=== PATIENT | female | born 1980 ===

== ENCOUNTER 2020-05-20 13:00 | Outpatient (REF) | payer MEDICAID, SELFPAY ==
[2020-05-21 04:32] LABS: CT PCR NOT DETECTED (Not Detect.); NG PCR NOT DETECTED (Not Detect.)
[2020-05-21 09:30] LABS: BV Int Neg Control Negative (Negative); BV Int Pos Control Positive (Positive)
== END 2020-05-20 13:01 | disposition home or self-care (01) ==
LOC: HO.LAB 13:00
PROVIDERS: Visit Provider Advanced Practice Midwife
DX: N92.4 Excessive bleeding in the premenopausal period (principal)
CPT/HCPCS: 87480; 87491; 87510; 87591; 87660; 99212

== ENCOUNTER 2020-06-06 14:22 | Outpatient (REF) | payer MEDICAID, SELFPAY ==
--- NOTE | 2020-06-06 14:29 | MM_ITS ---
EXAMINATION: MM DIAGNOSTIC DIGITAL BREAST TOMOSYNTHESIS, LEFT CLINICAL INFORMATION: Six-month follow-up left breast density The lifetime risk of breast cancer based on the Tyrer-Cuzick Model is 7.6%. COMPARISON: Mammography: November 07, 2019 and studies dating back to March 23, 2018 TECHNIQUE: Digital breast tomosynthesis is performed in both the craniocaudal and mediolateral oblique views along with computer-aided detection (CAD). Synthesized 2D images are generated from the tomosynthesis. FINDINGS: There are scattered areas of fibroglandular density (ACR BI-RADS breast composition Category b). There are no significant masses, abnormal calcifications, or other abnormalities. Results are provided to the patient at time of visit by the technologist. MM/MM tomosynthesis diagnostic LT IMPRESSION: No significant change from prior study. No suspicious mass identified. ASSESSMENT: BI-RADS 1: Negative RECOMMENDATION: Routine annual mammography screening, due in 6 months. This patient's information was entered into a reminder system with a target due date for their next mammogram.
== END 2020-06-06 14:23 | disposition home or self-care (01) ==
LOC: HO.MAMMO 14:22
PROVIDERS: PCP Internal Medicine; Visit Provider Internal Medicine
DX: R92.2 Inconclusive mammogram (principal)
CPT/HCPCS: 77061; 77065

== ENCOUNTER → 2020-07-05 09:00 | Outpatient (BNV) | payer MEDICAID, SELFPAY | PROVIDERS: Visit Provider Internal Medicine | DX: D50.9 Iron deficiency anemia, unspecified (principal) | CPT/HCPCS: 99212; 99213; 99214 ==

== ENCOUNTER → 2020-07-16 14:32 | Outpatient (BNVA) | payer MEDICAID, SELFPAY | PROVIDERS: Visit Provider Dietitian, Registered ==

== ENCOUNTER 2020-07-19 | Outpatient (REF) | payer MEDICAID, SELFPAY | END 2020-07-19 00:01 | disposition home or self-care (01) | LOC: HO.LAB | PROVIDERS: Visit Provider Physician Assistant | DX: M47.816 Spondylosis without myelopathy or radiculopathy, lumbar region (principal); Z79.899 Other long term (current) drug therapy | CPT/HCPCS: 99212 ==

== ENCOUNTER → 2020-08-20 07:58 | Outpatient (BNVA) | payer MEDICAID, SELFPAY | PROVIDERS: Visit Provider Dietitian, Registered ==

== ENCOUNTER → 2020-10-10 09:07 | Outpatient (BNVA) | payer MEDICAID, SELFPAY | PROVIDERS: PCP Internal Medicine; Visit Provider Student in an Organized Health Care Education/Training Program | DX: M54.2 Cervicalgia (principal) | CPT/HCPCS: 99212 ==

== ENCOUNTER → 2020-11-05 08:06 | Outpatient (BNVA) | payer MEDICAID, SELFPAY | PROVIDERS: PCP Internal Medicine; Visit Provider Physician Assistant | DX: M79.18 Myalgia, other site (principal); M54.2 Cervicalgia | CPT/HCPCS: 20552; 20553; 99202 ==

== ENCOUNTER 2020-11-14 16:07 | Emergency (ER) | payer MEDICAID, SELFPAY ==
[2020-11-14 16:40] VITALS: BP 116/76; PULSE 78; RESP 17; TEMP 37.3; O2SAT 99
--- NOTE | 2020-11-14 16:50 | ED_ITS ---
HPI - General Adult General Chief complaint: Headache Stated complaint: Headache Time Seen by Provider: 11/14/20 16:24 Source: patient Mode of arrival: ambulatory Limitations: no limitations History of Present Illness HPI narrative: Patient comes emergency room complaining of headache, bilateral neck pain on both sides of the neck radiating towards the scapulas bilaterally. Patient states she has been having this chronic neck pain for 4 months. However, over the last 4 days the pain intensified. Patient denies any history of trauma. Patient states she has been seen by her primary care physician multiple times for this issue, 3 days ago she received injections in her back for pain control. Patient states that she has noticed over the last week that she has a tingling sensation radiating, radiating towards both hands. At this time, patient does not feel paresthesia in her upper extremities. Patient denies fever or chills. Patient states she was seen by her primary care physician this morning, patient was sent to the emergency room for further evaluation. For the headache, patient has been taking ibuprofen. It was noted the patient is on a bariatric patient. Patient states that she does not have Tylenol home, therefore she has been taking ibuprofen although she has been asked by her bariatric surgeon not to do so. Related Data Home Medications Medication Instructions Recorded Confirmed ascorbic acid (vitamin C) [Vitamin 25 mg PO DAILY 04/30/20 11/05/20 C] multivitamin 1 tab PO DAILY 04/30/20 11/05/20 vitamin B81-wdybo acid 1 tab PO DAILY 04/30/20 11/05/20 ferrous sulfate 325 mg (65 mg 325 mg PO BID 07/19/20 11/05/20 iron) tablet Previous Rx's Medication Instructions Recorded calcium citrate 250 mg 2 tab PO BID #120 tab 07/16/20 calcium-vitamin D3 5 mcg (200 unit) tablet tramadol 50 mg tablet 50 mg PO TID PRN 30 Days #90 tab 08/07/20 cyanocobalamin (vitamin B-12) 100 mcg IM QMONTH #3 ea 11/01/20 baclofen 10 mg PO TID PRN #10 tab 11/14/20 sumatriptan succinate 50 mg PO Q2-4H PRN #7 tab 11/14/20 Allergies Allergy/AdvReac Type Severity Reaction Status Date / Time adhesive tape [ADHESIVE TAPE] Allergy Intermediate BURN/BLISTE Verified 11/05/20 11:28 R Review of Systems Review of Systems: Constitutional : No Weight loss, No Fever, No Chills, No Night Sweats, No Fatigue, No Malaise ENT/Mouth : No Hearing loss, No Ear Pain, No Nasal Congestion, No Sinus Pain, No Hoarseness, No sore throat, No Rhinorrhea, No Swallowing Difficulty Eyes: No Eye Pain, No Swelling, No Redness, No Foreign Body, No Discharge, No Vision Changes Cardiovascular : No Chest Pain, No SOB, No Dyspnea on Exertion, No Orthopnea, No Edema, No Palpitations Respiratory : No Cough, No Sputum, No Wheezing, No Smoke Exposure, No Dyspnea Gastrointestinal : No Nausea, No Vomiting, No Diarrhea, No Constipation, No abdominal Pain, No Hematochezia, No Melena Genitourinary : no irregular bleeding, No Dysuria, No Urinary Frequency, No Hematuria, No Urinary Incontinence, No Urgency, No Flank Pain, No Urinary Flow Changes, No Hesitancy Musculoskeletal : Acute on chronic pain bilateral sides of the neck radiating towards the scapulas Skin : No Skin Lesions, No rash Neuro : No Weakness, No Numbness, complaining of mild paresthesias in both hands , No Loss of Consciousness, No Dizziness, No Headache Psych : No Anxiety/Panic, No Depression, No SI/HI/AH/VH, No Social Issues, Heme/Lymph: No Bruising, No Bleeding,No Lymphadenopathy Endocrine : No Polyuria, No Polydipsia, No Temperature Intolerance [facility] Past Medical History Medical History (Updated 11/14/20 @ 21:07 by Esperanza Amado MD) Anemia Arthritis Fatigue Fibromyalgia GERD (gastroesophageal reflux disease) Intestinal malabsorption following gastrectomy Lumbar spondylosis Obesity (BMI 30-39.9) Sleep apnea Surgical History S/P laparoscopic sleeve gastrectomy Family History Family History Father Respiratory arrest Sister Anemia Social History Social History Alcohol intake: never Smoking Status: Never smoker Advance Directives: No Advance Directives Information Provided: Yes Patient : No Gender identity: female Physical Exam Vital Signs: Vital Signs: Last Vital Signs Temp 99.1 F 11/14/20 16:40 Pulse 78 11/14/20 16:40 Resp 17 11/14/20 16:40 BP 116/76 11/14/20 16:40 Pulse Ox 99 11/14/20 16:40 Body Mass Index 35.4 Appearance: Alert. Oriented X3. No acute distress. Well-appearing, no fever Eyes: Pupils equal, round and reactive to light. ENT: Pharynx normal. Neck: Normal inspection. Pain to palpation over the trapezius muscles bilaterally, no C-spine tenderness. Patient is able to flex and extend her neck, is able to touch her chin, no neck rigidity noted CVS: Normal heart rate and rhythm. Pulses normal. Normal S1 and S2 Respiratory: No respiratory distress. Breath sounds normal. No Wheezing. No rales Abdomen: Soft and nontender. No rigidity. No distention. good BS x4 Skin: Skin warm and dry. Normal skin color. Normal skin turgor. Extremities: No lower extremity edema. No lower extremity edema. No Lacerations. No Rash Neuro: Oriented X 3. No motor deficit. No sensory deficit. Moving all ext ermities. No slurred speech. Course Course Course Narrative: Patient's history and physical exam is consistent with cervical radiculopathy. Patient likely has either an entrapped nerve versus bulging discs. Patient states that her primary care physician already spoke to her about getting an MRI. At this time, meningitis is not suspected Patient's back pain improved with the an oral dose of Valium. After a dose of sumatriptan, patient states that her headache improved quite a bit. Patient r equesting that prescription to be sent to her pharmacy. Patient is now able to flex and extend her neck completely with minimal discomfort. Patient states she does not have any neck pain, states she feels a slight pull between her shoulder blades rather than her neck. Meningitis is not suspected I discussed with the patient that she is anemic, states that she is currently taking iron p.o. and is scheduled to get iron infusions. Patient states that she has very heavy menstrual periods, I discussed with her to talk with her primary care physician/OBGYN about possibly getting an IUD to help with menorrhagia Medical Decision Making Lab Data Result diagrams: 11/14/20 17:20 11/14/20 17:20 Labs: Lab Results 11/14/20 11/14/20 Range/Units 17:20 17:20 WBC 7.0 (4.8-10.8) X10*3/uL RBC 3.27 L (4.20-5.50) X10*6/uL Hgb 9.8 L (12.0-16.0) g/dl Hct 29.5 L (37-47) % MCV 90.2 (80-98) fL MCH 30.0 (27.0-33.0) pg MCHC 33.2 (31.0-35.0) g/dl RDW 12.0 (11.0-16.0) % Plt Count 251 (160-400) X10*3/uL MPV 8.5 L (9.4-12.3) fL Immature Gran % (Auto) 0.1 (0.0-0.4) % Neut % (Auto) 63.0 (45-73) % Lymph % (Auto) 29.1 (20-40) % [place] % (Auto) 6.9 (2-11) % Eos % (Auto) 0.6 (0-4) % Baso % (Auto) 0.3 (0-2) % Lymph # (Auto) 2.0 (1.2-4.9) X10*3/uL [place] # (Auto) 0.5 (0.1-1.2) X10*3/uL Eos # (Auto) 0.0 (0.0-0.4) X10*3/uL Baso # (Auto) 0.0 (0.0-0.2) X10*3/uL Abs Immat Gran (auto) 0.01 (0.00-0.03) X10*3/uL Absolute Neuts (auto) 4.4 (2.0-8.3) X10*3/uL Absolute Nucleated RBC 0.000 (0.0-0.012) X10*3/uL Nucleated RBC % (auto) 0.0 (0.0-0.2) /100WBC Sodium 139 (135-145) mmol/L Potassium 3.6 (3.3-5.1) mmol/L Chloride 105 (96-108) mmol/L Carbon Dioxide 27 (22-29) mmol/L Anion Gap 11 L (12-20) BUN 13 (9-16) mg/dL Creatinine 0.71 (0.5-1.4) mg/dL Estim Creat Clear Calc 112.5 Estimated GFR > 60 Random Glucose 107 (60-115) mg/dL Calcium 9.0 (8.4-10.2) mg/dL Discharge Plan Discharge Clinical Impression: Myofascial pain syndrome, cervical Headache Qualifiers: Headache type: unspecified Headache chronicity pattern: unspecified pattern Intractability: not intractable Qualified Code(s): R51.9 - Headache, unspecified Patient Disposition: Home, Self-Care Instructions: Acute Headache (ED) Additional Instructions: Please follow-up with your primary care physician tomorrow. If you have any worsening or new symptoms, please return to the emergency room or call 911 Prescriptions: New sumatriptan succinate 50 mg tablet 50 mg PO Q2-4H PRN (Reason: migraine headache) Qty: 7 RF: 0 baclofen 10 mg tablet 10 mg PO TID PRN (Reason: muscle pain) Qty: 10 RF: 0 No Action tramadol 50 mg tablet 50 mg PO TID PRN (Reason: pain) 30 Days Qty: 90 RF: 5 multivitamin Tablet 1 tab PO DAILY RF: 0 Vitamin C 25 mg Tablet 25 mg PO DAILY RF: 0 vitamin Q73-erfbb acid 500-400 mcg Tablet 1 tab PO DAILY RF: 0 cyanocobalamin (vitamin B-12) 1,000 mcg/mL Kit 100 mcg IM QMONTH Qty: 3 RF: 3 calcium citrate-vitamin D3 250 mg-5 mcg (200 unit) tablet 2 tab PO BID Qty: 120 RF: 11 ferrous sulfate 325 mg (65 mg iron) tablet 325 mg PO BID RF: 0
[2020-11-14 17:14] VITALS: BMI 35.4
[2020-11-14 17:25] LABS: MANUAL DIFF FLAG NO
[2020-11-14 17:27] LABS: Basophils Percent Auto 0.3 % (0-2); Eosinophils Percent Auto 0.6 % (0-4); Hematocrit 29.5 % (37-47); Hemoglobin 9.8 g/dl (12.0-16.0); Imm Gran Abs Auto 0.01 X10*3/uL (0.00-0.03); Imm Gran Pct Auto 0.1 % (0.0-0.4); Lymphocytes Percent Auto 29.1 % (20-40); Mean Corpuscular HGB Conc 33.2 g/dl (31.0-35.0); Mean Corpuscular Volume 90.2 fL (80-98); Mean Platelet Volume 8.5 fL (9.4-12.3); Monocytes Absolute Auto 0.5 X10*3/uL (0.1-1.2); Monocytes Percent Auto 6.9 % (2-11); Neutrophils Absolute Auto 4.4 X10*3/uL (2.0-8.3); Platelet Count 251 X10*3/uL (160-400); Red Blood Count 3.27 X10*6/uL (4.20-5.50)
[2020-11-14] MEDS: diazePAM 5 MG TABLET PO (17:32)
[2020-11-14] MEDS: Morphine Sulfate 4 MG/ML CARTRIDGE IVPUSH (17:33)
[2020-11-14] MEDS: Metoclopramide HCl 10 MG/2 ML VIAL IVPUSH (17:33)
[2020-11-14] MEDS: 0.9 % Sodium Chloride 1,000 ML 999 ML IVCONT (17:33)
[2020-11-14 17:57] LABS: Anion Gap 11 (12-20); Blood Urea Nitrogen 13 mg/dL (9-16); Carbon Dioxide 27 mmol/L (22-29); Chloride 105 mmol/L (96-108); Creatinine Clr Calc Pharmacy 112.5; Estimated Glomerular Filt Rate > 60; Glucose Random 107 mg/dL (60-115); Potassium 3.6 mmol/L (3.3-5.1); Sodium 139 mmol/L (135-145)
[2020-11-14] MEDS: SUMAtriptan succinate 100 MG TABLET PO (20:09)
== END 2020-11-14 21:44 | disposition home or self-care (01) ==
PROVIDERS: Emergency Provider Emergency Medicine
DX: R51.9 Headache, unspecified (principal); M79.18 Myalgia, other site; M54.2 Cervicalgia; Z98.84 Bariatric surgery status
CPT/HCPCS: 36415; 80048; 85025; 96361; 96374; 96375; 99283; 99284; J2270; J2765

== ENCOUNTER 2020-12-12 14:56 | Outpatient (REF) | payer MEDICAID, SELFPAY ==
--- NOTE | ~2020-12-12 | MM_ITS ---
EXAMINATION: MM SCREENING DIGITAL BREAST TOMOSYNTHESIS, BILATERAL CLINICAL INFORMATION: Screening. Asymptomatic. The lifetime risk of breast cancer based on the Tyrer-Cuzick Model is 8%. COMPARISON: Mammography: 06/06/2020, 11/07/2019, 09/22/2018, 03/23/2018 TECHNIQUE: Digital breast tomosynthesis is performed in both the craniocaudal and mediolateral oblique views along with computer-aided detection (CAD). Synthesized 2D images are generated from the tomosynthesis. FINDINGS: There are scattered areas of fibroglandular density (ACR BI-RADS breast composition Category b). There are no significant masses, abnormal calcifications, or other abnormalities. No developing density. The skin contours are smooth. No significant changes. MM/MM tomosynthesis screening BI IMPRESSION: No mammographic evidence of malignancy. ASSESSMENT: BI-RADS 1: Negative RECOMMENDATION: Routine annual mammography screening. This patient's information was entered into a reminder system with a target due date for their next mammogram.
== END 2020-12-12 14:57 | disposition home or self-care (01) ==
LOC: HO.MAMMO 14:56
PROVIDERS: Visit Provider Internal Medicine
DX: Z12.31 Encounter for screening mammogram for malignant neoplasm of breast (principal)
CPT/HCPCS: 77063; 77067

== ENCOUNTER → 2021-02-03 11:26 | Outpatient (BNVA) | payer MEDICAID, SELFPAY | PROVIDERS: Referring Provider Internal Medicine; Visit Provider Physician Assistant | DX: E66.9 Obesity, unspecified (principal); Z98.84 Bariatric surgery status; Z68.32 Body mass index [BMI] 32.0-32.9, adult | CPT/HCPCS: 99212 ==

== ENCOUNTER → 2021-05-26 15:05 | Outpatient (BNVA) | payer MEDICAID, SELFPAY | PROVIDERS: PCP Internal Medicine ==

== ENCOUNTER → 2021-07-22 13:00 | Outpatient (BNVA) | payer MEDICAID, SELFPAY | PROVIDERS: PCP Internal Medicine; Visit Provider Nurse Practitioner Family | DX: M54.2 Cervicalgia (principal) | CPT/HCPCS: 99212 ==

== ENCOUNTER 2021-10-10 10:08 | Emergency (ER) | payer MEDICAID, SELFPAY ==
--- NOTE | ~2021-10-10 | XR_ITS ---
EXAMINATION: XR SHOULDER, RIGHT CLINICAL INFORMATION: Right shoulder pain, pulling injury COMPARISON: None TECHNIQUE: AP external rotation, Grashey, scapular Y, and axillary views of the right shoulder. FINDINGS: There is mild acromioclavicular osteoarthritis. Glenohumeral joint is well preserved. No fracture. Alignment is anatomic. Mild calcific tendinopathy of the rotator cuff. XR/XR shoulder RT min 2V IMPRESSION: Acromioclavicular joint arthritis and mild rotator cuff tendinopathy.
[2021-10-10 10:18] VITALS: BP 125/54; PULSE 68; RESP 16; TEMP 36.3; O2SAT 100; BMI 32.6
--- NOTE | 2021-10-10 11:19 | ED.EXTPRO ---
HPI - Extremity Problem General Chief complaint: Extremity Problem Stated complaint: r shoulder pain Time Seen by Provider: 10/10/21 10:47 Source: patient Mode of arrival: ambulatory History of Present Illness HPI Narrative: 41-year-old female with a past medical history of anemia, arthritis, fibromyalgia, GERD, lumbar spondylosis, sleep apnea, presenting to the ED complaining of right shoulder pain times 2 days s/p using arm to lift herself up. Reports pain with arm ROM. Denies direct trauma/injury or fall. Denies numbness, tingling, weakness. Has been taking tramadol and Tylenol at home without relief Complaint: extremity pain Onset (ago): day(s) Pain Consistency: constant Related Data Home Medications Medication Instructions Recorded Confirmed ascorbic acid (vitamin C) 25 mg 25 mg PO DAILY 04/30/20 07/22/21 tablet multivitamin 1 tab PO DAILY 04/30/20 07/22/21 vitamin B12 500 mcg-folic acid 400 1 tab PO DAILY 04/30/20 07/22/21 mcg tablet ferrous sulfate 325 mg (65 mg 325 mg PO BID 07/19/20 07/22/21 iron) tablet calcium citrate 250 mg 2 tab PO BID tab 07/22/21 07/22/21 calcium-vitamin D3 5 mcg (200 unit) tablet Previous Rx's Medication Instructions Recorded cyanocobalamin (vitamin B-12) 100 mcg (0.1 mL) IM QMONTH #3 ea 11/01/20 1,000 mcg/mL injection kit baclofen 10 mg tablet 10 mg PO TID PRN #10 tab 11/14/20 sumatriptan succinate 50 mg tablet 50 mg PO Q2-4H PRN #7 tab 11/14/20 tramadol 50 mg tablet 50 mg PO TID #90 tab 07/03/21 acetaminophen 500 mg tablet 500 mg PO Q6H PRN #20 tab 10/10/21 (Tylenol Extra Strength) cyclobenzaprine 5 mg tablet 5 mg PO Q8H PRN 5 Days #10 tab 10/10/21 naproxen 500 mg tablet 500 mg PO BID PRN 10 Days #20 tab 10/10/21 Allergies Allergy/AdvReac Type Severity Reaction Status Date / Time adhesive tape [ADHESIVE TAPE] Allergy Intermediate BURN/BLISTE Verified 07/22/21 13:20 R Review of Systems Review of Systems: Constitutional: No Fever, No Chills ENT/Mouth: No Ear Pain, No Nasal Congestion, No Sinus Pain, No Hoarseness, No sore throat, No Rhinorrhea, No Swallowing Difficulty Cardiovascular: No Chest Pain, No SOB Respiratory: No Cough, No Sputum Gastrointestinal: No Nausea, No Vomiting, No Diarrhea, No Constipation, No Abdominal pain Genitourinary: No Dysuria, No Urinary Frequency, No Hematuria, No Flank Pain Musculoskeletal:+ joint pain, No Myalgias, No Joint Swelling Skin: No Skin Lesions, No rash Neuro: No Weakness, No Numbness, No Paresthesias Yes all other systems are reviewed and are negative ON LICENSE OF [facility] Past Medical History Attestation statement: The following information was validated with the patient. Medical History Anemia Arthritis Fatigue Fibromyalgia GERD (gastroesophageal reflux disease) Intestinal malabsorption following gastrectomy Lumbar spondylosis Obesity (BMI 30-39.9) Sleep apnea Surgical History S/P laparoscopic sleeve gastrectomy Family History Family History Father Respiratory arrest Sister Anemia Social History Social History Alcohol intake: never Patient Tobacco Use Status: Never used Tobacco Advance Directives: No Gender identity: Female Physical Exam Vital Signs: Vital Signs: Last Vital Signs Temp 97.3 F 10/10/21 10:18 Pulse 68 10/10/21 10:18 Resp 16 10/10/21 10:18 BP 125/54 L 10/10/21 10:18 Pulse Ox 100 10/10/21 10:18 BMI result Body Mass Index 32.6 Const: General: cooperative, healthy appearing and no acute distress Orientation/consciousness: patient oriented x3 Limitations: no limitations HEENT: Head: Yes normal to inspection Ears: hearing grossly normal bilaterally General nose exam: Normal external nose present Face and sinus: Yes normal facial exam Eyes: General: appearance normal, both eyes and all related structures EOM: EOMs intact bilaterally Neck: Other: No midline cervical spinous tenderness/step-off or deformity. Mild right-sided paraspinal/trapezius muscle tenderness Neck: Yes normal visual inspection and Yes full ROM Chest: Chest palpation & inspection: normal inspection of the chest Resp: Effort & Inspection: normal respiratory effort and no respiratory distress Cardio: Rate: regular rate Heart sounds: S1 normal heart sound present and S2 normal heart sound present Peripheral pulses: radial pulses present : General: Yes no CVA tenderness Back/Spine/Pelvis: Other: No midline thoracic/lumbar spinous tenderness Back: no CVA tenderness Skin: Rashes: no rashes Wounds: no wounds Neuro: General: patient oriented x3 Gait exam (Neuro): Normal gait present Extrem: Other: Right shoulder with diffuse tenderness greater to AC joint and deltoid. No appreciable deformity/erythema or crepitus. Decreased ROM secondary to pain. Neurovascularly intact distally. General: Yes normal to inspection Course Course Course Narrative: XR shoulder RT min 2V IMPRESSION: Acromioclavicular joint arthritis and mild rotator cuff tendinopathy > results discussed with patient including needed follow-up with PCP/orthopedics as needed MDM - Extremity (Nontraumatic) MDM Narrative Medical decision making narrative: 41-year-old female with a past medical history of anemia, arthritis, fibromyalgia, GERD, lumbar spondylosis, sleep apnea, presenting to the ED complaining of right shoulder pain times 2 days s/p using arm to lift herself up. On exam vital signs stable, NAD, physical exam as above. Concern for tendinitis or ligamental injury vs MSK pain/strain. Unlikely fracture/dislocation or cord compression Pain: X-rays, pain control Medical Records Attestation: I reviewed the patient's medical records. Lab Data Attestation: I reviewed the patient's lab results. Discharge Plan Discharge Clinical Impression: Acromioclavicular joint arthritis, Tendinopathy of right rotator cuff Patient Disposition: Home, Self-Care Instructions: Rotator Cuff Tendinitis (ED), Arthritis (ED) Additional Instructions: Your x-ray shows acromioclavicular joint arthritis and mild rotator cuff tendinitis. You need to take anti-inflammatory pain medication, continue other home prescribed pain medication. In addition Flexeril as a muscle relaxer, take as needed, take at night, do not drive, drink alcohol, or operate machinery while taking muscle relaxers. Please follow-up with her primary care doctor Rain radiograf?a muestra artritis de la articulaci?n acromioclavicular y tendinitis leve del manguito rotador. Debe rufina analg?sicos antiinflamatorios, continuar con otros analg?sicos recetados en el hogar. Adem?s, Flexeril tessy relajante muscular, t?rubi seg?n sea necesario, t?rubi por la noche, no conduzca, brea alcohol ni opere maquinaria mientras gogo relajantes musculares. Por favor, sumaya un seguimiento con rain m?dico de atenci?n primaria. Prescriptions: New acetaminophen [Tylenol Extra Strength] 500 mg tablet 500 mg PO Q6H PRN (Reason: pain or fever) Qty: 20 0RF naproxen 500 mg tablet 500 mg PO BID PRN (Reason: pain) 10 Days Qty: 20 0RF cyclobenzaprine 5 mg tablet 5 mg PO Q8H PRN (Reason: pain (scale score 7-10)) 5 Days Qty: 10 0RF No Action tramadol 50 mg tablet 50 mg PO TID Qty: 90 3RF multivitamin Tablet 1 tab PO DAILY 0RF Vitamin C 25 mg Tablet 25 mg PO DAILY 0RF vitamin X32-amefr acid 500-400 mcg Tablet 1 tab PO DAILY 0RF cyanocobalamin (vitamin B-12) 1,000 mcg/mL Kit 100 mcg IM QMONTH Qty: 3 3RF sumatriptan succinate 50 mg tablet 50 mg PO Q2-4H PRN (Reason: migraine headache) Qty: 7 0RF Rx Instructions: do not exceed 4 doses per 24 hrs baclofen 10 mg tablet 10 mg PO TID PRN (Reason: muscle pain) Qty: 10 0RF ferrous sulfate 325 mg (65 mg iron) tablet 325 mg PO BID 0RF calcium citrate-vitamin D3 250 mg-5 mcg (200 unit) tablet 2 tab PO BID 0RF Referrals: Mara Sun PA-C [Physician Passenger Representative] - (as needed) Bre Peacock MD [Primary Care Provider] - 1 week Print Language: Swedish
[2021-10-10] MEDS: Ketorolac Tromethamine 30 MG/ML VIAL IM (11:36)
== END 2021-10-10 12:00 | disposition home or self-care (01) ==
PROVIDERS: Emergency Provider Emergency Medicine; PCP Internal Medicine
DX: M19.011 Primary osteoarthritis, right shoulder (principal); M25.511 Pain in right shoulder; Z79.899 Other long term (current) drug therapy
CPT/HCPCS: 73030; 96372; 99284; J1885

== ENCOUNTER 2021-12-01 08:11 | Outpatient (REF) | payer MEDICAID, SELFPAY | END 2021-12-01 08:12 | disposition home or self-care (01) | LOC: HO.MDS 08:11 | PROVIDERS: PCP Internal Medicine; Visit Provider Internal Medicine | DX: D50.9 Iron deficiency anemia, unspecified (principal) | CPT/HCPCS: 96365; 96366; J1200; J1750; Q0163 ==

== ENCOUNTER 2021-12-12 12:31 | Outpatient (REF) | payer MEDICAID, SELFPAY ==
--- NOTE | ~2021-12-12 | MM_ITS ---
EXAMINATION: MM SCREENING DIGITAL BREAST TOMOSYNTHESIS, BILATERAL CLINICAL INFORMATION: Screening. Asymptomatic. The lifetime risk of breast cancer based on the Tyrer-Cuzick Model is 7%. COMPARISON: Mammography: 12/12/2020, 06/06/2020, 11/07/2019, 09/22/2018 TECHNIQUE: Digital breast tomosynthesis is performed in both the craniocaudal and mediolateral oblique views along with computer-aided detection (CAD). Synthesized 2D images are generated from the tomosynthesis. Additional exaggerated left CC view is provided. FINDINGS: There are scattered areas of fibroglandular density (ACR BI-RADS breast composition Category b). There are no significant masses, abnormal calcifications, or other abnormalities. There is no developing density or architectural abnormality. The axilla and skin contours are unremarkable. MM/MM tomosynthesis screening BI IMPRESSION: No mammographic evidence of malignancy. ASSESSMENT: BI-RADS 1: Negative RECOMMENDATION: Routine annual mammography screening. This patient's information was entered into a reminder system with a target due date for their next mammogram.
== END 2021-12-12 12:32 | disposition home or self-care (01) ==
LOC: HO.MAMMO 12:31
PROVIDERS: Visit Provider Internal Medicine
DX: Z12.31 Encounter for screening mammogram for malignant neoplasm of breast (principal)
CPT/HCPCS: 77063; 77067

== ENCOUNTER 2022-02-19 14:28 | Outpatient (REF) | payer MEDICAID, SELFPAY ==
[2022-02-20 02:35] LABS: CT PCR NOT DETECTED (Not Detect.); NG PCR NOT DETECTED (Not Detect.)
[2022-02-20 13:08] LABS: BV Int Neg Control Negative (Negative); BV Int Pos Control Positive (Positive)
== END 2022-02-19 14:29 | disposition home or self-care (01) ==
LOC: HO.LAB 14:28
PROVIDERS: Visit Provider Advanced Practice Midwife
DX: Z11.3 Encounter for screening for infections with a predominantly sexual mode of transmission (principal); N92.4 Excessive bleeding in the premenopausal period
CPT/HCPCS: 87480; 87491; 87510; 87591; 87660; 99212

== ENCOUNTER 2022-04-09 15:03 | Outpatient (REF) | payer MEDICAID, SELFPAY ==
--- NOTE | ~2022-04-09 | US_ITS ---
EXAMINATION: US PELVIS CLINICAL INFORMATION: Excessive bleeding in the premenopausal. COMPARISON: None TECHNIQUE: Ultrasound of the pelvis is performed using both transabdominal and transvaginal transducers along with Doppler. Transvaginal imaging is performed due to inadequate visualization transabdominally. FINDINGS: Uterus: The uterus is anteverted, anteflexed and measures 7.8 cm in length, 4.1 cm in AP, and 5.8 cm in transverse dimension. The double wall endometrial thickness is 0.4 cm. The uterus is smooth in contour and has normal myometrial echogenicity. No visible fibroid. There is a small hypoechoic lesion in the lower uterine segment/cervical canal likely polyp, measuring 1.3 x 0.6 x 0.7 cm. There are small anechoic nabothian cysts seen as well. Adnexa: Both ovaries are visualized. There is normal color flow to the adnexa. There is no ovarian torsion. There is no pelvic ascites or fluid collection. Right ovary measures 3.4 x 2.0 x 1.9 and volume 6.8 mL. The ovary appears unremarkable. Previously, right ovary measured 3.8 x 2.6 x 2.6 cm. Left ovary measures 3.5 x 1.8 x 1.5 cm and volume 5.0 mL. There is a paraovarian cyst 2.5 x 1.1 x 1.4 cm. Previously, left ovary measured 3.5 x 2.6 x 2.1 cm. There is no free fluid in the cul-de-sac. US/US pelvic and transvaginal IMPRESSION: Unremarkable uterus. Likely small cervical polyp. Nabothian cysts in cervix noted. There is left paraovarian cyst measuring 2.5 x 1.1 x 1.4 cm.
== END 2022-04-09 15:04 | disposition home or self-care (01) ==
LOC: HO.US 15:03
PROVIDERS: Visit Provider Advanced Practice Midwife
DX: N92.4 Excessive bleeding in the premenopausal period (principal)
CPT/HCPCS: 76830; 76856

== ENCOUNTER 2022-05-20 09:38 | Outpatient (REF) | payer MEDICAID, SELFPAY ==
[2022-05-20 10:36] LABS: MANUAL DIFF FLAG NO
[2022-05-20 11:05] LABS: Basophils Percent Auto 0.3 % (0-2); Eosinophils Absolute Auto 0.1 X10*3/uL (0.0-0.4); Eosinophils Percent Auto 1.5 % (0-4); Hematocrit 34.4 % (37.0-47.0); Hemoglobin 11.2 g/dl (12.0-16.0); Imm Gran Abs Auto 0.01 X10*3/uL (0.00-0.03); Imm Gran Pct Auto 0.3 % (0.0-0.4); Lymphocytes Absolute Auto 1.6 X10*3/uL (1.2-4.9); Lymphocytes Percent Auto 39.3 % (20-40); Mean Corpuscular HGB Conc 32.6 g/dl (31.0-35.0); Mean Corpuscular Volume 89.1 fL (80.0-98.0); Mean Platelet Volume 8.9 fL (9.4-12.3); Monocytes Absolute Auto 0.4 X10*3/uL (0.1-1.2); Monocytes Percent Auto 9.1 % (2-11); Neutrophils Percent Auto 49.5 % (45-73); Platelet Count 233 X10*3/uL (160-400); Red Blood Count 3.86 X10*6/uL (4.20-5.50); Red Cell Distribution Width 11.9 % (11.0-16.0)
[2022-05-20 11:56] LABS: Alanine Aminotransferase 13 U/L (0-31); Albumin Level 4.4 g/dL (3.5-5.0); Alkaline Phosphatase 54 U/L (39-117); Anion Gap 11 (12-20); Aspartate Amino Transferase 18 U/L (5-31); Bilirubin Total 0.5 mg/dL (0.0-1.0); Blood Urea Nitrogen 14 mg/dL (9-16); Calcium 9.3 mg/dL (8.4-10.2); Carbon Dioxide 28 mmol/L (22-29); Chloride 104 mmol/L (96-108); Estimated Glomerular Filt Rate > 60; Glucose Random 94 mg/dL (60-115); Potassium 4.2 mmol/L (3.3-5.1); Sodium 139 mmol/L (135-145); Total Protein 7.5 g/dL (6.5-8.0)
[2022-05-20 12:36] LABS: HCG Quantitative < 2 mIU/mL; TSH reflex Free T4 0.86 uIU/mL (0.32-4.0)
== END 2022-05-20 09:39 | disposition home or self-care (01) ==
LOC: HO.LAB 09:38
PROVIDERS: Internal Medicine; PCP Internal Medicine; Visit Provider Obstetrics & Gynecology
DX: N93.9 Abnormal uterine and vaginal bleeding, unspecified (principal); D64.9 Anemia, unspecified
CPT/HCPCS: 36415; 80053; 84443; 84702; 85025; 85027; 87491; 87591; 99212

== ENCOUNTER 2022-05-20 11:15 | Outpatient (REF) | payer MEDICAID, SELFPAY ==
[2022-05-20 14:17] LABS: CT PCR NOT DETECTED (Not Detect.); NG PCR NOT DETECTED (Not Detect.)
== END 2022-05-20 11:16 | disposition home or self-care (01) ==
LOC: HO.LNP 11:15
PROVIDERS: Visit Provider Obstetrics & Gynecology
DX: Z11.3 Encounter for screening for infections with a predominantly sexual mode of transmission (principal); N93.9 Abnormal uterine and vaginal bleeding, unspecified
CPT/HCPCS: 87491; 87591

== ENCOUNTER 2022-05-29 11:25 | Day surgery (SDC) | payer MEDICAID, SELFPAY ==
--- NOTE | 2022-05-28 09:40 | P.CONAN_ITS ---
Documented by User: Mona Carter NP 05/28/22 09:51 HPI - Anesthesia Eval Consult details Narrative: 42yo F for D&C Hysteroscopy possible polypectomy possible myomectomy PMFSH Active Problems Active Problems: All Active Problems (Updated 05/20/22 @ 09:53 by Farrukh Mckee MD) Abnormal uterine bleeding (Acute) Abnormal uterine bleeding due to endocervical polyp (Acute) Premenopause menorrhagia (Acute) Anemia (Chronic) Neck pain (Acute) Myofascial pain syndrome, cervical (Acute) Lumbar spondylosis (Acute) Obesity (BMI 30-39.9) (Acute) S/P laparoscopic sleeve gastrectomy (Acute) Intestinal malabsorption following gastrectomy (Acute) Past Medical History Medical History Anemia Arthritis Fatigue Fibromyalgia GERD (gastroesophageal reflux disease) Intestinal malabsorption following gastrectomy Lumbar spondylosis Obesity (BMI 30-39.9) SARS-CoV-2 positive Sleep apnea Family History Family History Father Respiratory arrest Sister Anemia Ovarian cancer Surgical History Surgical History H/O tubal ligation Hx of section S/P laparoscopic sleeve gastrectomy Social History Social History Alcohol intake: never Patient Tobacco Use Status: Never used Tobacco Use of substances other than those prescribed or required for medical reasons: No Are you DNR?: No Advance Directives: No Advance Directives Information Provided: Yes Gender identity: Female Meds Allergies Allergy/AdvReac Type Severity Reaction Status Date / Time adhesive tape [ADHESIVE TAPE] Allergy Intermediate BURN/BLISTE Verified 05/20/22 09:49 R Home Medications Medication Instructions Recorded Confirmed Last Taken Type ascorbic acid (vitamin C) 25 mg 25 mg PO DAILY 04/30/20 05/26/22 Unknown History tablet multivitamin 1 tab PO DAILY 04/30/20 05/26/22 Unknown History ferrous sulfate 325 mg (65 mg 325 mg PO BID 07/19/20 05/26/22 Unknown History iron) tablet Exam Exam Date and Time: May 28, 2022 0940 Pertinent Lab Results Pertinent Lab Results: Laboratory Tests 05/20/22 05/20/22 10:35 10:35 WBC 4.0 L Hgb 11.2 L Hct 34.4 L Plt Count 233 Sodium 139 Potassium 4.2 Chloride 104 Carbon Dioxide 28 BUN 14 Creatinine 0.75 Assessment and Plan Assessment Anesthesia Assessment: Chart Reviewed Documented by User: Sue Whelan MD 05/29/22 12:33 [facility]LY [facility] Past Medical History Medical History Anemia Arthritis Fatigue Fibromyalgia GERD (gastroesophageal reflux disease) Intestinal malabsorption following gastrectomy Lumbar spondylosis Obesity (BMI 30-39.9) SARS-CoV-2 positive Sleep apnea Family History Family History Father Respiratory arrest Sister Anemia Ovarian cancer Family history of problems with anesthesia: No Surgical History Surgical History H/O tubal ligation Hx of section S/P laparoscopic sleeve gastrectomy History of Problems with Anesthesia: No Social History Social History Alcohol intake: never Patient Tobacco Use Status: Never used Tobacco Use of substances other than those prescribed or required for medical reasons: No Are you DNR?: No Advance Directives: No Advance Directives Information Provided: Yes Gender identity: Female Meds Allergies Allergy/AdvReac Type Severity Reaction Status Date / Time adhesive tape [ADHESIVE TAPE] Allergy Intermediate BURN/BLISTE Verified 05/20/22 09:49 R Home Medications Medication Instructions Recorded Confirmed Last Taken Type ascorbic acid (vitamin C) 25 mg 25 mg PO DAILY 04/30/20 05/26/22 Unknown History tablet multivitamin 1 tab PO DAILY 04/30/20 05/26/22 Unknown History ferrous sulfate 325 mg (65 mg 325 mg PO BID 07/19/20 05/26/22 Unknown History iron) tablet Exam Airway Mallampati Class: II (2 caps on the bottom) TM Dist: >3cm Neck ROM: Full Heart: rrr Lungs: cta Assessment and Plan Assessment Anesthesia Assessment: Anesthesia Plan Discussed and Chart Reviewed Final Anesthetic Review Family History of Problems with Anesthesia: No History of Problems with Anesthesia: No NPO: Yes ASA Class: II Final Preanesthetic Review: No Changes in Pt Med Stat, Meds/Allgs Chart Reviewed and Consent Obtained/Reviewed Patient Risk: Intermediate Procedure Risk: Intermediate Anesthetic Plan Anesthetic Plan: GA Disposition: Standard PACU
[2022-05-29] VITALS (7 sets, daily range): BP systolic 111–131; BP diastolic 55–79; PULSE 60–82; RESP 16–18; TEMP 36.6–36.9; O2SAT 98–100; BMI 32.6
[2022-05-29 11:34] LABS: UPreg QC Valid YES; Urine Pregnancy NEGATIVE (NEGATIVE)
--- NOTE | 2022-05-29 12:31 | MHC.SHP ---
Pre-Procedural Eval Section A Date of Service: 05/29/22 The patient is an INPATIENT: No Changes since office visit: No Cold of Flu in the past 2 weeks, No New Medical Problems, No Changes in Medication and No Patient answered all questions The History & Physical has been completed within 30 days and I have reviewed it.: Yes Section B Chief Complaint: Abnormal uterine and vaginal bleeding, unspecified Allergies: Allergies Allergy/AdvReac Type Severity Reaction Status Date / Time adhesive tape [ADHESIVE TAPE] Allergy Intermediate BURN/BLISTE Verified 05/20/22 09:49 R Plan Diagnosis/Plan: Unchanged I have reviewed the history and physical and performed a pertinent physical examination on my patient. No changes have occurred unless specified.
--- NOTE | 2022-05-29 13:26 | P.BOP_ITS ---
Brief Operative Note Date of Service: 05/29/22 Pre-op diagnosis: Abnormal uterine bleeding, endocervical polyp Post-op diagnosis: same Procedure: Hysteroscopy D&C, endocervical Polypectomy Surgeon: Farrukh Mckee MD Anesthesia: GLMA Was an Clinical Professor used for this Procedure?: No Estimated blood loss (mL): 0 Pathology: other (Endometrial Scrapping. Endocervical Polyp) Condition: stable Disposition: PACU
--- NOTE | 2022-05-29 13:27 | W.PM.OPN ---
Operative Note Operative Note Date of Service: 05/29/22 Narrative: Preop Diagnosis: Abnormal uterine bleeding, endocervical Endometrial polyp by US Operation: Diagnostic Hysteroscopy, Dilataion & Curettage and endocervical polypectomy Post Op Diagnosis: Endometrial Polyp QBL: Minimal Anesthesia: GLMA Surgeon: Farrukh Mckee MD Kiln Burner: None Complication: None Pathology: Endometrial Scrapings, Endometrial polyp Procedure: The patient was put in the dorsal lithotomy position, scrubbed, and draped in the usual manner. A sterile speculum was inserted in the patient's vagina. The anterior lip of the cervix was grasped with a single tooth tenaculum. The cervix was dilated up to 5 mm, then the scope was inserted in the patient's uterus. Inspection revealed endocervical endometrial polyp. The Myosure Reach device was used; it was introduced through the operative channel and polypectomy done with no complications. The scope was then taken out from the uterine cavity, sharp curettings was carried on with minimal to moderate amount of tissues retrieved. At the end of the procedure, all instruments were taken out of the patient uterine and vaginal cavity. The single tooth tenaculum was removed and homeostasis was assured using pressure,. The patient tolerated the procedure well and was transferred to the PACU in a stable condition.
[2022-05-29] MEDS: oxyCODONE HCl Immed Release 5 MG TABLET PO (13:42)
== END 2022-05-29 14:29 | disposition home or self-care (01) ==
PROVIDERS: PCP Internal Medicine; Visit Provider Obstetrics & Gynecology
PROC: 0UDB8ZZ Extraction of Endometrium, Via Natural or Artificial Opening Endoscopic (ICD-10-PCS; CPT 58558; principal; 2022-05-29 12:30)
DX: N93.9 Abnormal uterine and vaginal bleeding, unspecified (principal); N84.1 Polyp of cervix uteri; Q50.5 Embryonic cyst of broad ligament; Z98.51 Tubal ligation status; D64.9 Anemia, unspecified; M79.7 Fibromyalgia; Z86.010 Personal history of colon polyps; R53.83 Other fatigue; G47.30 Sleep apnea, unspecified; E66.9 Obesity, unspecified; Z68.33 Body mass index [BMI] 33.0-33.9, adult; Z98.84 Bariatric surgery status; Z20.822 Contact with and (suspected) exposure to COVID-19
CPT/HCPCS: 58558; 81025; 88305; J1100; J2405; J3010

== ENCOUNTER → 2022-06-15 11:04 | Outpatient (BNVA) | payer MEDICAID, SELFPAY | PROVIDERS: PCP Internal Medicine; Visit Provider Obstetrics & Gynecology | DX: N93.9 Abnormal uterine and vaginal bleeding, unspecified (principal) | CPT/HCPCS: 99212 ==

== ENCOUNTER → 2022-08-27 15:18 | Outpatient (BNVA) | payer MEDICAID, SELFPAY | PROVIDERS: PCP Internal Medicine; Visit Provider Nurse Practitioner Family | DX: M47.816 Spondylosis without myelopathy or radiculopathy, lumbar region (principal); M79.18 Myalgia, other site; M77.11 Lateral epicondylitis, right elbow | CPT/HCPCS: 99212 ==

== ENCOUNTER → 2022-10-15 09:30 | Outpatient (BNVA) | payer MEDICAID, SELFPAY | PROVIDERS: PCP Internal Medicine; Visit Provider Physician Assistant Surgical | DX: E66.9 Obesity, unspecified (principal); L98.7 Excessive and redundant skin and subcutaneous tissue; Z98.84 Bariatric surgery status; Z68.32 Body mass index [BMI] 32.0-32.9, adult | CPT/HCPCS: 99212 ==

== ENCOUNTER 2023-02-11 11:10 | Outpatient (AMB) | payer MEDICAID, SELFPAY ==
--- NOTE | 2023-02-11 11:20 | MHC.OFFVIS ---
Intake Vital Signs 02/11/23 11:21 Height 5 ft 1.5 in Weight 183 lb 10.321 oz BMI 34.1 BP 116/64 Blood Pressure Location Lt brachial Position Sitting Pulse 64 Pulse Source Pulse Oximeter Temp 96.6 F L Temp Source Skin Pulse Oximetry (%) 98 Oxygen Delivery Method Room Air Intake Visit Reasons: Osteoarthritis Intake Note: Here for OA follow up. c/o right knee pain, left flank pain Register In Chancery Required: Yes Register In Chancery Language: Auditor Appraiser Name: Significant other Information Interpreted: clinical only Accompanied by: Significant Other Allergies adhesive tape [ADHESIVE TAPE] Allergy (Intermediate, Verified 02/11/23 11:26) BURN/BLISTER Medication List - Last Reconciled 02/11/23 by Quinten Zambrano MD ascorbic acid (vitamin C) 25 mg PO DAILY baclofen 10 mg PO TID cetirizine 10 mg PO QAM clotrimazole 1% 1 appl topical BID [cock up splint Wear on both wrists at night ] cyanocobalamin (vitamin B-12) 100 mcg (0.1 mL) IM docusate sodium 100 mg PO Q12H ferrous sulfate 325 mg PO BID hydrocortisone 2.5% appl topical BID hydroxyzine pamoate 25 mg PO Q8H PRN multivitamin 1 tab PO DAILY sumatriptan succinate 50 mg PO Q2-4H PRN topiramate 25 mg PO QAM tramadol 50 mg PO TID HPI HPI Comments History of Present Illness Details The patient returns today for evaluation of her multiple areas of pain. She says she has been told she has fibromyalgia and arthritis. She is on a controlled substance contract to take tramadol 50 mg 3 times a day. That does not seem to sedate her. 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 There is more frequent upper back discomfort after those activities. She also has pain in the lower back, lateral hips, knees, ankles and feet. She feels tired after work. She some days feels too much pain that she does not want to do any kind of walking. She remains on iron tablets although she has not had as hemoglobin checked since last fall. She takes Topamax for headaches at night. She does have baclofen available that she takes once in a while 10 mg up to t.i.d. She is having more elbow pain bilaterally. This looks like it some overuse tendinitis at the elbow. Naproxen did not really help her so she stopped it. Ibuprofen in the past bothered her stomach she seemed to taking acetaminophen would also cause GI problems. [facility] Medical History (Updated 02/11/23 @ 13:50 by Quinten Zambrano MD) Anemia Arthritis Fatigue Fibromyalgia GERD (gastroesophageal reflux disease) Intestinal malabsorption following gastrectomy Lateral epicondylitis, right elbow Lumbar spondylosis Obesity (BMI 30-39.9) SARS-CoV-2 positive Sleep apnea Surgical History (Updated 10/15/22 @ 09:37 by Janina Ferraro Ofelia) H/O tubal ligation History of surgery of uterus Hx of section S/P laparoscopic sleeve gastrectomy Family History Father Respiratory arrest Sister Anemia Ovarian cancer Social History (Updated 02/11/23 @ 11:26 by TRICIA Young) Alcohol intake: current Alcohol intake frequency: holidays/special occasions only Alcohol type: wine Patient Tobacco Use Status: Never used Tobacco Gender identity: Female Female Reproductive History Menstrual Age of Menarche: 13 Review of Systems Const Details: Fatigue at times. Negative for appetite change, weight change, fever, chills, malaise Eyes Details: Occasional headache. Negative for vision change, dry eyes, and dizziness Card Details: Negative chest pain, edema and syncope Resp Details: Negative for SOB, cough and wheezing GI Details: Negative indigestion/heartburn, nausea, abdominal pain, bowel changes, diarrhea, constipation and bloody stool. Neuro Details: Negative for epilepsy, palsy, stroke, changes in speech, tingling and weakness Kaleb/Lymph Details: Negative for excessive bruising or bleeding. Physical Exam Vital Signs: Last Vital Signs Temp 96.6 F L 02/11/23 11:21 Pulse 64 02/11/23 11:21 BP 116/64 02/11/23 11:21 Pulse Ox 98 02/11/23 11:21 Oxygen Delivery Method Room Air 02/11/23 11:21 BMI result Body Mass Index 34.1 APPEARANCE: Patient in no acute distress EXTREMITIES: No edema, no calf tenderness, normal peripheral pulses. NEURO: Oriented and alert x3. No focal weakness. Reflexes symmetric. Gait normal. SKIN: No inflammatory or neoplastic lesions. Normal color and turgor JOINT EXAM:?? Cervical Spine:? Full range of motion with mild discomfort at the extremes. There is some mild posterior cervical muscle tenderness. Thoracic Spine:.? No scoliosis.? Some paraspinal muscle tenderness. Lumbar Spine:? Alignment normal.? Mild pain with flexion at 45 degrees. Slight paraspinal muscle tenderness. Chest Wall:.? No tenderness, swelling, increased warmth or erythema. Hands:.? Normal pain-free range of motion with slight tenderness in the 1st and 2nd MCPs in both hands. However no areas of swelling, increased warmth or erythema. Able to make a full fist and has a good heater furnace strength. Wrists:.? Normal pain-free range of motion with slight dorsal tenderness but no swelling, increased warmth or erythema. Elbows: Right: Slight pain at full extension. Most of this is over the lateral epicondyle where she has some [id number] tenderness. No swelling or tenderness over the joint space. Left: There is mild lateral epicondylar tenderness. Otherwise there is normal pain-free range of motion without tenderness, swelling, increased warmth or erythema over the joint space. Shoulders:.?? Mild posterior trapezial pain with extremes of normal range of motion. There is mild anterior and posterior tenderness without adenopathy, swelling, or weakness. Hips:.? Full range of motion with some lumbar pain at the extremes of normal internal or external rotation. No groin pain with motion. Hip bursa:.? Mild trochanteric tenderness. Knees:.?? Normal pain-free range of motion without crepitus. There is some mild medial compartment tenderness without effusion, soft tissue swelling, increased warmth or erythema.? Ankles:.? Normal pain-free range of motion without tenderness, swelling, increased warmth or erythema. Feet:.? Normal pain-free range of motion with mild tenderness across the instep and MTPs but no swelling, increased warmth or erythema. Tender points:? Mild tenderness to digital palpation at the occiput, trapezius, second rib, lateral epicondyle, knees, greater trochanter and gluteal area bilaterally. ? Assessment & Plan Assessment & Plan (1) Lumbar spondylosis: Code(s): M47.816 - Spondylosis without myelopathy or radiculopathy, lumbar region (2) Fibromyalgia: Code(s): M79.7 - Fibromyalgia Plan The patient has longstanding back pain. It appears in recent years she has been having more widespread pains all over. There are no signs of an active inflammatory process. There are many tender points. I think she has some element of fibromyalgia. We did discuss that diagnosis. Treatment options with antidepressants and membrane stabilizers were discussed but she does not feel like she wants to risk the side effect profile they might offer. She does have the baclofen available and that is an appropriate drug for fibromyalgia. I believe the tramadol is being appropriately used for her lumbar osteoarthritis. The back pain began at a relatively young age so I think we should check LS spine films to see if is any evidence of a spondyloarthritis. She will continue on the tramadol and baclofen. A follow-up in 6 months would be reasonable. Orders: Orders XR lumbar spine 2-3V Today M47.816 - Spondylosis without myelopathy or radiculopathy, lumbar region Coding Level of Care Code Est Pt Level 3 (43165) Diagnoses Lumbar spondylosis M47.816 Fibromyalgia M79.7
[2023-02-11 11:21] VITALS: BP 116/64; PULSE 64; TEMP 35.9; O2SAT 98; BMI 34.1
== END 2023-02-11 11:54 | disposition home or self-care (01) ==
LOC: HO.RHE 11:10
PROVIDERS: PCP Nurse Practitioner Family; Visit Provider Internal Medicine Rheumatology
DX: M47.816 Spondylosis without myelopathy or radiculopathy, lumbar region (principal); M79.7 Fibromyalgia
CPT/HCPCS: 99213

== ENCOUNTER → 2023-02-11 11:10 | Outpatient (BNVA) | payer MEDICAID, SELFPAY | PROVIDERS: PCP Nurse Practitioner Family; Visit Provider Internal Medicine Rheumatology | DX: M47.816 Spondylosis without myelopathy or radiculopathy, lumbar region (principal); M79.7 Fibromyalgia | CPT/HCPCS: 99212 ==

== ENCOUNTER 2023-03-02 09:04 | Outpatient (REF) | payer MEDICAID, SELFPAY ==
--- NOTE | ~2023-03-02 | MM_ITS ---
EXAMINATION: MM SCREENING DIGITAL BREAST TOMOSYNTHESIS, BILATERAL CLINICAL INFORMATION: Screening. Asymptomatic. COMPARISON: Mammography: 12/12/2021, 12/12/2020, 06/06/2020, 11/07/2019, 09/22/2018 TECHNIQUE: Digital breast tomosynthesis is performed in both the craniocaudal and mediolateral oblique views along with computer-aided detection (CAD). Synthesized 2D images are generated from the tomosynthesis. FINDINGS: There are scattered areas of fibroglandular density (ACR BI-RADS breast composition Category b). There are no suspicious masses, suspicious grouped calcifications, or areas of architectural distortion. The parenchymal pattern is stable from prior exams. There are no skin changes. MM/MM tomosynthesis screening BI IMPRESSION: No mammographic evidence of malignancy. ASSESSMENT: BI-RADS BI-RADS 1 - Negative RECOMMENDATION: Routine annual mammography screening. 1 year F/U This examination should not preclude the clinical evaluation of a suspicious palpable abnormality. This patient's information was entered into a reminder system with a target due date for their next mammogram.
== END 2023-03-02 09:05 | disposition home or self-care (01) ==
LOC: HO.MAMMO 09:04
PROVIDERS: PCP Nurse Practitioner Family; Visit Provider Nurse Practitioner Family
DX: Z12.31 Encounter for screening mammogram for malignant neoplasm of breast (principal)
CPT/HCPCS: 77063; 77067

== ENCOUNTER → 2023-03-02 09:15 | Outpatient (BNV) | payer MEDICAID, SELFPAY | PROVIDERS: PCP Nurse Practitioner Family; Visit Provider Radiology Diagnostic Radiology | DX: Z12.31 Encounter for screening mammogram for malignant neoplasm of breast (principal) | CPT/HCPCS: 77063; 77067 ==

== ENCOUNTER 2023-03-09 07:45 | Outpatient (AMB) | payer MEDICAID, SELFPAY ==
[2023-03-09 07:46] VITALS: BMI 34.0
--- NOTE | 2023-03-09 07:46 | MHC.OFFVIS ---
Intake Vital Signs 03/09/23 07:46 Height 5 ft 1.5 in Weight 182 lb 15.739 oz BMI 34.0 Intake Visit Reasons: vaginal bleeding Contract Officer Required: Yes Contract Officer Language: Distilling Department Supervisor Name: Ladan CLARKE Information Interpreted: non-clinical & clinical Paperhanger And Painter: Paperhanger And Painter Present (Ladan CLARKE) Accompanied by: Self / Same As Patient Allergies adhesive tape [ADHESIVE TAPE] Allergy (Intermediate, Verified 03/09/23 07:47) BURN/BLISTER Is last menstrual period known: Yes Last menstrual period: 03/02/23 HPI HPI Comments History of Present Illness Details The patient is presenting c/o irregular bleeding associated with passage of small blood clots and abdominal /pelvic cramping. Last co testing was in 05/16 was negative. Last mammogram was done few days ago the results still pending. [facility] Medical History Lateral epicondylitis, right elbow SARS-CoV-2 positive Fibromyalgia Lumbar spondylosis Obesity (BMI 30-39.9) Intestinal malabsorption following gastrectomy Fatigue Sleep apnea GERD (gastroesophageal reflux disease) Arthritis Anemia Surgical History History of surgery of uterus H/O tubal ligation Hx of section S/P laparoscopic sleeve gastrectomy Family History Father Respiratory arrest Sister Anemia Ovarian cancer Social History Alcohol intake: current Alcohol intake frequency: holidays/special occasions only Alcohol type: wine Patient Tobacco Use Status: Never used Tobacco Gender identity: Female Female Reproductive History Menstrual Age of Menarche: 13 Date of last menstrual period: 03/02/23 Review of Systems Const All systems reviewed & are unremarkable except as noted in HPI and below Card Reports as per HPI Resp Reports as per HPI GI Reports as per HPI and Reports no additional complaints Reports as per HPI Physical Exam Vital Signs: BMI result Body Mass Index 34.0 Const General: cooperative, healthy appearing and comfortable Chest Chest palpation & inspection: normal inspection of the chest and normal palpation of entire chest wall Breast/axilla inspection: normal inspection of the breasts and normal inspection of the axillae Breast/axilla palpation: normal palpation of the breasts, normal palpation of the axillae and no axillary lymphadenopathy Resp Effort & Inspection: normal respiratory effort Auscultation: clear to auscultation bilaterally Percussion: percussion normal Cardio Palpation: normal PMI Rate: regular rate Rhythm: regular rhythm Heart sounds: no murmurs and no rubs Peripheral pulses: Peripheral pulses 2+ throughout GI Inspection: Yes normal to inspection Palpation (GI): Soft to palpation, nontender, no guarding, not rigid and No hepatosplenomegaly present Percussion: Yes normal to percussion Auscultation: normal bowel sounds Rectal Exam - Female: deferred General: Yes bladder normal to palpation External Female Exam: No lesion Speculum Exam - Vagina: normal appearance of the vagina, normal palpation, normal vaginal discharge and not erythematous Speculum Exam - Cervix: normal appearance of the cervix and normal palpation Bimanual exam- vagina & uterus: normal bimanual exam, normal palpation, uterine size normal, bladder normal to palpation, consistency normal and normal palpation Bimanual Exam- Adnexa, other: normal adnexae, no masses and no tenderness Results AMB Test Urine AMB Test Urine Negative Last Edit by Ladan Pedersen CMA on 03/09/23 07:51 Assessment & Plan Assessment & Plan (1) Abnormal uterine bleeding: Code(s): N93.9 - Abnormal uterine and vaginal bleeding, unspecified Plan: Co testing not indicated this year, GC and chlamydia taken CBC, TSH, HCG, and pelvic ultrasound ordered. Discussed with the patient the different causes of abnormal bleeding including thyroid disorders, uterine and ovarian pathology, endometrial hyperplasia, carcinoma and other potential causes. Discussed with the patient the work up including CBC (to r/o anemia), TSH, pelvic Ultrasound, endometrial biopsy to r/o endometrial pathology. All questions answered and the patient verbalized understanding. Instructed the patient to schedule an appointment for an endometrial biopsy in 2 weeks. Orders: Orders AMB HCG Urine Test Today Z32.02 - Encounter for test, result negative TSH reflex Free T4 Today N93.9 - Abnormal uterine and vaginal bleeding, unspecified Complete Blood Count no Diff Today N93.9 - Abnormal uterine and vaginal bleeding, unspecified Prolactin Today N93.9 - Abnormal uterine and vaginal bleeding, unspecified HCG Quantitative Today N93.9 - Abnormal uterine and vaginal bleeding, unspecified US pelvic and transvaginal Today N93.9 - Abnormal uterine and vaginal bleeding, unspecified Coding Level of Care Code Est Pt Level 3 (65702) Diagnoses Abnormal uterine bleeding N93.9
== END 2023-03-09 08:13 | disposition home or self-care (01) ==
PROVIDERS: PCP Nurse Practitioner Family; Visit Provider Obstetrics & Gynecology
DX: N93.9 Abnormal uterine and vaginal bleeding, unspecified (principal); Z32.02 Encounter for pregnancy test, result negative
CPT/HCPCS: 99213

== ENCOUNTER 2023-03-09 07:45 | Outpatient (REF) | payer MEDICAID, SELFPAY ==
[2023-03-09 09:00] LABS: Hematocrit 32.1 % (37.0-47.0); Hemoglobin 10.5 g/dl (12.0-16.0); Mean Corpuscular HGB Conc 32.7 g/dl (31.0-35.0); Mean Corpuscular Hemoglobin 28.1 pg (27.0-33.0); Mean Corpuscular Volume 85.8 fL (80.0-98.0); Mean Platelet Volume 9.1 fL (9.4-12.3); Platelet Count 292 X10*3/uL (160-400); Red Blood Count 3.74 X10*6/uL (4.20-5.50); Red Cell Distribution Width 13.2 % (11.0-16.0)
[2023-03-09 09:48] LABS: HCG Quantitative < 2 mIU/mL; TSH reflex Free T4 1.05 uIU/mL (0.32-4.0)
[2023-03-10 05:54] LABS: CT PCR NOT DETECTED (Not Detect.); NG PCR NOT DETECTED (Not Detect.)
[2023-03-11 02:22] LABS: Prolactin 7.1 ng/mL
== END 2023-03-09 07:46 | disposition home or self-care (01) ==
LOC: HO.LAB 07:45
PROVIDERS: PCP Nurse Practitioner Family; Visit Provider Obstetrics & Gynecology
DX: N93.9 Abnormal uterine and vaginal bleeding, unspecified (principal); R10.2 Pelvic and perineal pain
CPT/HCPCS: 0353U; 81025; 84146; 84443; 84702; 85027; 99212

== ENCOUNTER 2023-03-09 08:12 | Outpatient (REF) | payer MEDICAID, SELFPAY | END 2023-03-09 08:13 | disposition home or self-care (01) | LOC: HO.LNP 08:12 | PROVIDERS: Visit Provider Obstetrics & Gynecology | DX: Z13.89 Encounter for screening for other disorder (principal) ==

== ENCOUNTER 2023-03-31 11:31 | Outpatient (REF) | payer MEDICAID, SELFPAY | END 2023-03-31 11:32 | disposition home or self-care (01) | LOC: HO.US 11:31 | PROVIDERS: PCP Nurse Practitioner Family; Visit Provider Obstetrics & Gynecology | DX: N93.9 Abnormal uterine and vaginal bleeding, unspecified (principal) | CPT/HCPCS: 76830; 76856 ==

== ENCOUNTER 2023-05-11 15:50 | Outpatient (REF) | payer MEDICAID, SELFPAY | END 2023-05-11 15:51 | disposition home or self-care (01) | LOC: HO.LNP 15:50 | PROVIDERS: PCP Nurse Practitioner Family; Visit Provider Obstetrics & Gynecology | DX: N93.9 Abnormal uterine and vaginal bleeding, unspecified (principal); N84.1 Polyp of cervix uteri | CPT/HCPCS: 58100; 81025; 88305 ==

== ENCOUNTER 2023-05-11 15:50 | Outpatient (AMB) | payer MEDICAID, SELFPAY ==
--- NOTE | 2023-05-11 16:08 | A.OFFVIS_ITS ---
Intake Vital Signs 05/11/23 16:09 Height 5 ft 1.5 in Weight 182 lb 15.739 oz BMI 34.0 BP 120/76 Intake Visit Reasons: US Follow up/EMB Acquisition Cost Estimator Required: Yes Acquisition Cost Estimator Language: Stockfeed Miller Name: Ladan CLARKE Information Interpreted: non-clinical & clinical Director Inpatient Headache Program: Director Inpatient Headache Program Present (Ladan CLARKE) Accompanied by: Spouse Allergies adhesive tape [ADHESIVE TAPE] Allergy (Intermediate, Verified 05/11/23 16:10) BURN/BLISTER PFSH Medical History Lateral epicondylitis, right elbow SARS-CoV-2 positive Fibromyalgia Lumbar spondylosis Obesity (BMI 30-39.9) Intestinal malabsorption following gastrectomy Fatigue Sleep apnea GERD (gastroesophageal reflux disease) Arthritis Anemia Surgical History History of surgery of uterus H/O tubal ligation Hx of section S/P laparoscopic sleeve gastrectomy Family History Father Respiratory arrest Sister Anemia Ovarian cancer Social History Alcohol intake: current Alcohol intake frequency: holidays/special occasions only Alcohol type: wine Patient Tobacco Use Status: Never used Tobacco Gender identity: Female Female Reproductive History Menstrual Age of Menarche: 13 Physical Exam Vital Signs: Last Vital Signs BP 120/76 05/11/23 16:09 BMI result Body Mass Index 34.0 Office Procedures Endometrial Biopsy Details: The patient was counseled regarding the indication and benefits of endometrial sampling to rule out endometrial pathology including not limited to endometrial hyperplasia or endometrial cancer and others; The alternatives (Either do nothing vs. hysteroscopy D&C) & the risks were discussed with the patient including but not limited: pain, uterine perforation, bleeding, infection, possible injury to bladder, bowel, ureter, possible need for blood transfusion with all its possible risks. The patient verbalized understanding all questions answered and signed consent. Urine test done in the office was negative The patient was placed into the dorsal lithotomy position; a speculum was inserted in the vagina. Using aseptic technique for the procedure, the cervix was cleansed with Betadine. The anterior lip of the cervix was grasped with a single tooth tenaculum. The uterus was sounded to 7 cm with a 4 mm Pipelle was used. Tissues samples were obtained and placed in formalin, in a patient labeled container and sent to the pathology department. At the end of the procedure, there was minimal bleeding noted The patient tolerated the procedure well and was discharged in good condition with the following instructions: Nothing in the vagina until the bleeding stops. No sex until the bleeding stops, to call if any of the following occurs: fever (>100.4), flu-like symptoms, abdominal pain, heavy bleeding, four smelling vaginal discharge. The patient was instructed to schedule a Follow up appointment in 2 weeks to discuss pathology results of the biopsy and treatment options. This note was generated with a voice recognition program. Some errors may have been overlooked during the review of this note. Sometimes these errors may affect the content or meaning of a given sentence. [id number] Biopsy Assessment & Plan Assessment & Plan Orders: Orders AMB Endometrial Biopsy Today N93.9 - Abnormal uterine and vaginal bleeding, u nspecified Coding Level of Care Code Procedure Only CPT Codes Endometrial Biopsy - CPT: 94231-[id number] Biopsy ([id number])
[2023-05-11 16:09] VITALS: BP 120/76; BMI 34.0
== END 2023-05-11 16:25 | disposition home or self-care (01) ==
LOC: HO.HWS 15:50
PROVIDERS: PCP Nurse Practitioner Family; Visit Provider Obstetrics & Gynecology
DX: N93.9 Abnormal uterine and vaginal bleeding, unspecified (principal); Z32.02 Encounter for pregnancy test, result negative
CPT/HCPCS: 58100

== ENCOUNTER 2023-07-03 05:55 | Emergency (ER) | payer MEDICAID, SELFPAY ==
[2023-07-03 06:03] VITALS: BP 121/50; PULSE 67; RESP 20; TEMP 36.4; O2SAT 100; BMI 34.0
--- NOTE | 2023-07-03 07:38 | ED.GENADULT ---
HPI - General Adult General Chief complaint: General Medical Stated complaint: ?UTI Time Seen by Provider: 07/03/23 07:14 Source: patient Mode of arrival: ambulatory History of Present Illness HPI narrative: 43-year-old female with 2 days of pain and burning on urination but denies any fever, chills, back pain. Related Data Home Medications Medication Instructions Recorded Confirmed ascorbic acid (vitamin C) 25 mg 25 mg PO DAILY 04/30/20 02/11/23 tablet multivitamin 1 tab PO DAILY 04/30/20 02/11/23 ferrous sulfate 325 mg (65 mg 325 mg PO BID 07/19/20 02/11/23 iron) tablet hydrocortisone 2.5 % topical cream appl topical BID 08/27/22 02/11/23 hydroxyzine pamoate 25 mg capsule 25 mg PO Q8H PRN 08/27/22 02/11/23 topiramate 25 mg tablet 25 mg PO QAM 10/15/22 02/11/23 baclofen 10 mg tablet 10 mg PO TID 02/11/23 02/11/23 cetirizine 10 mg tablet 10 mg PO QAM 02/11/23 02/11/23 docusate sodium 100 mg capsule 100 mg PO Q12H 02/11/23 02/11/23 Previous Rx's Medication Instructions Recorded sumatriptan succinate 50 mg tablet 50 mg PO Q2-4H PRN migraine 11/14/20 headache #7 tabs cock up splint #2 ea 08/27/22 clotrimazole 1 % topical cream 1 appl topical BID #45 grams 10/15/22 cyanocobalamin (vitamin B-12) 1,000 mcg IM QMONTH #10 mL 03/19/23 1,000 mcg/mL injection solution tramadol 50 mg tablet 50 mg PO TID PRN pain #90 tabs 03/19/23 nitrofurantoin 100 mg PO Q12H 7 days #14 caps 07/03/23 monohydrate/macrocrystals 100 mg capsule (Macrobid) phenazopyridine 200 mg tablet 200 mg PO TID PRN pain 6 doses #6 07/03/23 (Pyridium) tabs Allergies Allergy/AdvReac Type Severity Reaction Status Date / Time adhesive tape [ADHESIVE TAPE] Allergy Intermediate BURN/BLISTE Verified 05/11/23 16:10 R Review of Systems Review of Systems: Pertinent positives and negatives as stated in HPI [facility] Past Medical History Source: nursing notes reviewed Onset Date is defined in the Problem List Problems that require an onset date and time if occurred within 24 hrs of arrival to the ED Aortic Dissection and Rupture; Neurologic impairment; Cardiopulmonary Arrest; Endotracheal Intubation; Insertion or Replacement of Mechanical Circulatory Assist Device Medical History Lateral epicondylitis, right elbow SARS-CoV-2 positive Fibromyalgia Lumbar spondylosis Obesity (BMI 30-39.9) Intestinal malabsorption following gastrectomy Fatigue Sleep apnea GERD (gastroesophageal reflux disease) Arthritis Anemia Surgical History History of surgery of uterus H/O tubal ligation Hx of section S/P laparoscopic sleeve gastrectomy Family History Family History Father Respiratory arrest Sister Anemia Ovarian cancer Social History Social History Alcohol intake: current Alcohol intake frequency: holidays/special occasions only Alcohol type: wine Patient Tobacco Use Status: Never used Tobacco Advance Directives: No Advance Directives Information Provided: Yes Gender identity: Female Physical Exam ED Vital Signs: Vital Signs - 24 hr 07/03/23 06:03 Temperature 97.5 F Pulse Rate 67 Respiratory Rate 20 Blood Pressure 121/50 L Pulse Oximetry 100 Oxygen Delivery Method Room Air BMI result Body Mass Index 34.0 VITAL SIGNS: Reviewed. GENERAL: Well developed, well nourished, in no acute distress. HEAD: Normocephalic/atraumatic EYES: PERRLA, EOMI LUNGS: Normal breath sounds. No adventitious sounds or accessory muscle use. SpO2<100> CARDIOVASCULAR: Regular rate and rhythm without noted murmurs ABDOMEN: Soft, non-tender, non-distended with bowel sounds. MUSCULOSKELETAL: No tenderness, deformities, or effusions noted on gross inspection. EXTREMITIES: No cyanosis, clubbing or edema. SKIN: Inspection of the skin reveals no rashes NEUROLOGIC: Alert and oriented x 4. Strength and sensation to light touch were grossly intact x 4. Medical Decision Making Medical Decision Making MDM Narrative: 43-year-old female with history and clinical presentation for possible urinary tract infection, bacterial vaginosis. Reviewed all investigations in UTI is positive for urinary tract infection. Patient received initial antibiotics and Pyridium. Differential Diagnosis Differential Diagnoses: The differential diagnosis associated with the presentation includes Please see the discussion above Admission/Observation Consideration of admission/observation: Escalation of care including admission/observation considered Please see the discussion above Lab Data Labs: Lab Results 07/03/23 Range/Units 06:16 Urine Color Yellow Urine Appearance Clear Urine pH 6.5 (5.0-9.0) Ur Specific [place] 1.025 (1.005-1.025) Urine Protein Negative (Neg-Trace) mg/dL Urine Glucose (UA) Negative (Negative) mg/dL Urine Ketones Negative (Negative) mg/dL Urine Blood Negative (Negative) Urine Nitrite Positive H (Negative) Ur Leukocyte Esterase Small (1+) H (Negative) Urine RBC 3-5 H (0-2) /HPF Urine WBC >50 H (0-5) /HPF Ur Squamous Epith Cells 3-5 (0-2) /HPF Urine Bacteria 4+ (None Seen) Hyaline Casts 0-2 (0-2) /LPF Discharge Plan Discharge Clinical Impression: UTI (urinary tract infection) Patient Disposition: Home, Self-Care Instructions: Urinary Tract Infection in Women (ED) Additional Instructions: 1. Complete todo el ciclo de antibi?ticos seg?n lo prescrito. 2. Seguimiento con m?dico de atenci?n primaria. 1. Complete the entire course of antibiotics as prescribed. 2. Follow-up with primary care doctor. Prescriptions: New nitrofurantoin monohyd/m-cryst [Macrobid] 100 mg capsule 100 mg PO Q12H 7 Days Qty: 14 0RF Rx Instructions: must administer with a meal/food phenazopyridine [Pyridium] 200 mg tablet 200 mg PO TID PRN (Reason: pain) Qty: 6 0RF No Action tramadol 50 mg tablet 50 mg PO TID PRN (Reason: pain) Qty: 90 2RF multivitamin Tablet 1 tab PO DAILY Vitamin C 25 mg Tablet 25 mg PO DAILY cyanocobalamin (vitamin B-12) 1,000 mcg/mL solution 1,000 mcg IM QMONTH Qty: 10 3RF sumatriptan succinate 50 mg tablet 50 mg PO Q2-4H PRN (Reason: migraine headache) Qty: 7 0RF Rx Instructions: do not exceed 4 doses per 24 hrs ferrous sulfate 325 mg (65 mg iron) tablet 325 mg PO BID docusate sodium 100 mg capsule 100 mg PO Q12H baclofen 10 mg tablet 10 mg PO TID cetirizine 10 mg tablet 10 mg PO QAM hydrocortisone 2.5 % cream topical BID hydroxyzine pamoate 25 mg capsule 25 mg PO Q8H PRN (DME) cock up splint See Rx Instructions .Route .MEDSUPPLY Qty: 2 0RF Rx Instructions: Wear on both wrists at night topiramate 25 mg tablet 25 mg PO QAM clotrimazole 1 % cream 1 appl topical BID Qty: 45 3RF Print Language: Danish
== END 2023-07-03 08:13 | disposition home or self-care (01) ==
PROVIDERS: Emergency Provider Student in an Organized Health Care Education/Training Program
DX: N39.0 Urinary tract infection, site not specified (principal); B96.20 Unspecified Escherichia coli [E. coli] as the cause of diseases classified elsewhere
CPT/HCPCS: 81001; 81025; 87086; 87088; 87186; 99283

== ENCOUNTER 2023-07-12 10:20 | Outpatient (AMB) | payer MEDICAID, SELFPAY ==
[2023-07-12 10:26] VITALS: BP 118/54; BMI 34.0
--- NOTE | 2023-07-12 10:26 | MHC.OFFVIS ---
Intake Vital Signs 07/12/23 10:26 Height 5 ft 1 in Weight 180 lb BMI 34.0 BP 118/54 L Intake Visit Reasons: EMB Results School Administrator Required: Yes School Administrator Name: Luis Miguel [id number] Allergies adhesive tape [ADHESIVE TAPE] Allergy (Intermediate, Verified 07/12/23 10:27) BURN/BLISTER Is last menstrual period known: Yes Last menstrual period: 06/04/23 Post menopausal: No HPI HPI Comments History of Present Illness Details The patient is presenting for follow-up to discuss the results of her abnormal uterine bleeding workup and options of treatment. The following workup was done.: H&H= in 0.5/32.1 TSH, prolactin, hCG, GC and chlamydia were negative. Endometrial biopsy pathology showed proliferative endometrium with no evidence of hyperplasia and/or malignancy. Co testing was done in 05/16 was negative. Mammogram was BI-RADS 1. Pelvic ultrasound showed the following: Uterus: The uterus is anteverted and anteflexed. The uterus measures 10.1 x 5.8 x 4.9 cm. Nabothian cysts are seen within the cervix. The double wall endometrial thickness is 1.0 mm. The uterus is smooth in contour and has normal myometrial echogenicity. No visible fibroid. Adnexa: Both ovaries are visualized. There is normal color flow to the adnexa. There is no ovarian torsion. There is no pelvic ascites or fluid collection. Right ovary measures 3.0 x 1.8 x 2.6 cm (volume 7.4 mL). A 1.0 cm dominant physiologic cyst is noted. No imaging follow-up is recommended. Left ovary measures 5.3 x 3.5 x 2.9 cm (volume 28.2 mL). A 4.6 x 3.1 x 3.7 cm dominant, physiologic cyst is noted. No imaging follow-up is recommended. [facility] Medical History Lateral epicondylitis, right elbow SARS-CoV-2 positive Fibromyalgia Lumbar spondylosis Obesity (BMI 30-39.9) Intestinal malabsorption following gastrectomy Fatigue Sleep apnea GERD (gastroesophageal reflux disease) Arthritis Anemia Surgical History History of surgery of uterus H/O tubal ligation Hx of section S/P laparoscopic sleeve gastrectomy Family History Father Respiratory arrest Sister Anemia Ovarian cancer Social History Alcohol intake: current Alcohol intake frequency: holidays/special occasions only Alcohol type: wine Patient Tobacco Use Status: Never used Tobacco Gender identity: Female Female Reproductive History Menstrual Age of Menarche: 13 Date of last menstrual period: 06/04/23 control method: permanent sterilization Review of Systems Const All systems reviewed & are unremarkable except as noted in HPI and below Reports as per HPI and Reports no additional complaints GI Reports no additional complaints Reports no additional complaints Physical Exam Vital Signs: Last Vital Signs BP 118/54 L 07/12/23 10:26 BMI result Body Mass Index 34.0 Assessment & Plan Assessment & Plan (1) Abnormal uterine bleeding: Code(s): N93.9 - Abnormal uterine and vaginal bleeding, unspecified Plan: Discussed with the patient the results of the work up done and options of treatment including Lysteda, control pills, Mirena IUD, endometrial ablation and hysterectomy. All pros, cons, risks and benefits if each option was discussed with the patient and the patient decided to go ahead with Mirena IUD so a more detailed discussion about it was conducted including mechanism of action, risks (uterine perforation, infection, injury to bladder, bowel, displacement, and others) benefits (hypo menorrhea, amenorrhea, ...). GC/CT were taken and the patient was instructed to schedule Mirena IUD insertion on day 1-5 of next cycle . All questions answered, the patient verbalized understanding Coding Level of Care Code Est Pt Level 3 (49828) Diagnoses Abnormal uterine bleeding N93.9
== END 2023-07-12 10:42 | disposition home or self-care (01) ==
LOC: HO.HWS 10:20
PROVIDERS: Visit Provider Obstetrics & Gynecology
DX: N93.9 Abnormal uterine and vaginal bleeding, unspecified (principal)
CPT/HCPCS: 99213

== ENCOUNTER → 2023-07-12 10:20 | Outpatient (BNVA) | payer MEDICAID, SELFPAY | PROVIDERS: Visit Provider Obstetrics & Gynecology | DX: N93.9 Abnormal uterine and vaginal bleeding, unspecified (principal) | CPT/HCPCS: 99212 ==

== ENCOUNTER 2023-10-22 09:34 | Outpatient (REF) | payer MEDICAID, SELFPAY ==
--- NOTE | ~2023-10-22 | XR_ITS ---
EXAMINATION: XR BILATERAL SHOULDERS CLINICAL INFORMATION: Pain in the right shoulder. COMPARISON: X-rays of the right shoulder September 2021. TECHNIQUE: 4 views of each shoulder. FINDINGS: Right shoulder: There is a small 3 mm focal area of calcific density adjacent to the greater tuberosity on the internal rotation view, unchanged compared to prior. The previously noted amorphous larger calcification just cephalad to the greater tuberosity on the external rotation view is no longer identified. Glenohumeral joint normal. Acromioclavicular joint normal. Left shoulder: The acromioclavicular joint and glenohumeral joint are normal. Incidental note made of spondylosis of the partially visualized dorsal spine. No soft tissue calcification. XR/XR shoulder RT min 2V IMPRESSION: RIGHT SHOULDER: Small calcific density adjacent to the greater tuberosity, unchanged compared to prior. This could reflect calcific tendinitis. The previously noted amorphous calcification just cephalad to the greater tuberosity is no longer identified. LEFT SHOULDER: Normal.
--- NOTE | ~2023-10-22 | XR_ITS ---
EXAMINATION: XR CERVICAL SPINE CLINICAL INFORMATION: Cervicalgia COMPARISON: X-rays of the cervical spine November 2019 TECHNIQUE: 4 views of cervical spine including swimmer's lateral view FINDINGS: Exam is slightly limited as the cervicothoracic junction is obscured by overlying bone and soft tissues despite having a swimmer's lateral view to the series. Otherwise there are no prevertebral soft tissue or bony abnormalities demonstrated. No compression fractures or subluxations are identified. Alignment is maintained at the atlanto-axial articulation. The disc spaces are preserved. No endplate changes are seen. The prevertebral soft tissues are normal. XR/XR cervical spine 2V IMPRESSION: 1. Slightly limited examination as the cervicothoracic junction is obscured by overlying bone and soft tissues. 2. Otherwise unremarkable examination.
--- NOTE | ~2023-10-22 | XR_ITS ---
EXAMINATION: XR BILATERAL SHOULDERS CLINICAL INFORMATION: Pain in the right shoulder. COMPARISON: X-rays of the right shoulder September 2021. TECHNIQUE: 4 views of each shoulder. FINDINGS: Right shoulder: There is a small 3 mm focal area of calcific density adjacent to the greater tuberosity on the internal rotation view, unchanged compared to prior. The previously noted amorphous larger calcification just cephalad to the greater tuberosity on the external rotation view is no longer identified. Glenohumeral joint normal. Acromioclavicular joint normal. Left shoulder: The acromioclavicular joint and glenohumeral joint are normal. Incidental note made of spondylosis of the partially visualized dorsal spine. No soft tissue calcification. XR/XR shoulder LT min 2V IMPRESSION: RIGHT SHOULDER: Small calcific density adjacent to the greater tuberosity, unchanged compared to prior. This could reflect calcific tendinitis. The previously noted amorphous calcification just cephalad to the greater tuberosity is no longer identified. LEFT SHOULDER: Normal.
[2023-10-22 10:01] LABS: MANUAL DIFF FLAG NO
[2023-10-22 10:38] LABS: Basophils Percent Auto 0.4 % (0-2); Eosinophils Absolute Auto 0.1 X10*3/uL (0.0-0.4); Eosinophils Percent Auto 1.4 % (0-4); Hematocrit 31.7 % (37.0-47.0); Hemoglobin 10.3 g/dl (12.0-16.0); Imm Gran Abs Auto 0.01 X10*3/uL (0.00-0.03); Imm Gran Pct Auto 0.2 % (0.0-0.4); Lymphocytes Absolute Auto 1.5 X10*3/uL (1.2-4.9); Lymphocytes Percent Auto 30.9 % (20-40); Mean Corpuscular HGB Conc 32.5 g/dl (31.0-35.0); Mean Corpuscular Hemoglobin 28.9 pg (27.0-33.0); Mean Corpuscular Volume 88.8 fL (80.0-98.0); Mean Platelet Volume 9.2 fL (9.4-12.3); Monocytes Absolute Auto 0.4 X10*3/uL (0.1-1.2); Monocytes Percent Auto 8.7 % (2-11); Neutrophils Absolute Auto 2.9 x10*3/uL (2.0-8.3); Neutrophils Percent Auto 58.4 % (45-73); Platelet Count 236 X10*3/uL (160-400); Red Blood Count 3.57 X10*6/uL (4.20-5.50); Red Cell Distribution Width 13.3 % (11.0-16.0)
[2023-10-22 11:30] LABS: Alanine Aminotransferase 14 U/L (0-31); Albumin Level 4.1 g/dL (3.5-5.0); Alkaline Phosphatase 56 U/L (39-117); Anion Gap 8 (12-20); Aspartate Amino Transferase 20 U/L (5-31); Bilirubin Total 0.4 mg/dL (0.0-1.0); Blood Urea Nitrogen 13 mg/dL (9-16); C Reactive Protein < 0.10 mg/dL (< or = 0.50); Calcium 9.1 mg/dL (8.4-10.2); Carbon Dioxide 30 mmol/L (22-29); Chloride 104 mmol/L (96-108); Estimated Glomerular Filt Rate > 60; Glucose Random 86 mg/dL (60-115); Potassium 3.7 mmol/L (3.3-5.1); Sodium 138 mmol/L (135-145); Total Protein 7.5 g/dL (6.5-8.0)
[2023-10-22 11:34] LABS: Erythrocyte Sedimentation Rate 16 MM/HR (0-20)
[2023-10-25 13:04] LABS: Prot Elec - Alpha1 0.3 g/dL (0.2-0.3); Prot Elec - Alpha2 0.6 g/dL (0.5-0.9); Prot Elec - Beta 1 0.5 g/dL (0.4-0.6); Prot Elec - Beta 2 0.4 g/dL (0.2-0.5); Prot Elec - Gamma 1.3 g/dL (0.8-1.7); Prot Elec - Total Protein 7.1 g/dL (6.1-8.1)
[2023-10-28 16:28] LABS: IgA 297 mg/dL (47-310); IgG 1388 mg/dL (600-1640); IgM 59 mg/dL (50-300)
== END 2023-10-22 09:35 | disposition home or self-care (01) ==
LOC: HO.XRAY 09:34
PROVIDERS: Visit Provider Nurse Practitioner Family
DX: M54.2 Cervicalgia (principal); M25.511 Pain in right shoulder; M25.512 Pain in left shoulder; M77.11 Lateral epicondylitis, right elbow; M47.816 Spondylosis without myelopathy or radiculopathy, lumbar region
CPT/HCPCS: 36415; 72040; 73030; 80053; 82550; 82784; 84165; 85025; 85652; 86140; 86334

== ENCOUNTER 2023-11-23 14:58 | Outpatient (AMB) | payer MEDICAID, SELFPAY ==
--- NOTE | 2023-11-23 15:02 | MHC.OFFVIS ---
Vital Signs 11/23/23 15:07 Height 5 ft 3 in Weight 177 lb 0.499 oz BMI 31.4 BP 118/68 Blood Pressure Location Rt brachial Position Sitting Pulse 76 Pulse Oximetry (%) 99 Intake Visit Reasons: OA Intake Note: Patient last seen 02/11/[address] Zambrano, presents today for follow up and test results. c/o right sided neck pain that radiates to the shoulder and makes it difficult to move Occupational Analyst Required: No Allergies adhesive tape [ADHESIVE TAPE] Allergy (Intermediate, Verified 11/23/23 15:07) BURN/BLISTER HPI Comments Details: Ms. Ramirez 43 yoF returns today for follow-up of her multiple areas of pain. She is here with her Adalberto who helps to translate. She says she has been told she has fibromyalgia and arthritis. She is on a controlled substance contract to take tramadol 50 mg 3 times a day. 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 She did not know the purpose of the Baclofen. --patient gets transfusion for anemia. She had as ruptured ovarian cyst some years ago and has been anemic with heavy periods 02/11/2023 Dr. Zambrano: The patient returns today for evaluation of her multiple areas of pain. She says she has been told she has fibromyalgia and arthritis. She is on a controlled substance contract to take tramadol 50 mg 3 times a day. That does not seem to sedate her. 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 There is more frequent upper back discomfort after those activities. She also has pain in the lower back, lateral hips, knees, ankles and feet. She feels tired after work. She some days feels too much pain that she does not want to do any kind of walking. She remains on iron tablets although she has not had as hemoglobin checked since last fall. She takes Topamax for headaches at night. She does have baclofen available that she takes once in a while 10 mg up to t.i.d. She is having more elbow pain bilaterally. This looks like it some overuse tendinitis at the elbow. Naproxen did not really help her so she stopped it. Ibuprofen in the past bothered her stomach she seemed to taking acetaminophen would also cause GI problems. [facility] Medical History (Updated 11/23/23 @ 15:19 by [facility] Neck muscle spasm Bilateral shoulder pain Neck pain Lateral epicondylitis, right elbow SARS-CoV-2 positive Fibromyalgia Lumbar spondylosis Obesity (BMI 30-39.9) Intestinal malabsorption following gastrectomy Fatigue Sleep apnea GERD (gastroesophageal reflux disease) Arthritis Anemia Surgical History History of surgery of uterus H/O tubal ligation Hx of section S/P laparoscopic sleeve gastrectomy Family History Father Respiratory arrest Sister Anemia Ovarian cancer Social History Alcohol intake: current Alcohol intake frequency: holidays/special occasions only Alcohol type: wine Patient Tobacco Use Status: Never used Tobacco Gender identity: Female Female Reproductive History Menstrual Age of Menarche: 13 Review of Systems Const All systems reviewed & are unremarkable except as noted in HPI and below Physical Exam Vital Signs: Last Vital Signs Pulse 76 11/23/23 15:07 BP 118/68 11/23/23 15:07 Pulse Ox 99 11/23/23 15:07 BMI result Body Mass Index 31.4 APPEARANCE: Patient in no acute distress EXTREMITIES: No edema, no calf tenderness, normal peripheral pulses. NEURO: Oriented and alert x3. No focal weakness. Reflexes symmetric. Gait normal. SKIN: No inflammatory or neoplastic lesions. Normal color and turgor JOINT EXAM:?? Cervical Spine:? Full range of motion with mild discomfort at the extremes. There is some mild posterior cervical muscle tenderness. Thoracic Spine:.? No scoliosis.? Some paraspinal muscle tenderness. Lumbar Spine:? Alignment normal.? Mild pain with flexion at 45 degrees. Slight paraspinal muscle tenderness. Chest Wall:.? No tenderness, swelling, increased warmth or erythema. Hands:.? Normal pain-free range of motion with slight tenderness in the 1st and 2nd MCPs in both hands. However no areas of swelling, increased warmth or erythema. Able to make a full fist and has a good optical glass sawyer strength. Wrists:.? Normal pain-free range of motion with slight dorsal tenderness but no swelling, increased warmth or erythema. Elbows: Right: No more slight pain at full extension over the lateral epicondyle, no more [id number] tenderness. No swelling or tenderness over the joint space. Left: There is no more lateral epicondylar tenderness. Otherwise there is normal pain-free range of motion without tenderness, swelling, increased warmth or erythema over the joint space. Shoulders:.?? Mild posterior trapezial pain with extremes of normal range of motion. There is mild anterior and posterior tenderness without adenopathy, swelling, or weakness. Hips:.? Full range of motion with some lumbar pain at the extremes of normal internal or external rotation. No groin pain with motion. Hip bursa:.? Mild trochanteric tenderness. Knees:.?? Normal pain-free range of motion without crepitus. There is some mild medial compartment tenderness without effusion, soft tissue swelling, increased warmth or erythema.? Ankles:.? Normal pain-free range of motion without tenderness, swelling, increased warmth or erythema. Feet:.? Normal pain-free range of motion with mild tenderness across the instep and MTPs but no swelling, increased warmth or erythema. Tender points:? Mild tenderness to digital palpation at the occiput, trapezius, second rib, lateral epicondyle, knees, greater trochanter and gluteal area bilaterally. ? Results Reviewed Results Reviewed: EXAMINATION: XR BILATERAL SHOULDERS CLINICAL INFORMATION: Pain in the right shoulder. COMPARISON: X-rays of the right shoulder September 2021. TECHNIQUE: 4 views of each shoulder. FINDINGS: Right shoulder: There is a small 3 mm focal area of calcific density adjacent to the greater tuberosity on the internal rotation view, unchanged compared to prior. The previously noted amorphous larger calcification just cephalad to the greater tuberosity on the external rotation view is no longer identified. Glenohumeral joint normal. Acromioclavicular joint normal. Left shoulder: The acromioclavicular joint and glenohumeral joint are normal. Incidental note made of spondylosis of the partially visualized dorsal spine. No soft tissue calcification. XR/XR shoulder RT min 2V IMPRESSION: RIGHT SHOULDER: Small calcific density adjacent to the greater tuberosity, unchanged compared to prior. This could reflect calcific tendinitis. The previously noted amorphous calcification just cephalad to the greater tuberosity is no longer identified. LEFT SHOULDER: Normal. EXAMINATION: XR CERVICAL SPINE CLINICAL INFORMATION: Cervicalgia COMPARISON: X-rays of the cervical spine November 2019 TECHNIQUE: 4 views of cervical spine including swimmer's lateral view FINDINGS: Exam is slightly limited as the cervicothoracic junction is obscured by overlying bone and soft tissues despite having a swimmer's lateral view to the series. Otherwise there are no prevertebral soft tissue or bony abnormalities demonstrated. No compression fractures or subluxations are identified. Alignment is maintained at the atlanto-axial articulation. The disc spaces are preserved. No endplate changes are seen. The prevertebral soft tissues are normal. XR/XR cervical spine 2V IMPRESSION: 1. Slightly limited examination as the cervicothoracic junction is obscured by overlying bone and soft tissues. 2. Otherwise unremarkable examination. Assessment & Plan Assessment & Plan (1) Lumbar spondylosis: Code(s): M47.816 - Spondylosis without myelopathy or radiculopathy, lumbar region Category: Medical (2) Fibromyalgia: Code(s): M79.7 - Fibromyalgia Category: Medical (3) Neck pain: Code(s): M54.2 - Cervicalgia Category: Medical (4) Neck muscle spasm: Code(s): M62.838 - Other muscle spasm Category: Medical Plan #Neck Muscles/Neck Pain: The patient has longstanding back pain. There are no signs of an active inflammatory process. It appears in recent years she has been having more widespread pains all over. Take Baclofen #FM: There are many tender points. She has some element of fibromyalgia. She does have the baclofen available and that is an appropriate drug for fibromyalgia but she was not taking as she was not sure what it was for. I will renew the RX. I explained to patient that the medication helps with muscle spasms. We discussed massages, healthcare corporate account director, heat, neck exercises, posture mechanics all can help with neck and muscle spasms. #Lumbar Pain: She finds relief with tramadol is being appropriately used for her lumbar osteoarthritis. The back pain began at a relatively young age but films show no evidence of a spondyloarthritis. She will continue on the tramadol and baclofen. A follow-up in 6 months would be reasonable. Spent 30 minutes reviewing history, evaluating patient and documenting Medications: New baclofen 10 mg PO TID PRN 90 tabs 1RF Muscle Spasm M54.2 - Cervicalgia, M62.838 - Other muscle spasm Coding Level of Care Code Est Pt Level 3 (81321) Diagnoses Lumbar spondylosis M47.816 Fibromyalgia M79.7 Neck pain M54.2 Neck muscle spasm M62.838
[2023-11-23 15:07] VITALS: BP 118/68; PULSE 76; O2SAT 99; BMI 31.4
== END 2023-11-23 15:33 | disposition home or self-care (01) ==
PROVIDERS: Visit Provider Nurse Practitioner Family
DX: M47.816 Spondylosis without myelopathy or radiculopathy, lumbar region (principal); M79.7 Fibromyalgia; M54.2 Cervicalgia; M62.838 Other muscle spasm
CPT/HCPCS: 99213

== ENCOUNTER → 2023-11-23 14:58 | Outpatient (BNVA) | payer MEDICAID, SELFPAY | PROVIDERS: Visit Provider Nurse Practitioner Family | DX: M47.816 Spondylosis without myelopathy or radiculopathy, lumbar region (principal); M79.7 Fibromyalgia; M54.2 Cervicalgia; M62.838 Other muscle spasm | CPT/HCPCS: 99212 ==

== ENCOUNTER → 2024-01-25 15:36 | Outpatient (BNVA) | payer MEDICAID, SELFPAY | PROVIDERS: Visit Provider Physician Assistant Surgical ==

== ENCOUNTER 2024-03-07 09:35 | Outpatient (REF) | payer SELFPAY ==
--- NOTE | ~2024-03-07 | MM_ITS ---
EXAMINATION: MM SCREENING DIGITAL BREAST TOMOSYNTHESIS, BILATERAL CLINICAL INFORMATION: Screening. Asymptomatic. COMPARISON: Mammography: Comparison is made with available priors TECHNIQUE: Digital breast mammography with tomosynthesis is performed in both the craniocaudal and mediolateral oblique views along with computer-aided detection (CAD). FINDINGS: There are scattered areas of fibroglandular density (ACR BI-RADS breast composition Category b). There are no significant masses, abnormal calcifications, or other abnormalities. MM/MM tomosynthesis screening BI IMPRESSION: No mammographic evidence of malignancy. ASSESSMENT: BI-RADS BI-RADS 1 - Negative RECOMMENDATION: Routine annual mammography screening. 1 year F/U This examination should not preclude the clinical evaluation of a suspicious palpable abnormality. This patient's information was entered into a reminder system with a target due date for their next mammogram. Electronically signed by: Winnie Alexander DO 03/21/2024 09:21 AM EDT
== END 2024-03-07 09:36 | disposition home or self-care (01) ==
LOC: HO.MAMMO 09:35
PROVIDERS: Visit Provider Nurse Practitioner Family
DX: Z12.31 Encounter for screening mammogram for malignant neoplasm of breast (principal)
CPT/HCPCS: 77063; 77067

== ENCOUNTER → 2024-03-07 09:45 | Outpatient (BNV) | payer MEDICAID, SELFPAY | PROVIDERS: Visit Provider Internal Medicine | DX: Z12.31 Encounter for screening mammogram for malignant neoplasm of breast (principal) | CPT/HCPCS: 77063; 77067 ==

== ENCOUNTER 2024-04-11 11:18 | Outpatient (AMB) | payer MEDICAID, SELFPAY ==
--- NOTE | 2024-04-11 11:22 | MHC.OFFVISWM ---
VS Expanded 04/11/24 11:31 BP 132/63 Blood Pressure Location Rt brachial Blood Pressure Position Sitting Pulse 65 Pulse Source Pulse Oximeter Temp 97.7 F Temperature Source Temporal Artery Scan Pulse Oximetry 99 Oxygen Delivery Method Room Air Height 5 ft 1 in Weight 176 lb 6.4 oz BMI 33.3 Body Fat % 35.8 Body Fat Mass 63.0 Fat Free Mass 113.4 Visceral Fat Rating 8.0 Body Water % 45.9 Body Water Mass 81.0 Muscle Mass/Score 107.6 Basal Metabolic Rate/Score 1,549 Intake Visit Reasons: (OV) PO LSG 11/21/2016 Allergies adhesive tape [ADHESIVE TAPE] Allergy (Intermediate, Verified 04/11/24 11:27) BURN/BLISTER Medication List - Last Reconciled 04/11/24 by YURI Garrido ascorbic acid (vitamin C) 25 mg PO DAILY baclofen 10 mg PO TID PRN cetirizine 10 mg PO QAM clotrimazole 1% 1 appl topical BID PRN [cock up splint Wear on both wrists at night ] cyanocobalamin (vitamin B-12) 1,000 mcg IM QMONTH docusate sodium 100 mg PO Q12H ferrous sulfate 325 mg PO BID hydroxyzine pamoate 25 mg PO Q8H PRN multivitamin 1 tab PO DAILY sumatriptan succinate 50 mg PO Q2-4H PRN tramadol 50 mg PO TID PRN HPI Comments Details: This?is a?43?yo female who is s/p LSG 11/21/2016. Weight loss of 0.6lbs since last OV in 09/2022. No complaints of nausea, emesis, abdominal pain or reflux, or constipation. Pt reports anxiety, results in snacking. Goes long periods without eating, works for [employer] and often eats whatever is convenient. Present meal plan includes: not following a plan Exercise routine includes: at last visit had to start working out at home- walker, bands, weights, elliptical- planned to do an hour Pt reports problems of excess skin of abdomen, resulting in itchy rashes in skin fold. She reports unpleasant odor if moisture collects in the skin fold. Gives her difficulty with exercise as movement is uncomfortable and heavy. Difficulty with bending over due to excess skin getting in the way. [facility] Medical History (Updated 11/23/23 @ 15:19 by [facility] Neck muscle spasm Bilateral shoulder pain Neck pain Lateral epicondylitis, right elbow SARS-CoV-2 positive Fibromyalgia Lumbar spondylosis Obesity (BMI 30-39.9) Intestinal malabsorption following gastrectomy Fatigue Sleep apnea GERD (gastroesophageal reflux disease) Arthritis Anemia Surgical History History of surgery of uterus H/O tubal ligation Hx of section S/P laparoscopic sleeve gastrectomy Family History Father Respiratory arrest Sister Anemia Ovarian cancer Social History Alcohol intake: current Alcohol intake frequency: holidays/special occasions only Alcohol type: wine Patient Tobacco Use Status: Never used Tobacco Gender identity: Female Female Reproductive History Menstrual Age of Menarche: 13 Physical Exam Vital Signs: Last Vital Signs Temp 97.7 F 04/11/24 11:31 Pulse 65 04/11/24 11:31 BP 132/63 04/11/24 11:31 Pulse Ox 99 04/11/24 11:31 Oxygen Delivery Method Room Air 04/11/24 11:31 BMI result Body Mass Index 33.3 Assessment & Plan Assessment & Plan (1) Obesity (BMI 30-39.9): Code(s): E66.9 - Obesity, unspecified Category: Medical (2) S/P laparoscopic sleeve gastrectomy: Code(s): Z98.84 - Bariatric surgery status Category: Surgical (3) Excess skin: Code(s): L98.7 - Excessive and redundant skin and subcutaneous tissue Category: Medical Plan New meal plan: 8-10am Celebrate Rebuild 2 scoops in 8oz UAM 12-2pm same shake 5pm dinner- 4-6 forks protein, 4-6 forks veg 7-9pm Celebrate bar If hungry can have snack of 5-10g protein- half bar, 1 egg, 1oz yogurt or CC Encouraged pt to increase exercise with whatever form of activity she enjoys most. RTC 8 weeks, texted pt and encouraged her to reach out with any questions. I spent a total of 30 minutes reviewing/updating records, examining the patient and counseling the patient on weight management as detailed above.
[2024-04-11 11:31] VITALS: BP 132/63; PULSE 65; TEMP 36.5; O2SAT 99; BMI 33.3
== END 2024-04-11 12:07 | disposition home or self-care (01) ==
PROVIDERS: Visit Provider Physician Assistant Surgical
DX: E66.9 Obesity, unspecified (principal); Z98.84 Bariatric surgery status; L98.7 Excessive and redundant skin and subcutaneous tissue
CPT/HCPCS: 99214

== ENCOUNTER → 2024-04-11 11:18 | Outpatient (BNVA) | payer MEDICAID, SELFPAY | PROVIDERS: Visit Provider Physician Assistant Surgical | DX: E66.9 Obesity, unspecified (principal); L98.7 Excessive and redundant skin and subcutaneous tissue; Z98.84 Bariatric surgery status; Z68.33 Body mass index [BMI] 33.0-33.9, adult | CPT/HCPCS: 99212 ==

== ENCOUNTER 2024-05-03 08:34 | Outpatient (REF) | payer MEDICAID, SELFPAY ==
[2024-05-03 11:25] LABS: MANUAL DIFF FLAG NO
== END 2024-05-03 08:35 | disposition home or self-care (01) ==
LOC: HO.HHCL 08:34
PROVIDERS: Visit Provider Nurse Practitioner Family
DX: D50.8 Other iron deficiency anemias (principal); R30.0 Dysuria
CPT/HCPCS: 36415; 85025; 87086

== ENCOUNTER 2024-05-04 13:33 | Outpatient (AMB) | payer MEDICAID, SELFPAY ==
[2024-05-04 13:41] VITALS: BP 120/70; PULSE 81; O2SAT 98; BMI 67.9
--- NOTE | 2024-05-04 13:41 | A.OFFVIS_ITS ---
Vital Signs 05/04/24 13:41 Height 5 ft 3 in Weight 383 lb 9.669 oz BMI 67.9 BP 120/70 Blood Pressure Location Lt brachial Position Sitting Pulse 81 Pulse Source Pulse Oximeter Pulse Oximetry (%) 98 Oxygen Delivery Method Room Air Intake Visit Reasons: OA Intake Note: Patient presents as a follow up patient for fibromyalgia and osteoarthritis. She was last seen by Paula on 11/23/23. Patient would like Tramadol refill today. Accompanied by: Allergies adhesive tape [ADHESIVE TAPE] Allergy (Intermediate, Verified 05/04/24 13:46) BURN/BLISTER Medication List - Last Reconciled 05/04/24 by Rosemary Tipton MD ascorbic acid (vitamin C) 25 mg PO DAILY baclofen 10 mg PO TID PRN cetirizine 10 mg PO QAM clotrimazole 1% 1 appl topical BID PRN [cock up splint Wear on both wrists at night ] cyanocobalamin (vitamin B-12) 1,000 mcg IM QMONTH docusate sodium 100 mg PO Q12H ferrous sulfate 325 mg PO BID hydroxyzine pamoate 25 mg PO Q8H PRN multivitamin 1 tab PO DAILY sumatriptan succinate 50 mg PO Q2-4H PRN tramadol 50 mg PO TID PRN HPI Comments Details: Patient is a 44-year-old female with polyarticular osteoarthritis especially involving her back and fibromyalgia who presents for follow-up Interval History: Last seen 11/23/2023 with Paula Roger. At that time patient continued to complain of widespread joint pain. Was counseled on the use of baclofen for muscle spasms. Today she reports the same. Rheumatologic History: Fibromyalgia Osteoarthritis Current Rheumatology Medication(s): Tramadol 50 mg t.i.d. p.r.n. Baclofen 10 mg t.i.d. p.r.n. [facility] Medical History (Updated 04/14/24 @ 10:26 by Love Woo MD) Neck muscle spasm Bilateral shoulder pain Neck pain Lateral epicondylitis, right elbow SARS-CoV-2 positive Fibromyalgia Lumbar spondylosis Obesity (BMI 30-39.9) Intestinal malabsorption following gastrectomy Fatigue Sleep apnea GERD (gastroesophageal reflux disease) Arthritis Anemia Surgical History History of surgery of uterus H/O tubal ligation Hx of section S/P laparoscopic sleeve gastrectomy Family History Father Respiratory arrest Sister Anemia Ovarian cancer Social History Alcohol intake: current Alcohol intake frequency: holidays/special occasions only Alcohol type: wine Patient Tobacco Use Status: Never used Tobacco Gender identity: Female Female Reproductive History Menstrual Age of Menarche: 13 Review of Systems Const Details: Review of Systems Constitutional: Denies fever, chills, weight loss ENT: Denies vision changes, eye pain or eye redness, dental caries, dry mouth GI: Denies nausea, vomiting, diarrhea, abdominal pain, change in BM Pulm: Denies SOB, [place], hemoptysis, wheezing Cards: Denies chest pain, palpitations Skin: Denies Raynaud's, rash, nail changes, photosensitivity, [employer] TE[employer] LEADER: Denies headaches, weakness, paresthesias, recurrent falls MSK: as per HPI All other systems reviewed and are unremarkable except noted above Physical Exam Vital Signs: BMI result Body Mass Index 67.9 Physical Examination CONSTITUITIONAL Patient alert and cooperative. Well appearing and in no apparent painful distress HEENT Conjunctiva and sclera clear. ?Pupils equal round and reactive to light. ?No lymphadenopathy. ?Normal dentition. No oral or nasal ulcers noted. No evidence of discoid rash to the kendra of ears CHEST/RESPIRATORY SYSTEM Normal respiratory effort and able to speak in complete sentences. ?Clear to auscultation bilaterally. ?No crackles, rales, rhonchi, wheezes heard. CARDIAC SYSTEM Regular rate and rhythm. ?S1 and S2 heard no murmurs. 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 ?No deformities noted. ?No synovit is noted to the MCPs, PIPs or DIPs. ?No tenderness to palpation of these joints. Wrists: ?Full range of motion at the wrists without pain. ?No tenderness to palpation or synovitis noted to the wrists. Elbows: Full range of motion without pain. No tenderness, weakness, swelling, increased warmth or erythema. Shoulders: Full range of motion without pain. No tenderness, weakness, swelling, increased warmth or erythema. Hips: Full range of motion without pain. Hip bursa: No tenderness to palpation Knees: ?Full range of motion. ?No tenderness, swelling, increased warmth or erythema.?No effusion or crepitations Ankles: Full range of motion. ?No tenderness, swelling, increased warmth or erythema.? Feet: ?Negative squeeze test. ?No tenderness to palpation or swelling of the MTPs. Tender points:??Tenderness to palpation of the neck, shoulders, chest, elbows, hips, buttocks or knees. SKIN Skin intact without rashes. Results Reviewed Results Reviewed: Laboratory Tests 04/14/24 10:15 Sodium 141 Potassium 4.3 Chloride 103 Carbon Dioxide 28 BUN 14 Creatinine 0.78 Assessment & Plan Assessment & Plan (1) Fibromyalgia: Code(s): M79.7 - Fibromyalgia Category: Medical Plan: #Fibromyalgia Patient with fibromyalgia. Had a long discussion about lifestyle modifications including sleep, exercise, lowering stress. Added gabapentin. Patient will take 1 tablet every night with a goal of 4 tablets per night as tolerated. Refilled baclofen and tramadol Plan I spent 35 minutes reviewing the record and labs, seeing the patient, discussing the treatment plan and documenting in the medical record ? Medications: New gabapentin 400 mg (4 x 100 mg) PO BEDTIME 90 days 360 caps 2RF M79.7 - Fibromyalgia Refilled baclofen 10 mg PO TID PRN 90 tabs 1RF Muscle Spasm M54.2 - Cervicalgia, M62.838 - Other muscle spasm tramadol 50 mg PO TID PRN 90 tabs 3RF pain M47.816 - Spondylosis without myelopathy or radiculopathy, lumbar region Coding Level of Care Code Est Pt Level 4 (20068) Diagnoses Fibromyalgia M79.7
== END 2024-05-04 14:22 | disposition home or self-care (01) ==
LOC: HO.RHE 13:33
PROVIDERS: PCP Nurse Practitioner Family; Visit Provider Student in an Organized Health Care Education/Training Program
DX: M79.7 Fibromyalgia (principal)
CPT/HCPCS: 99214

== ENCOUNTER → 2024-05-04 13:33 | Outpatient (BNVA) | payer MEDICAID, SELFPAY | PROVIDERS: PCP Nurse Practitioner Family; Visit Provider Student in an Organized Health Care Education/Training Program | DX: M79.7 Fibromyalgia (principal); M62.838 Other muscle spasm; M54.2 Cervicalgia; M47.816 Spondylosis without myelopathy or radiculopathy, lumbar region | CPT/HCPCS: 99212 ==

== ENCOUNTER 2024-05-05 09:26 | Outpatient (REF) | payer MEDICAID, SELFPAY ==
[2024-05-05 11:48] LABS: Alanine Aminotransferase 12 U/L (0-31); Alkaline Phosphatase 57 U/L (39-117); Anion Gap 10 (12-20); Aspartate Amino Transferase 16 U/L (5-31); Bilirubin Total 0.6 mg/dL (0.0-1.0); Blood Urea Nitrogen 13 mg/dL (9-16); Calcium 9.3 mg/dL (8.4-10.2); Carbon Dioxide 30 mmol/L (22-29); Chloride 105 mmol/L (96-108); Cholesterol 173 mg/dL (<200); Estimated Glomerular Filt Rate > 60; Glucose Random 88 mg/dL (60-115); HDL Cholesterol 67 mg/dL (>40); LDL Cholesterol Calculated 83 mg/dL (<100); Potassium 4.4 mmol/L (3.3-5.1); Sodium 141 mmol/L (135-145); Total Protein 7.4 g/dL (6.5-8.0); Triglycerides 115 mg/dL (<150)
== END 2024-05-05 09:27 | disposition home or self-care (01) ==
LOC: HO.LAB 09:26
PROVIDERS: PCP Nurse Practitioner Family; Visit Provider Nurse Practitioner Family
DX: E66.09 Other obesity due to excess calories (principal)
CPT/HCPCS: 36415; 80053; 80061

== ENCOUNTER 2024-09-21 11:50 | Outpatient (REF) | payer MEDICAID, SELFPAY ==
[2024-09-21 12:20] LABS: MANUAL DIFF FLAG NO
[2024-09-21 12:36] LABS: Basophils Percent Auto 0.6 % (0-2); Eosinophils Absolute Auto 0.1 X10*3/uL (0.0-0.4); Eosinophils Percent Auto 0.9 % (0-4); Hematocrit 34.8 % (37.0-47.0); Imm Gran Abs Auto 0.01 X10*3/uL (0.00-0.03); Imm Gran Pct Auto 0.2 % (0.0-0.4); Lymphocytes Absolute Auto 1.9 X10*3/uL (1.2-4.9); Lymphocytes Percent Auto 36.8 % (20-40); Mean Corpuscular HGB Conc 34.5 g/dl (31.0-35.0); Mean Corpuscular Hemoglobin 29.9 pg (27.0-33.0); Mean Corpuscular Volume 86.6 fL (80.0-98.0); Mean Platelet Volume 9.1 fL (9.4-12.3); Monocytes Absolute Auto 0.5 X10*3/uL (0.1-1.2); Monocytes Percent Auto 8.7 % (2-11); Neutrophils Absolute Auto 2.8 x10*3/uL (2.0-8.3); Neutrophils Percent Auto 52.8 % (45-73); Platelet Count 239 X10*3/uL (160-400); Red Blood Count 4.02 X10*6/uL (4.20-5.50); Red Cell Distribution Width 12.9 % (11.0-16.0); White Blood Count 5.3 X10*3/uL (4.8-10.8)
[2024-09-21 12:42] LABS: Estimated Average Glucose 103 mg/dL; Hemoglobin A1c % 5.2 % (<6.0)
[2024-09-21 13:04] LABS: Alanine Aminotransferase 12 U/L (0-31); Albumin Level 4.2 g/dL (3.5-5.0); Anion Gap 11 (12-20); Aspartate Amino Transferase 23 U/L (5-31); Bilirubin Total 0.7 mg/dL (0.0-1.0); Blood Urea Nitrogen 16 mg/dL (9-16); Calcium 9.5 mg/dL (8.4-10.2); Carbon Dioxide 30 mmol/L (22-29); Chloride 103 mmol/L (96-108); Estimated Glomerular Filt Rate > 60; Glucose Random 83 mg/dL (60-115); Sodium 140 mmol/L (135-145); Total Protein 7.6 g/dL (6.5-8.0)
[2024-09-21 13:13] LABS: Alkaline Phosphatase 47 U/L (39-117)
[2024-09-21 13:21] LABS: HIV AB/AG Nonreactive (Nonreactive); HIV Num 1 0.07 S/CO (0.00-0.99); ~HepC Num1 0.33 S/CO (0.00-0.79); ~Hepatitis C Antibody Nonreactive (Nonreactive)
[2024-09-21 13:30] LABS: Vitamin D 25-OH Total 27.2 ng/mL (>30)
== END 2024-09-21 11:51 | disposition home or self-care (01) ==
LOC: HO.LAB 11:50
PROVIDERS: PCP Nurse Practitioner; Visit Provider Nurse Practitioner
DX: L98.7 Excessive and redundant skin and subcutaneous tissue (principal); Z98.84 Bariatric surgery status; E66.811 Obesity, class 1; Z86.39 Personal history of other endocrine, nutritional and metabolic disease
CPT/HCPCS: 36415; 80053; 82306; 83036; 85025; 86803; 87389; 99212

== ENCOUNTER 2024-09-21 12:23 | Outpatient (AMB) | payer MEDICAID, SELFPAY ==
--- NOTE | 2024-09-21 12:33 | MHC.OFFVISWM ---
VS Expanded 09/21/24 12:40 BP 131/67 Blood Pressure Location Lt brachial Blood Pressure Position Sitting Pulse 59 Pulse Oximetry 100 Height 5 ft 1 in Weight 161 lb BMI 30.4 Body Fat % 37.5 Body Fat Mass 0.4 Fat Free Mass 100.6 Visceral Fat Rating 8.0 Body Water % 0.5 Body Water Mass 71.6 Muscle Mass/Score 95.4 Basal Metabolic Rate/Score 1,389 Intake Visit Reasons: (OV) PO LSG 11/21/2016 Allergies adhesive tape [ADHESIVE TAPE] Allergy (Intermediate, Verified 09/21/24 12:39) BURN/BLISTER Medication List - Last Reconciled 09/21/24 by YURI Garrido ascorbic acid (vitamin C) 25 mg PO DAILY baclofen 10 mg PO TID PRN cetirizine 10 mg PO QAM clotrimazole 1% 1 appl topical BID PRN [cock up splint Wear on both wrists at night ] cyanocobalamin (vitamin B-12) 1,000 mcg IM QMONTH diclofenac sodium 1% grams topical docusate sodium 100 mg PO Q12H duloxetine 30 mg PO DAILY ferrous sulfate 325 mg PO BID gabapentin 400 mg (4 x 100 mg) PO BEDTIME 90 days hydroxyzine pamoate 25 mg PO Q8H PRN multivitamin 1 tab PO DAILY sumatriptan succinate 50 mg PO Q2-4H PRN tirzepatide (weight loss) (Zepbound) 7.5 mg subcut QWEEK tramadol 50 mg PO TID PRN HPI Comments Details: This?is a?44?yo female who is s/p LSG 11/21/2016. Weight loss of 13.4lbs since last OV in Mar 2024.? No complaints of nausea, emesis, abdominal pain or reflux, or constipation. Taking Zepbound, prescribed by PCP. Tolerating well. Present meal plan includes: 8-10am Celebrate Rebuild 2 scoops in 8oz UAM 12-2pm same shake 5pm dinner- 4-6 forks protein, 4-6 forks veg 7-9pm Celebrate bar If hungry can have snack of 5-10g protein- half bar, 1 egg, 1oz yogurt or CC Exercise routine includes: going to the gym- treadmill hill walking/running 30 min Pt reports problems of excess skin of abdomen, resulting in itchy/burning rashes in skin fold. These areas burn when she is taking a shower. She reports unpleasant odor if moisture collects in the skin fold. At the corners, she has experienced some open/raw areas. She has tried clotrimazole ointment to help this but not completely effective. Gives her difficulty with exercise as movement is uncomfortable and heavy. Difficulty with bending over due to excess skin getting in the way. All of these problems have worsened as she continues to lose weight. [facility] Medical History Neck muscle spasm Bilateral shoulder pain Neck pain Lateral epicondylitis, right elbow SARS-CoV-2 positive Fibromyalgia Lumbar spondylosis Obesity (BMI 30-39.9) Intestinal malabsorption following gastrectomy Fatigue Sleep apnea GERD (gastroesophageal reflux disease) Arthritis Anemia Surgical History History of surgery of uterus H/O tubal ligation Hx of section S/P laparoscopic sleeve gastrectomy Family History Father Respiratory arrest Sister Anemia Ovarian cancer Social History Alcohol intake: current Alcohol intake frequency: holidays/special occasions only Alcohol type: wine Patient Tobacco Use Status: Never used Tobacco Gender identity: Female Female Reproductive History Menstrual Age of Menarche: 13 Physical Exam Vital Signs: Last Vital Signs Pulse 59 09/21/24 12:40 BP 131/67 09/21/24 12:40 Pulse Ox 100 09/21/24 12:40 BMI result Body Mass Index 30.4 Assessment & Plan Assessment & Plan (1) Excess skin: Code(s): L98.7 - Excessive and redundant skin and subcutaneous tissue Category: Medical (2) Obesity (BMI 30-39.9): Code(s): E66.9 - Obesity, unspecified Category: Medical (3) S/P laparoscopic sleeve gastrectomy: Code(s): Z98.84 - Bariatric surgery status Category: Medical Plan Pt doing well on zepbound. Discussed with pt and goal of 60g protein per day. Target weight for panniculectomy 143lbs. Discussed expectations of panniculectomy surgery, expected postop course and restrictions. RTC 2-3 months.
[2024-09-21 12:40] VITALS: BP 131/67; PULSE 59; O2SAT 100; BMI 30.4
--- OUTSIDE RECORDS SUMMARY | 2024-09-21 15:36 | XMS_ITS | Encounter Summary ---
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 Name Role Phone Sasha Bello NP Primary Care Provider [phone] Reason for Visit * Reason Comments Follow-up Encounter Details Date Type Department Care Team ([facility] Contact Info) Description 09/11/2024 1:30 PM EDT Office Visit [facility] [address] [place], [place] [phone] Sasha Bello NP [address] [place] [address] Encounter for health-related screening (Primary Dx); History of vitamin D deficiency; Obesity (BMI 30.0-34.9); Cervical pain (neck); Status post bariatric surgery; Other iron deficiency anemia Social History Tobacco Use Types Packs/Day Years Used Date Smoking Tobacco: Never Passive Smoke Exposure: Never Smokeless Tobacco: Never Alcohol Use Standard Drinks/Week Comments Not Currently 0 (1 standard drink = 0.6 oz pur e alcohol) Depression Answer Date Recorded Patient Health Questionnaire-9 Score 8 07/12/2024 Patient Health Questionnaire-9 Score 8 07/12/2024 Last PHQ-9: Questionnaire Data Not on file 0 07/12/2024 Housing Stability Answer Date Recorded What is your housing situation today? I have joanna bailey 01/19/[address] you li ve. Do you have problems with any of the following? None of the above 01/19/2024 Food Insecurity Answer Date Recorded Within the past 12 months, y ou worried that your food would run out before you got money to buy more: Never True 01/19/2024 Within the past 12 months,th e food you bought just didn't last and you didn't have enough money to get more: Never True Transportation Answer Date Recorded In the past 12 months, has l ack of transportation kept you from medical appts, meetings, work or from getting things needed for daily living? No 01/19/2024 Utilities Answer Date Recorded In the past 12 months, has t he electric, gas, oil or water company threatened to shut off services in your home? No 01/19/2024 Depression Answer Date Recorded Patient Health Questionnaire-2 Score 0 07/12/2024 Internet Access Answer Date Recorded Internet Access Q1 Yes 02/28/2024 Internet Access Q2 Not on file 02/28/2024 Comments Unknown Sex and Gender Information Value Date Recorded Sex Assigned at Female 04/27/2022 10:21 AM EDT Legal Sex Female 10:21 AM EDT Gender Identity Female 04/27/2022 10:21 AM EDT Sexual Orientation Straight 04/27/2022 10 :21 AM EDT documented as of this encounter Last Filed Vital Signs Vital Sign Reading Time Taken Comments Blood Pressure 130/76 09/11/2024 1:14 PM EDT Pulse 63 09/11/2024 1:14 PM EDT Temperature 37.1 ??C (98.7 ??F) 09/11/2024 1:14 PM ED T Respiratory Rate 16 09/11/2024 1:14 PM EDT Oxygen Saturation 95% 09/11/2024 1:14 PM EDT Inhaled Oxygen Concentration - - Weight 75.5 kg (166 lb 6.4 oz) 09/11/2024 1:14 P M EDT Height 154.9 cm (5' 1 ) 09/11/2024 1:14 PM EDT Body Mass Index 31.44 09/11/2024 1:14 PM EDT documented in this encounter Progress Notes * Sasha Bello NP - 09/11/2024 1:30 PM EDT Subjective: Oc Ramirez 44 y.o. female presents for follow-up. Denies recent illness, injury, or hospitalization. HPI Oc is accompanied by her Adalberto who is serving as interpretor today with patient's request. Patient states she is doing well overall. During our last encounter, her dose of trizepitide was increased to 5 mg. States she has been tolerating the medication and continues to feel it is effective for her. States she has been consuming high protein diet and goes to the gym 3-4 times per week doing cardio and strength training. On the days she is not able to got to the gym, she walks on treadmill at home Current Concerns: Pain at the back of her neck that has been present for a while. States there is a lump in the area,which she showed her Lump Maker and was told its a normal finding. Notes some improvement with consistent use of gabapentin and muscle relaxer. Interim updates: Cervical cancer screening: states pap completed 1 year ago at [facility]; chart review reveals last testing 03/04/2021 ASCUS Mammogram: BI-RADS 1-Negative 02/2024 Colorectal cancer screening: not due for routine screening Rosemary Tipton-Rheumatology provider who prescribes tramadol, gabapentin Review of Systems Constitutional: Negative. Negative for chills and fever. Respiratory: Negative for chest tightness and shortness of breath. Cardiovascular: Negative for chest pain. Gastrointestinal: Negative for abdominal pain, constipation, diarrhea and nausea. Genitourinary: Negative for dysuria. Musculoskeletal: Positive for neck pain. Negative for arthralgias, back pain and myalgias. Skin: Negative. Negative for rash and wound. Neurological: Negative for weakness, light-headedness and headaches. Psychiatric/Behavioral: Negative for behavioral problems, confusion, decreased concentration and suicidal ideas. Objective: Visit Vitals BP 130/76 (BP Location: Left arm, Patient Position: Sitting, BP Cuff Size: Adult) Pulse 63 Temp 98.7 ??F (37.1 ??C) (Oral) Resp 16 Patient Active Problem List Diagnosis Gastritis Iron deficiency anemia Lumbar disc herniation with radiculopathy Obesity (BMI 30.0-34.9) Pain in the coccyx Papular eruption Seasonal allergic rhinitis Status post bariatric surgery Bilateral foot pain Mild major depression (CMS/HCC) Anxiety Exercise counseling Dietary counseling Encounter for immunization Current Outpatient Medications on File Prior to Visit Medication Sig Dispense Refill ascorbic acid (Vitamin C) 500 MG tablet Take by mouth. baclofen (Lioresal) 10 MG tablet Take 1 tablet (10 mg) by mouth 3 times daily. 90 tablet 2 cetirizine (ZyrTEC) 10 MG tablet Take 1 tablet (10 mg) by mouth in the morning. 90 tablet 2 cyanocobalamin (Vitamin B-12) 1000 MCG/ML injection INJECT 0.1ML (100 MCG) INTRAMUSCULARLY ONCE MONTHLY Docusate Sodium (DSS) 100 MG capsule Take 1 capsule (100 mg) by mouth every 12 (twelve) hours. 180 capsule 2 DULoxetine (Cymbalta) [address] capsule Take 1 capsule (30 mg) by mouth Once per day. Do not crush or chew. 30 capsule 1 ferrous sulfate 325 (65 Fe) MG tablet TAKE 1 TABLET BY MOUTH EVERY DAY WITH BREAKFAST 90 tablet 2 gabapentin (Neurontin) 100 MG capsule Take 400 mg by mouth at bedtime. Multiple Vitamin (multivitamin) tablet Take 1 tablet by mouth Once per day. OTC traMADol (Ultram) 50 MG tablet MARINAE LILLIE AMEZUQITA [DISCONTINUED] lidocaine (Lidoderm) 5 % patch Place 1 patch on the skin at bed time. [DISCONTINUED] Tirzepatide-Weight Management (Zepbound) 5 MG/0.5ML solution auto-injector Inject 0.5 mL (5 mg) under the skin 1 (one) time per week. 2 mL 1 No current facility-administered medications on file prior to visit. Physical Exam Vitals reviewed. Constitutional: General: She is not in acute distress. Appearance: Normal appearance. She is obese. She is not ill-appearing. HENT: Head: Normocephalic and atraumatic. Right Ear: External ear normal. Left Ear: External ear normal. Nose: Nose normal. Eyes: General: No scleral icterus. Extraocular Movements: Extraocular movements intact. Cardiovascular: Rate and Rhythm: Normal rate and regular rhythm. Pulses: Normal pulses. Heart sounds: Normal heart sounds. Pulmonary: Effort: Pulmonary effort is normal. No respiratory distress. Breath sounds: Normal breath sounds. Musculoskeletal: General: Normal range of motion. Cervical back: Normal range of motion. No rigidity. Muscular tenderness present. No pain with movement. Normal range of motion. Skin: General: Skin is warm and dry. Neurological: General: No focal deficit present. Mental Status: She is alert and oriented to person, place, and time. Gait: Gait normal. Psychiatric: Mood and Affect: Mood normal. Behavior: Behavior normal. Problem List Items Addressed This Visit Iron deficiency anemia -not currently taking oral supplementation -encouraged iron rich foods (examples provided) -repeat CBC ordered Relevant Orders CBC auto differential Obesity (BMI 30.0-34.9) Patient currently on pharmacotherapy to assist with management of her weight. Patent has lost 17 pounds since medication initiated. Zepbound dose increased to 7.5 mg given tolerance. Starting weight: 183 lbs Current weight:166 lbs Review continue lifestyle modifications. Patient was titrated up to treatment dose. Discussed possible side effects with patient: nausea, vomiting, diarrhea & risk of pancreatitis. No contraindications identified: , hx of pancreatitis, hx of medullary thyroid cancer or MEN 2. Reviewed calorie deficit, recommended reduction of 20-30% of maintenance calories. Recommended to decrease soda and sugary beverage consumption. Recommended at least 20 g per meal of protein to assist with satiety. Recommended at least 150 min/week of moderate intensity exercise. Relevant Medications Tirzepatide-Weight Management 7.5 MG/0.5ML solution auto-injector Other Relevant Orders Hemoglobin A1c Comprehensive Metabolic Panel Status post bariatric surgery -receiving B12 injections with Dr. Blank Other Visit Diagnoses Encounter for health-related screening - Primary Relevant Orders Hepatitis C Antibody with Reflex to HCV, RNA, Quantitative, Real-Time PCR HIV-1/2 Antigen and Antibodies, Fourth Generation, with Reflexes History of vitamin D deficiency Relevant Orders Vitamin D, 25-Hydroxy, Total, Immunoassay Cervical pain (neck) -MSK pain -continue rx'ed analgesics; lidocain patches refilled -stretching exercises provided to be done BID Relevant Medications lidocaine (Lidoderm) 5 % patch Follow-up 4 months for routine care or sooner as needed [place]ral[employer]arian Translation: patient's Adalberto documented in this encounter Miscellaneous Notes * Assessment & Plan Note - Sasha Bello NP - 09/11/2024 6:09 PM EDTAssociated Problem(s): Iron deficiency anemia -not currently taking oral supplementation -encouraged iron rich foods (examples provided) -repeat CBC ordered * Assessment & Plan Note - Sasha Bello NP - 09/11/2024 6:06 PM EDTAssociated Problem(s): Status post bariatric surgery -receiving B12 injections with Dr. Blank * Assessment & Plan Note - Sasha Bello NP - 09/11/2024 6:05 PM EDTAssociated Problem(s): Obesity (BMI 30.0-34.9) Patient currently on pharmacotherapy to assist with management of her weight. Patent has lost 17 pounds since medication initiated. Zepbound dose increased to 7.5 mg given tolerance. Starting weight: 183 lbs Current weight:166 lbs Review continue lifestyle modifications. Patient was titrated up to treatment dose. Discussed possible side effects with patient: nausea, vomiting, diarrhea & risk of pancreatitis. No contraindications identified: , hx of pancreatitis, hx of medullary thyroid cancer or MEN 2. Reviewed calorie deficit, recommended reduction of 20-30% of maintenance calories. Recommended to decrease soda and sugary beverage consumption. Recommended at least 20 g per meal of protein to assist with satiety. Recommended at least 150 min/week of moderate intensity exercise. * Patient Education Note - Sasha Bello NP - 09/11/2024 5:53 PM EDT Images from the original note were not included. Patient Education Table of Contents Ejercicios para el patricia (Neck Exercises) To view videos and all your education online visit, [email or web address] or scan this QR code with your smartphone. Access to this content will in one year. Ejercicios para el patricia Neck Exercises Pregunte al m?dico qu?? ejercicios son seguros para usted. Sumaya los ejercicios exactamente tessy se lo haya indicado el m?dico y grad?elos tessy se lo hayan indicado. Es normal sentir un leve estiramiento, tironeo, opresi?n o malestar al hacer estos ejercicios. Det?ngase de inmediato si siente un dolor repentino o el dolor empeora. No comience a hacer estos ejercicios hasta que se lo indique el m?dico. Los ejercicios para el patricia pueden ser importantes por muchos motivos. Pueden mejorar la fuerza ymantener la flexibilidad del patricia, lo que ser?? ?til para la parte superior de la espalda y para prevenir el dolor de patricia. Ejercicios de estiramiento Estiramiento del patricia con rotaci?n 1. Si?ntese en lillie silla o p?rese. Apoye los pies en el piso, con lillie separaci?n del ancho de los hombros. Gire lentamente la shelly (r?radha) hacia la derecha hasta sentir un ligero estiramiento. G?rela completamente hacia la derecha de modo que pueda sahara por encima de metcalf hombro derecho. No incline ni ladee la shelly. Mantenga esta posici?n chano 10 a 30?segundos. Gire lentamente la shelly (r?radha) hacia la izquierda hasta sentir un ligero estiramiento. G?rela completamente hacia la izquierda de modo que pueda sahara por encima de metcalf hombro richard. No incline ni ladee la shelly. Mantenga esta posici?n chano 10 a 30?segundos. Repita veces. Realice shawna ejercicio veces al d?a. Retracci?n del patricia 1. Si?ntese en lillie silla resistente o p?rese. Rosemarie hacia adelante. No doble el patricia. Use los dedos para empujar la barbilla hacia atr?s (retracci?n). No doble el patricia al realizar shawna movimiento. Siga mirando hacia adelante. Si hace el ejercicio correctamente, tendr?? lillie leve sensaci?n en la garganta y sentir?? que la nuca se estira. Mantenga la elongaci?n chano 1?o 2?segundos. Repita veces. Realice shawna ejercicio veces al d?a. Ejercicios de fortalecimiento Presi?n con el patricia 1. Recu?stese sobre metcalf espalda en lillie cama firme o en el suelo, y coloque lillie almohada debajo de lacabeza. Use los m?sculos del patricia para presionar la shelly contra la almohada y enderezar la columna vertebral. Mantenga la posici?n lo mejor que pueda. Mantenga la shelly hacia arriba (en posici?n neutral) y elment?n hacia abajo. Cuente lentamente hasta 5?mientras mantiene esta posici?n. Repita veces. Realice shawna ejercicio veces al d?a. Isometr?a Estos son ejercicios en los que se fortalecen los m?sculos del patricia mientras se mantiene el patricia quieto (isometr?a). 1. Si?ntese en lillie silla con buen apoyo y coloque lillie mano sobre la frente. Mantenga la shelly y la kevin mirando hacia adelante. No flexione o extienda el patricia mientras haceejercicios balwinder?tricos. Empuje hacia adelante con la shelly y el patricia mientras que con la mano ejerce cierta presi?n hacia el lado contrario. Mantenga esta posici?n chano 10?segundos. Vuelva a realizar la secuencia, esta vez poniendo la mano contra la nuca. Use la shelly y el cuellopara empujar en la direcci?n contraria a la presi?n que ejerce con la mano. Para terminar, sumaya el mismo ejercicio en cada lado de la shelly, empujando hacia los lados en la direcci?n contraria a la presi?n de la mano. Repita veces. Realice shawna ejercicio veces al d?a. Levantamientos de la shelly desde la posici?n dec?bito prono 1. Acu?stese boca abajo (posici?n prona) y apoye los codos de modo que el pecho y la parte superiorde la espalda se eleven. Comience con la shelly mirando hacia abajo, cerca del pecho. Coloque el ment?n cerca del pecho o sobre shawna. Eleve lentamente la shelly. H?hadley hasta quedar mirando hacia adelante. Luego contin?e elevando y estirando la shelly hacia atr?s lo m?s que pueda con comodidad. Mantenga la shelly elevada chano 5?segundos. A continuaci?n, b?jela lentamente hasta la posici?n inicial. Repita veces. Realice shawna ejercicio veces al d?a. Levantamientos de la shelly desde la posici?n dec?bito supino 1. Acu?stese sobre la espalda (posici?n dec?bito supino), doble las rodillas apuntando hacia el techo y mantenga los pies apoyados en el piso. Levante lentamente la shelly del suelo, y eleve el ment?n hacia el pecho. Mantenga esta posici?n chano 5?segundos. Repita veces. Realice shawna ejercicio veces al d?a. Retracci?n escapular 1. P?rese con los brazos a los costados. Rosemarie hacia adelante. Lentamente, lleve los hombros (esc?pulas) hacia atr?s y hacia abajo (retracci?n) hasta sentir que la fred de los om?platos, en la parte aretha de la espalda, se estira. Mantenga esta posici?n chano 10 a 30?segundos. Rel?cristina y luego repita el ejercicio. Repita veces. Realice shawna ejercicio veces al d?a. Comun?quese con un m?dico si: El dolor o las molestias en el patricia empeoran cuando hace un ejercicio. El dolor o las molestias en el patricia no mejoran en el t?rmino de las 2?horas posteriores a hacer los ejercicios. Si tiene alguno de estos problemas, deje de hacer los ejercicios de inmediato. No vuelva a hacer los ejercicios a menos que el m?dico lo autorice. Solicite ayuda de inmediato si: Siente un dolor s?bito e intenso en el patricia. Si esto ocurre, deje de hacer los ejercicios de inmediato. No vuelva a hacer los ejercicios a menosque el m?dico lo autorice. Esta informaci?n no tiene tessy fin reemplazar el consejo del m?dico. Aseg?rese de hacerle al m?dicocualquier pregunta que tenga. Document Released: 2016-07-10 Document Updated: 2022-01-02 Document Reviewed: 2022-01-02 Elsevier Patient Education ? 2024 [employer]. documented in this encounter Plan of Treatment Not on file documented as of this encounter Procedures Procedure Name Priority Date/Time Associated Diagnosis Comments VITAMIN D,25-OH,TOTAL,IA Routine 09/21/2024 12:18 PM EDT History of vitamin D deficiency CBC WITH AUTO DIFFERENTIAL Routine 09/21/2024 12:18 PM EDT Encounter for health-related screening HEPATITIS C AB W/REFL TO HCV RNA, QN, PCR Routine 09/21/2024 12:18 PM EDT Encounter for health-related screening HIV 1/2 ANTIGEN/ANTIBODY, FOURTH GENERATION W/RFL Routine 09/21/2024 12:18 PM EDT Encounter for health-related screening HEMOGLOBIN A1C Routine 09/21/2024 12:18 PM EDT Obesity (BMI 30.0-34.9) COMPREHENSIVE METABOLIC PANEL Routine 09/21/2024 12:18 PM EDT Obesity (BMI 30.0-34.9) documented in this encounter Results * (ABNORMAL) Vitamin D, 25-Hydroxy, Total, Immunoassay (09/21/2024 12:18 PM EDT) Vitamin D 25-OH Total 27.2(L) >30 ng/mL [facility] Comment: Health Based Reference Values*< 20 ??ng/mL ??Ijmevctak65-31 ng/mL ??Insufficient> 30 ??ng/mL ??Sufficient*Elizabeth SCHNEIDER. N Engl J Med. 2007;357:266-280There is no well-established upper level of normal vitamin Dlevels. Some laboratories use 50 ng/mL as an upper limit ofnormal. However, toxicity is patient-dependent and may occurat any level. Careful correlation with the patient'spresentation is necessary and, if there is concern forvitamin D toxicity, treatment should be consideredirrespective of the serum level.Care must be taken in interpreting Vitamin D results fromdifferent laboratories and methodologies. ??Published datademonstrated that results from patients undergoinghemodialysis may show a negative bias when tested withvarious automated 25-OH vitamin D assays when compared toLC- MS/MS.When testing samples from patients whose predominant form ofVitamin D is Vitamin D2, such as patients receiving VitaminD2 supplementation, results that are subtherapeutic shouldbe confirmed with another method such as LC-MS/MS. Blood Venous blood specimen / Unknown 09/21/2024 12:18 PM EDT 09/21/2024 12:18 PM EDT Sasha Bello NP LAB BLOOD ORDERABLES Final Resu lt [facility] [address] [place] [phone] * HIV-1/2 Antigen and Antibodies, Fourth Generation, with Reflexes (09/21/2024 12:18 PM EDT) HIV AB/AG Nonreactive Nonreactive [facility] Comment:HIV-1 p24 Ag and/or HIV-1/HIV-2 Ab not detected.A test result that is nonreactive does not exclude thepossibility of exposure to or infection with HIV-1 and/orHIV-2. Nonreactive results in this assay for individualswith prior exposure to HIV-1 and/or HIV-2 may be due toantigen and antibody levels that are below the limit ofdetection of this assay.The [employer] HIV Ag/Ab Combo assay result andsupplemental assay results should be interpreted inconjunction with the patient's clinical presentation,history and other laboratory results. If the results areinconsistent with clinical evidence, additional testing issuggested to confirm the result. Blood Venous blood specimen / Unknown 09/21/2024 12:18 PM EDT 09/21/2024 12:18 PM EDT [facility] APARTMENT LEASING MANAGER LAB BLOOD ORDERABLES Final Resu lt Performing Organization Address [facility]/ZIP Co de Phone Number [facility] [address] [place] [address] [phone] * Hepatitis C Antibody with Reflex to HCV, RNA, Quantitative, Real-Time PCR (09/21/2024 12:18 PM EDT) Hepatitis C Antibody Nonreactive Nonreactive [facility] Comment:Antibodies to HCV no t detected; does not exclude early acuteHCV infection. Blood Venous blood specimen / Unknown 09/21/2024 12:18 PM EDT 09/21/2024 12:18 PM EDT [facility] LAB BLOOD ORDERABLES Final Resu lt Performing Organization Address City/[facility]/ZIP Co de Phone Number [facility] [address] [place] [address] [phone] * (ABNORMAL) Comprehensive Metabolic Panel (09/21/2024 12:18 PM EDT) Sodium 140 135 - 145 mmol/L [facility] Potassium 4.0 3.3 - 5.1 mmol/L [facility] Chloride 103 96 - 108 mmol/L [facility] Carbon Dioxide 30(H) 22 - 29 mmol/L [facility] Anion Gap 11(L) 12 - 20 [facility] Urea Nitrogen (BUN) 16 9 - 16 mg/dL [facility] Creatinine, Serum 0.86 0.5 - 1.4 mg/dL [facility] Estimated Glomerular Filt Rate >60 [facility] Comment:Chronic Kidney Disea se: Estimated GFR < 60 mL/min/[id number] Kidney Disease: Estimated GFR < 15 mL/min/1.73m2 Glucose 83 60 - 115 mg/dL [facility] Calcium 9.5 8.4 - 10.2 mg/dL [facility] Bilirubin, Total 0.7 0.0 - 1.0 mg/dL [facility] Aspartate Amino Transferase 23 5 - 31 U/L [facility] Alanine Aminotransferase 12 0 - 31 U/L [facility] Total Protein 7.6 6.5 - 8.0 g/dL [facility] Albumin Level 4.2 3.5 - 5.0 g/dL [facility] Alkaline Phosphatase 47 39 - 117 U/L [facility] Blood Venous blood specimen / Unknown 09/21/2024 12:18 PM EDT 09/21/2024 12:18 PM EDT Sasha Bello APARTMENT LEASING MANAGER LAB BLOOD ORDERABLES Final Resu lt [facility] [address] [place] [phone] * (ABNORMAL) CBC auto differential (09/21/2024 12:18 PM EDT) White Blood Count 5.3 4.8 - 10.8 X10*3/uL [facility] Red Blood Count 4.02(L) 4.20 - 5.50 X10*6/uL [facility] Hemoglobin 12.0 12.0 - 16.0 g/dl [facility] Hematocrit 34.8(L) 37.0 - 47.0 % [facility] Mean Corpuscular Volume 86.6 80.0 - 98.0 fL [facility] Mean Corpuscular Hemoglobin 29.9 27.0 - 33.0 pg [facility] Mean Corpuscular HGB Conc 34.5 31.0 - 35.0 g/dl [facility] Red Cell Distribution Width 12.9 11.0 - 16.0 % [facility] Platelet Count 239 160 - 400 X10*3/uL [facility] Mean Platelet Volume 9.1(L) 9.4 - 12.3 fL [facility] Neutrophils Percent Auto 52.8 45 - 73 % [facility] Imm Gran Pct Auto 0.2 0.0 - 0.4 % [facility] Lymphocytes Percent Auto 36.8 20 - 40 % [facility] Monocytes Percent Auto 8.7 2 - 11 % [facility] Eosinophils Percent Auto 0.9 0 - 4 % [facility] Basophils Percent Auto 0.6 0 - 2 % [facility] NRBC Pct Auto 0.0 0.0 - 0.2 /100WBC [facility] Neutrophils Absolute Auto 2.8 2.0 - 8.3 x10*3/uL [facility] Imm Gran Abs Auto 0.01 0.00 - 0.03 X10*3/uL [facility] Lymphocytes Absolute Auto 1.9 1.2 - 4.9 X10*3/uL [facility] Monocytes Absolute Auto 0.5 0.1 - 1.2 X10*3/uL [facility] Eosinophils Absolute Auto 0.1 0.0 - 0.4 X10*3/uL [facility] Basophils Absolute Auto 0.0 0.0 - 0.2 X10*3/uL [facility] NRBC Abs Auto 0.000 0.0 - 0.012 X10*3/uL [facility] Blood Venous blood specimen / Unknown 09/21/2024 12:18 PM EDT 09/21/2024 12:18 PM EDT us Sasha Bello APARTMENT LEASING MANAGER LAB BLOOD ORDERABLES Final Resu lt [facility] [address] [place] [address] [phone] * Hemoglobin A1c (09/21/2024 12:18 PM EDT) Hemoglobin A1c 5.2 <6.0 % [facility] Comment:Hemoglobin A1C Refer ence Range Adults: 4.8 - 6.0 % Non diabetic: < 6.0 % Goal: < 7.0 %Additional Action Suggested: > 8.0 %Note: Hemoglobin A1c results are invalid for patients with abnormal amounts of HbF. Blood transfusions may impact the HbA1c concentration in the patient sample. Estimated Average Glucose 103 mg/dL [facility] Comment:eAG = Estimated ave rage glucose which is %A1C expressed asaverage glucose, using the formula of the X2Z-SztnbcmFeoaxdi Glucose study (ADAG), Diabetes Care, Vol.31,#8,Jan. 2007 Blood Venous blood specimen / Unknown 09/21/2024 12:18 PM EDT 09/21/2024 12:18 PM EDT us Sasha Bello NP LAB BLOOD ORDERABLES Final Resu lt [facility] [address] [place] [address] [phone] documented in this encounter Visit Diagnoses Diagnosis Encounter for health-related screening- Primary History of vitamin D deficiency Obesity (BMI 30.0-34.9) Cervical pain (neck) Cervicalgia Status post bariatric surgery Bariatric surgery status Other iron deficiency anemia documented in this encounter Additional Health Concerns Assessment Noted Time PHQ-9 Depression Total Score: 8 07/12/19 25 11:42 AM EST documented as of this encounter Care Teams Icicle Machine Operator Relationship Specialty Start Date End Date Sasha Bello NP [address] [place] [address] PCP - General Family Medicine 03/01/24 documented as of this encounter
== END 2024-09-21 13:14 | disposition home or self-care (01) ==
LOC: HO.HBS 12:23
PROVIDERS: PCP Nurse Practitioner Family; Visit Provider Physician Assistant Surgical
DX: L98.7 Excessive and redundant skin and subcutaneous tissue (principal); E66.9 Obesity, unspecified; Z98.84 Bariatric surgery status
CPT/HCPCS: 99214

== ENCOUNTER 2024-11-08 12:30 | Outpatient (AMB) | payer MEDICAID, SELFPAY ==
--- NOTE | 2024-11-08 12:34 | A.OFFVIS_ITS ---
Vital Signs 11/08/24 12:37 Height 5 ft 1 in Weight 156 lb 11.979 oz BMI 29.6 BP 130/80 Blood Pressure Location Lt brachial Position Sitting Pulse 77 Pulse Source Pulse Oximeter Pulse Oximetry (%) 98 Oxygen Delivery Method Room Air Intake Visit Reasons: Follow up Intake Note: Patient presents for Fibromyalgia follow up. Director Of Design Required: Yes Director Of Design Language: Diesel Mechanic Farm Services: Director Of Design Present Director Of Design Name: Tabby [id number] Information Interpreted: non-clinical & clinical Allergies adhesive tape [ADHESIVE TAPE] Allergy (Intermediate, Verified 11/08/24 12:37) BURN/BLISTER Medication List - Last Reconciled 11/08/24 by Rosemary Tipton MD ascorbic acid (vitamin C) 25 mg PO DAILY cetirizine 10 mg PO QAM clotrimazole 1% 1 appl topical BID PRN [cock up splint Wear on both wrists at night ] cyanocobalamin (vitamin B-12) 1,000 mcg IM QMONTH diclofenac sodium 1% grams topical docusate sodium 100 mg PO Q12H duloxetine 30 mg PO DAILY ferrous sulfate 325 mg PO BID gabapentin 400 mg (4 x 100 mg) PO BEDTIME 90 days hydroxyzine pamoate 25 mg PO Q8H PRN multivitamin 1 tab PO DAILY sumatriptan succinate 50 mg PO Q2-4H PRN tirzepatide (weight loss) (Zepbound) 7.5 mg subcut QWEEK tramadol 50 mg PO TID PRN HPI Comments Details: Patient is a 44-year-old female with 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 At that time gabapentin was added to her regimen She increased the gabapentin up to 400mg at night with some improvement Does not feel that the baclofen is helping Tramadol helps Rheumatologic History: Fibromyalgia Osteoarthritis Current Rheumatology Medication(s): Tramadol 50 mg t.i.d. p.r.n. Baclofen 10 mg t.i.d. p.r.n. [facility] Medical History Neck muscle spasm Bilateral shoulder pain Neck pain Lateral epicondylitis, right elbow SARS-CoV-2 positive Fibromyalgia Lumbar spondylosis Obesity (BMI 30-39.9) Intestinal malabsorption following gastrectomy Fatigue Sleep apnea GERD (gastroesophageal reflux disease) Arthritis Anemia Surgical History History of surgery of uterus H/O tubal ligation Hx of section S/P laparoscopic sleeve gastrectomy Family History Father Respiratory arrest Sister Anemia Ovarian cancer Social History Alcohol intake: current Alcohol intake frequency: holidays/special occasions only Alcohol type: wine Patient Tobacco Use Status: Never used Tobacco Gender identity: Female Female Reproductive History Menstrual Age of Menarche: 13 Review of Systems Const Details: Review of Systems Constitutional: Denies fever, chills, weight loss ENT: Denies vision changes, eye pain or eye redness, dental caries, dry mouth GI: Denies nausea, vomiting, diarrhea, abdominal pain, change in BM Pulm: Denies SOB, WINSTON, hemoptysis, wheezing Cards: Denies chest pain, palpitations Skin: Denies Raynaud's, rash, nail changes, photosensitivity, INTENSIVE CARE MEDICINE SPECIALIST: Denies headaches, weakness, paresthesias, recurrent falls MSK: as per HPI All other systems reviewed and are unremarkable except noted above Physical Exam Vital Signs: Last Vital Signs Pulse 77 11/08/24 12:37 BP 130/80 11/08/24 12:37 Pulse Ox 98 11/08/24 12:37 Oxygen Delivery Method Room Air 11/08/24 12:37 BMI result Body Mass Index 29.6 Vital signs reviewed Physical Examination CONSTITUITIONAL Patient alert and cooperative. Well appearing and in no apparent painful distress HEENT Conjunctiva and sclera clear. ?Pupils equal round and reactive to light. ?No lymphadenopathy. ?Normal dentition. No oral or nasal ulcers noted. No evidence of discoid rash to the ekndra of ears CHEST/RESPIRATORY SYSTEM Normal respiratory effort and able to speak in complete sentences. ?Clear to auscultation bilaterally. ?No crackles, rales, rhonchi, wheezes heard. CARDIAC SYSTEM Regular rate and rhythm. ?S1 and S2 heard no murmurs. ?Radial pulses intact bilaterally MSK Hands: ?Good manager mall strength bilaterally - 5/5. ?No deformities noted. ?No synovitis noted to the MCPs, PIPs or DIPs. ?No tenderness to palpation of these joints. Wrists: ?Full range of motion at the wrists without pain. ?No tenderness to palpation or synovitis noted to the wrists. Elbows: Full range of motion without pain. No tenderness, weakness, swelling, increased warmth or erythema. Shoulders: Full range of motion without pain. No tenderness, weakness, swelling, increased warmth or erythema. Knees: ?Full range of motion. ?No tenderness, swelling, increased warmth or erythema.?No effusion or crepitations Ankles: Full range of motion. ?No tenderness, swelling, increased warmth or erythema.? Feet: ?Negative squeeze test. ?No tenderness to palpation or swelling of the MTPs. Tender points:??Tenderness to palpation of the neck, shoulders, chest, elbows, hips, buttocks or knees. SKIN Skin intact without rashes. Results Reviewed Results Reviewed: Laboratory Tests 09/21/24 12:18 WBC 5.3 RBC 4.02 L Hgb 12.0 Hct 34.8 L Plt Count 239 Sodium 140 Potassium 4.0 Chloride 103 Carbon Dioxide 30 H BUN 16 Creatinine 0.86 AST 23 ALT 12 Alkaline Phosphatase 47 Assessment & Plan Assessment & Plan (1) Fibromyalgia: Code(s): M79.7 - Fibromyalgia Category: Medical Plan: #Fibromyalgia Patient is a 44-year-old female with fibromyalgia. Has been doing well on the gabapentin that was added after the last visit. We will increase the gabapentin to 400 mg twice a day since patient does not have any sedentary effects from it. Patient requesting a different muscle relaxant because she does not feel baclofen is helpful. Unable to do cyclobenzaprine because it interacts with tramadol. We will do low-dose tizanidine Plan - Gabapentin 400mg bid - Tizanidine 2mg nightly - Tramadol 50mg tid prn - RTC 6 months Plan I spent 35 minutes reviewing the record and labs, seeing the patient, discussing the treatment plan and documenting in the medical record ? Medications: Changed From tramadol 50 mg PO TID PRN 90 tabs 3RF pain M47.816 - Spondylosis without myelopathy or radiculopathy, lumbar region To tramadol 50 mg PO TID 90 days 270 tabs 1RF pain M47.816 - Spondylosis without myelopathy or radiculopathy, lumbar region From gabapentin 400 mg (4 x 100 mg) PO BEDTIME 90 days 360 caps 2RF M79.7 - Fibromyalgia To gabapentin 400 mg PO BID 90 days 180 caps 1RF M79.7 - Fibromyalgia Discontinued baclofen Discontinued Reason: Doctor's Order 10 mg PO TID PRN 90 tabs 4RF for muscle spasm M54.2 - Cervicalgia, M62.838 - Other muscle spasm Coding Level of Care Code Est Pt Level 3 (42599) Diagnoses Fibromyalgia M79.7
[2024-11-08 12:37] VITALS: BP 130/80; PULSE 77; O2SAT 98; BMI 29.6
--- OUTSIDE RECORDS SUMMARY | 2024-11-08 12:56 | XMS_ITS | Encounter Summary ---
Author Organization [employer] Address [address] [facility] [address] [place] [address] Care Team Providers Care Cleaner Greaser Name Role Phone Amelie RamP Primary Care Provider [phone] Sasha Bello NP Primary Care Provider [phone] Encounter Details Date Type Department Care Team (Late st Contact Info) Description 12/23/2022 Orders Only [facility] [address], [place] [phone] Amelie Ram FNP [address] [place] [address] Encounter for annual routine gynecological examination (Primary Dx); Lumbar disc herniation with radiculopathy Social History Tobacco Use Types Packs/Day Years Used Date Smoking Tobacco: Never Passive Smoke Exposure: Never Smokeless Tobacco: Never Alcohol Use Standard Drinks/Week Comments Not Currently 0 (1 standard drink = 0.6 oz pur e alcohol) Depression Answer Date Recorded Patient Health Questionnaire-9 Score 0 11/25/2022 Depression Answer Date Recorded Patient Health Questionnaire-2 Score 0 11/25/2022 Comments Unknown Sex and Gender Information Value Date Recorded Sex Assigned at Female 04/27/2022 10:21 AM EDT Legal Sex Female 10:21 AM EDT Gender Identity Female 04/27/2022 10:21 AM EDT Sexual Orientation Straight 04/27/2022 10 :21 AM EDT COVID-19 Exposure Response Date Recorded In the last 10 days, have yo u been in contact with someone who was confirmed or suspected to have Coronavirus/COVID-19? No / Unsure 11/25/2022 9:59 AM EDT documented as of this encounter Plan of Treatment Upcoming Encounters Date Type Department Care Team (Late st Contact Info) Description 01/12/2025 10:00 AM EDT Office Visit [facility] [address] [place] [address] Sasha Bello NP [address] [place] [address] 02/14/2025 2:45 PM EDT Office Visit [facility] [address] [place] [address] Sasha Bello NP [address] [place] [address] documented as of this encounter Visit Diagnoses Diagnosis Encounter for annual routine gynecological examination- Primary Lumbar disc herniation with radiculopathy Displacement of lumbar intervertebral disc without myelopathy documented in this encounter Additional Health Concerns Assessment Noted Time PHQ-9 Depression Total Score: 0 11/26/19 23 10:22 AM EDT documented as of this encounter Care Teams Cleaner Greaser Relationship Specialty Start Date End Date [place] [address] PCP - General Family Medicine 05/25/22 02/29/24 Sasha Bello NP [address] [place] [address] PCP - General Family Medicine 03/01/24 documented as of this encounter
--- OUTSIDE RECORDS SUMMARY | 2024-11-08 12:56 | XMS_ITS | Encounter Summary ---
Author Organization [employer] Address [address] [facility] 7t [place] [address] Care Team Providers Care User Interface Artist Name Role Phone Sasha Bello NP Primary Care Provider [phone] Encounter Details Date Type Department Care Team ([facility] st Contact Info) Description 11/02/2024 Orders Only [facility] [address] [place], [place] [phone] Sasha Bello NP [address] [place], [place] [phone] Obesity (BMI 30.0-34.9) Social History Tobacco Use Types Packs/Day Years [...] Description 01/12/2025 10:00 AM EDT Office Visit [facility] [address] [place] [phone] Sasha Bello NP [address] [place] [address] 02/14/2025 2:45 PM EDT Office Visit [facility] [address] [place] [address] Sasha Bello NP [address] [place] [address] documented as of this encounter Visit Diagnoses Diagnosis Obesity (BMI 30.0-34.9) documented in this encounter Additional Health Concerns Assessment Noted Time PHQ-9 Depression Total Score: 8 07/12/19 25 11:42 AM EST documented as of this encounter Care Teams User Interface Artist Relationship Specialty Start Date End Date Sasha Bello NP [address] [place] [phone] PCP - General Family Medicine 03/01/24 documented as of this encounter
--- OUTSIDE RECORDS SUMMARY | 2024-11-08 12:56 | XMS_ITS | Encounter Summary ---
Author Organization [employer] Address [address] [facility] 7t [place] [address] Care Team Providers Care Superintendent Service Name Role Phone Sasha Bello NP Primary Care Provider [phone] Reason for Visit * Reason Comments Med Refill Encounter Details Date Type Department Care Team ([facility] st Contact Info) Description 11/03/2024 Refill [facility]INE [address] [place], [place] [phone] Amelie Ram FNP [address] [place] [address] Social History Tobacco Use Types Packs/Day Years [...] Description 01/12/2025 10:00 AM EDT Office Visit [facility] [address] [place] [address] Sasha Bello NP [address] [place] [address] 02/14/2025 2:45 PM EDT Office Visit [facility] [address] [place] [address] Sasha Bello NP [address] [place] [address] documented as of this encounter Visit Diagnoses Not on filedocumented in this encounter Additional Health Concerns Assessment Noted Time PHQ-9 Depression Total Score: 8 07/12/19 25 11:42 AM EST documented as of this encounter Care Teams Superintendent Service Relationship Specialty Start Date End Date Sasha Bello NP [address] [place] [address] PCP - General Family Medicine 03/01/24 documented as of this encounter
--- OUTSIDE RECORDS SUMMARY | 2024-11-08 12:56 | XMS_ITS | Encounter Summary ---
Author Organization [employer] Address [address] [facility] 7t [place] [address] Care Team Providers Care Receiving Coordinator Name Role Phone Sasha Bello NP Primary Care Provider [phone] Encounter Details Date Type Department Care Team ([facility] st Contact Info) Description 10/31/2024 Telephone [facility] [address] [place], [place] [phone] Sasha Bello NP [address] [place] [address] Social History Tobacco Use Types Packs/Day Years [...] Description 01/12/2025 10:00 AM EDT Office Visit [facility] [address] [place] [phone] Sasha Bello NP [address] [place] [address] 02/14/2025 2:45 PM EDT Office Visit [facility] [address] [place] [address] Sasha Bello NP [address] [place] [address] documented as of this encounter Visit Diagnoses Not on filedocumented in this encounter Additional Health Concerns Assessment Noted Time PHQ-9 Depression Total Score: 8 07/12/19 25 11:42 AM EST documented as of this encounter Care Teams Receiving Coordinator Relationship Specialty Start Date End Date Sasha Bello NP [address] [place] [address] PCP - General Family Medicine 03/01/24 documented as of this encounter
--- OUTSIDE RECORDS SUMMARY | 2024-11-08 12:56 | XMS_ITS | Encounter Summary ---
Author Organization [employer] Address [address] [place] [address] [address] [place] [address] Care Team Providers Care Bottomer Operator Name Role Phone Amelie RamP Primary Care Provider [phone] Sasha Bello NP Primary Care Provider [phone] Reason for Visit * Reason Onset Date Comments Referral 12/21/2022 Encounter Details Date Type Department Care Team (Late st Contact Info) Description 12/21/[address] [facility] [address] [place] [address] Amelie Ram FNP [address] [place] [address] Referral Social History Tobacco Use Types Packs/Day Years [...] AM EDT documented as of this encounter Miscellaneous Notes * Telephone Encounter - Alicia Rod - 12/21/2022 12:14 PM EDT TC from pt requesting a referral Specialty: Community Instrument Mechanics Supervisor Location: [address] [place] [address] Date&Time:N/A Application Consultant:N/a Specialty:[facility] [place] Location: [address] [place] [address] [place] [address] Date&Time: n/a Application Consultant: N/a documented in this encounter Plan of Treatment Upcoming Encounters Date Type Department Care Team (Late st Contact Info) Description 01/12/2025 10:00 AM EDT Office Visit [address] [address] Sasha Bello NP [address] [place] [address] 02/14/2025 2:45 PM EDT Office Visit [address] [address] Sasha Bello NP [address] [place] [address] documented as of this encounter Visit Diagnoses Not on filedocumented in this encounter Additional Health Concerns Assessment Noted Time PHQ-9 Depression Total Score: 0 11/26/19 23 10:22 AM EDT documented as of this encounter Care Teams Bottomer Operator Relationship Specialty Start Date End Date Amelie Ram FNP [address] [place] [address] PCP - General Family Medicine 05/25/22 02/29/24 Sasha Bello NP [address] [place] [address] PCP - General Family Medicine 03/01/24 documented as of this encounter
--- OUTSIDE RECORDS SUMMARY | 2024-11-08 12:56 | XMS_ITS | Clinical Summary ---
Author Organization [employer] Address [address] [facility] [address] [place] [address] Care Team Providers Care Lumber Racker Name Role Phone Sasha Bello NP Primary Care Provider [phone] Allergies No known active allergies Medications * This document contains information received from the source organization and may not represent a complete record from that organization. ascorbic acid (Vitamin C) 500 MG tablet Take by mouth. Activ e cyanocobalamin (Vitamin B-12) 1000 MCG/ML injection INJECT 0.1ML (100 MCG) INTRAMUSCULARLY ONCE MONTHLY 023 Active traMADol (Ultram) 50 MG tablet TOME [place] TABLETA JERRY VECES AL D A 023 Active baclofen (Lioresal) 10 MG tablet Take 1 tablet (10 mg) by mouth 3 times daily. 90 tablet 2 023 Active cetirizine (ZyrTEC) 10 MG tablet Take 1 tablet (10 mg) by mouth in the morning. 90 tablet 2 023 Active Docusate Sodium (DSS) 100 MG capsuleIndicati ons:Constipatio n, unspecified constipation type Take 1 capsule (100 mg) by mouth every 12 (twelve) hours. 180 capsule 2 024 Active gabapentin (Neurontin) 100 MG capsule Take 400 mg by mouth at bedtime. 025 Active Multiple Vitamin (multivitamin) tablet Take 1 tablet by mouth Once per day. OTC Active lidocaine (Lidoderm) 5 % patchIndication s:Cervical pain (neck) Apply 1 patch topically Once per day. 30 patch 1 025 Active DULoxetine (Cymbalta) [address] capsuleIndicati ons:Mild major depression (CMS/HCC),Anxie ty Take 1 capsule (30 mg) by mouth Once per day. Do not crush or chew. 30 capsule 1 025 2024 Active Tirzepatide-Robbie ght Management 10 MG/0.5ML solution auto-injectorIn dications:Obesi ty (BMI 30.0-34.9) Inject 0.5 mL (10 mg) under the skin 1 (one) time per week for 28 days. 2 mL 025 2024 Active Ferrous Sulfate (iron) 325 (65 Fe) MG tablet TAKE 1 TABLET BY MOUTH EVERY DAY WITH BREAKFAST 90 tablet 2 025 Active ferrous sulfate 325 (65 Fe) MG tablet TAKE 1 TABLET BY MOUTH EVERY DAY WITH BREAKFAST 90 tablet 2 024 2024 Discontinued Tirzepatide-Robbie ght Management 7.5 MG/0.5ML solution auto-injectorIn dications:Obesi ty (BMI 30.0-34.9) Inject 0.5 mL (7.5 mg) under the skin 1 (one) time per week. 2 mL 1 025 2024 Discontinued(D ose adjustment) Active Problems Problem Noted Date Diagnosed Date Exercise counseling 07/16/2024 Assessment & Plan (07/16/2024 5:38 PM EST): BMI 34.58 Sedentary lifestyle Exercise at least 30 minutes a day and increase as tolerated Dietary counseling 07/16/2024 Assessment & Plan (07/16/2024 5:39 PM EST): BMI 34.58 Eat 3 meals a day, especially breakfast Eat healthy and focus on healthyfood choices daily fruits, vegetables, grains, low fat milk, low carbohydrate and fat Maintain healthy weight as this will lower your risk for many health problems. Encounter for immunization 07/16/2024 Mild major depression 07/12/2024 Assessment & Plan (07/16/2024 5:36 PM EST): Positive PHQ9 Referral to therapist Start Cymbalta Anxiety 07/12/2024 Assessment & Plan (07/16/2024 5:36 PM EST): Positive GAD7 Cymbalta prescribed Take your medications as prescribed, do not stop or adjust doses without informing your PCP Referral to therapist Bilateral foot pain 04/20/2024 Status post bariatric surgery 02/24/2024 Overview (02/24/2024): 2016 Assessment & Plan (09/11/2024 6:06 PM EDT): -receiving B12 injections with Dr. Blank Papular eruption 04/11/2018 Pain in the coccyx 11/25/2017 Lumbar disc herniation with radiculopathy 2017 Seasonal allergic rhinitis 09/01/2016 Iron deficiency anemia 11/02/2012 Assessment & Plan (09/11/2024 6:09 PM EDT): -not currently taking oral supplementation -encouraged iron rich foods (examples provided) -repeat CBC ordered Gastritis 06/28/1959 Obesity (BMI 30.0-34.9) 06/28/1959 Assessment & Plan (09/11/2024 6:05 PM EDT): Patient currently on pharmacotherapy to assist with management of her weight. Pablo has lost 17 pounds since medication initiated. [...] least 150 min/week of moderate intensity exercise. Assessment & Plan (08/21/2024 11:46 AM EST): Patient currently on pharmacotherapy to assist with management of her weight. Pablo has lost 11 pounds since medication initiated. Begin increased dose of Zepbound and continue lifestyle modifications. Starting weight: 183 lbs Current weight:172 lbs Review continue lifestyle modifications. Patient was titrated up to treatment dose. Discussed possible side effects with patient: nausea, vomiting, diarrhea & risk of pancreatitis. No contraindications identified: , hx of pancreatitis, hx of medullary thyroid cancer or MEN 2. Discussed calorie deficit, recommended reduction of 20-30% of maintenance calories; forest technology professor referral offered. Recommended to decrease soda and sugary beverage consumption. Recommended at least 20 g per meal of protein to assist with satiety. Recommended at least 150 min/week of moderate intensity exercise. Assessment & Plan (07/16/2024 5:27 PM EST): Reviewed indications for pharmacotherapy with patient - treatment for patient w/ obesity or a patient with a BMI > 27 w/ CV risk factors who have failed lifestyle modifications alone. These are always prescribed in combination with ongoing lifestyle modification; and will be titrated up from the lowest dose. Patient not a candidate to start with phentermine/Topamax active anxiety diagnosis Will start patient on Zepbound, given know efficacy. No contraindications identified: , hx of pancreatitis, hx of medullary thyroid cancer or MEN 2. Reviewed mechanism of action with patient. Discussed side effects with patient: nausea, vomiting, diarrhea & risk of pancreatitis. No contraindications identified: , hx of pancreatitis, hx of medullary thyroid cancer or MEN 2. Recommended to decrease soda and sugary beverage consumption. Recommended at least 20 g per meal of protein to assist with satiety. Recommended at least 150 min/week of moderate intensity exercise. Resolved Problems Problem Noted Date Diagnosed Date Resolved Date Severe recurrent major depre ssion with psychotic features 09/15/2013 07/12/2024 Encounters * This document contains information received from the source organization and may not represent a complete record from that organization. Date Type Department Care Team Description 11/03/2024 Refill [facility] [address] [place] [address] Amelie Ram FNP 11/02/2024 Orders Only [facility] [address] [place] [address] Sasha Bello NP Obesity (BMI 30.0-34.9) 11/02/2024 Telephone [facility] [address] [place] [address] Briana Castro MA january2025 Telephone [facility] [address] [place] [address] Sasha Bello NP 10/31/2024 Refill [facility] [address] [place] [address] Sasha Bello NP Obesity (BMI 30.0-34.9) 09/26/[address] [address] Briana Castro [place] December recall 09/11/2024 1:30 PM EDT Office Visit [facility] [place] [address] Sasha Bello NP Encounter for health-related screening (Primary Dx); History of vitamin D deficiency; Obesity (BMI 30.0-34.9); Cervical pain (neck); Status post bariatric surgery; Other iron deficiency anemia 09/08/2024 Population Health Risk Score [facility] () Department [address] [place] [phone] Provider, Population Health Generic 09/06/[address] [address] Briana Castro MA chartprep 09/04/[address] [address] Briana Castro [place] appointment rescheduled 09/04/[address] [address] Sasha Bello NP Acute pain of right knee 08/28/2024 Patient Outreach [facility] [address] [place] [address] Sasha Bello NP Pre-visit Planning (SDOH negative, Tobacco screening negative . ) 08/21/2024 11:00 AM EST Office Visit [facility] [place] [place] [address] Sasha Bello NP Obesity (BMI 30.0-34.9) 08/21/2024 Travel from Last 3 Months Immunizations Immunization Administration Dates Next Due Hep B, adult 11/12/2010,05/13/2010,03/19/2010 Influenza injectable quadriv alent IIV4 with preservative 03/16/2018,07/27/2017,04/23/2015 Influenza injectable quadriv alent preservative free 04/25/2019 Influenza, IIV3, injectable 03/30/2011 Influenza, Split (incl. gaby fied surface antigen) 04/21/2013,04/04/2012 Influenza, seasonal, injecta ble, preservative free 07/12/2024 Tdap 09/30/2018,05/13/2010 Family History Relation Name Status Comments Father Mother Social History Tobacco Use Types Packs/Day Years Used Date Smoking Tobacco: Never Passive Smoke Exposure: Never Smokeless Tobacco: Never Tobacco Cessation:Counseling Given: Not Answered Alcohol Use Standard Drinks/Week Comments Not Currently [...] Orientation Straight 04/27/2022 10 :21 AM EDT Last Filed Vital Signs Vital Sign Reading [...] Mass Index 31.44 09/11/2024 1:14 PM EDT Plan of Treatment Upcoming Encounters Date Type Department Care Team (Late st Contact Info) Description 01/12/2025 10:00 AM EDT Office Visit [facility] [address] [place] [phone] Sasha Bello NP [address] [place] [address] 02/14/2025 2:45 PM EDT Office Visit [facility] [address] [place] [address] Sasha Bello NP [address] [place] [address] Health Maintenance Due Date Last Done Comments Family Planning (PISQ) 1995 Cervical Cancer Screening 03/04/2022 HPV/Cotest 03/04/2022 03/04/2021, 09/29/2017 Pap Smear 03/04/2022 03/04/2021 COVID-19 Vaccine ( season) 2024 10/23/2021, 09/02/2020, 08/12/2020 Depression Screening 07/12/2025 07/12/2024, 07/12/19 SDOH Screening 08/28/2025 08/28/2024 Alcohol/Substance Use Screening 09/11/2025 09/11/2024 Tobacco Screening 09/20/2025 09/20/2024 Mammogram 03/07/2026 03/07/2024, 09/0 10/2022, 12/12/2021, Additional history exists DTaP/Tdap/Td Vaccines (3 - Td or Tdap) 09/30/2028 09/30/2018, 05/13/2010 Lipid Panel 05/05/2029 05/05/2024, 10/06/2022 Zoster Vaccines (1 of 2) 2030 RSV Patients and Patients Aged 60 years or older (1 - 1-dose 75+ series) 2055 Hepatitis B Vaccines Completed 11/12/2010, 05/13/2010, 03/19/2010 Influenza Vaccine Completed 07/12/2024, , 03/16/2018, Additional history exists HIV Screening Completed 09/21/2024 Hepatitis C Screening Completed 09/21/2024 HIB Vaccines Aged Out No longer eligi ble based on patient's age to complete this topic HPV Vaccines Aged Out No longer eligi ble based on patient's age to complete this topic Hepatitis A Vaccines Aged Out No long er eligible based on patient's age to complete this topic IPV Vaccines Aged Out No longer eligi ble based on patient's age to complete this topic Meningococcal Vaccine Aged Out No gina jin eligible based on patient's age to complete this topic Pneumococcal Vaccine: Pediatrics (0 to 5 Years) and At-Risk Patients (6 to 49) Years) Aged Out No longer eligible based on patient's age to complete this topic RSV under 20 months Aged Out No longe r eligible based on patient's age to complete this topic Rotavirus Vaccines Aged Out No longer eligible based on patient's age to complete this topic Procedures Procedure Name Priority Date/Time Associated Diagnosis Comments VITAMIN D,25-OH,TOTAL,IA Routine 09/21/2024 12:18 PM EDT History of vitamin D deficiency HIV 1/2 ANTIGEN/ANTIBODY, FOURTH GENERATION W/RFL Routine 09/21/2024 12:18 PM EDT Encounter for health-related screening HEPATITIS C AB W/REFL TO HCV RNA, QN, PCR Routine 09/21/2024 12:18 PM EDT Encounter for health-related screening COMPREHENSIVE METABOLIC PANEL Routine 09/21/2024 12:18 PM EDT Obesity (BMI 30.0-34.9) CBC WITH AUTO DIFFERENTIAL Routine 09/21/2024 12:18 PM EDT Encounter for health-related screening HEMOGLOBIN A1C Routine 09/21/2024 12:18 PM EDT Obesity (BMI 30.0-34.9) LIPID PANEL, STANDARD Routine 05/05/2024 10:04 AM EST Obesity due to excess calories, unspecified classification, unspecified whether serious comorbidity present BI MAMMOGRAM SCREENING TOMOSYNTHESIS BILATERAL Routine 03/07/2024 9:45 AM EDT HPV MRNA E6/E7 Routine 03/04/2021 10:51 AM EDT THINPREP PAP Routine 03/04/2021 10:51 AM EDT from Last 3 Months or Most Recently Relevant to Health Maintenance Results * (ABNORMAL) Vitamin D, 25-Hydroxy, Total, Immunoassay (09/21/2024 12:18 PM EDT) Vitamin D 25-OH Total 27.2(L) >30 ng/mL [facility] Comment: Health Based Reference Values*< 20 ??ng/mL ??[id number] ng/mL ??Insufficient> 30 ??ng/mL ??Sufficient*Elizabeth SCHNEIDER. N [...] NP LAB BLOOD ORDERABLES Final Resu lt [facility] [address] [place], [place] [phone] * (ABNORMAL) CBC auto differential (09/21/2024 12:18 PM EDT) White Blood Count 5.3 4.8 - 10.8 X10*3/uL [facility] Red Blood Count 4.02(L) 4.20 - 5.50 X10*6/uL [facility] Hemoglobin 12.0 12.0 - 16.0 g/dl [facility] Hematocrit 34.8(L) 37.0 - 47.0 % [facility] Mean Corpuscular Volume 86.6 80.0 - 98.0 fL [facility] Mean Corpuscular Hemoglobin 29.9 27.0 - 33.0 pg [facility] Mean Corpuscular HGB Conc 34.5 31.0 - 35.0 g/dl [facility] Red Cell Distribution Width 12.9 11.0 - 16.0 % [facility] Platelet Count 239 160 - 400 X10*3/uL [facility] Mean Platelet Volume 9.1(L) 9.4 - 12.3 fL [facility] Neutrophils Percent Auto 52.8 45 - 73 % [facility] Imm Gran Pct Auto 0.2 0.0 - 0.4 % [facility] Lymphocytes Percent Auto 36.8 20 - 40 % [facility] Monocytes Percent Auto 8.7 2 - 11 % [facility] Eosinophils Percent Auto 0.9 0 - 4 % [facility] Basophils Percent Auto 0.6 0 - 2 % [facility] NRBC Pct Auto 0.0 0.0 - 0.2 /100WBC [facility] Neutrophils Absolute Auto 2.8 2.0 - 8.3 x10*3/uL [facility] Imm Gran Abs Auto 0.01 0.00 - 0.03 X10*3/uL [facility] Lymphocytes Absolute Auto 1.9 1.2 - 4.9 X10*3/uL [facility] Monocytes Absolute Auto 0.5 0.1 - 1.2 X10*3/uL [facility] Eosinophils Absolute Auto 0.1 0.0 - 0.4 X10*3/uL [facility] Basophils Absolute Auto 0.0 0.0 - 0.2 X10*3/uL [facility] NRBC Abs Auto 0.000 0.0 - 0.012 X10*3/uL [facility] Blood Venous blood specimen / Unknown 09/21/2024 12:18 PM EDT 09/21/2024 12:18 PM EDT Sasha Bello MOTOR VEHICLE EXAMINER LAB BLOOD ORDERABLES Final Resu lt [facility] [address] [place] [address] [phone] * Hepatitis C Antibody with Reflex to HCV, RNA, Quantitative, Real-Time PCR (09/21/2024 12:18 PM EDT) Hepatitis C Antibody Nonreactive Nonreactive [facility] Comment:Antibodies to HCV no t detected; does not exclude early acuteHCV infection. Blood Venous blood specimen / Unknown 09/21/2024 12:18 PM EDT 09/21/2024 12:18 PM EDT [facility] Final Resu lt Performing Organization Address City[facility] Co de Phone Number [facility] [address] [place] [address] [phone] * HIV-1/2 Antigen and Antibodies, Fourth Generation, with Reflexes (09/21/2024 12:18 PM EDT) HIV AB/AG Nonreactive Nonreactive [facility] Comment:HIV-1 p24 Ag and/or HIV-1/HIV-2 Ab not detected.A test result that is nonreactive does not exclude thepossibility of exposure to or infection with HIV-1 and/orHIV-2. Nonreactive results in this assay for individualswith prior exposure to HIV-1 and/or HIV-2 may be due toantigen and antibody levels that are below the limit ofdetection of this assay.The XcedexniBroadcastr HIV Ag/Ab Combo assay result andsupplemental assay results should be interpreted inconjunction with the patient's clinical presentation,history and other laboratory results. If the results areinconsistent with clinical evidence, additional testing issuggested to confirm the result. Blood Venous blood specimen / Unknown 09/21/2024 12:18 PM EDT 09/21/2024 12:18 PM EDT [facility] BLOOD ORDERABLES Final Resu lt Performing Organization Address City/[facility]/ZIP Co de Phone Number [facility] [address] [place] [address] [phone] * Hemoglobin A1c (09/21/2024 12:18 PM EDT) Hemoglobin A1c 5.2 <6.0 % [facility] Comment:Hemoglobin A1C Refer ence Range Adults: 4.8 - 6.0 % Non diabetic: < 6.0 % Goal: < 7.0 %Additional Action Suggested: > 8.0 %Note: Hemoglobin A1c results are invalid for patients with abnormal amounts of HbF. Blood transfusions may impact the HbA1c concentration in the patient sample. Estimated Average Glucose 103 mg/dL [facility] Comment:eAG = Estimated ave rage glucose which is %A1C expressed asaverage glucose, using the formula of the R0H-UizgjirKhpclpd Glucose study (ADAG), Diabetes Care, Vol.31,#8,Jan. 2007 Blood Venous blood specimen / Unknown 09/21/2024 12:18 PM EDT 09/21/2024 12:18 PM EDT Sasha Bello MOTOR VEHICLE EXAMINER LAB BLOOD ORDERABLES Final Resu lt [facility] [address] [place] [address] [phone] * (ABNORMAL) Comprehensive Metabolic Panel (09/21/2024 12:18 PM EDT) Sodium 140 135 - 145 mmol/L [facility] Potassium 4.0 3.3 - 5.1 mmol/L [facility] Chloride 103 96 - 108 mmol/L [facility] Carbon Dioxide 30(H) 22 - 29 mmol/L [facility] Anion Gap 11(L) 12 - 20 [facility] Urea Nitrogen (BUN) 16 9 - 16 mg/dL [facility] Creatinine, Serum 0.86 0.5 - 1.4 mg/dL [facility] Estimated Glomerular Filt Rate >60 [facility] Comment:Chronic Kidney Disea se: Estimated GFR < 60 mL/min/1.00n9Sgbkiv Kidney Disease: Estimated GFR < 15 mL/min/1.73m2 Glucose 83 60 - 115 mg/dL [facility] Calcium 9.5 8.4 - 10.2 mg/dL [facility] Bilirubin, Total 0.7 0.0 - 1.0 mg/dL [facility] Aspartate Amino Transferase 23 5 - 31 U/L [facility] Alanine Aminotransferase 12 0 - 31 U/L [facility] Total Protein 7.6 6.5 - 8.0 g/dL [facility] Albumin Level 4.2 3.5 - 5.0 g/dL [facility] Alkaline Phosphatase 47 39 - 117 U/L [facility] Blood Venous blood specimen / Unknown 09/21/2024 12:18 PM EDT 09/21/2024 12:18 PM EDT Sasha Ace MOTOR VEHICLE EXAMINER LAB BLOOD ORDERABLES Final Resu lt Performing Organization Address City/[facility]/ZIP Co de Phone Number [facility] [address] [place] [phone] * Lipid Panel, Standard (05/05/2024 10:04 AM EST) Triglycerides 115 <150 mg/dL [facility] Comment:Desirable Triglyceri de: less than 150 mg/dLBorderline High Triglyceride 150-199 mg/dLHigh Triglyceride: 200-499 mg/dLVery High Triglyceride: greater than or equal to 5OO mg/dL Cholesterol 173 <200 mg/dL [facility] Comment:Desirable Cholestero l: less than 200 mg/dLBorderline High Cholesterol: 200-239 mg/dLHigh Cholesterol: greater than 239 mg/dL LDL Cholesterol Calculated 83 <100 mg/dL [facility] Comment:Desirable LDL: less than 100 mg/dLNear Optimal/Above Optimal LDL: 110- 129 mg/dLBorderline High LDL: 130-159 mg/dLHigh LDL: 160-189 mg/dLVery High LDL: greater than or equal to 190 mg/dL HDL Cholesterol 67 >40 mg/dL [facility] Comment:Desirable HDL: great er than 40 mg/dL Note: This HDL assay may give artificially low results in patients with liver disease. Blood Venous blood specimen / Unknown 05/05/2024 10:04 AM EST 05/05/2024 10:04 AM EST us Amelie Ram INSTRUMENTAL MUSIC TEACHER LAB BLOOD ORDERABLES Final Resu lt Performing Organization Address City/[facility]/ZIP Co de Phone Number [facility] [address] [place] [address] [phone] * BI Mammogram Screening Tomosynthesis Bilateral (03/07/2024 9:45 AM EDT) Anatomical Region Laterality Modality Breast Bilateral Mammography 03/07/2024 9:45 AM EDT Narrative 03/21/2024 9:24 AM EDT ? [facility] ? [address] ?[place], [place] [address] ? Mammography Report ? Signed ? Patient: Ramirez,Normari ?MR#: [id number] ?? 80 ? : 1980 ?Acct:[id number] ? Age/Sex: 43 / F ?ADM Date: 03/07/24 ? Loc: HO.MAMMO ? Attending Dr: Amelie Ram MOTOR VEHICLE EXAMINER ? Ordering Physician: Amelie Ram MOTOR VEHICLE EXAMINER ?Results: 1Negativ ?? e ? Date of Service: 03/07/24 ?Follow Up: 1 Year From Orig ?? inal Mammogram ? Procedure(s): MM tomosynthesis screening BI ?? Accession Number(s): [id number] ? cc: Amelie Ram MOTOR VEHICLE EXAMINER ? EXAMINATION: ?? MM SCREENING DIGITAL BREAST TOMOSYNTHESIS, BILATERAL ? CLINICAL INFORMATION: ? Screening. Asymptomatic. ? COMPARISON: ?? Mammography: Comparison is made with available priors ? TECHNIQUE: ?? Digital breast mammography with tomosynthesis is performed in both the ?? craniocaudal and mediolateral oblique views along with computer-aided ?? detection (CAD). ? FINDINGS: ?? There are scattered areas of fibroglandular density (ACR BI-RADS breast ?? composition Category b). ? There are no significant masses, abnormal calcifications, or other ?? abnormalities. ? MM/MM tomosynthesis screening BI ?? IMPRESSION: ?? No mammographic evidence of malignancy. ? ASSESSMENT: ? BI-RADS BI-RADS 1 - Negative ? RECOMMENDATION: ?? Routine annual mammography screening. ? 1 year F/U ? This examination should not preclude the clinical evaluation of a ?? suspicious palpable abnormality. ? This patient's information was entered into a reminder system with a ?? target due date for their next mammogram. ? Electronically signed by: ??Winnie Alexander DO ??03/21/2024 09:21 AM EDT ? Dictated By: ?Winnie Alexander DO ? Signed By: ?<Electronically signed by Winnie Alexander, DO in OV> ? 03/21/24 0921 ? DD/ 0945 ? TD/TT: 03/07/24 1003 ? Hostel Manager: ? Procedure Note Maximus Huber - 03/21/2024 [facility] [address] [place] [address] Mammography Report Signed Patient: Eugenia Ramierz#: [id number] [birth year] : 1980Acct:[id number] Age/Sex: 43 / FADM Date: 03/07/24 Loc: HO.MAMMO Attending Dr: Amelie Ram MOTOR VEHICLE EXAMINER Ordering Physician: Amelie Ram NPResults: 1Negativ e Date of Service: 03/07/24Follow Up: 1 Year From Orig inal Mammogram Procedure(s): MM tomosynthesis screening BI Accession Number(s): [id number] cc: Amelie Ram MOTOR VEHICLE EXAMINER EXAMINATION: MM SCREENING DIGITAL BREAST TOMOSYNTHESIS, BILATERAL CLINICAL INFORMATION: Screening. Asymptomatic. COMPARISON: Mammography: Comparison is made with available priors TECHNIQUE: Digital breast mammography with tomosynthesis is performed in both the craniocaudal and mediolateral oblique views along with computer-aided detection (CAD). FINDINGS: There are scattered areas of fibroglandular density (ACR BI-RADS breast composition Category b). There are no significant masses, abnormal calcifications, or other abnormalities. MM/MM tomosynthesis screening BI IMPRESSION: No mammographic evidence of malignancy. ASSESSMENT: BI-RADS BI-RADS 1 - Negative RECOMMENDATION: Routine annual mammography screening. 1 year F/U This examination should not preclude the clinical evaluation of a suspicious palpable abnormality. This patient's information was entered into a reminder system with a target due date for their next mammogram. Electronically signed by: Winnie Alexander DO 03/21/2024 09:21 AM EDT RP Dictated By: Winnie Alexander DO Signed By: <Electronically signed by Winnie Alexander DO in OV> 03/21/24 0921 DD/ 0945 TD/TT: 03/07/24 1003 Hostel Manager: Amelie Ram [facility] IM BI PROCEDURES Edited Result - Final * (ABNORMAL) THINPREP PAP (03/04/2021 10:51 AM EDT) Clinical Information: None given [facility] COMMENT SEE COMMENT [facility] Comment: EXPLANATORY NOTE: ? The Pap is a screening test for cervical cancer. It is ?? not a diagnostic test and is subject to false negative ?? and false positive results. It is most reliable when a ?? satisfactory sample, regularly obtained, is submitted ?? with relevant clinical findings and history, and when ?? the Pap result is evaluated along with historic and ?? current clinical information. ?? [place] Administrator : SEE COMMENT [facility] Comment: KN, CT(ASCP) CT screening location: [address] ??[id number] General Categorization: EPITHELIAL CELL ABNORMALITY(A) [facility] Interpretation/R esult: Atypical Squamous Cells of Undetermined Significance (ASC-US)(A) [facility] LMP: 02/20/21 [facility] PATHOLOGIST: SEE COMMENT FOUND [facility] Comment: Thomas Atkinson M.D., Board Certified in Anatomic and Clinical Pathology (electronic signature) Consulting Pathologist [facility] Pathology [address] [place] [id number] Prev. BX: NONE GIVEN [facility] Prev. PAP: NONE GIVEN [facility] SOURCE: None given [facility] Statement Of Adequacy: [facility]MENT [facility] Comment: Satisfactory for evaluation. Endocervical/transformation zone component absent. 03/04/2021 10:5 1 AM EDT [facility] PATHOLOGY ORDERABLES Final Result Performing Organization Address [facility] Co de Phone Number [facility] [address] * HPV mRNA E6/E7 (03/04/2021 10:51 AM EDT) HPV nRNA E6/E7 Not Detected Not Detected [facility] Comment: Methodology: Manufacturing Planner-Mediated Amplification This assay detects E6/E7 viral messenger RNA (mRNA) from 14 high-risk HPV types (16,18,31,33,35,39,45,51,52,56,58,59,66,68). ? The analytical performance characteristics of this assay have been determined by [employer]. The modifications have not been cleared or approved by the FDA. This assay has been validated pursuant to the CLIA regulations and is used for clinical purposes. ?? For additional information, please refer to http://education.Hyphen 8.Link_A_ Media/faq/QIL465x0 (This link if provided for information/ educational purposes only.) 03/04/2021 10:5 1 AM EDT [facility] BLOOD ORDERABLES Milka l Result Performing Organization Address [facility] Co de Phone Number [facility] [address] from Last 3 Months or Most Recently Relevant to Health Maintenance Insurance [facility] C3 Care Teams Lumber Racker Relationship Specialty Start Date End Date Sasha Bello NP [address] [place] [address] PCP - General Family Medicine 03/01/24
--- OUTSIDE RECORDS SUMMARY | 2024-11-08 12:56 | XMS_ITS | Encounter Summary ---
Author Organization [employer] Address [address] [facility] 7t [place] [address] Care Team Providers Care Pharmacy Intake Coordinator Name Role Phone Amelie RamP Primary Care Provider [phone] Sasha Bello NP Primary Care Provider [phone] Reason for Visit * Reason Onset Date Comments 09/0909/10/2023 Encounter Details Date Type Department Care Team (Late st Contact Info) Description 09/10/2023 Telephone [facility] [address] [place] [address] Amelie Ram FNP [address] [place], [place] [phone] 09/09 Social History Tobacco Use Types Packs/Day Years Used Date Smoking Tobacco: Never Passive Smoke Exposure: Never Smokeless Tobacco: Never Alcohol Use Standard Drinks/Week Comments Not Currently 0 (1 standard drink = 0.6 oz pur e alcohol) Depression Answer Date Recorded Patient Health Questionnaire-9 Score 0 11/25/2022 Housing Stability Answer Date Recorded What is your housing situation today? I have joanna bailey 04/26/[address] you li ve. Do you have problems with any of the following? None of the above 04/26/2023 Food Insecurity Answer Date Recorded Within the past 12 months, y ou worried that your food would run out before you got money to buy more: Never True 04/26/2023 Within the past 12 months,th e food you bought just didn't last and you didn't have enough money to get more: Never True Transportation Answer Date Recorded In the past 12 months, has l ack of transportation kept you from medical appts, meetings, work or from getting things needed for daily living? No 04/26/2023 Utilities Answer Date Recorded In the past 12 months, has t he electric, gas, oil or water company threatened to shut off services in your home? No 04/26/2023 Depression Answer Date Recorded Patient Health Questionnaire-2 Score 0 11/25/2022 Comments Unknown Sex and Gender Information Value Date Recorded Sex Assigned at Female 04/27/2022 10:21 AM EDT Legal Sex Female 10:21 AM EDT Gender Identity Female 04/27/2022 10:21 AM EDT Sexual Orientation Straight 04/27/2022 10 :21 AM EDT documented as of this encounter Miscellaneous Notes * Telephone Encounter - Loi Rollins - 09/10/2023 9:35 AM EDT TC from pt to cancel todays visit. Called in within the one hour window prior to visit time. documented in this encounter Plan of Treatment Upcoming Encounters Date Type Department Care Team (Late st Contact Info) Description 01/12/2025 10:00 AM EDT Office Visit [facility] [address] [place] [address] Sasha Bello NP [address] [place] [address] 02/14/2025 2:45 PM EDT Office Visit [facility] [address] [place] [address] Sasha Bello NP [address] [place] [address] documented as of this encounter Visit Diagnoses Not on filedocumented in this encounter Additional Health Concerns Assessment Noted Time PHQ-9 Depression Total Score: 0 11/26/19 23 10:22 AM EDT documented as of this encounter Care Teams Pharmacy Intake Coordinator Relationship Specialty Start Date End Date Amelie Ram FNP [address] [place] [address] PCP - General Family Medicine 05/25/22 02/29/24 Sasha Bello NP [address] [place] [address] PCP - General Family Medicine 03/01/24 documented as of this encounter
--- OUTSIDE RECORDS SUMMARY | 2024-11-08 12:56 | XMS_ITS | Clinical Summary ---
Author Organization [address] [place] [address] Address [address] [place] [address] Phone Care Team Providers Care Lobby Attendant Name Role Phone ShafferAngelina NANCY Primary Care Provider [phone] Allergies No known active allergies Medications ascorbic acid (VITAMIN C) 500 mg CR tablet Take 1 Tablet by mouth daily. Active baclofen (LIORESAL) 10 mg tablet Take 1 Tablet by mouth 3 times daily. Active cetirizine (ZyrTEC) 10 mg capsule Take 10 mg by mouth daily. Active clotrimazole (LOTRIMIN) 1 % cream Apply topically 2 times daily. Active cyanocobalamin (VITAMIN B-12) 1,000 mcg/mL injection Inject 0.1 mL into the muscle every 30 days. Active diclofenac (VOLTAREN) 1 % topical gel Apply topically. Active docusate sodium (COLACE) 100 mg tablet Take 1 tablet (100 mg total) by mouth 2 (two) times a day. Active ferrous sulfate 325 mg (65 mg elemental iron) tablet Take 1 tablet (325 mg total) by mouth 1 (one) time each day. Active hydrOXYzine pamoate (VISTARIL) 25 mg capsule Take 1 Capsule by mouth 3 times daily as needed. Active lidocaine (LIDODERM) 5 % patch Place 1 Patch onto the skin every 24 hours. Apply for no more than 12 hours in any 24 hour period. Active SUMAtriptan (IMITREX) 50 mg tablet Take 1 Tablet by mouth daily as needed. May repeat dose once after 2 hours, if needed. Active topiramate (TOPAMAX) 25 mg tablet Take 1 tablet (25 mg total) by mouth 2 (two) times a day. Active traMADoL (ULTRAM) 50 mg tablet Take 1 tablet (50 mg total) by mouth every 6 (six) hours if needed. Max Daily Amount: 200 mg Active Active Problems Problem Noted Date Diagnosed Date Bilateral foot pain 04/20/2024 Gastritis 04/20/2024 Iron deficiency anemia 04/20/2024 Lumbar disc herniation with radiculopathy 2023 Morbid obesity ([facility] V24, [facility] V28) 2023 Pain in the coccyx 04/20/2024 Papular eruption 04/20/2024 Seasonal allergic rhinitis 04/20/2024 Severe recurrent major depre ssion with psychotic features ([facility] V24, [facility] V28) 04/20/2024 Encounters Date Type Department Care Team Description 10/04/2024 10:30 AM EDT Office Visit [facility] [address] [phone] Kev Aponte DPM Plantar fascial fibromatosis (Primary Dx); Equinus contracture of ankle 08/30/2024 10:15 AM EST Office Visit [facility] [address] [phone] Kev Aponte DPM Plantar fascial fibromatosis (Primary Dx); Follow-up exam; Equinus contracture of ankle from Last 3 Months Social History Tobacco Use Types Packs/Day Years Used Date Smoking Tobacco: Never Assessed Comments Unknown Sex and Gender Information Value Date Recorded Sex Assigned at Not on file Legal Sex Female 11:41 AM EDT Gender Identity Not on file Sexual Orientation Not on file Last Filed Vital Signs Vital Sign Reading Time Taken Comments Blood Pressure - - Pulse - - Temperature - - Respiratory Rate - - Oxygen Saturation - - Inhaled Oxygen Concentration - - Weight 79.4 kg (175 lb) 10/04/2024 10:31 AM EDT Height 154.9 cm (5' 0.98 ) 10/04/2024 10:31 AM E DT Body Mass Index 33.08 10/04/2024 10:31 AM EDT Plan of Treatment Upcoming Encounters Date Type Department Care Team (Late st Contact Info) Description 11/15/2024 10:15 AM EDT Office Visit [facility] [address] [phone] Kev Aponte DPM 175 [facility] [address] [place] [address] Health Maintenance Due Date Last Done Comments Breast Cancer Screening 1980 Cervical Cancer Screening: Pap Smear 2001 COVID-19 Vaccine ( season) 2024 10/23/2021, 09/02/2020, 08/12/2020 Social Influencers of Health Screening 04/09/2024 Depression Screening 07/12/2025 07/12/2024 DTaP,Tdap,and Td Vaccines (3 - Td or Tdap) 09/30/2028 09/30/2018, 05/13/2010 Cholesterol Screening (Lipid Panel) 05/05/2029 05/05/2024 Hepatitis B Vaccines Completed 11/12/2010, 05/13/2010, 03/19/2010 [...] on patient's age to complete this topic MMR Vaccines Aged Out No longer eligi ble based on patient's age to complete this topic Meningococcal ACWY Vaccine Aged Out N o longer eligible based on patient's age to complete this topic Meningococcal B Vaccine Aged Out No l onger eligible based on patient's age to complete this topic Pneumococcal Vaccine: Pediatrics (0 to 5 Years) and At-Risk Patients (6 to 64 Years) Aged Out No longer eligible based on patient's age to complete this topic RSV Immunization Patients Under 20 months Aged Out No longer eligible based on patient's age to complete this topic Varicella Vaccines Aged Out No longer eligible based on patient's age to complete this topic Procedures Procedure Name Priority Date/Time Associated Diagnosis Comments INJECTION TENDON OR LIGAMENT Routine 08/30/2024 10:15 AM EST Plantar fascial fibromatosis INJECTION TENDON OR LIGAMENT Routine 08/30/2024 10:15 AM EST Plantar fascial fibromatosis XR FOOT 3+ VIEWS BILAT Routine 08/30/2024 9:55 AM EST Follow-up exam from Last 3 Months Results * Injection tendon or ligament (08/30/2024 10:15 AM EST) Narrative Kev Aponte DPM - 08/30/2024 10:15 AM EST Kev Aponte DPM ? 08/30/2024 12:19 PM Injection tendon or ligament Indications: pain Details: 25 G needle Medications: 0.5 mL lidocaine (PF) 1 %; 20 mg triamcinolone acetonide 40 mg/mL Informed Consent: ??Site: ??Foot ligament tendon Kev Aponte DPM IN CLINIC/BEDSIDE ORDERAB LES Final Result * Injection tendon or ligament (08/30/2024 10:15 AM EST) Narrative Kev Aponte DPM - 08/30/2024 10:15 AM EST Kev Aponte DPM ? 08/30/2024 12:19 PM Injection tendon or ligament Indications: pain Details: 25 G needle Medications: 0.5 mL lidocaine (PF) 1 %; 20 mg triamcinolone acetonide 40 mg/mL Informed Consent: ??Site: ??Foot ligament tendon Kev Aponte DPM IN CLINIC/BEDSIDE ORDERAB LES Final Result * XR Foot 3+ Views bilat (08/30/2024 9:55 AM EST) Anatomical Region Laterality Modality Lower Extremities, Foot Bilateral Computed Radiography Narrative 08/30/2024 12:17 PM EST Right foot ??3 views No fracture. No radiopaque foreign joint spaces normal ?? Foot position rectus Normal talus navicular position normal calcaneal inclination normal symes line talus navicular joint to calcaneal cuboid joint Left foot 3 views No fracture. No radiopaque foreign joint spaces normal ?? Foot position rectus Normal talus navicular position normal calcaneal inclination normal symes line talus navicular joint to calcaneal cuboid joint us Kev Aponte DPM IMG XR PROCEDURES Final R esult from Last 3 Months Insurance MEDICAID - [place] Care Teams Lobby Attendant Relationship Specialty Start Date End Date Angelina Shaffer NP [address] [place] [phone] PCP - General 03/03/24
--- OUTSIDE RECORDS SUMMARY | 2024-11-08 12:56 | XMS_ITS | Encounter Summary ---
Author Organization [employer] Address [address] [facility] 7t [place] [address] Care Team Providers Care Geothermal Sheet Metal Worker Name Role Phone Sasha Bello NP Primary Care Provider [phone] Reason for Visit * Reason Comments Med Refill Encounter Details Date Type Department Care Team ([facility] st Contact Info) Description 09/04/2024 Refill [facility] [address] [place], [place] [phone] Sasha Bello NP [address] [place] [address] Acute pain of right knee Social History Tobacco Use Types Packs/Day Years [...] Description 01/12/2025 10:00 AM EDT Office Visit [facility] [address] [place] [address] Sasha Bello NP [address] [place] [address] 02/14/2025 2:45 PM EDT Office Visit [address] [address] Sasha Bello NP [address] [place] [address] documented as of this encounter Visit Diagnoses Diagnosis Acute pain of right knee documented in this encounter Additional Health Concerns Assessment Noted Time PHQ-9 Depression Total Score: 8 07/12/19 25 11:42 AM EST documented as of this encounter Care Teams Geothermal Sheet Metal Worker Relationship Specialty Start Date End Date Sasha Bello NP [address] [place] [address] PCP - General Family Medicine 03/01/24 documented as of this encounter
--- OUTSIDE RECORDS SUMMARY | 2024-11-08 12:56 | XMS_ITS | Encounter Summary ---
Author Organization [employer] Address [address] [facility] 7t [place] [address] Care Team Providers Care District Traffic Chief Name Role Phone Amelie Ram Primary Care Provider [phone] Sasha Bello NP Primary Care Provider [phone] Reason for Referral * Imaging (Routine) - Closed Specialty Diagnoses / Procedures Referred By Contac t Referred To Contact Radiology Diagnoses Breast cancer screening by mammogram Procedures BI Mammogram Screening Bilateral Amelie Ram FNP [address] [place] [address] Phone: tel: fax: [address] Phone: tel: fax: Referral ID Status Reason Start Date Expiration Date Visits Re quested Visits Authorized [id number] Closed 01/06/2023 01/06/2024 1 1 Encounter Details Date Type Department Care Team (Late st Contact Info) Description 01/06/2023 Orders Only [facility] [address] [place] [address] Amelie Ram FNP [address] [place] [address] Breast cancer screening by mammogram (Primary Dx) Social History Tobacco Use Types Packs/Day Years [...] Description 01/12/2025 10:00 AM EDT Office Visit [facility] [address] [place] [address] Sasha Bello NP [address] [place] [address] 02/14/2025 2:45 PM EDT Office Visit [address] [address] Sasha Bello NP [address] [place] [address] Scheduled Orders Name Type Priority Associated Diagnoses Orde r Schedule BI Mammogram Screening Bilateral Imaging Routine Breast cancer screening by mammogram Expected: 01/06/2023, Expires: 03/09/2024 documented as of this encounter Visit Diagnoses Diagnosis Breast cancer screening by mammogram- Primary documented in this encounter Additional Health Concerns Assessment Noted Time PHQ-9 Depression Total Score: 0 11/26/19 23 10:22 AM EDT documented as of this encounter Care Teams District Traffic Chief Relationship Specialty Start Date End Date Amelie Ram FNP [address] [place] [address] PCP - General Family Medicine 05/25/22 02/29/24 Sasha Bello NP [address] [place] [address] PCP - General Family Medicine 03/01/24 documented as of this encounter
--- OUTSIDE RECORDS SUMMARY | 2024-11-08 12:57 | XMS_ITS | Encounter Summary ---
Author Organization [employer] Address [address] [facility] [address] [place] [address] Care Team Providers Care Net Technical Architect Name Role Phone Sasha Bello NP Primary Care Provider [phone] Reason for Visit * Reason Onset Date Comments Nurse Triage 06/19/2024 Encounter Details Date Type Department Care Team ([facility] st Contact Info) Description 06/19/2024 Telephone [facility] [address] [place], [place] [phone] Sasha Bello NP [address] [place] [address] Nurse Triage Social History Tobacco Use Types Packs/Day Years Used Date Smoking Tobacco: Never Passive Smoke Exposure: Never Smokeless Tobacco: Never Alcohol Use Standard Drinks/Week Comments Not Currently 0 (1 standard drink = 0.6 oz pur e alcohol) Depression Answer Date Recorded Patient Health Questionnaire-9 Score 5 01/26/2024 Patient Health Questionnaire-9 Score 5 01/26/2024 Last PHQ-9: Questionnaire Data Not on file 0 01/26/2024 Housing Stability Answer Date Recorded What is [...] Date Recorded Patient Health Questionnaire-2 Score 0 01/26/2024 Internet Access Answer Date Recorded Internet Access [...] encounter Miscellaneous Notes * Telephone Encounter - Prema Maciel RN - 06/19/2024 1:12 PM EST Triage call with [facility] [place] [id number]. Pt reports anxiety has been increasing lately. Pt reports 25lb weight gain and a habit of biting fingernails has occurred. Pt reports difficulty with sleep and unable to focus most days. Pt is not suicidal and doesn't want to hurt anyone else. Pt is requesting to be seen by provider. Pt is offered to come to [facility] today or tomorrow morning. Open till 8pm today and opens 830am tomorrow morning. Pt is advised if arrives before 4pm today behavioral health is available as well. Pt will come to [facility] today. Pt agrees with disposition. Insurance is verified as active. Protocol Used: Anxiety and Panic Attack (Adult) Protocol-Based Disposition: See in Office or Video Visit within 3 Days Video visit not offered Positive Triage Questions: * Moderate anxiety (e.g., persistent or frequent anxiety symptoms; interferes with sleep, school, or work) * Requesting to talk to a counselor (e.g., mental health worker, psychiatrist) * Patient wants to be seen * All higher-acuity triage questions were negative Care Advice Discussed: * Reasons To Call Back - Anxiety or panic attacks continue - You feel like harming yourself - You become worse * Telephone Encounter - Osman Stanton - 06/19/2024 12:33 PM EST Symptom: Anxiety or Panic Attack Outcome: Schedule an urgent appointment (within 4 hours) or talk to a nurse or provider soon Reason: Anxiety keeps from normal daily activities (such as school or work) The caller accepted this outcome. Pt concerned because Anxiety causing her to eat her nails and weight gain documented in this encounter Plan of Treatment Upcoming Encounters Date Type Department Care Team (Late st Contact Info) Description 01/12/2025 10:00 AM EDT Office Visit [facility] [address] [place] [address] Sasha Bello NP [address] [place] [address] 02/14/2025 2:45 PM EDT Office Visit [facility] [address] [place] [address] Sasha Bello NP [address] [place] [address] documented as of this encounter Visit Diagnoses Not on filedocumented in this encounter Additional Health Concerns Assessment Noted Time PHQ-9 Depression Total Score: 5 01/26/20 3:44 PM EDT documented as of this encounter Care Teams Net Technical Architect Relationship Specialty Start Date End Date Sasha Bello NP [address] [place] [address] PCP - General Family Medicine 03/01/24 documented as of this encounter
--- OUTSIDE RECORDS SUMMARY | 2024-11-08 12:57 | XMS_ITS | Encounter Summary ---
Author Organization [employer] Address [address] [facility] [address] [place] [address] Care Team Providers Care Concrete Placement Equipment Operator Name Role Phone Amelie Ram TRANSPORT AIRCREWMAN Primary Care Provider [phone] Sasha Bello CORROSION TECHNICIAN Primary Care Provider [phone] Reason for Visit * Reason Onset Date Comments triage 08/18/2022 Encounter Details Date Type Department Care Team (Late st Contact Info) Description 08/18/2022 Telephone [facility] [address] [place] [address] Amelie Ram FNP [address] [place] [address] triage Social History Tobacco Use Types Packs/Day Years [...] suspected to have Coronavirus/COVID-19? No / Unsure 08/19/2022 9:50 AM EST documented as of this encounter Miscellaneous Notes * Telephone Encounter - Joanna Ayers - 08/18/2022 11:04 AM EST Symptoms: Rash or Redness - Widespread, Hives Outcome: Schedule an urgent appointment (within 1 hour) or talk to a nurse or provider soon Reason: Hives or rash all over the body The caller accepted this outcome Please contact pt at [phone] Hungarian Speaker documented in this encounter Plan of Treatment Upcoming Encounters Date Type Department Care Team (Late st Contact Info) Description 01/12/2025 10:00 AM EDT Office Visit [facility] [address] [place] [address] Sasha Bello NP [address] [place] [address] 02/14/2025 2:45 PM EDT Office Visit [address] [address] Sasha Bello NP [address] [place] [address] documented as of this encounter Visit Diagnoses Not on filedocumented in this encounter Care Teams Concrete Placement Equipment Operator Relationship Specialty Start Date End Date Amelie Ram FNP [address] [place] [address] PCP - General Family Medicine 05/25/22 02/29/24 Sasha Bello NP [address] [place] [address] PCP - General Family Medicine 03/01/24 documented as of this encounter
== END 2024-11-08 12:58 | disposition home or self-care (01) ==
LOC: HO.RHE 12:30
PROVIDERS: PCP Nurse Practitioner; Visit Provider Student in an Organized Health Care Education/Training Program
DX: M79.7 Fibromyalgia (principal)
CPT/HCPCS: 99213

== ENCOUNTER → 2024-11-08 12:30 | Outpatient (BNVA) | payer MEDICAID, SELFPAY | PROVIDERS: PCP Nurse Practitioner; Visit Provider Student in an Organized Health Care Education/Training Program | DX: M79.7 Fibromyalgia (principal); M15.9 Polyosteoarthritis, unspecified; M47.816 Spondylosis without myelopathy or radiculopathy, lumbar region; M62.838 Other muscle spasm; M54.2 Cervicalgia | CPT/HCPCS: 99212 ==

== ENCOUNTER 2024-11-28 11:18 | Outpatient (AMB) | payer MEDICAID, SELFPAY ==
--- NOTE | 2024-11-28 11:22 | MHC.OFFVISWM ---
VS Expanded 11/28/24 11:34 BP 126/63 Blood Pressure Location Rt brachial Blood Pressure Position Sitting Pulse 66 Pulse Source Pulse Oximeter Temp 96.7 F L Temperature Source Temporal Artery Scan Pulse Oximetry 98 Oxygen Delivery Method Room Air Height 5 ft 1 in Weight 148 lb 3.2 oz BMI 28.0 Body Fat % 32.1 Body Fat Mass 47.6 Fat Free Mass 100.6 Visceral Fat Rating 6.0 Body Water % 48.4 Body Water Mass 71.6 Muscle Mass/Score 31.4 Basal Metabolic Rate/Score 1,368 Intake Visit Reasons: (OV) PO LSG 11/21/2016 Allergies adhesive tape [ADHESIVE TAPE] Allergy (Intermediate, Verified 11/28/24 11:29) BURN/BLISTER Medication List - Last Reconciled 11/28/24 by YURI Garrido ascorbic acid (vitamin C) 25 mg PO DAILY cetirizine 10 mg PO QAM clotrimazole 1% 1 appl topical BID PRN [cock up splint Wear on both wrists at night ] cyanocobalamin (vitamin B-12) 1,000 mcg IM QMONTH docusate sodium 100 mg PO Q12H duloxetine 30 mg PO DAILY ferrous sulfate 325 mg PO BID gabapentin 400 mg PO BID 90 days hydroxyzine pamoate 25 mg PO Q8H PRN multivitamin 1 tab PO DAILY sumatriptan succinate 50 mg PO Q2-4H PRN tirzepatide (weight loss) (Zepbound) 10 mg subcut QWEEK tramadol 50 mg PO TID 90 days HPI Comments Details: This is a 44 yo female who is s/p LSG 11/21/2016. Weight loss of 12.8lbs since last OV in August 2024. No complaints of nausea, emesis, abdominal pain or reflux, or constipation. Taking Zepbound, prescribed by PCP. Tolerating well. Present meal plan includes: 8-10am Celebrate Rebuild 2 scoops in 8oz UAM 12-2pm same shake 5pm dinner- 4-6 forks protein, 4-6 forks veg 7-9pm Celebrate bar If hungry can have snack of 5-10g protein- half bar, 1 egg, 1oz yogurt or CC Exercise routine includes: going to the gym- treadmill hill walking/running 30 min Pt reports problems of excess skin of abdomen, resulting in itchy/burning rashes in skin fold. These areas burn when she is taking a shower. She reports unpleasant odor if moisture collects in the skin fold. At the corners, she has experienced some open/raw areas. She has tried clotrimazole ointment to help this but not completely effective. Has to wear a tight waistband on pants or body suit to help hold excess skin in place, however this can dig into her skin and results in pain/discomfort. Gives her difficulty with exercise as movement is uncomfortable and heavy. Difficulty with bending over due to excess skin getting in the way. All of these problems have worsened as she continues to lose weight. [facility] Medical History Neck muscle spasm Bilateral shoulder pain Neck pain Lateral epicondylitis, right elbow SARS-CoV-2 positive Fibromyalgia Lumbar spondylosis Obesity (BMI 30-39.9) Intestinal malabsorption following gastrectomy Fatigue Sleep apnea GERD (gastroesophageal reflux disease) Arthritis Anemia Surgical History History of surgery of uterus H/O tubal ligation Hx of section S/P laparoscopic sleeve gastrectomy Family History Father Respiratory arrest Sister Anemia Ovarian cancer Social History Alcohol intake: current Alcohol intake frequency: holidays/special occasions only Alcohol type: wine Patient Tobacco Use Status: Never used Tobacco Gender identity: Female Female Reproductive History Menstrual Age of Menarche: 13 Physical Exam Vital Signs: Last Vital Signs Temp 96.7 F L 11/28/24 11:34 Pulse 66 11/28/24 11:34 BP 126/63 11/28/24 11:34 Pulse Ox 98 11/28/24 11:34 Oxygen Delivery Method Room Air 11/28/24 11:34 BMI result Body Mass Index 28.0 Const General: cooperative, comfortable and no acute distress Orientation/consciousness: patient oriented x3 GI Other: soft, nontender, nondistended, incisions well healed, no hernia, no masses Grade II pannus Neuro General: patient oriented x3 Assessment & Plan Assessment & Plan (1) S/P laparoscopic sleeve gastrectomy: Code(s): Z98.84 - Bariatric surgery status Category: Medical (2) Excess skin: Code(s): L98.7 - Excessive and redundant skin and subcutaneous tissue Category: Medical (3) Overweight: Code(s): E66.3 - Overweight Category: Medical Plan Pt doing well on zepbound. Discussed with pt and again the importance of adequate protein intake. Target weight for panniculectomy 143lbs. Pt will text me once she reaches goal weight. Photos taken today. She is experiencing issues of excess skin of abdomen resulting in frequent painful rashes refractory to topical Rx treatment, negatively affecting activities of daily living, and requiring the use of special clothing. She would benefit from definitive treatment of panniculectomy. Labs ordered. Orders: Orders Insulin Today Z.84 - Bariatric surgery status Complete Blood Count Auto Diff Today Z.84 - Bariatric surgery status Lipid Panel Today Z.84 - Bariatric surgery status Vitamin B12 and Folate Today Z.84 - Bariatric surgery status Zinc Today Z.84 - Bariatric surgery status Vitamin B1 Today Z.84 - Bariatric surgery status Vitamin A Today Z98.84 - Bariatric surgery status TSH reflex Free T4 Today Z98.84 - Bariatric surgery status Ferritin Today Z98.84 - Bariatric surgery status Hemoglobin A1c Today Z98.84 - Bariatric surgery status IRON PROFILE Today Z.84 - Bariatric surgery status Comprehensive Met. Panel Today Z.84 - Bariatric surgery status C Reactive Protein Today Z98.84 - Bariatric surgery status Vitamin D 25-OH Total Today Z98.84 - Bariatric surgery status
[2024-11-28 11:34] VITALS: BP 126/63; PULSE 66; TEMP 35.9; O2SAT 98; BMI 28.0
--- OUTSIDE RECORDS SUMMARY | 2024-11-28 13:00 | XMS_ITS | Encounter Summary ---
Author Organization [employer] Address [address] [facility] [address] [place] [address] Care Team Providers Care Auto Parts Manager Name Role Phone Amelie RamP Primary Care Provider [phone] Sasha Bello NP Primary Care Provider [phone] Reason for Visit * Reason Onset Date Comments 09/0909/10/2023 Encounter Details Date Type Department Care Team ([facility] st Contact Info) Description 09/10/2023 Telephone [facility] [address] [place], [place] [phone] Amelie Ram FNP [address] [place], [place] [phone] 09/09 Social History Tobacco Use Types Packs/Day Years Used Date Smoking Tobacco: Never Passive Smoke Exposure: Never Smokeless Tobacco: Never Alcohol Use Standard Drinks/Week Comments Not Currently 0 (1 standard drink = 0.6 oz pur e alcohol) Depression Answer Date Recorded Patient Health Questionnaire-9 Score 0 11/25/2022 Housing Stability Answer Date Recorded What is your housing situation today? I have joannasixto bailey 04/26/[address] you [...] 10:00 AM EDT Office Visit [facility] [address] [place] [phone] Sasha Bello NP [address] [place] [address] 02/14/2025 2:45 PM EDT Office Visit [facility] [address] [place] [address] Sasha Bello NP [address] [place] [address] documented as of this encounter Visit Diagnoses Not on filedocumented in this encounter Additional Health Concerns Assessment Noted Time PHQ-9 Depression Total Score: 0 11/26/19 23 10:22 AM EDT documented as of this encounter Care Teams Auto Parts Manager Relationship Specialty Start Date End Date Amelie Ram FNP [address] [place] [address] PCP - General Family Medicine 05/25/22 02/29/24 Sasha Bello NP [address] [place] [id number] PCP - General Family Medicine 03/01/24 documented as of this encounter
== END 2024-11-28 12:01 | disposition home or self-care (01) ==
LOC: HO.HBS 11:18
PROVIDERS: PCP Nurse Practitioner; Visit Provider Physician Assistant Surgical
DX: L98.7 Excessive and redundant skin and subcutaneous tissue (principal); E66.3 Overweight; Z68.28 Body mass index [BMI] 28.0-28.9, adult; Z98.84 Bariatric surgery status
CPT/HCPCS: 99214

== ENCOUNTER → 2024-11-28 11:18 | Outpatient (BNVA) | payer MEDICAID, SELFPAY | PROVIDERS: PCP Nurse Practitioner; Visit Provider Physician Assistant Surgical | DX: L98.7 Excessive and redundant skin and subcutaneous tissue (principal); E66.3 Overweight; Z98.84 Bariatric surgery status; Z68.28 Body mass index [BMI] 28.0-28.9, adult | CPT/HCPCS: 99212 ==

== ENCOUNTER 2025-01-09 14:31 | Outpatient (AMB) | payer MEDICAID, SELFPAY ==
--- NOTE | 2025-01-09 14:26 | MHC.OFFVISWM ---
VS Expanded 01/09/25 14:31 Height 5 ft 1 in Weight 141 lb 4 oz BMI 26.7 Intake Visit Reasons: TV PO LSG 11/21/2016 *margaretay Per Norma* Supervisor Fusing Room Name: [id number]- Aleks Allergies adhesive tape (ADHESIVE TAPE) Allergy (Intermediate, Verified 11/28/24 11:29) BURN/BLISTER Medication List - Last Reconciled 01/09/25 by YURI Garrido ascorbic acid (vitamin C) 25 mg PO DAILY cetirizine 10 mg PO QAM clotrimazole 1% 1 appl topical BID PRN [cock up splint Wear on both wrists at night ] cyanocobalamin (vitamin B-12) 1,000 mcg IM QMONTH docusate sodium 100 mg PO Q12H duloxetine 30 mg PO DAILY ferrous sulfate 325 mg PO BID gabapentin 400 mg PO BID 90 days hydroxyzine pamoate 25 mg PO Q8H PRN multivitamin 1 tab PO DAILY sumatriptan succinate 50 mg PO Q2-4H PRN tirzepatide (weight loss) (Zepbound) 10 mg subcut QWEEK tramadol 50 mg PO TID 30 days HPI Comments Details: This is a 44 yo female who is s/p LSG 11/21/2016. Weight loss of 12.8lbs since last OV in August 2024. No complaints of nausea, emesis, abdominal pain or reflux, or constipation. Taking Zepbound, prescribed by PCP but pt requests that we take over prescribing. Present meal plan includes: 8-10am Celebrate Rebuild 2 scoops in 8oz UAM 12-2pm same shake 5pm dinner- 4-6 forks protein, 4-6 forks veg 7-9pm Celebrate bar If hungry can have snack of 5-10g protein- half bar, 1 egg, 1oz yogurt or CC Exercise routine includes: going to the gym- treadmill hill walking/running 30 min Pt reports problems of excess skin of abdomen, resulting in itchy/burning rashes in skin fold. These areas burn when she is taking a shower. She reports unpleasant odor if moisture collects in the skin fold. At the corners, she has experienced some open/raw areas. She has tried clotrimazole ointment to help this but not completely effective. Has to wear a tight waistband on pants or body suit to help hold excess skin in place, however this can dig into her skin and results in pain/discomfort. Gives her difficulty with exercise as movement is uncomfortable and heavy. Difficulty with bending over due to excess skin getting in the way. All of these problems have worsened as she continues to lose weight. [facility] Medical History Neck muscle spasm Bilateral shoulder pain Neck pain Lateral epicondylitis, right elbow SARS-CoV-2 positive Fibromyalgia Lumbar spondylosis Obesity (BMI 30-39.9) Intestinal malabsorption following gastrectomy Fatigue Sleep apnea GERD (gastroesophageal reflux disease) Arthritis Anemia Surgical History History of surgery of uterus H/O tubal ligation Hx of section S/P laparoscopic sleeve gastrectomy Family History Father Respiratory arrest Sister Anemia Ovarian cancer Social History Alcohol intake: current Alcohol intake frequency: holidays/special occasions only Alcohol type: wine Patient Tobacco Use Status: Never used Tobacco Gender identity: Female Female Reproductive History Menstrual Age of Menarche: 13 Telehealth Telehealth Telehealth Platform: Telephone Location of provider rendering services: practice address Location of patient: address on file Patient Identification confirmed using: Name, : Yes Telehealth method: voice only Patient verbally consented to treatment: Yes Patient verbally consented to billing insurance company: Yes Patient informed of any privacy concerns related to visit: Yes Minutes spent on Phone/Video with Pt.: 12 Assessment & Plan Assessment & Plan (1) S/P laparoscopic sleeve gastrectomy: Code(s): Z98.84 - Bariatric surgery status Category: Surgical (2) Overweight: Code(s): E66.3 - Overweight Category: Medical Plan Pt is interested in our office taking over prescribing of Zepbound. Reviewed contraindications, discussed dosing. Discussed need for adequate protein intake while on GLP1s as well as frequent communication with our office. Pt will check in with me weekly and is aware that subsequent Rx will be dependent on frequent communication. She will stay at 12.5mg for this refill. Awaiting decision on skin removal surgery approval. Will schedule next f/u appt based on insurance approval. Medications: New Zepbound (tirzepatide (weight loss)) 12.5 mg (0.5 mL) subcut QWEEK 2 mL 0RF NS
[2025-01-09 14:31] VITALS: BMI 26.7
--- OUTSIDE RECORDS SUMMARY | 2025-01-09 15:51 | XMS_ITS | Clinical Summary ---
Author Organization [facility] Address [address] [place] [address] Care Team Providers Care Cheese Production Supervisor Name Role Phone Unavailable Primary Care Provider Unavailabl e Source Comments PLEASE NOTE, if this patient is a minor, it may be UNLAWFUL to discuss sensitive information that is contained in these records (such as FAMILY PLANNING, MENTAL HEALTH or SUBSTANCE ABUSE) with the minor patient's parent or other person without the patient's specific authorization.[facility] Social History Tobacco Use Types Packs/Day Years Used Date Smoking Tobacco: Never Assessed Comments Unknown Sex and Gender Information Value Date Recorded Sex Assigned at Female 12/15/2024 5:14 AM PDT Legal Sex Female 5:14 AM PDT Gender Identity Female 12/15/2024 5:14 AM PDT Sexual Orientation Not on file Plan of Treatment Upcoming Encounters Date Type Department Care Team (Late st Contact Info) Description 01/23/2025 10:00 AM EDT Behavioral Health Visit [facility] [address] [place] [address] [place] [phone] Reji Mann, [address] [place] [phone] Health Maintenance Due Date Last Done Comments Anxiety Screening 1980 HPV Screening 1980 Hepatitis C Screening 1980 Lipid Screening 1980 Pap + HPV 1980 Tobacco Screening 1980 Relationship Safety Screening/Counseling 1995 Hypertension Screening (#1) 1998 Cervical Cancer Screening 2001 Pap Smear 2001 Breast Cancer Screening (Mammogram) 2020 Aek-[id number]-02 ( season) 2024 10/23/2021, 09/02/2020, 08/12/2020 Alcohol and Drug Screen 06/28/2024 Depression Annual Screen 06/28/2024 Imm-Influenza (#1) 2025 07/12/2024, 1 , 03/16/2018, Additional history exists Diabetes Screening 09/22/2027 09/21/2024 Imm-DTaP/Tdap/Td (3 - Td or Tdap) 09/30/2028 019, 05/13/2010 Imm-Hepatitis B Completed 11/12/2010, 04/28, 03/19/2010 HIV Screening Completed 09/21/2024 Cervical Ablation/Cold-Knife Conization Discontinued Cervical Cryotherapy Discontinued Colposcopy Discontinued Endometrial Biopsy Discontinued Excision/Leep Discontinued HPV Genotyping Discontinued Vaginal Pap Discontinued Vulvoscopy Discontinued Insurance [facility] [address]
--- OUTSIDE RECORDS SUMMARY | 2025-01-09 15:51 | XMS_ITS | Encounter Summary ---
Author Organization [employer] Address [address] [facility] [address] [place] [address] Care Team Providers Care Joint Creaser Name Role Phone Amelie RamP Primary Care Provider [phone] Sasha Bello NP Primary Care Provider [phone] Reason for Visit * Reason Onset Date Comments 09/0909/10/2023 Encounter Details Date Type Department Care Team ([facility] st Contact Info) Description 09/10/2023 Telephone [facility] [address] [place], [place] [phone] Amelie Ram FNP [address] [place], [place] [phone] 09/09 Social History Tobacco Use Types Packs/Day [...] Description 01/12/2025 10:00 AM EDT Office Visit [facility] [address] [place] [address] Sasha Bello NP [address] [place] [address] 02/14/2025 2:45 PM EDT Office Visit [facility] [address] [place] [address] Sasha Bello NP [address] [place] [address] documented as of this encounter Visit Diagnoses Not on filedocumented in this encounter Additional Health Concerns Assessment Noted Time PHQ-9 Depression Total Score: 0 11/26/19 23 10:22 AM EDT documented as of this encounter Care Teams Joint Creaser Relationship Specialty Start Date End Date Amelie Ram FNP [address] [place] [address] PCP - General Family Medicine 05/25/22 02/29/24 Sasha Bello NP [address] [place] [phone] PCP - General Family Medicine 03/01/24 documented as of this encounter
--- OUTSIDE RECORDS SUMMARY | 2025-01-09 15:51 | XMS_ITS | Clinical Summary ---
Author Organization [address] [place] [address] Address [address] [place] [address] Phone Care Team Providers Care Master Of Ceremonies Name Role Phone ShafferAngelina NANCY Primary Care Provider [phone] Allergies No known active allergies Medications ascorbic [...] disc herniation with radiculopathy 2023 Morbid obesity ([facility] [place], [facility] V28) 2023 Pain in the coccyx 04/20/2024 Papular eruption 04/20/2024 Seasonal allergic rhinitis 04/20/2024 Severe recurrent major depre ssion with psychotic features ([facility] [place], [facility] [place]28) 04/20/2024 Social History Tobacco Use Types Packs/Day Years [...] Care Team (Late st Contact Info) Description 01/11/2025 1:45 PM EDT Office Visit [facility] [place] [address] [phone] Kev Aponte, DPM [address] [address] Health Maintenance Due Date Last Done Comments Breast Cancer Screening 1980 Cervical Cancer Screening: Pap Smear 2001 COVID-19 Vaccine ( season) 2024 10/23/2021, 09/02/2020, 08/12/2020 Social Influencers of Health Screening 04/09/2024 Influenza Vaccine (#1) 2025 , 04/25/2019, 03/16/2018, Additional history exists Depression Screening 07/12/2025 07/12/2024 DTaP,Tdap,and Td Vaccines (3 - Td or Tdap) 09/30/2028 09/30/2018, 05/13/2010 Cholesterol Screening (Lipid Panel) 05/05/2029 05/05/2024 Hepatitis B Vaccines Completed 11/12/2010, 05/13/2010, 03/19/2010 HIV Screening Completed 09/21/2024 Hepatitis C Screening [...] 5 Years) and At-Risk Patients (6 to 49 Years) Aged Out No longer eligible based on patient's age to complete this topic RSV Immunization Patients Under 20 months Aged Out No longer eligible based on patient's age to complete this topic Varicella Vaccines Aged Out No longer eligible based on patient's age to complete this topic Insurance MEDICAID - [place] Care Teams Master Of Ceremonies Relationship Specialty Start Date End Date Angelina Shaffer NP [address] [place] [phone] PCP - General 03/03/24
== END 2025-01-09 14:41 | disposition home or self-care (01) ==
LOC: HO.HBS 14:31
PROVIDERS: PCP Nurse Practitioner; Visit Provider Physician Assistant Surgical
DX: E66.3 Overweight (principal); Z98.84 Bariatric surgery status
CPT/HCPCS: 99213

== ENCOUNTER → 2025-01-09 14:31 | Outpatient (BNVA) | payer MEDICAID, SELFPAY | PROVIDERS: PCP Nurse Practitioner; Visit Provider Physician Assistant Surgical | DX: Z98.84 Bariatric surgery status (principal) | CPT/HCPCS: 99212 ==

== ENCOUNTER 2025-02-09 08:41 | Outpatient (AMB) | payer MEDICAID, SELFPAY ==
--- OUTSIDE RECORDS SUMMARY | 2025-02-09 08:57 | XMS_ITS | Clinical Summary ---
Author Organization [address] [place] [address] Address [address] [place] [address] Phone Care Team Providers Care Tie Puller Name Role Phone EdmundAngelina NANCY Primary Care Provider [phone] Allergies No known active allergies Medications ascorbic [...] needed. Max Daily Amount: 200 mg Active meloxicam (MOBIC) 15 mg tablet Take 1 tablet (15 mg total) by mouth 1 (one) time each day. 30 tablet 1 03/12/20 25 Active Hospital, Clinic, or Other Facility Administered Medication Ordered Dose Route Frequency Start Date End Date Status lidocaine (PF) (XYLOCAINE-MPF) 1 % injection 0.5 mLIndications:Planta r fascial fibromatosis .5 mL inj Once PRN Procedure 01/11/2025 01/11/2025 Ended triamcinolone acetonide (KENALOG-40) 40 mg/mL injection 20 mgIndications:Planta r fascial fibromatosis 20 mg IAtc Once PRN Procedure 01/11/2025 01/11/2025 Ended Active Problems Problem Noted Date Diagnosed Date Bilateral foot pain 04/20/2024 Gastritis 04/20/2024 Iron deficiency anemia 04/20/2024 Lumbar disc herniation with radiculopathy 2023 Morbid obesity (CMS/HCC V24, CMS/HCC V28) 2023 Pain in the coccyx 04/20/2024 Papular eruption 04/20/2024 Seasonal allergic rhinitis 04/20/2024 Severe recurrent major depre ssion with psychotic features (CMS/HCC V24, CMS/HCC V28) 04/20/2024 Encounters Date Type Department Care Team Description 01/11/2025 1:45 PM EDT Office Visit Orthopedic Surgery - [address] [phone] Kev Aponte, DPM Plantar fascial fibromatosis (Primary Dx); Equinus contracture of ankle from Last 3 [...] Care Team (Late st Contact Info) Description 02/22/2025 2:45 PM EDT Office Visit [facility] - [place] [address] [phone] Kev Aponte, DPM [address] [address] Health Maintenance Due Date Last Done Comments Breast Cancer Screening 1980 Cervical Cancer Screening: Pap Smear 2001 COVID-19 Vaccine ( season) 2024 10/23/2021, 09/02/2020, 08/12/2020 Social Influencers of Health Screening 04/09/2024 Depression Screening 06/28/2024 Influenza Vaccine (#1) 2025 , 04/25/2019, 03/16/2018, Additional history exists DTaP,Tdap,and Td Vaccines (3 - Td or [...] Diagnosis Comments INJECTION TENDON OR LIGAMENT Routine 01/11/2025 1:45 PM EDT Plantar fascial fibromatosis from Last 3 Months Results * Injection tendon or ligament (01/11/2025 1:45 PM EDT) Kev Perez DPM - 01/11/2025 1:45 PM EDT Kev Aponte DPM 01/11/2025 5:33 PM Injection tendon or ligament Indications: pain Details: 25 G needle Medications: 0.5 mL lidocaine (PF) 1 %; 20 mg triamcinolone acetonide 40 mg/mL Informed Consent: Site: Foot ligament tendon us Kev Aponte DPM IN CLINIC/BEDSIDE ORDERAB LES Final Result from Last 3 Months Insurance MEDICAID - [place] Care Teams Tie Puller Relationship Specialty Start Date End Date Angelina Shaffer NP [address] [place] [phone] PCP - General 03/03/24
--- OUTSIDE RECORDS SUMMARY | 2025-02-09 08:57 | XMS_ITS | Clinical Summary ---
Author Organization [facility] Address [address] [place] [address] Care Team Providers Care Dermatology Sales Representative Name Role Phone Unavailable Primary Care Provider Unavailabl e Source Comments PLEASE NOTE, if this patient is a minor, it may be UNLAWFUL to discuss sensitive information that is contained in these records (such as FAMILY PLANNING, MENTAL HEALTH or SUBSTANCE ABUSE) with the minor patient's parent or other person without the patient's specific authorization.[facility] Encounters Date Type Department Care Team Description 01/23/2025 / TELEPHONE [facility] [address] [place] [phone] Reji Mann PMHNP from Last 3 Months Social History Tobacco Use Types Packs/Day Years Used Date Smoking Tobacco: Never Assessed Comments Unknown Sex and Gender Information Value Date Recorded Sex Assigned at Female 12/15/2024 5:14 AM PDT Legal Sex Female 5:14 AM PDT Gender Identity Female 12/15/2024 5:14 AM PDT Sexual Orientation Not on file Plan of Treatment Upcoming Encounters Date Type Department Care Team ([facility] Contact Info) Description 02/27/2025 10:00 AM EDT Behavioral Health Visit [facility] [address] [place] [phone] Reji Mann PMHNP [address] [facility] [place] [phone] Health Maintenance Due Date Last Done Comments Anxiety Screening 1980 HPV Screening 1980 Pap + HPV 1980 Tobacco Screening 1980 Relationship Safety Screening/Counseling 1995 Hypertension Screening (#1) 1998 Cervical Cancer Screening 2001 Pap Smear 2001 Breast Cancer Screening (Mammogram) 2020 Omu-UXZPI-22 ( season) 2024 10/23/2021, 09/02/2020, 08/12/2020 Alcohol and Drug Screen 06/28/2024 Depression Annual Screen 06/28/2024 Imm-Influenza (#1) 2025 07/12/2024, 1 , 03/16/2018, Additional history exists Diabetes Screening 09/22/2027 09/21/2024, 0 09/21/2024, 09/21/2024, Additional history exists Imm-DTaP/Tdap/Td (3 - Td or Tdap) 09/30/2028 019, 05/13/2010 Lipid Screening 05/05/2029 05/05/2024 Imm-Hepatitis B Completed 11/12/2010, 04/28, 03/19/2010 HIV Screening Completed 09/21/2024, 09/21/2024 Hepatitis C Screening Completed 09/21/2024 Cervical Ablation/Cold-Knife Conization Discontinued Cervical Cryotherapy Discontinued Colposcopy Discontinued Endometrial Biopsy Discontinued Excision/Leep Discontinued HPV Genotyping Discontinued Vaginal Pap Discontinued Vulvoscopy Discontinued Insurance [facility]
--- OUTSIDE RECORDS SUMMARY | 2025-02-09 08:57 | XMS_ITS | Encounter Summary ---
Author Organization [employer] Address [address] [facility] 7 [place] [address] Care Team Providers Care Brim Setter Name Role Phone Amelie RamP Primary Care Provider [phone] Sasha Bello NP Primary Care Provider [phone] Reason for Visit * Reason Onset Date Comments 09/0909/10/2023 Encounter Details Date Type Department Care Team ([facility] st Contact Info) Description 09/10/2023 Telephone [facility] [address] [place], [place] [phone] Amelie Ram FNP [address] [place], [place] [phone] 09/09 Social History Tobacco Use Types Packs/Day [...] Care Team (Late st Contact Info) Description 02/14/2025 2:45 PM EDT Office Visit [facility] [address] [place] [address] Ssaha Bello NP [address] [place] [address] documented as of this encounter Visit Diagnoses Not on filedocumented in this encounter Additional Health Concerns Assessment Noted Time PHQ-9 Depression Total Score: 0 11/26/19 23 10:22 AM EDT documented as of this encounter Care Teams Brim Setter Relationship Specialty Start Date End Date Amelie Ram FNP [address] [place] [address] PCP - General Family Medicine 05/25/22 02/29/24 Sasha Bello NP [address] [place] [address] PCP - General Family Medicine 03/01/24 documented as of this encounter
--- NOTE | 2025-02-09 11:29 | A.OFFVIS_ITS ---
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 Required: Yes Felt Puller Services: Felt Puller Present Information Interpreted: clinical only Allergies adhesive tape (ADHESIVE TAPE) Allergy (Intermediate, Verified 02/09/25 11:29) BURN/BLISTER Medication List - Last Reconciled 02/09/25 by Harvinder Blank MD ascorbic acid (vitamin C) 25 mg PO DAILY cephalexin 500 mg PO Q12H cetirizine 10 mg PO QAM clotrimazole 1% 1 appl topical BID PRN [cock up splint Wear on both wrists at night ] cyanocobalamin (vitamin B-12) 1,000 mcg IM QMONTH docusate sodium (Colace) 100 mg PO DAILY docusate sodium 100 mg PO Q12H duloxetine 30 mg PO DAILY ferrous sulfate 325 mg PO BID gabapentin 400 mg PO BID 90 days hydroxyzine pamoate 25 mg PO Q8H PRN multivitamin 1 tab PO DAILY ondansetron 4 mg PO Q12H sumatriptan succinate 50 mg PO Q2-4H PRN tramadol 50 mg PO TID 30 days Zepbound (tirzepatide (weight loss)) 12.5 mg (0.5 mL) subcut QWEEK NS HPI HPI TV Pre Op Panniculectomy 02/20/25 *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: Details: Start time: 2.15pm, End time: 2.45pm I spent 25 minutes speaking with the patient on the phone plus an additional 5 minutes reviewing and updating records for a total of 30 minutes HPI Comments Details: Overall weight loss 87.2lbs, or 38.1 kg/m2 This is the preoperative appointment for upcoming panniculectomy [facility] Medical History Neck muscle spasm Bilateral shoulder pain Neck pain Lateral epicondylitis, right elbow SARS-CoV-2 positive Fibromyalgia Lumbar spondylosis Obesity (BMI 30-39.9) Intestinal malabsorption following gastrectomy Fatigue Sleep apnea GERD (gastroesophageal reflux disease) Arthritis Anemia Surgical History History of surgery of uterus H/O tubal ligation Hx of section S/P laparoscopic sleeve gastrectomy Family History Father Respiratory arrest Sister Anemia Ovarian cancer Social History Alcohol intake: current Alcohol intake frequency: holidays/special occasions only Alcohol type: wine Patient Tobacco Use Status: Never used Tobacco Gender identity: Female Female Reproductive History Menstrual Age of Menarche: 13 Telehealth Telehealth Telehealth Platform: Telephone Location of provider rendering services: practice address Location of patient: address on file Patient Identification confirmed using: Name, : Yes Telehealth method: voice only Patient verbally consented to treatment: Yes Patient verbally consented to billing insurance company: Yes Patient informed of any privacy concerns related to visit: Yes Minutes spent on Phone/Video with Pt.: 30 Assessment & Plan Assessment & Plan (1) Excess skin: Code(s): L98.7 - Excessive and redundant skin and subcutaneous tissue Category: Medical Plan: 1. Plan for panniculectomy. Risks of infection, bleeding, asymmetry, wound dehiscence and blood clots were discussed with the patient. 2. You will have a drain the abdomen that may stay a few weeks before it may be removed 3. You will need to be doing sponge baths the first 1-2 weeks. No showers. You need to have help at home to get you up and limit your activities as much as possible for at least the 4-6 weeks after surgery 4. We will arrange for a visiting nurse to come at home to help you with dressing changes and send me pictures of the procedures. We will send at your home supplies for the dressing changes. 5. Change nutritional plan to ONE Celebrate shake (HALF scoop in 8oz almond milk) at 8am-10am, two Celebrate protein bars at 11am-1pm and 2pm-4pm and one meal at 5pm (4 forks of protein and 4 forks of salad or vegetables) and one more Celebrate protein bar at 7pm-9pm. This will improve weight loss and healing after surgery. 6. Continue all vitamins 7. Stop Gabapentin on Wednesday02/12/25. The Zepbound needs to be stopped at latest on 02/14/27, 7 days before the surgery date. 8. Do blood work not fasting any day between Wednesday02/12/25 and Wednesday02/16/25 and spanish moss picker the antibiotic prescription from your pharmacy 9. Risks and complications were discussed the possibility of bleeding that may require transfusion, loss of the umbilicus, wound dehiscence or infection, dog ears , flap asymmetry. We also discussed the importance of strict avoidance of weight lifting. 10. Avoid aspirin, motrin, ibuprofen, Aleve, Advil, Naproxyn. Only Tylenol is OK Orders: Orders Vitamin A Today K91.2 - Postsurgical malabsorption, not elsewhere classified, Z90.3 - Acquired absence of stomach [part of] Hemoglobin A1c Today K91.2 - Postsurgical malabsorption, not elsewhere classified, Z90.3 - Acquired absence of stomach [part of] Vitamin B1 Today K91.2 - Postsurgical malabsorption, not elsewhere classified, Z90.3 - Acquired absence of stomach [part of] Lipid Panel Today K91.2 - Postsurgical malabsorption, not elsewhere classified, Z90.3 - Acquired absence of stomach [part of] Type and Screen Today K91.2 - Postsurgical malabsorption, not elsewhere classified, Z90.3 - Acquired absence of stomach [part of] Vitamin B12 Today K91.2 - Postsurgical malabsorption, not elsewhere classified, Z90.3 - Acquired absence of stomach [part of] C Reactive Protein Today K91.2 - Postsurgical malabsorption, not elsewhere classified, Z90.3 - Acquired absence of stomach [part of] Complete Blood Count Auto Diff Today K91.2 - Postsurgical malabsorption, not elsewhere classified, Z90.3 - Acquired absence of stomach [part of] Ferritin Today K91.2 - Postsurgical malabsorption, not elsewhere classified, Z90.3 - Acquired absence of stomach [part of] Zinc Today K91.2 - Postsurgical malabsorption, not elsewhere classified, Z90.3 - Acquired absence of stomach [part of] IRON PROFILE Today K91.2 - Postsurgical malabsorption, not elsewhere classified, Z90.3 - Acquired absence of stomach [part of] Comprehensive Met. Panel Today K91.2 - Postsurgical malabsorption, not elsewhere classified, Z90.3 - Acquired absence of stomach [part of] TSH reflex Free T4 Today K91.2 - Postsurgical malabsorption, not elsewhere classified, Z90.3 - Acquired absence of stomach [part of] Prothrombin Time INR Today K91.2 - Postsurgical malabsorption, not elsewhere classified, Z90.3 - Acquired absence of stomach [part of] Partial Thromboplastin Time Today K91.2 - Postsurgical malabsorption, not elsewhere classified, Z90.3 - Acquired absence of stomach [part of] Vitamin D 25-OH Total Today K91.2 - Postsurgical malabsorption, not elsewhere classified, Z90.3 - Acquired absence of stomach [part of] Insulin Today K91.2 - Postsurgical malabsorption, not elsewhere classified, Z90.3 - Acquired absence of stomach [part of] Medications: New cephalexin 500 mg PO Q12H 60 caps 2RF M79.3 - Panniculitis, unspecified docusate sodium (Colace) 100 mg PO DAILY 90 caps 0RF K59.00 - Constipation, unspecified ondansetron 4 mg PO Q12H 20 tabs 0RF nausea and vomiting R11.0 - Nausea
[2025-02-09 14:35] VITALS: BMI 26.7
== END 2025-02-09 14:45 | disposition home or self-care (01) ==
LOC: HO.HBS 08:41
PROVIDERS: PCP Nurse Practitioner; Visit Provider Surgery
DX: L98.7 Excessive and redundant skin and subcutaneous tissue (principal); E66.3 Overweight; Z68.26 Body mass index [BMI] 26.0-26.9, adult
CPT/HCPCS: 99214

== ENCOUNTER 2025-02-20 09:54 | Day surgery (SDC) | payer MEDICAID, SELFPAY ==
[2025-02-13 15:11] VITALS: BMI 26.6
--- OUTSIDE RECORDS SUMMARY | 2025-02-13 16:18 | XMS_ITS | Clinical Summary ---
Author Organization [address] [place] [address] Address [address] [place] [address] Phone Care Team Providers Care Stenciler Name Role Phone EdmundAngelina NANCY Primary Care Provider [phone] Allergies No known active allergies Medications ascorbic [...] (one) time each day. 30 tablet 1 5 03/12/20 25 Active Active Problems Problem Noted Date Diagnosed Date Bilateral foot pain 04/20/2024 Gastritis 04/20/2024 Iron deficiency anemia 04/20/2024 Lumbar disc herniation with radiculopathy 2023 Morbid obesity (CMS/[facility] V24, [facility] V28) 2023 Pain in the coccyx 04/20/2024 Papular eruption 04/20/2024 Seasonal allergic rhinitis 04/20/2024 Severe recurrent major depre ssion with psychotic features ([facility] V24, [facility] V28) 04/20/2024 Encounters Date Type Department Care Team Description 01/11/2025 1:45 PM EDT Office Visit [address] [phone] Kev Aponte DPM Plantar fascial fibromatosis (Primary [...] 02/22/2025 2:45 PM EDT Office Visit [facility] [place] [address] [phone] Kev Aponte DPM [address] [address] Health Maintenance Due Date Last Done Comments [...] mg/mL Informed Consent: Site: Foot ligament tendon Kev Aponte DPM IN CLINIC/BEDSIDE ORDERAB LES Final Result from Last 3 Months Insurance MEDICAID - [place] Care Teams Stenciler Relationship Specialty Start Date End Date Angelina Shaffer NP [address] [place] [phone] PCP - General 03/03/24
--- OUTSIDE RECORDS SUMMARY | 2025-02-13 16:18 | XMS_ITS | Clinical Summary ---
Author Organization [facility] Address [address] [place] [address] Care Team Providers Care Post Adoption Coordinator Name Role Phone Unavailable Primary Care Provider [...] Care Team Description 01/23/2025 / TELEPHONE [facility] [address] [place] [phone] Reji Mann PMHNP from Last 3 Months [...] Upcoming Encounters Date Type Department Care Team ([facility] Contact Info) Description 02/27/2025 10:00 AM EDT Behavioral Health Visit [facility] [address] [place] [phone] Reji Mann PMHNP 20 [facility] [place] [phone] Health Maintenance Due Date Last Done Comments Anxiety Screening 1980 HPV Screening 1980 Pap + HPV 1980 Tobacco Screening 1980 Relationship Safety Screening/Counseling 1995 Hypertension Screening (#1) 1998 Cervical Cancer Screening 2001 Pap Smear 2001 Breast Cancer Screening (Mammogram) 2020 [id number] ( season) 2024 10/23/2021, 09/02/2020, 08/12/2020 Alcohol [...] Discontinued Vaginal Pap Discontinued Vulvoscopy Discontinued Insurance [facility]
--- OUTSIDE RECORDS SUMMARY | 2025-02-13 16:18 | XMS_ITS | Encounter Summary ---
Author Organization [employer] Address [address] [facility] 7 [place] [address] Care Team Providers Care Stretcher Operator Name Role Phone Amelie RamP Primary Care Provider [phone] Sasha Bello NP Primary Care Provider [phone] Reason for Visit * Reason Onset Date Comments 09/0909/10/2023 Encounter Details Date Type Department Care Team ([facility] st Contact Info) Description 09/10/2023 Telephone [facility] [address] [place], [place] [phone] Amelie Ram FNP [address] [place], [place] [phone] 09/09 Social History Tobacco Use Types Packs/Day [...] Description 02/14/2025 2:45 PM EDT Office Visit [facility] [address] [place] [address] Sasha Bello NP [address] [place] [address] documented as of this encounter Visit Diagnoses Not on filedocumented in this encounter Additional Health Concerns Assessment Noted Time PHQ-9 Depression Total Score: 0 11/26/19 23 10:22 AM EDT documented as of this encounter Care Teams Stretcher Operator Relationship Specialty Start Date End Date Amelie Ram FNP [address] [place] [address] PCP - General Family Medicine 05/25/22 02/29/24 Sasha Bello NP [address] [place] [address] PCP - General Family Medicine 03/01/24 documented as of this encounter
[2025-02-14 09:50] LABS: MANUAL DIFF FLAG NO
[2025-02-14 10:43] LABS: Hematocrit 33.0 % (37.0-47.0); Hemoglobin 11.2 g/dl (12.0-16.0); Imm Gran Abs Auto 0.01 X10*3/uL (0.00-0.03); Imm Gran Pct Auto 0.3 % (0.0-0.4); Lymphocytes Absolute Auto 1.5 X10*3/uL (1.2-4.9); Mean Corpuscular HGB Conc 33.9 g/dl (31.0-35.0); Mean Corpuscular Hemoglobin 30.1 pg (27.0-33.0); Mean Corpuscular Volume 88.7 fL (80.0-98.0); NRBC Abs Auto 0.000 X10*3/uL (0.0-0.012); NRBC Pct Auto 0.0 /100WBC (0.0-0.2); Platelet Count 244 X10*3/uL (160-400); Red Blood Count 3.72 X10*6/uL (4.20-5.50); White Blood Count 3.9 X10*3/uL (4.8-10.8)
[2025-02-14 10:45] LABS: INTERNATIONAL NORM RATIO 1.0 (0.9-1.1); Prothrombin Time 11.8 SEC (10.9-12.4)
[2025-02-14 10:48] LABS: Hemoglobin A1C 95.8760 umol/L; Partial Thromboplastin Time 26.8 SEC (26.7-34.1); Total Hemoglobin (HGBA1C) 3024.1908 umol/L
[2025-02-14 11:15] LABS: Alanine Aminotransferase 12 U/L (0-31); Albumin Level 4.5 g/dL (3.5-5.0); Alkaline Phosphatase 48 U/L (39-117); Anion Gap 12 (12-20); Aspartate Amino Transferase 24 U/L (5-31); Blood Urea Nitrogen 12 mg/dL (9-16); Calcium 9.0 mg/dL (8.4-10.2); Carbon Dioxide 27 mmol/L (22-29); Chloride 106 mmol/L (96-108); Cholesterol 206 mg/dL (<200); Creatinine Clr Calc Pharmacy 89.1; Estimated Glomerular Filt Rate > 60; HDL Cholesterol 66 mg/dL (>40); Iron 49 mcg/dL (30-160); Percent Iron Saturation 18 % (15-50); Potassium 3.7 mmol/L (3.3-5.1); Sodium 141 mmol/L (135-145); Total Iron Binding Capacity 278 mcg/dL (228-428); Total Protein 7.4 g/dL (6.5-8.0); Triglycerides 59 mg/dL (<150); Unsaturated Iron Binding 229 ug/dL
[2025-02-14 11:36] LABS: Vitamin B12 808 pg/mL (200-900)
[2025-02-14 11:38] LABS: Ferritin 47 ng/mL (10-250)
--- NOTE | 2025-02-19 10:15 | HO.ANESPROP2 ---
HPI - Anesthesia Eval Consult details Narrative: 44 yr old female for panniculectomy Anesthesia Pre-Procedure Meds Is the patient on any of the following meds?: GLP1/DPP4 PMFSH Active Problems Active Problems: All Active Problems Overweight (Acute) Neck muscle spasm (Acute) Bilateral shoulder pain (Acute) Neck pain (Acute) Fibromyalgia (Acute) Excess skin (Acute) Encounter for medication monitoring (Acute) Lateral epicondylitis, right elbow (Acute) Abnormal uterine bleeding (Acute) Abnormal uterine bleeding due to endocervical polyp (Acute) Premenopause menorrhagia (Acute) Anemia (Chronic) Lumbar spondylosis (Acute) Obesity (BMI 30-39.9) (Acute) S/P laparoscopic sleeve gastrectomy (Acute) Intestinal malabsorption following gastrectomy (Acute) Past Medical History Medical History (Updated 03/06/25 @ 03:11 by YURI Alfredo) Neck muscle spasm Bilateral shoulder pain Neck pain Lateral epicondylitis, right elbow SARS-CoV-2 positive Fibromyalgia Lumbar spondylosis Obesity (BMI 30-39.9) Intestinal malabsorption following gastrectomy Fatigue Sleep apnea GERD (gastroesophageal reflux disease) Arthritis Anemia Family History Family History Father Respiratory arrest Sister Anemia Ovarian cancer Family history of problems with anesthesia: No Surgical History Surgical History (Updated 02/27/25 @ 11:04 by YURI Garrido) S/P panniculectomy History of surgery of uterus H/O tubal ligation Hx of section S/P laparoscopic sleeve gastrectomy History of Problems with Anesthesia: No Social History Social History Household Members: Family Housing: House Are you a primary child adolescent care to a significant other at home: No Do you presently have visiting nurse or other home services: No Alcohol intake: current Alcohol intake frequency: holidays/special occasions only Alcohol type: wine Patient Tobacco Use Status: Never used Tobacco e-Cigarette/Vaping Use: Never Used Advance Directives: No Advance Directives Information Provided: Yes Do you have a plan to hurt others: No Plan Gender identity: Female Meds Allergies Allergy/AdvReac Type Severity Reaction Status Date / Time adhesive tape (ADHESIVE TAPE) Allergy Intermediate BURN/BLISTE Verified 03/05/25 21:58 R Home Medications ?Medication ?Instructions ?Recorded ?Confirmed ?Last Taken ?Type ascorbic acid (vitamin C) 25 mg 25 mg PO DAILY 04/30/20 02/27/25 Unknown History tablet multivitamin 1 tab PO DAILY 04/30/20 02/27/25 Unknown History ferrous sulfate 325 mg (65 mg 325 mg PO BID 07/19/20 02/27/25 Unknown History iron) tablet hydroxyzine pamoate 25 mg capsule 25 mg PO Q8H PRN Itching 08/27/22 02/27/25 Unknown History cetirizine 10 mg tablet 10 mg PO QAM 02/11/23 02/27/25 Unknown History docusate sodium 100 mg capsule 100 mg PO Q12H 02/11/23 02/27/25 Unknown History duloxetine 30 mg capsule,delayed 30 mg PO DAILY 09/21/24 02/27/25 Unknown History release Exam Height,Weight and Vital Signs: Height 5 ft 1 in Weight 63.957 kg Pertinent Lab Results Pertinent Lab Results: Laboratory Tests 02/14/25 02/14/25 09:44 09:49 WBC 3.9 L RBC 3.72 L Hgb 11.2 L Hct 33.0 L MCV 88.7 MCH 30.1 MCHC 33.9 RDW 12.5 Plt Count 244 MPV 9.2 L Immature Gran % (Auto) 0.3 Neut % (Auto) 50.9 Lymph % (Auto) 37.7 Monona % (Auto) 9.3 Eos % (Auto) 1.3 Baso % (Auto) 0.5 Lymph # (Auto) 1.5 Monona # (Auto) 0.4 Eos # (Auto) 0.1 Baso # (Auto) 0.0 Abs Immat Gran (auto) 0.01 Absolute Neuts (auto) 2.0 Absolute Nucleated RBC 0.000 Nucleated RBC % (auto) 0.0 PT 11.8 INR 1.0 APTT 26.8 Sodium 141 Potassium 3.7 Chloride 106 Carbon Dioxide 27 Anion Gap 12 BUN 12 Creatinine 0.69 Estim Creat Clear Calc 89.1 Estimated GFR > 60 Random Glucose 83 Estimat Average Glucose 100 Hemoglobin A1c % 5.1 Insulin Level 5 Calcium 9.0 Iron 49 TIBC 278 % Saturation 18 Unsat Iron Binding 229 Ferritin 47 Total Bilirubin 0.5 AST 24 ALT 12 Alkaline Phosphatase 48 C-Reactive Protein 0.11 Total Protein 7.4 Albumin 4.5 Triglycerides 59 Cholesterol 206 H LDL Cholesterol, Calc 129 H HDL Cholesterol 66 Vitamin A 24 L Vitamin B12 808 25-OH Vitamin D Total 28.1 L TSH 1.08 Zinc 63 Blood Type B Positive Antibody Screen NEGATIVE Assessment and Plan Final Anesthetic Review Family History of Problems with Anesthesia: No History of Problems with Anesthesia: No
[2025-02-20] VITALS (10 sets, daily range): BP systolic 120–134; BP diastolic 71–80; PULSE 86–120; RESP 14–18; TEMP 36.7–37.4; O2SAT 94–100
--- NOTE | 2025-02-20 08:30 | W.MHC.F2F ---
Service Date Service Date: 02/20/25 Encounter Date of encounter: 02/20/25 Reasons for Services Signs and symptoms assessed: s/p panniculectomy on 02/20/25 Reason for [facility] [facility]: wound care and postoperative assessment and/or care Homebound: Leaving the home is medically contraindicated at this time without the asist of a device and/or another person due th the listed conditions above and below. Reason homebound: unable to drive Certification: Based on the above findings, I certify that this patient is confined to the home and needs intermittent [place] [facility] care, physical therapy and/or speech therapy, or continues to need occupational therapy. The patient is under my care, and I have initiated the establishment of the plan of care. The patient will be followed by a physician who will periodically review the plan of care. Time Spent With Patient Time: Total time managing care of this patient today 15 minutes.
[2025-02-20] MEDS: Aprepitant 32 MG/4.4 ML VIAL IVPUSH (10:33)
--- NOTE | 2025-02-20 12:17 | MHC.SHP ---
Pre-Procedural Eval Section A - 24 Hr Update-Section A only Date of Service: 02/20/25 The patient is an INPATIENT: No The patient has been examined within 24 hours of the surgical procedure. The History & Physical has been completed within 30 days and I have reviewed it.: Yes Section B - Complete if H&P > 30 days Chief Complaint: Excessive and redundant skin and subcut tissue Relevant Family History (Specify if Yes): No Relevant Social History: None Present Medications: None Medical History: No relevant PMH History of Previous Operations: Relevant previous surgery/procedure and date(s) (laparoscopic sleeve gastrectomy) Allergies: Allergies Allergy/AdvReac Type Severity Reaction Status Date / Time adhesive tape (ADHESIVE TAPE) Allergy Intermediate BURN/BLISTE Verified 02/09/25 11:29 R Review of Systems Sugical H&P ROS: Negative: Constitution, Cardiovascular, Respiratory, Neurological, Psychiatric, Hem-Onc, Allergic/Immunologic, Gastrointestinal, Genitourinary, Musculoskeletal, Integumentary, Endocrine and Eyes/Ears/Nose/Throat Exam Surgical H&P Exam: Normal: HEENT, Normal: Heart, Normal: Lungs, Normal: Extremities, Normal: Abdomen, Normal: Skin and Normal: Neurological Plan Diagnosis/Plan: Unchanged I have reviewed the history and physical and performed a pertinent physical examination on my patient. No changes have occurred unless specified. Time Spent With Patient Time: Total time managing care of this patient today ____ minutes.
--- NOTE | 2025-02-20 12:18 | P.BOP_ITS ---
Brief Operative Note Date of Service: 02/20/25 Pre-op diagnosis: Excess skin Post-op diagnosis: same Procedure: PROCEDURE: Panniculectomy with umbilical transposition and bilateral subcutaneous fat flaps INDICATION: This a 44 year old female who underwent laparoscopic sleeve gastrectomy on 11/19/2016. She had an excellent result achieving a BMI of 26.3 kg/m2 with a total weight loss of 87.2lbs, or 38.15% of her TBWL. As a result, she has developed panniculitis which has not resolved despite continuous use of clotrimazole ointment as well as skin irritation. On exam she has extreme skin laxity due to massive weight loss, with the abdominal pannus completely hanging 4cm below the pubis. Panniculectomy was recommended. We discussed the two options for the panniculectomy of using a combined vertical and horizontal incisions or just a horizontal (bikini) incision. It was my recommendation to do only horizontal incision based on her body habitus and skin laxity. The patient agreed with this. Risks and complications were discussed with the patient including bleeding, infection, umbilical loss, flap necrosis, asymmetry, dehiscence, seroma, VTE. The patient understood the risks and was in agreement to proceed with surgery. PROCEDURE: The incisions were appropriately marked at the preop area with the patient standing and laying down. After induction of general anesthesia, pneumatic compression devices were placed. The patient was prepped and draped in the usual sterile manner and the incisions were marked again and confirmed. The skin was infiltrated with lidocaine and epinephrine. The #10 blade scalpel was used for the large incisions and the #15 blade scalpel for the umbilicus. Cautery was used to divide the subcutaneous tissues until the fascia was identified. Then I used the cautery to separate the pannus from the fascia. The inferior incision was made initially and I mobilized the flap for a several centimeters cephalad to the umbilicus. The umbilicus was incised circumferentially and detached from the surrounding tissues all the way to the fascia while its stalk was preserved. With the patient in reflex position I confirmed that the skin flaps were appropriate and would allow for the tissues to come together with reasonable tension. At that point a horizontal incision was made 4 cm above the umbilicus. #10 blade was used for the skin, cautery for the dermis and for the remaining tissues. A subcutaneous fat flap was raised from the upper skin flap in order to fill the space under the skin and support the closure of the two flaps. In addition the inferior flap was mobilized caudally for a few centimeters to create a space for the subcutaneous fat flap as well as relieve tension from the closure. A circumferential incision was made at the area where the umbilicus would be re-implanted. The umbilicus was appropriately oriented and was delivered through the defect and was secured in place with a Josh. No bleeding was noted anywhere. One MAREK drain was placed from the left corner of the horizontal incision across the wound and was secured in place with a silk suture. The subcutaneous fat flap was secured under the inferior flap with several interrupted 3.0 Monocryl sutures. The two flaps were brought together and were attached at the midline of the horizontal incision with a #3.0 Monocryl suture. At that point the umbilicus was properly oriented and was re-approximated to the skin with 8 interrupted 3.0 Monocryl sutures. In a similar fashion the skin flaps were re-approximated with multiple 3.0 Monocryl sutures. The skin was closed in all incisions and umbilicus with 4.0 Monocryl sutures. Steri-strips, xeroform gauzes and gauzes were used to cover the incisions. An abdominal binder was also placed. The was awaken and was transferred to the recover room in a stable condition. I was present and performed the entire procedure. Ms. Roman was the assistant merchandiser. Maurice Blank MD, PhD, FACS Surgeon: Harvinder Blank MD Surgeon: Harvinder Blank MD Anesthesia: GETA and local Was an Fingerer used for this Procedure?: No Fingerer: Aaron Javier Estimated blood loss (mL): 10 IV fluids (mL): 1,200 Urine output (mL): 0 (No Negrete to record output) Pathology: other (Abdominal pannus) Condition: stable Disposition: PACU
== END 2025-02-20 18:10 | disposition home or self-care (01) ==
PROVIDERS: PCP Nurse Practitioner Family; Visit Provider Surgery
PROC: 0JB80ZZ Excision of Abdomen Subcutaneous Tissue and Fascia, Open Approach (ICD-10-PCS; CPT 15830; principal; 2025-02-20 12:00)
DX: L98.7 Excessive and redundant skin and subcutaneous tissue (principal); M79.3 Panniculitis, unspecified; R63.4 Abnormal weight loss; Z68.26 Body mass index [BMI] 26.0-26.9, adult; K91.2 Postsurgical malabsorption, not elsewhere classified; Z90.3 Acquired absence of stomach [part of]; L23.1 Allergic contact dermatitis due to adhesives; D64.9 Anemia, unspecified; K21.9 Gastro-esophageal reflux disease without esophagitis; M79.7 Fibromyalgia; R53.83 Other fatigue; G47.30 Sleep apnea, unspecified; Z79.85 Long-term (current) use of injectable non-insulin antidiabetic drugs; Z79.899 Other long term (current) drug therapy; Z98.84 Bariatric surgery status; Z98.890 Other specified postprocedural states
CPT/HCPCS: 15830; 15847; 36415; 80053; 80061; 82306; 82607; 82728; 83036; 83525; 83540; 84425; 84443; 84590; 84630; 85025; 85610; 85730; 86140; 86850; 86900; 86901; 88304; C9145; J0131; J0690; J1100; J1756; J2003; J2004; J2250; J2405; J2704; J3010; J3374

== ENCOUNTER → 2025-02-20 12:00 | Outpatient (BNV) | payer MEDICAID, SELFPAY | PROVIDERS: PCP Nurse Practitioner Family; Visit Provider Physician Assistant Surgical | DX: M79.3 Panniculitis, unspecified (principal); L98.7 Excessive and redundant skin and subcutaneous tissue | CPT/HCPCS: 15830; G0180 ==

== ENCOUNTER 2025-02-27 09:58 | Outpatient (AMB) | payer MEDICAID, SELFPAY ==
--- NOTE | 2025-02-27 10:29 | MHC.OFFVISWM ---
VS Expanded 02/27/25 11:01 BP 121/69 Blood Pressure Location Rt brachial Blood Pressure Position Sitting Pulse 80 Pulse Source Pulse Oximeter Temp 96.4 F L Temperature Source Temporal Artery Scan Pulse Oximetry 100 Oxygen Delivery Method Room Air Height 5 ft 1 in Weight 137 lb BMI 25.9 Body Fat % 29.0 Body Fat Mass 396 Fat Free Mass 97.2 Visceral Fat Rating 5.0 Body Water % 50.6 Body Water Mass 69.2 Muscle Mass/Score 92.4 Basal Metabolic Rate/Score 1,316 Intake Visit Reasons: OV PO Panniculectomy 02/20/25 Allergies adhesive tape (ADHESIVE TAPE) Allergy (Intermediate, Verified 02/09/25 11:29) BURN/BLISTER Medication List - Last Reviewed 02/27/25 by Pebbles Smart CMA ascorbic acid (vitamin C) 25 mg PO DAILY cephalexin 500 mg PO Q12H cetirizine 10 mg PO QAM cholecalciferol (vitamin D3) 125 mcg PO DAILY [cock up splint Wear on both wrists at night ] cyanocobalamin (vitamin B-12) 1,000 mcg IM QMONTH docusate sodium (Colace) 100 mg PO DAILY docusate sodium 100 mg PO Q12H duloxetine 30 mg PO DAILY ferrous sulfate 325 mg PO BID gabapentin 400 mg PO BID 90 days hydroxyzine pamoate 25 mg PO Q8H PRN multivitamin 1 tab PO DAILY ondansetron 4 mg PO Q12H sumatriptan succinate 50 mg PO Q2-4H PRN tramadol 50 mg PO TID 30 days vitamin A palmitate 3,000 mcg PO DAILY Zepbound (tirzepatide (weight loss)) 12.5 mg (0.5 mL) subcut QWEEK NS HPI Comments Details: Pt is 1 week s/p panniculectomy with drain placement. No fevers at home. Following meal plan per Dr. Cruz Drain out put with 40cc average per day. Wearing binder at all times. [facility] Medical History (Updated 02/19/25 @ 17:07 by Harvinder Blank MD) Neck muscle spasm Bilateral shoulder pain Neck pain Lateral epicondylitis, right elbow SARS-CoV-2 positive Fibromyalgia Lumbar spondylosis Obesity (BMI 30-39.9) Intestinal malabsorption following gastrectomy Fatigue Sleep apnea GERD (gastroesophageal reflux disease) Arthritis Anemia Surgical History (Updated 02/27/25 @ 11:04 by YURI Garrido) S/P panniculectomy History of surgery of uterus H/O tubal ligation Hx of section S/P laparoscopic sleeve gastrectomy Family History Father Respiratory arrest Sister Anemia Ovarian cancer Social History (Updated 02/13/25 @ 15:16 by Clarisse Fleming RN) Household Members: Family Housing: House Are you a primary respiratory care practitioner to a significant other at home: No Do you presently have visiting nurse or other home services: No 75 years or older and lives alone: No Alcohol intake: current Alcohol intake frequency: holidays/special occasions only Alcohol type: wine Patient Tobacco Use Status: Never used Tobacco e-Cigarette/Vaping Use: Never Used Gender identity: Female Female Reproductive History Menstrual Age of Menarche: 13 Physical Exam Const General: cooperative, comfortable and no acute distress Orientation/consciousness: patient oriented x3 GI Other: all incisions c/d/i, umbilicus viable, sanguinous output in drain, drain site clean Neuro General: patient oriented x3 Assessment & Plan Assessment & Plan (1) S/P panniculectomy: Code(s): Z98.890 - Other specified postprocedural states Category: Medical (2) S/P laparoscopic sleeve gastrectomy: Code(s): Z98.84 - Bariatric surgery status Category: Medical (3) Overweight: Code(s): E66.3 - Overweight Category: Medical Plan Continue high protein diet. ABX keflex 500 BID x 2 weeks, extended as needed?(at least until drain comes out plus 1 week).? Drain out after consistently 20 mL or less daily.? Abdominal binder at all times except for care x 1 month?MINIMUM. If there are concerns longer.? No driving?until drain out.? No walking outside or exercise for 6 weeks minimum. Walking in the house after 1st appt if we are satisfied with progress. Assistance getting up for 4 weeks minimum.?No lifting greater than?10 pounds x 2 months and no abdominal exercises x 3 months. RTC 1 week.
[2025-02-27 11:01] VITALS: BP 121/69; PULSE 80; TEMP 35.8; O2SAT 100; BMI 25.9
--- OUTSIDE RECORDS SUMMARY | 2025-02-27 11:17 | XMS_ITS | Encounter Summary ---
Author Organization [facility] Address [address] [place] [address] [address] [place] [address] Care Team Providers Care Toilet Attendant Name Role Phone Amelie RamP Primary Care Provider [phone] Sasha Bello NP Primary Care Provider [phone] Encounter Details Date Type Department Care Team (Late st Contact Info) Description 12/23/2022 Orders Only [facility] MEDICINE [address] [place], [place] [phone] Amelie Ram FNP [address] [place] [address] Encounter for annual routine gynecological examination (Primary [...] as of this encounter Plan of Treatment Not on file documented as of this encounter Visit Diagnoses Diagnosis Encounter for annual routine gynecological examination- Primary Lumbar disc herniation with radiculopathy Displacement of lumbar intervertebral disc without myelopathy documented in this encounter Additional Health Concerns Assessment Noted Time PHQ-9 Depression Total Score: 0 11/26/19 10:22 AM EDT documented as of this encounter Care Teams Toilet Attendant Relationship Specialty Start Date End Date Amelie Ram FNP [address] [place] [address] PCP - General Family Medicine 05/25/22 02/29/24 Sasha Bello NP [address] [place] [address] PCP - General Family Medicine 03/01/24 documented as of this encounter
--- OUTSIDE RECORDS SUMMARY | 2025-02-27 11:17 | XMS_ITS | Encounter Summary ---
Author Organization [employer] Address [address] [facility] [address] [place] [address] Care Team Providers Care Automatic Glove Turner And Former Name Role Phone Sasha Bello NP Primary Care Provider [phone] Encounter Details Date Type Department Care Team ([facility] st Contact Info) Description 11/02/2024 Orders Only [facility] MEDICINE [address] [place], [place] [phone] Sasha Bello NP [address] [place], [place] [phone] Obesity (BMI 30.0-34.9) Social History Tobacco Use [...] documented as of this encounter Care Teams Automatic Glove Turner And Former Relationship Specialty Start Date End Date Sasha Bello NP [address] [place] [id number] PCP - General Family Medicine 03/01/24 documented as of this encounter
--- OUTSIDE RECORDS SUMMARY | 2025-02-27 11:17 | XMS_ITS | Encounter Summary ---
Author Organization [facility] Address [address] [facility] [address] [place] [address] Care Team Providers Care Electrophonic Engineer Name Role Phone Sasha Bello NP Primary Care Provider [phone] Reason for Visit * Reason Comments Med Refill Encounter Details Date Type Department Care Team ([facility] st Contact Info) Description 09/04/[address] [facility] MEDICINE [address] [place] [address] Sasha Bello NP [address] [place] [address] Acute pain of right knee Social History [...] documented as of this encounter Care Teams Electrophonic Engineer Relationship Specialty Start Date End Date Sasha Bello NP [address] [place] [address] PCP - General Family Medicine 03/01/24 documented as of this encounter
--- OUTSIDE RECORDS SUMMARY | 2025-02-27 11:17 | XMS_ITS | Encounter Summary ---
Author Organization [employer] [facility] Address [address] [place] [address] [address] [address] Care Team Providers Care Pool Table Operator Name Role Phone Amelie RamP Primary Care Provider [phone] Sasha Bello NP Primary Care Provider [phone] Reason for Visit * Reason Onset Date Comments Referral 12/21/2022 Encounter Details Date Type Department Care Team (Late st Contact Info) Description 12/21/2022 Telephone [facility] MEDICINE [address] [place], [place] [phone] Amelie Ram FNP [address] [place] [address] Referral Social History Tobacco Use Types Packs/Day [...] from pt requesting a referral Specialty: Community Care Partner Location: [address] [place] [address] Date&Time:N/A Electrician Front:N/a Specialty:[facility] Location: [address] [place] [address] [place] [address] Date&Time: n/a Electrician Front: N/a documented in this encounter Plan of Treatment Not on file documented as of this encounter Visit Diagnoses Not on filedocumented in this encounter Additional Health Concerns Assessment Noted Time PHQ-9 Depression Total Score: 0 11/26/19 23 10:22 AM EDT documented as of this encounter Care Teams Pool Table Operator Relationship Specialty Start Date End Date Amelie Ram FNP [address] [place] [address] PCP - General Family Medicine 05/25/22 02/29/24 Sasha Bello NP [address] [place] [address] PCP - General Family Medicine 03/01/24 documented as of this encounter
--- OUTSIDE RECORDS SUMMARY | 2025-02-27 11:17 | XMS_ITS | Encounter Summary ---
Author Organization [employer] Address [address] [place] [address] [address] [place] [address] Care Team Providers Care Account Executive Healthcare Name Role Phone Amelie Ram Primary Care Provider [phone] Sasha Bello NP Primary Care Provider [phone] Reason for Referral * Imaging (Routine) - Closed Specialty Diagnoses / Procedures Referred By Contac t Referred To Contact Radiology Diagnoses Breast cancer screening by mammogram Procedures BI Mammogram Screening Bilateral Amelie Ram FNP [address] [place] [address] Phone: tel: fax: [address] Phone: tel: fax: Referral ID Status Reason Start Date Expiration Date Visits Re quested Visits Authorized [id number] Closed 01/06/2023 01/06/2024 1 1 Encounter Details Date Type Department Care Team (Late st Contact Info) Description 01/06/2023 Orders Only [facility] MEDICINE [address] [place] [address] Amelie Ram FNP [address] [place] [address] Breast cancer screening by mammogram (Primary Dx) [...] as of this encounter Plan of Treatment Scheduled Orders Name Type Priority Associated Diagnoses [...] documented as of this encounter Care Teams Account Executive Healthcare Relationship Specialty Start Date End Date Amelie Ram FNP [address] [place] [address] PCP - General Family Medicine 05/25/22 02/29/24 Sasha Bello NP [address] [place] [address] PCP - General Family Medicine 03/01/24 documented as of this encounter
--- OUTSIDE RECORDS SUMMARY | 2025-02-27 11:17 | XMS_ITS | Encounter Summary ---
Author Organization [employer] Address [address] [place] [address] [address] [place] [address] Care Team Providers Care Destaticizer Feeder Name Role Phone Amelie Ram FORM DESIGNER Primary Care Provider [phone] Sasha Bello NP Primary Care Provider [phone] Reason for Visit * Reason Onset Date Comments triage 08/18/2022 Encounter Details Date Type Department Care Team (Late st Contact Info) Description 08/18/2022 Telephone [facility] MEDICINE [address] [place] [address] Amelie Ram FNP [address] [place] [address] triage Social History Tobacco Use Types Packs/Day [...] accepted this outcome Please contact pt at [phone] Citizen Of [place] Speaker documented in this encounter Plan of Treatment Not on file documented as of this encounter Visit Diagnoses Not on filedocumented in this encounter Care Teams Destaticizer Feeder Relationship Specialty Start Date End Date Amelie Ram FNP [address] [place] [address] PCP - General Family Medicine 05/25/22 02/29/24 Sasha Bello NP [address] [place] [address] PCP - General Family Medicine 03/01/24 documented as of this encounter
--- OUTSIDE RECORDS SUMMARY | 2025-02-27 11:17 | XMS_ITS | Encounter Summary ---
Author Organization [employer] Address [address] [facility] [address] [place] [address] Care Team Providers Care Sports Cartoonist Name Role Phone Sasha Bello NP Primary Care Provider [phone] Reason for Visit * Reason Comments Med Refill Encounter Details Date Type Department Care Team ([facility] st Contact Info) Description 02/22/2025 Refill [facility] MEDICINE [address] [place], [place] [phone] Sasha Bello NP [address] [place] [address] Cervical pain (neck) Social History Tobacco Use Types Packs/Day Years [...] as of this encounter Visit Diagnoses Diagnosis Cervical pain (neck) Cervicalgia documented in this encounter Additional Health Concerns Assessment Noted Time PHQ-9 Depression Total Score: 8 07/12/19 25 11:42 AM EST documented as of this encounter Care Teams Sports Cartoonist Relationship Specialty Start Date End Date Sasha Bello NP [address] [place] [address] PCP - General Family Medicine 03/01/24 documented as of this encounter
--- OUTSIDE RECORDS SUMMARY | 2025-02-27 11:17 | XMS_ITS | Clinical Summary ---
Author Organization [employer] Address [address] [facility] [address] [place] [address] Care Team Providers Care Outreach Specialist Name Role Phone Sasha Bello NP Primary Care Provider [phone] Allergies No known active allergies Medications * [...] the morning. 90 tablet 2 023 Active gabapentin (Neurontin) 100 MG capsule Take 400 mg by mouth at bedtime. 025 Active Multiple Vitamin (multivitamin) tablet Take 1 tablet by mouth Once per day. OTC Active Ferrous Sulfate (iron) 325 (65 Fe) MG tablet TAKE 1 TABLET BY MOUTH EVERY DAY WITH BREAKFAST 90 tablet 2 025 Active Zepbound 12.5 MG/0.5ML solution auto-injectorIn dications:Obesi ty (BMI 30.0-34.9) INJECT 0.5 ML (12.5 MG) UNDER THE SKIN EVERY 7 (SEVEN) DAYS. 2 mL 025 Active DULoxetine (Cymbalta) [address] capsuleIndicati ons:Mild major depression (CMS/HCC),Anxie ty Take 1 capsule (30 mg) by mouth in the morning. Do not crush or chew. 30 capsule 1 025 2024 Active docusate sodium (Colace) 100 MG capsuleIndicati ons:Constipatio n, unspecified constipation type TAKE 1 CAPSULE (100 MG) BY MOUTH EVERY 12 (TWELVE) HOURS. 180 capsule 2 Active lidocaine (Lidoderm) 5 % patchIndication s:Cervical pain (neck) APPLY 1 PATCH TOPICALLY ONCE PER DAY. 30 patch 1 025 Active lidocaine (Lidoderm) 5 % patchIndication s:Cervical pain (neck) Apply 1 patch topically Once per day. 30 patch 1 025 2024 Discontinued Active Problems Problem Noted Date Diagnosed Date [...] recommended reduction of 20-30% of maintenance calories; qa analyst referral offered. Recommended to decrease soda and [...] organization. Date Type Department Care Team Description 02/22/2025 Refill [facility] [address] [place] [phone] Sasha Bello NP Cervical pain (neck) 02/20/2025 Orders Only GENERIC EXTERNAL DATA DEPARTMENT Provider, Generic External Data 02/14/2025 Telephone [facility] [address] [place] [address] Sasha Bello NP No Show 02/14/2025 Orders Only GENERIC EXTERNAL DATA DEPARTMENT Provider, Generic External Data 02/13/2025 Telephone [facility] [address] [place] [address] Briana Castro MA CHARTPREP 02/07/2025 Patient Outreach [facility] [address] [place] [address] Sasha Bello NP Pre-visit Planning ([facility] wass already completed) 01/25/2025 Refill [facility] [address] [place] [address] Amelie Ram, COATER OPERATOR Constipation, unspecified constipation type 01/22/2025 Refill [facility] [address] [place] [address] Sasha Bello NP Mild major depression (CMS/HCC); Anxiety 01/11/2025 Telephone [facility] [address] [place] [address] Sasha Bello NP Chart Prep 01/02/2025 Telephone [facility] [address] [place] [address] Sasha Bello NP Prior Authorization 12/24/2024 Refill [facility] [address] [place] [address] Sasha Bello NP Obesity (BMI 30.0-34.9) 11/27/2024 Refill [facility] [address] [place] [address] Sasha Bello NP Obesity (BMI 30.0-34.9) from Last 3 Months Immunizations Immunization Administration [...] 63 09/11/2024 1:14 PM EDT Temperature 37.1 C (98.7 F) 09/11/2024 1:14 PM EDT Respiratory Rate 16 09/11/2024 1:14 PM EDT Oxygen Saturation 95% 09/11/2024 1:14 PM EDT Inhaled Oxygen Concentration - - Weight 75.5 kg (166 lb 6.4 oz) 09/11/2024 1:14 P M EDT Height 154.9 cm (5' 1 ) 09/11/2024 1:14 PM EDT Body Mass Index 31.44 09/11/2024 1:14 PM EDT Plan of Treatment Health Maintenance Due Date Last Done Comments Disability Screening 1980 Family Planning (PISQ) 1995 HPV Vaccines (1 - 3-dose series) 1995 Cervical Cancer Screening 03/04/2022 HPV/Cotest 03/04/2022 03/04/2021, 09/29/2017 Pap Smear 03/04/2022 03/04/2021 COVID-19 Vaccine ( season) 2025 10/23/2021, 09/02/2020, 08/12/2020 Influenza Vaccine (#1) 2025 , 04/25/2019, 03/16/2018, Additional history exists Depression Screening 07/12/2025 07/12/2024, 07/12/19 25 SDOH Screening 08/28/2025 08/28/2024 Alcohol/Substance Use Screening 09/11/2025 09/11/2024 Tobacco Screening 11/22/2025 11/22/2024 Mammogram 03/07/2026 03/07/2024, 090 10/2022, 12/12/2021, Additional history exists DTaP/Tdap/Td Vaccines (3 - Td or Tdap) 09/30/2028 09/30/2018, 05/13/2010 Lipid Panel 02/14/2030 02/14/2025, 11/0 01/2024, 10/06/2022 Zoster Vaccines (1 of 2) 2030 [...] Years) and At-Risk Patients (6 to 49) Years Aged Out No longer eligible based on patient's age to complete this topic RSV under 20 months Aged Out No longe r eligible based on patient's age to complete this topic Rotavirus Vaccines Aged Out No longer eligible based on patient's age to complete this topic Procedures Procedure Name Priority Date/Time Associated Diagnosis Comments GROSS AND MICROSCOPIC LEVEL 3 Routine 02/20/2025 1:34 PM EDT VITAMIN B1 Routine 02/14/2025 9:49 AM EDT VITAMIN A Routine 02/14/2025 9:49 AM EDT ZINC Routine 02/14/2025 9:49 AM EDT INSULIN Routine 02/14/2025 9:49 AM EDT TSH W/REFLEX TO FT4 Routine 02/14/2025 9 :49 AM EDT VITAMIN D,25-OH,TOTAL,IA Routine 02/14/2025 9:49 AM EDT FERRITIN Routine 02/14/2025 9:49 AM EDT VITAMIN B12 Routine 02/14/2025 9:49 AM EDT LIPID PANEL, STANDARD Routine 02/14/2025 9:49 AM EDT C-REACTIVE PROTEIN Routine 02/14/2025 9: 49 AM EDT IRON AND TOTAL IRON BINDING CAPACITY Routine 02/14/2025 9:49 AM EDT COMPREHENSIVE METABOLIC PANEL Routine 02/14/2025 9:49 AM EDT APTT Routine 02/14/2025 9:49 AM EDT PROTHROMBIN TIME-INR Routine 02/14/2025 9:49 AM EDT HEMOGLOBIN A1C Routine 02/14/2025 9:49 AM EDT CBC WITH AUTO DIFFERENTIAL Routine 02/14/2025 9:49 AM EDT TYPE AND SCREEN Routine 02/14/2025 9:44 AM EDT HEPATITIS C AB W/REFL TO HCV RNA, QN, PCR Routine 09/21/2024 12:18 PM EDT Encounter for health-related screening HIV 1/2 ANTIGEN/ANTIBODY, FOURTH GENERATION W/RFL Routine 09/21/2024 12:18 PM EDT Encounter for health-related screening BI MAMMOGRAM SCREENING TOMOSYNTHESIS BILATERAL Routine 03/07/2024 9:45 AM EDT HPV MRNA E6/E7 Routine 03/04/2021 10:51 AM EDT THINPREP PAP Routine 03/04/2021 10:51 AM EDT from Last 3 Months or Most Recently Relevant to Health Maintenance Results * Gross and Microscopic Level 3 (02/20/2025 1:34 PM EDT) 02/20/2025 1:34 PM EDT 02/21/2025 8:10 AM EDT [facility] - 02/22/2025 3:10 PM EDT ----- ------- Name: Oc Ramirez Age/Sex: 44/F : 1980 Unit#: [id number] Attend Dr: Harvinder Blank MD Re02/20/25 Status: [facility] Location: [place] Disch: ----- ------- SPEC : [id number] RECD: 02/21/25 STATUS: DENISE COHEN NUM: [id number] RATNA: 02/20/[address]: Harvinder Blank MD ENTERED: 02/21/25 SP TYPE: Surgical OTHR DR: Dee Garcia ORDERED: Gross Micro L3 Diagnosis Skin and subcutaneous soft tissue, pannus, excision: Skin and subcutaneous adipose tissue within normal limits. Clinical History Excessive and redundant skin Microscopic Description Microscopic sections reviewed. Material Received Pannus Gross Description Received in formalin is a 1400 g, 33.0 x 21.0 x 5.3 cm portion of vu hair- bearing skin with varying degrees of attached subcutaneous fat, and free-floating within the specimen container is a 4.0 x 2.0 x 1.5 cm portion of vu skin with attached subcutaneous fat. A definitive umbilicus is not seen. The hair-bearing epidermis is soft, wrinkled without discrete abnormality. Sectioning reveals grossly unremarkable pale yellow lobulated adipose tissue with interspersed delicate white fibrous tissue, without evidence of discrete abnormality. Fire[employer] Operator [employer] Tender sections are submitted in cassettes A1 -3. (DTL) IHC S/NG Disclaimer NOTE: Unless otherwise stated, all tissue is formalin-fixed and paraffin-embedded. Some or all of the immunohistochemical tests reported herein may have been developed and their performance characteristics determined by [facility]. They have not been cleared or approved by the U.S. Food and Drug Administration (FDA). However, the FDA has determined that such clearance or approval is not necessary. This laboratory is certified under the Clinical Laboratory Improvement Amendments of 1988 (CLIA) as qualified to perform high complexity clinical laboratory testing. Copies To: Dee Garcia [address] [place] [address] CONTINUED ON NEXT PAGE ----- ------- Name: Oc Ramirez Age/Sex: 44/F : 1980 Unit#: [id number] Attend Dr: Harvinder Blank MD Re02/20/25 Status: [facility] Location: [facility] Disch: ----- ------- SPEC : [id number] RECD: 02/21/25 STATUS: DENISE CAMERONShilpa NUM: [id number] RATNA: 02/20/25-[address]: Harvinder Blank MD ENTERED: 02/21/25 SP TYPE: Surgical OTHR DR: Dee Garcia [facility] ORDERED: Gross Micro L3 Copies To: (Continued) Harvinder Blank MD [facility] [address] [place] [phone] ----- ------- Signed (signature on file) Hans Adhikari MD 02/22/25 1510 ----- ------- END OF REPORT us Generic External Data Provider LAB CYTOLOGY DEEPIKAKajal BARBA Final Result [facility] [address], [place] [phone] * (ABNORMAL) Vitamin D, 25-Hydroxy, Total, Immunoassay (02/14/2025 9:49 AM EDT) [facility] Vitamin D 25-OH Total 28.1(L) >30 ng/mL [facility] Comment: Health Based Reference Values*< 20 ng/mL Ghmvjfraf31-67 ng/mL Insufficient> 30 ng/mL Sufficient*Elizabeth SCHNEIDER. N Engl J Med. 2007;357:266-280There is [...] Vitamin D results fromdifferent laboratories and methodologies. Published datademonstrated that results from patients undergoinghemodialysis may show a negative bias when tested withvarious automated 25-OH vitamin D assays when compared toLC-MS/MS.When testing samples from patients whose predominant form ofVitamin D is Vitamin D2, such as patients receiving VitaminD2 supplementation, results that are subtherapeutic shouldbe confirmed with another method such as LC-MS/MS. 02/14/2025 9:49 AM EDT 02/14/2025 9:49 AM EDT us Generic External Data Provider LAB BLOOD ORDERAB LES Final Result Performing Organization Address City/[facility]/ZIP Co de Phone Number [facility] [address] [place] [phone] * TSH with Reflex to Free T4 (02/14/2025 9:49 AM EDT) Pathologist [facility] TSH reflex Free T4 1.08 0.32 - 4.0 uIU/mL [facility] 02/14/2025 9:49 AM EDT 02/14/2025 9:49 AM EDT us Generic External Data Provider LAB BLOOD ORDERAB LES Final Result Performing Organization Address [facility] Co de Phone Number [facility] [address] [place] [phone] * (ABNORMAL) CBC auto differential (02/14/2025 9:49 AM EDT) [facility] White Blood Count 3.9(L) 4.8 - 10.8 X10*3/uL [facility] Red Blood Count 3.72(L) 4.20 - 5.50 X10*6/uL [facility] Hemoglobin 11.2(L) 12.0 - 16.0 g/dl [facility] Hematocrit 33.0(L) 37.0 - 47.0 % [facility] Mean Corpuscular Volume 88.7 80.0 - 98.0 fL [facility] Mean Corpuscular Hemoglobin 30.1 27.0 - 33.0 pg [facility] Mean Corpuscular HGB Conc 33.9 31.0 - 35.0 g/dl [facility] Red Cell Distribution Width 12.5 11.0 - 16.0 % [facility] Platelet Count 244 160 - 400 X10*3/uL [facility] Mean Platelet Volume 9.2(L) 9.4 - 12.3 fL [facility] Neutrophils Percent Auto 50.9 45 - 73 % [facility] Imm Gran Pct Auto 0.3 0.0 - 0.4 % [facility] Lymphocytes Percent Auto 37.7 20 - 40 % [facility] Monocytes Percent Auto 9.3 2 - 11 % [facility] Eosinophils Percent Auto 1.3 0 - 4 % [facility] Basophils Percent Auto 0.5 0 - 2 % [facility] NRBC Pct Auto 0.0 0.0 - 0.2 /100WBC [facility] Neutrophils Absolute Auto 2.0 2.0 - 8.3 x10*3/uL [facility] Imm Gran Abs Auto 0.01 0.00 - 0.03 X10*3/uL [facility] Lymphocytes Absolute Auto 1.5 1.2 - 4.9 X10*3/uL [facility] Monocytes Absolute Auto 0.4 0.1 - 1.2 X10*3/uL [facility] Eosinophils Absolute Auto 0.1 0.0 - 0.4 X10*3/uL [facility] Basophils Absolute Auto 0.0 0.0 - 0.2 X10*3/uL [facility] NRBC Abs Auto 0.000 0.0 - 0.012 X10*3/uL [facility] 02/14/2025 9:49 AM EDT 02/14/2025 9:49 AM EDT us Generic External Data Provider LAB BLOOD ORDERAB LES Final Result [facility] [address] [place] [phone] * Iron And Total Iron Binding Capacity (02/14/2025 9:49 AM EDT) Iron 49 30 - 160 mcg/dL [facility] Total Iron Binding Capacity 278 228 - 428 mcg/dL [facility] Percent Iron Saturation 18 15 - 50 % [facility] Unsaturated Iron Binding 229 ug/dL [facility] 02/14/2025 9:49 AM EDT 02/14/2025 9:49 AM EDT Generic External Data Provider LAB BLOOD ORDERAB LES Final Result Performing Organization Address [facility] de Phone Number [facility] [address] [place] [phone] * Insulin (02/14/2025 9:49 AM EDT) Insulin 5 2 - 29 uU/mL [facility] Comment:This test was perfor med using the Quesada chemiluminescentmethod. Values obtained from different assay methods cannot beused interchangeably. This insulin assay shows a possiblecross-reactivity with antibodies generated against insulin(immunoreactive insulin and some patients treated withbovine or porcine insulin). Insulin levels may be measuredlower in patients with insulin autoimmune syndrome orfamilial high pro-insulinemia. 02/14/2025 9:49 AM EDT 02/14/2025 9:49 AM EDT Generic External Data Provider LAB BLOOD ORDERAB LES Final Result Performing Organization Address [facility] de Phone Number [facility] [address] [place] [address] [phone] * Zinc (02/14/2025 9:49 AM EDT) Zinc 63 60 - 130 mcg/dL [facility] Comment:This test was develo ped and its analytical performancecharacteristics have been determined by [employer] [place], [place]. It hasnot been cleared or approved by the U.S. Food and DrugAdministration. This assay has been validated pursuantto the CLIA regulations and is used for clinicalpurposes.THIS TEST WAS PERFORMED AT:[employer] [place] [address]NPSEDSMJAMES STALEY MD,PHD 02/14/2025 9:49 AM EDT 02/14/2025 9:49 AM EDT us Generic External Data Provider LAB BLOOD ORDERAB LES Final Result Performing Organization Address [facility] Co de Phone Number [facility] [address] [place] [phone] * (ABNORMAL) Vitamin A (02/14/2025 9:49 AM EDT) Vitamin A (Retinol) 24(A) 38 - 98 mcg/dL [facility] Comment:Vitamin supplementat ion within 24 hours prior toblood draw may affect the accuracy of the results.This test was developed and its analytical performancecharacteristics have been determined by [employer] [place], [place]. It hasnot been cleared or approved by the U.S. Food and DrugAdministration. This assay has been validated pursuantto the CLIA regulations and is used for clinicalpurposes.THIS TEST WAS PERFORMED AT:[employer] [place] [address]YQXKMDOJAMES STALEY MD,PHD 02/14/2025 9:49 AM EDT 02/14/2025 9:49 AM EDT us Generic External Data Provider LAB BLOOD ORDERAB LES Final Result Performing Organization Address [facility] Co de Phone Number [facility] [address] [place] [phone] * Partial Thromboplastin Time, Activated (APTT) (02/14/2025 9:49 AM EDT) Partial Thromboplastin Time 26.8 26.7 - 34.1 SEC [facility] 02/14/2025 9:49 AM EDT 02/14/2025 9:49 AM EDT us Generic External Data Provider LAB BLOOD ORDERAB LES Final Result Performing Organization Address [facility] Co de Phone Number [facility] [address] [place] [phone] * Prothrombin Time-INR (02/14/2025 9:49 AM EDT) [facility] Prothrombin Time 11.8 10.9 - 12.4 SEC [facility] INTERNATIONAL NORM RATIO 1.0 0.9 - 1.1 [facility] Comment:INTERNATIONAL NORMAL IZED RATIO (INR) REFERENCE RANGES Reference RangeFor patients not on anticoagulant therapy: 0.9 - 1.1INR ranges for oral anticoagulanttherapy:For prevention and treatment of venous thrombosis and pulmonary embolism: 2.0 - 3.0For acute myocardial infarction with aspirin therapy: 2.0 - 3.0For acute myocardial infarction without aspirin therapy: 3.0 - 4.0For patients with mechanical prosthetic heart valves: 2.5 - 3.5 02/14/2025 9:49 AM EDT 02/14/2025 9:49 AM EDT Generic External Data Provider LAB BLOOD ORDERAB LES Final Result Performing Organization Address City/[facility]/ZIP Co de Phone Number [facility] [address] [place] [phone] * C-reactive Protein (02/14/2025 9:49 AM EDT) [facility] C Reactive Protein 0.11 < or = 0.50 mg/dL [facility] 02/14/2025 9:49 AM EDT 02/14/2025 9:49 AM EDT Generic External Data Provider LAB BLOOD ORDERAB LES Final Result Performing Organization Address [facility]/ZIP Co de Phone Number [facility] [address] [place] [phone] * Vitamin B1 (02/14/2025 9:49 AM EDT) [facility] Vitamin B1 8 8 - 30 nmol/L [facility] Comment:Vitamin supplementat ion within 24 hours prior toblood draw may affect the accuracy of the results.This test was developed and its analytical performancecharacteristics have been determined by [employer] [place], [place]. It hasnot been cleared or approved by the U.S. Food and DrugAdministration. This assay has been validated pursuantto the CLIA regulations and is used for clinicalpurposes.THIS TEST WAS PERFORMED AT:[employer] [place] [address]RSJZRQGJAMES STALEY MD,PHD 02/14/2025 9:49 AM EDT 02/14/2025 9:49 AM EDT us Generic External Data Provider LAB BLOOD ORDERAB LES Final Result Performing Organization Address [facility] Co de Phone Number [facility] [address] [place] [phone] * Hemoglobin A1c (02/14/2025 9:49 AM EDT) Hemoglobin A1c 5.1 <6.0 % [facility] Comment:Hemoglobin A1C Refer ence Range Adults: 4.8 - 6.0 % Non diabetic: < 6.0 % Goal: < 7.0 %Additional Action Suggested: > 8.0 %Note: Hemoglobin A1c results are invalid for patients with abnormal amounts of HbF. Blood transfusions may impact the HbA1c concentration in the patient sample. Estimated Average Glucose 100 mg/dL [facility] Comment:eAG = Estimated ave rage glucose which is %A1C expressed asaverage glucose, using the formula of the G3O-NsotiecEgfynfm Glucose study (ADAG), Diabetes Care, Vol.31,#8,Jan. 2007 02/14/2025 9:49 AM EDT 02/14/2025 9:49 AM EDT us Generic External Data Provider LAB BLOOD ORDERAB LES Final Result Performing Organization Address [facility] Co de Phone Number [facility] [address] [place] [phone] * Ferritin (02/14/2025 9:49 AM EDT) Ferritin 47 10 - 250 ng/mL [facility] 02/14/2025 9:49 AM EDT 02/14/2025 9:49 AM EDT Generic External Data Provider LAB BLOOD ORDERAB LES Final Result Performing Organization Address City/[facility]/ZIP Co de Phone Number [facility] [address] [place] [address] [phone] * Vitamin B12 (02/14/2025 9:49 AM EDT) Pathologist [facility] Vitamin B12 808 200 - 900 pg/mL [facility] Comment:NORMAL 200-900 PG/ML INDETERMINATE 160-199 PG/ML DEFICIENT < 160 PG/ML 02/14/2025 9:49 AM EDT 02/14/2025 9:49 AM EDT Generic External Data Provider LAB BLOOD ORDERAB LES Final Result Performing Organization Address City/[facility]/ZIP Co de Phone Number [facility] [address] [place] [phone] * (ABNORMAL) Lipid Panel, Standard (02/14/2025 9:49 AM EDT) Triglycerides 59 <150 mg/dL [facility] Comment:Desirable Triglyceri de: less than 150 mg/dLBorderline High Triglyceride 150-199 mg/dLHigh Triglyceride: 200-499 mg/dLVery High Triglyceride: greater than or equal to 5OO mg/dL Cholesterol 206(H) <200 mg/dL [facility] Comment:Desirable Cholestero l: less than 200 mg/dLBorderline High Cholesterol: 200-239 mg/dLHigh Cholesterol: greater than 239 mg/dL LDL Cholesterol Calculated 129(H) <100 mg/dL [facility] Comment:Desirable LDL: less than 100 mg/dLNear Optimal/Above Optimal LDL: 110- 129 mg/dLBorderline High LDL: 130-159 mg/dLHigh LDL: 160-189 mg/dLVery High LDL: greater than or equal to 190 mg/dL HDL Cholesterol 66 >40 mg/dL [facility] Comment:Desirable HDL: great er than 40 mg/dL Note: This HDL assay may give artificially low results in patients with liver disease. 02/14/2025 9:49 AM EDT 02/14/2025 9:49 AM EDT us Generic External Data Provider LAB BLOOD ORDERAB LES Final Result [facility] [address] [place] [phone] * Comprehensive Metabolic Panel (02/14/2025 9:49 AM EDT) Sodium 141 135 - 145 mmol/L [facility] Potassium 3.7 3.3 - 5.1 mmol/L [facility] Chloride 106 96 - 108 mmol/L [facility] Carbon Dioxide 27 22 - 29 mmol/L [facility] Anion Gap 12 12 - 20 [facility] Urea Nitrogen (BUN) 12 9 - 16 mg/dL [facility] Creatinine, Serum 0.69 0.5 - 1.4 mg/dL [facility] Creatinine Clr Calc Pharmacy 89.1 [facility] Comment:Provided height and weight: 154.94 cm,63.957 kg.eGFR (calculated from the MDRD study equation) and eCrCl(calculated from the Cockcroft-Gault equation) are based ondifferent parameters and may not yield comparable results.If eCrCl result is absurd, please check patient'sheight/weight. Estimated Glomerular Filt Rate >60 [facility] Comment:Chronic Kidney Disea se: Estimated GFR < 60 mL/min/1.85w4Nwjpyl Kidney Disease: Estimated GFR < 15 mL/min/1.73m2 Glucose 83 60 - 115 mg/dL [facility] Calcium 9.0 8.4 - 10.2 mg/dL [facility] Bilirubin, Total 0.5 0.0 - 1.0 mg/dL [facility] Aspartate Amino Transferase 24 5 - 31 U/L [facility] Alanine Aminotransferase 12 0 - 31 U/L [facility] Total Protein 7.4 6.5 - 8.0 g/dL [facility] Albumin Level 4.5 3.5 - 5.0 g/dL [facility] Alkaline Phosphatase 48 39 - 117 U/L [facility] 02/14/2025 9:49 AM EDT 02/14/2025 9:49 AM EDT Generic External Data Provider LAB BLOOD ORDERAB LES Final Result Performing Organization Address [facility]/ZIP Co de Phone Number [facility] [address] [place] [phone] * Type and screen (02/14/2025 9:44 AM EDT) Blood Type BP [facility] Antibody Screen NEGATIVE [facility] 02/14/2025 9:44 AM EDT 02/14/2025 10:36 AM EDT Narrative [facility] - 02/14/2025 11:33 AM EDT Witnessed by BEN:Call Blood Bank (ext. [phone]) to band patient on admission.Type and Screen in effect until 2300 on 03/01/2025.Spec expiration changed by LORRI on 02/14/25Reason: PAT Generic External Data Provider LAB BLOOD BANK TE ST ORDERABLES Final Result Performing Organization Address City/[facility]/ZIP Co de Phone Number [facility] [address] [place] [phone] * Hepatitis C Antibody with Reflex to HCV, RNA, Quantitative, Real-Time PCR (09/21/2024 12:18 PM EDT) Hepatitis C Antibody Nonreactive Nonreactive [facility] Comment:Antibodies to HCV no t detected; does not exclude early acuteHCV infection. Blood Venous blood specimen / Unknown 09/21/2024 12:18 PM EDT 09/21/2024 12:18 PM EDT Sasha Bello [employer] BAY TECHNICIAN LAB BLOOD ORDERABLES Final Resu lt Performing Organization Address [facility] Health/[facility] Co de Phone Number [facility] [address] [place] [address] [phone] * HIV-1/2 Antigen and Antibodies, Fourth Generation, with Reflexes (09/21/2024 12:18 PM EDT) HIV AB/AG Nonreactive Nonreactive [facility] Comment:HIV-1 p24 Ag and/or HIV-1/HIV-2 Ab not detected.A test result that is nonreactive does not exclude thepossibility of exposure to or infection with HIV-1 and/orHIV-2. Nonreactive results in this assay for individualswith prior exposure to HIV-1 and/or HIV-2 may be due toantigen and antibody levels that are below the limit ofdetection of this assay.The [facility] HIV Ag/Ab Combo assay result andsupplemental assay results should be interpreted inconjunction with the patient's clinical presentation,history and other laboratory results. If the results areinconsistent with clinical evidence, additional testing issuggested to confirm the result. Blood Venous blood specimen / Unknown 09/21/2024 12:18 PM EDT 09/21/2024 12:18 PM EDT Sasha Bello NP LAB BLOOD ORDERABLES Final Resu lt Performing Organization Address [facility] Co de Phone Number [facility] [address] [place] [address] [phone] * BI Mammogram Screening Tomosynthesis Bilateral (03/07/2024 9:45 AM EDT) Anatomical Region Laterality Modality Breast Bilateral Mammography 03/07/2024 9:45 AM EDT Narrative 03/21/2024 9:24 AM EDT [facility] [address] [place] [address] Mammography Report Signed Patient: Oc Ramirez MR#: [id number] 80 : 1980 Acct:[id number] Age/Sex: 43 / F ADM Date: 03/07/24 Loc: HO.MAMMO Attending Dr: Amelie Ram NP Ordering Physician: Amelie Ram NP Results: 1Negativ e Date of Service: 03/07/24 Follow Up: 1 Year From Orig inal Mammogram Procedure(s): MM tomosynthesis screening BI Accession Number(s): [id number] cc: Amelie Ram NP EXAMINATION: MM SCREENING DIGITAL BREAST TOMOSYNTHESIS, BILATERAL [...] Winnie Alexander DO 03/21/2024 09:21 AM EDT Dictated By: Winnie Alexander DO Signed By: <Electronically signed by Winnie Alexander DO in OV> 03/21/24 0921 DD/ 0945 TD/TT: 03/07/24 1003 Student Outreach Coordinator: Procedure Note Donotuseinterpreter, Image - 03/21/2024 [facility] [address] [place] [address] [place] [address] Mammography Report Signed Patient: Oc RamirezMR#: [id number] 80 : 1980Acct:[id number] Age/Sex: 43 / FADM Date: 03/07/24 Loc: HO.MAMMO Attending Dr: Amelie Ram OIL BAY TECHNICIAN Ordering Physician: Amelie Ram NPResults: 1Negativ e Date of Service: 03/07/24Follow Up: 1 Year From Orig ina Mammogram Procedure(s): MM tomosynthesis screening BI Accession Number(s): [id number] cc: Amelie Ram OIL BAY TECHNICIAN EXAMINATION: MM SCREENING DIGITAL BREAST TOMOSYNTHESIS, BILATERAL [...] Winnie Alexander DO 03/21/2024 09:21 AM EDT Dictated By: Winnie Alexander DO Signed By: <Electronically signed by Winnie Alexander DO in OV> 03/21/24 0921 DD/ 0945 TD/TT: 03/07/24 1003 Student Outreach Coordinator: Amelie Ram COATER OPERATOR IMG BI PROCEDURES Edited Result - Final * (ABNORMAL) THINPREP PAP (03/04/2021 10:51 AM EDT) Clinical Information: None given [facility] COMMENT SEE COMMENT [facility] Comment: EXPLANATORY NOTE: The Pap is a screening test for cervical cancer. It is not a diagnostic test and is subject to false negative and false positive results. It is most reliable when a satisfactory sample, regularly obtained, is submitted with relevant clinical findings and history, and when the Pap result is evaluated along with historic and current clinical information. Upholstery Department Supervisor : SEE COMMENT [facility] Comment: KN, CT(ASCP) CT screening location: [place] [address] General Categorization: EPITHELIAL CELL ABNORMALITY(A) [facility] Interpretation/R esult: Atypical Squamous Cells of Undetermined Significance (ASC-US)(A) [facility] LMP: 02/20/21 [facility] PATHOLOGIST: SEE COMMENT [facility] Comment: Thomas Atkinson M.D., Board Certified in Anatomic and Clinical Pathology (electronic signature) Consulting Pathologist [facility] [address] [place] [address] Prev. BX: NONE GIVEN [facility] Prev. PAP: NONE GIVEN [facility] SOURCE: None given [facility] Statement Of Adequacy: SEE COMMENT [facility] Comment: Satisfactory for evaluation. Endocervical/transformation zone component absent. 03/04/2021 10:5 1 AM EDT Ju LANDIS LAB PATHOLOGY ORDERABLES Final Result [facility] [address] * HPV mRNA E6/E7 (03/04/2021 10:51 AM EDT) HPV nRNA E6/E7 Not Detected Not Detected [facility] Comment: Methodology: Date Puller-Mediated Amplification This assay detects E6/E7 viral messenger RNA (mRNA) from 14 high-risk HPV types (16,18,31,33,35,39,45,51,52,56,58,59,66,68). The analytical performance characteristics of this assay have been determined by [employer]. The modifications have not been cleared or approved by the FDA. This assay has been validated pursuant to the CLIA regulations and is used for clinical purposes. For additional information, please refer to http://education.[employer]/faq/LJJ459h9 (This link if provided for information/ educational purposes only.) 03/04/2021 10:5 1 AM EDT Ju Rice CNM LAB BLOOD ORDERABLES Milka darren Result [facility] [address] from Last 3 Months or Most Recently Relevant to Health Maintenance Insurance Care Teams Outreach Specialist Relationship Specialty Start Date End Date Sasha Bello NP [address] [place] [phone] PCP - General Family Medicine 03/01/24
--- OUTSIDE RECORDS SUMMARY | 2025-02-27 11:17 | XMS_ITS | Encounter Summary ---
Author Organization [employer] Address [address] [facility] [address] [place] [address] Care Team Providers Care National Service Officer Name Role Phone Amelie RamP Primary Care Provider [phone] Sasha Bello NP Primary Care Provider [phone] Reason for Visit * Reason Onset Date Comments 09/0909/10/2023 Encounter Details Date Type Department Care Team ([facility] st Contact Info) Description 09/10/2023 Telephone [facility] MEDICINE [address] [place], [place] [phone] Amelie Ram FNP [address] [place], [place] [phone] 09/09 Social History Tobacco Use Types Packs/Day [...] documented as of this encounter Care Teams National Service Officer Relationship Specialty Start Date End Date Amelie Ram FNP [address] [place] [address] PCP - General Family Medicine 05/25/22 02/29/24 Sasha Bello NP [address] [place] [address] PCP - General Family Medicine 03/01/24 documented as of this encounter
--- OUTSIDE RECORDS SUMMARY | 2025-02-27 11:17 | XMS_ITS | Encounter Summary ---
Author Organization [facility] Address [address] [place] [address] Care Team Providers Care Combination Man Name Role Phone Unavailable Primary Care Provider Unavailabl e Encounter Details Date Type Department Care Team (Late st Contact Info) Description 02/27/2025 / TE[facility]ONE [facility] [address] [place] [address] [place] [phone] Reji Mann PMHNP 20 [facility] [place] [phone] Social History Tobacco Use Types Packs/Day Years Used Date Smoking Tobacco: Never Assessed Comments Unknown Sex and Gender Information Value Date Recorded Sex Assigned at Female 12/15/2024 5:14 AM PDT Legal Sex Female 5:14 AM PDT Gender Identity Female 12/15/2024 5:14 AM PDT Sexual Orientation Not on file documented as of this encounter Nursing Notes * JOSE Mccauley - 02/27/2025 10:03 AM EDT Patient was scheduled for a Telemedicine visit on 02/27/2025 at 10:03 AM EDT. I attempted to contact the patient 2 times and was unsuccessful. Outcome: spoke with pt via interpr/video. Pt was in another appointment and could not meet. If patient returns the call, please do the following: HC to reach out to r/s documented in this encounter Plan of Treatment Not on file documented as of this encounter Visit Diagnoses Not on filedocumented in this encounter
--- OUTSIDE RECORDS SUMMARY | 2025-02-27 11:17 | XMS_ITS | Encounter Summary ---
Author Organization [email or web address] Address [address] [facility] [address] [place] [address] Care Team Providers Care Plumbing Service Technician Name Role Phone Sasha eBllo NP Primary Care Provider [phone] Encounter Details Date Type Department Care Team ([facility] st Contact Info) Description 10/31/2024 Telephone [facility] MEDICINE [address] [place], [place] [phone] Sasha Bello NP [address] [place], [place] [phone] Social History Tobacco Use Types Packs/Day Years [...] documented as of this encounter Care Teams Plumbing Service Technician Relationship Specialty Start Date End Date Sasha Bello NP [address] [place] [address] PCP - General Family Medicine 03/01/24 documented as of this encounter
--- OUTSIDE RECORDS SUMMARY | 2025-02-27 11:17 | XMS_ITS | Encounter Summary ---
Author Organization [employer] Address [address] [facility] [address] [place] [address] Care Team Providers Care Pressure Vessel Inspector Name Role Phone Sasha Bello NP Primary Care Provider [phone] Encounter Details Date Type Department Care Team (Late st Contact Info) Description 02/20/2025 Orders Only GENERIC EXTERNAL DATA DEPARTMENT Provider, Generic External Data Social History Tobacco Use Types Packs/Day Years [...] LEVEL 3 Routine 02/20/2025 1:34 PM EDT documented in this encounter Results * Gross and Microscopic Level 3 (02/20/2025 1:34 PM EDT) 02/20/2025 1:34 PM EDT 02/21/2025 8:10 AM EDT [facility] - 02/22/2025 3:10 PM EDT ----- ------- Name: RamirezOc Age/Sex: 44/F : 1980 Unit#: [id number] Attend Dr: Harvinder Blank MD Re02/20/25 Status: [facility] Location: [facility] Disch: ----- ------- SPEC : [id number] RECD: 02/21/25 STATUS: DENISE COHEN NUM: [id number] RATNA: 02/20/25-13[address] [facility] [address]: Harvinder Blank MD ENTERED: 02/21/25 SP [...] fibrous tissue, without evidence of discrete abnormality. Automatic Furnace Operator sections are submitted in cassettes A1 -3. (DTL) IHC S/NG Disclaimer NOTE: Unless otherwise stated, all tissue is formalin-fixed and paraffin-embedded. Some or all of the immunohistochemical tests reported herein may have been developed and their performance characteristics determined by [facility]. They have not been cleared or approved by the U.S. Food and Drug Administration (FDA). However, the FDA has determined that such clearance or approval is not necessary. This laboratory is certified under the Clinical Laboratory Improvement Amendments of 1988 (CLIA) as qualified to perform high complexity clinical laboratory testing. Copies To: Dee Garcia [address] [address] CONTINUED ON NEXT PAGE ----- ------- Name: Oc Ramirez Age/Sex: 44/F : 1980 Unit#: [id number] Attend Dr: Harvinder Blank MD Re02/20/25 [place] [facility] Location: [facility] Disch: ----- ------- SPEC : [id number] RECD: 02/21/25 STATUS: DENISE COHEN NUM: [id number] RATNA: 02/20/25-[address]: Harvinder Blank MD ENTERED: 02/21/25 SP TYPE: Surgical OTHR DR: Dee Garcia [facility] ORDERED: Gross Micro L3 Copies To: (Continued) Harvinder Blank MD [facility] [place] Weight Management Program [address] [place] [phone] ----- ------- Signed (signature on file) Hans Adhikari MD 02/22/25 1510 ----- ------- END OF REPORT us Generic External Data Provider LAB CYTOLOGY HERMILA BARBA Final Result [facility] [address] [place] [address] [phone] documented in this encounter Visit Diagnoses Not on filedocumented in this encounter Additional Health Concerns Assessment Noted Time PHQ-9 Depression Total Score: 8 07/12/19 25 11:42 AM EST documented as of this encounter Care Teams Pressure Vessel Inspector Relationship Specialty Start Date End Date Sasha Bello NP [address] [place] [address] PCP - General Family Medicine 03/01/24 documented as of this encounter
--- OUTSIDE RECORDS SUMMARY | 2025-02-27 11:17 | XMS_ITS | Clinical Summary ---
Author Organization [address] [place] [address] Address [address] [place] [address] Phone Care Team Providers Care Brand Activation Manager Name Role Phone EdmundAngelina NANCY Primary Care Provider [phone] Allergies No known active allergies Medications ascorbic [...] disc herniation with radiculopathy 2023 Morbid obesity (CMS/[facility] V24, [facility] V28) 2023 Pain in the coccyx 04/20/2024 Papular eruption 04/20/2024 Seasonal allergic rhinitis 04/20/2024 Severe recurrent major depre ssion with psychotic features ([facility] V24, [facility] V28) 04/20/2024 Encounters Date Type Department Care Team Description 01/11/2025 1:45 PM EDT Office Visit Orthopedic [place] [phone] [phone] Kev Aponte DPM Plantar fascial fibromatosis (Primary [...] Care Team (Late st Contact Info) Description 04/11/2025 10:15 AM EDT Office Visit Orthopedic [facility] [address] [phone] Kev Aponte DPM [address] [phone] Health Maintenance Due Date Last Done Comments Breast Cancer Screening 1980 Cervical Cancer Screening: Pap Smear 2001 Social Influencers of Health Screening 04/09/2024 Depression Screening 06/28/2024 COVID-19 Vaccine ( season) 2025 10/23/2021, 09/02/2020, [...] Months Insurance MEDICAID - [place] Care Teams Brand Activation Manager Relationship Specialty Start Date End Date Angelina Shaffer NP [address] [phone] PCP - General 03/03/24
--- OUTSIDE RECORDS SUMMARY | 2025-02-27 11:17 | XMS_ITS | Clinical Summary ---
Author Organization [facility] Address [address] [place] [address] Care Team Providers Care Web Operations Specialist Name Role Phone Unavailable Primary Care Provider Unavailabl e Source Comments PLEASE NOTE, if this patient is a minor, it may be UNLAWFUL to discuss sensitive information that is contained in these records (such as FAMILY PLANNING, MENTAL HEALTH or SUBSTANCE ABUSE) with the minor patient's parent or other person without the patient's specific authorization.[facility] Encounters Date Type Department Care Team Description 02/27/2025 / TELE[facility]ONE [facility] [address] [place] [phone] Reji Mann, PMHNP 01/23/2025 / TELEPHONE [facility] [address] [facility] [place] [phone] Reji Mann, PMHNP from Last 3 Months Social History Tobacco Use Types Packs/Day Years Used Date Smoking Tobacco: Never Assessed Comments Unknown Sex and Gender Information Value Date Recorded Sex Assigned at Female 12/15/2024 5:14 AM PDT Legal Sex Female 5:14 AM PDT Gender Identity Female 12/15/2024 5:14 AM PDT Sexual Orientation Not on file Plan of Treatment Health Maintenance Due Date Last Done Comments Anxiety Screening 1980 HPV Screening 1980 Pap + HPV 1980 Tobacco Screening 1980 Relationship Safety Screening/Counseling 1995 Hypertension Screening (#1) 1998 Cervical Cancer Screening 2001 Pap Smear 2001 Breast Cancer Screening (Mammogram) 2020 Alcohol and Drug Screen 06/28/2024 Depression Annual Screen 06/28/2024 Bdd-OELRE-85 ( season) 2025 10/23/2021, 09/02/2020, 08/12/2020 Imm-Influenza (#1) 2025 07/12/2024, 1 , 03/16/2018, Additional history exists Diabetes Screening 02/15/2028 02/14/2025, 0 02/14/2025, 02/14/2025, Additional history exists Imm-DTaP/Tdap/Td (3 - Td or Tdap) 09/30/2028 019, 05/13/2010 Lipid Screening 02/14/2030 02/14/2025, 05/05/2024 Imm-Hepatitis B Completed 11/12/2010, 04/28, 03/19/2010 HIV Screening Completed 09/21/2024, 09/21/2024 Hepatitis C Screening Completed 09/21/2024 Cervical Ablation/Cold-Knife Conization Discontinued Cervical Cryotherapy Discontinued Colposcopy Discontinued Endometrial Biopsy Discontinued Excision/Leep Discontinued HPV Genotyping Discontinued Vaginal Pap Discontinued Vulvoscopy Discontinued Insurance [facility]
== END 2025-02-27 11:05 | disposition home or self-care (01) ==
LOC: HO.HBS 09:59
PROVIDERS: PCP Nurse Practitioner; Visit Provider Physician Assistant Surgical
DX: E66.3 Overweight (principal); Z68.25 Body mass index [BMI] 25.0-25.9, adult; Z98.890 Other specified postprocedural states; Z98.84 Bariatric surgery status
CPT/HCPCS: 99213

== ENCOUNTER → 2025-02-27 09:58 | Outpatient (BNVA) | payer MEDICAID, SELFPAY | PROVIDERS: PCP Nurse Practitioner; Visit Provider Physician Assistant Surgical | DX: Z98.890 Other specified postprocedural states (principal); Z98.84 Bariatric surgery status | CPT/HCPCS: 99212 ==

== ENCOUNTER 2025-03-05 21:15 | Emergency (ER) | payer MEDICAID, SELFPAY ==
--- NOTE | ~2025-03-05 | XR_ITS ---
CLINICAL HISTORY: pain 3 views lumbar spine Comparison: None provided Findings: Exaggeration of the lumbar lordosis. Trace retrolisthesis at L5-S1. Osteopenia. No acute fracture. Multilevel spondylosis with diffuse osteophytosis, facet arthropathy and degenerative disc disease, pronounced at L5-S1. Intervertebral foraminal narrowing pronounced at L5-S1. Scattered abdominal and pelvic clips. Moderate/large colonic stool burden. IMPRESSION: Chronic changes without acute findings. This document has been electronically signed by: Johan Mcintosh MD on 03/05/2025 22:49:01
[2025-03-05 21:50] VITALS: BP 118/58; PULSE 78; RESP 20; TEMP 36.7; O2SAT 99; BMI 25.9
--- NOTE | 2025-03-05 21:55 | ED.GENADULT ---
HPI - General Adult General Chief complaint: Abdominal Pain Stated complaint: back pain Time Seen by Provider: 03/06/25 02:25 Source: patient Limitations: language barrier History of Present Illness ED Provider: Betty Negrete PA-C HPI narrative: 44-year-old female with a history of morbid obesity status post sleeve gastrectomy with subsequent vitamin-D and vitamin aA deficiencies, status post panniculectomy 02/20/2025, fibromyalgia, chronic back pain, abnormal uterine bleeding, anemia, presents with lumbar pain and constipation for 4 days. Pain within lower back is nonradiating, unable to describe the nature of her discomfort. Associated paresthesias of right lower extremity at times. Denies weakness of lower extremity, urinary retention or bowel incontinence. Patient denies recent activity, new exercise or heavy lifting, that could have precipitated her low back pain. Denies abdominal distention, fever, active nausea vomiting, or inability to pass flatus from below. Related Data Home Medications ?Medication ?Instructions ?Recorded ?Confirmed ascorbic acid (vitamin C) 25 mg 25 mg PO DAILY 04/30/20 02/27/25 tablet multivitamin 1 tab PO DAILY 04/30/20 02/27/25 ferrous sulfate 325 mg (65 mg 325 mg PO BID 07/19/20 02/27/25 iron) tablet hydroxyzine pamoate 25 mg capsule 25 mg PO Q8H PRN Itching 08/27/22 02/27/25 cetirizine 10 mg tablet 10 mg PO QAM 02/11/23 02/27/25 docusate sodium 100 mg capsule 100 mg PO Q12H 02/11/23 02/27/25 duloxetine 30 mg capsule,delayed 30 mg PO DAILY 09/21/24 02/27/25 release Previous Rx's ?Medication ?Instructions ?Recorded sumatriptan succinate 50 mg tablet 50 mg PO Q2-4H PRN migraine 11/14/20 headache #7 tabs cock up splint #2 ea 08/27/22 cyanocobalamin (vitamin B-12) 1,000 mcg IM QMONTH #10 mL 04/03/24 1,000 mcg/mL injection solution gabapentin 400 mg capsule 400 mg PO BID 90 days #180 caps 11/08/24 Zepbound 12.5 mg/0.5 mL 12.5 mg (0.5 mL) subcut QWEEK #2 mL 01/22/25 subcutaneous pen injector (tirzepatide (weight loss)) cephalexin 500 mg capsule 500 mg PO Q12H #60 caps 02/09/25 docusate sodium 100 mg capsule 100 mg PO DAILY #90 caps 02/09/25 (Colace) ondansetron 4 mg disintegrating 4 mg PO Q12H nausea and vomiting 02/09/25 tablet #20 tabs cholecalciferol (vitamin D3) 125 125 mcg PO DAILY #90 caps 02/19/25 mcg (5,000 unit) capsule vitamin A palmitate 3,000 mcg 3,000 mcg PO DAILY #90 caps 02/19/25 (10,000 unit) capsule tramadol 50 mg tablet 50 mg PO TID 30 days #90 tabs 02/27/25 ketorolac 10 mg tablet 10 mg PO Q6H PRN pain #20 tabs 03/06/25 methocarbamol 750 mg tablet 1,500 mg (2 x 750 mg) PO Q8H PRN 03/06/25 pain, moderate #24 tabs methylprednisolone 4 mg tablets in 4 mg PO QAM #21 ea 03/06/25 a dose pack (Medrol (Marcio)) Allergies Allergy/AdvReac Type Severity Reaction Status Date / Time adhesive tape (ADHESIVE TAPE) Allergy Intermediate BURN/BLISTE Verified 03/05/25 21:58 R Review of Systems Review of Systems: Yes all other systems are reviewed and are negative Constitutional: Constitutional: Denies fatigue and Denies fever(s) Cardiovascular: Cardiovascular: Denies chest pain and Denies dyspnea Respiratory: Respiratory: Denies dyspnea Gastrointestinal: Gastrointestinal: Reports abdominal pain, Denies bloating, Reports constipation, Denies nausea and Denies vomiting Musculoskeletal: Musculoskeletal: Reports back pain, Denies muscle weakness, Denies numbness, Denies radiating pain into limb and Reports tingling Neurologic: Denies numbness and Reports tingling Endocrine: Endocrine: Denies fatigue PMFSH Past Medical History Attestation statement: The following information was validated with the patient. Medical History (Updated 03/06/25 @ 03:11 by YURI Alfredo) Neck muscle spasm Bilateral shoulder pain Neck pain Lateral epicondylitis, right elbow SARS-CoV-2 positive Fibromyalgia Lumbar spondylosis Obesity (BMI 30-39.9) Intestinal malabsorption following gastrectomy Fatigue Sleep apnea GERD (gastroesophageal reflux disease) Arthritis Anemia Surgical History (Updated 02/27/25 @ 11:04 by YURI Garrido) S/P panniculectomy History of surgery of uterus H/O tubal ligation Hx of section S/P laparoscopic sleeve gastrectomy Family History Family History Father Respiratory arrest Sister Anemia Ovarian cancer Social History Social History Household Members: Family Housing: House Are you a primary healthcare consultant to a significant other at home: No Do you presently have visiting nurse or other home services: No Alcohol intake: current Alcohol intake frequency: holidays/special occasions only Alcohol type: wine Patient Tobacco Use Status: Never used Tobacco e-Cigarette/Vaping Use: Never Used Advance Directives: No Advance Directives Information Provided: Yes Do you have a plan to hurt others: No Plan Gender identity: Female Physical Exam ED Vital Signs: Vital Signs - 24 hr 03/05/25 21:50 03/06/25 03:44 Temperature 98.0 F 98.8 F Pulse Rate 78 84 Respiratory Rate 20 18 Blood Pressure 118/58 L 116/76 Pulse Oximetry 99 98 Oxygen Delivery Method Room Air Room Air BMI result Body Mass Index 25.9 Const Other: Alert well-appearing Orientation/consciousness: patient oriented x3 Resp Effort & Inspection: normal respiratory effort Cardio Other: Normal peripheral perfusion GI Other: No distention, in an abdominal binder, generalized tenderness to palpation without guarding Skin Other: Warm dry no rash Neuro General: patient oriented x3, gait normal, no focal motor deficits and CN's II-XI intact bilaterally Extrem Other: Strength 5/5 bilateral lower extremities with resistance Psych Other: Cooperative Course Course Course Narrative: RME, this is a rapid medical exam performed by Jude Marquis please refer to primary provider for complete H&P- 44-year-old female presents for evaluation of lower back pain. She reports also feeling constipated in his she has not had a bowel movement in the last 4 days. She had a recent tummy tuck by Dr. Thompson on 02/20/2025. She still has the MAREK drains in place. Medications Administered Discontinued Medications Generic Name Dose Route Start Last Admin Trade Name Freq PRN Reason Stop Dose Admin Ketorolac Tromethamine 15 mg 03/06/25 02:53 03/06/25 03:22 Ketorolac Tromethamine 15 Mg/Ml Vial IM 03/06/25 02:54 15 mg ONCE ONE Administration Methocarbamol 1,500 mg 03/06/25 02:53 03/06/25 03:22 Methocarbamol 750 Mg Tablet PO 03/06/25 02:54 1,500 mg ONCE ONE Administration Prednisone 10 mg 03/06/25 02:53 03/06/25 03:22 Prednisone 10 Mg Tablet PO 03/06/25 02:54 10 mg ONCE ONE Administration Medical Decision Making Medical Decision Making MDM Narrative: 44-year-old female with a history of morbid obesity status post sleeve gastrectomy with subsequent vitamin-D and vitamin aA deficiencies, status post panniculectomy 02/20/2025, fibromyalgia, chronic back pain, abnormal uterine bleeding, anemia, presents with lumbar pain and constipation for 4 days. Pain within lower back is nonradiating, unable to describe the nature of her discomfort. Associated paresthesias of right lower extremity at times. Denies weakness of lower extremity, urinary retention or bowel incontinence. Patient denies recent activity, new exercise or heavy lifting, that could have precipitated her low back pain. Denies abdominal distention, fever, active nausea vomiting, or inability to pass flatus from below. Problem: Recent surgery History: Per patient I have considered the following differential diagnoses: Lumbar strain, lumbar radiculopathy, cauda equina, constipation, bowel obstruction Plan: Screening labs including a KUB were ordered from triage, the patient is constipated, she does have significant arthritic changes. She is not having obstructive symptoms, we will send with home care instructions for the constipation. In regard to the back pain, the patient is having radicular symptoms without red flag signs symptoms concerning for cord compression. We will treat accordingly. I have independently reviewed the following tests: Labs: No leukocytosis, not anemic, no electrolyte abnormality, urine not infected KUB:3 views lumbar spine Comparison: None provided Findings: Exaggeration of the lumbar lordosis. Trace retrolisthesis at L5-S1. Osteopenia. No acute fracture. Multilevel spondylosis with diffuse osteophytosis, facet arthropathy and degenerative disc disease, pronounced at L5-S1. Intervertebral foraminal narrowing pronounced at L5-S1. Scattered abdominal and pelvic clips. Moderate/large colonic stool burden. IMPRESSION: Chronic changes without acute findings. Differential Diagnosis Differential Diagnoses: The differential diagnosis associated with the presentation includes See medical decision-making Admission/Observation Consideration of admission/observation: Escalation of care including admission/observation considered Not applicable Lab Data MDM Lab Attestation statement: I reviewed the patient's lab results. 03/05/25 22:21 03/05/25 22:21 Labs: Lab Results 03/05/25 Range/Units 22:21 WBC 7.2 (4.8-10.8) X10*3/uL RBC 3.56 L (4.20-5.50) X10*6/uL Hgb 10.8 L (12.0-16.0) g/dl Hct 31.3 L (37.0-47.0) % MCV 87.9 (80.0-98.0) fL MCH 30.3 (27.0-33.0) pg MCHC 34.5 (31.0-35.0) g/dl RDW 13.0 (11.0-16.0) % Plt Count 271 (160-400) X10*3/uL MPV 8.4 L (9.4-12.3) fL Immature Gran % (Auto) 0.3 (0.0-0.4) % Neut % (Auto) 62.1 (45-73) % Lymph % (Auto) 29.2 (20-40) % Waldo % (Auto) 6.0 (2-11) % Eos % (Auto) 1.8 (0-4) % Baso % (Auto) 0.6 (0-2) % Lymph # (Auto) 2.1 (1.2-4.9) X10*3/uL Waldo # (Auto) 0.4 (0.1-1.2) X10*3/uL Eos # (Auto) 0.1 (0.0-0.4) X10*3/uL Baso # (Auto) 0.0 (0.0-0.2) X10*3/uL Abs Immat Gran (auto) 0.02 (0.00-0.03) X10*3/uL Absolute Neuts (auto) 4.4 (2.0-8.3) x10*3/uL Absolute Nucleated RBC 0.000 (0.0-0.012) X10*3/uL Nucleated RBC % (auto) 0.0 (0.0-0.2) /100WBC Sodium 139 (135-145) mmol/L Potassium 4.1 (3.3-5.1) mmol/L Chloride 104 (96-108) mmol/L Carbon Dioxide 30 H (22-29) mmol/L Anion Gap 9 L (12-20) BUN 22 H (9-16) mg/dL Creatinine 0.71 (0.5-1.4) mg/dL Estim Creat Clear Calc 85.4 Estimated GFR > 60 Random Glucose 83 (60-115) mg/dL Calcium 9.0 (8.4-10.2) mg/dL Total Bilirubin 0.3 (0.0-1.0) mg/dL AST 24 (5-31) U/L ALT 16 (0-31) U/L Alkaline Phosphatase 54 (39-117) U/L Total Protein 7.3 (6.5-8.0) g/dL Albumin 4.4 (3.5-5.0) g/dL Lipase 60 (8-78) U/L Urine Color Yellow Urine Appearance Cloudy Urine pH 5.5 (5.0-9.0) Ur Specific [place] >= 1.030 H (1.005-1.025) Urine Protein Negative (Neg-Trace) mg/dL Urine Glucose (UA) Negative (Negative) mg/dL Urine Ketones Trace (Negative) mg/dL Urine Blood Negative (Negative) Urine Nitrite Negative (Negative) Ur Leukocyte Esterase Small (1+) H (Negative) Urine RBC 0-2 (0-2) /HPF Urine WBC 6-10 H (0-5) /HPF Ur Squamous Epith Cells >20 (0-2) /HPF Urine Bacteria None Seen (None Seen) Hyaline Casts 0-2 (0-2) /LPF Urine Yeast Present Radiology Impression Discussion of test interpretation with radiology: I have reviewed the radiologist's reading. Discharge Plan Discharge Clinical Impression: Acute right lumbar radiculopathy, Constipation Patient Disposition: Home, Self-Care Instructions: Constipation (ED), Lumbar Radiculopathy (ED) Additional Instructions: All of your labs were normal. The x-ray of your lumbar spine revealed that you have considerable arthritic changes. You were also noted to be significantly constipated. See home care instructions. Use rnig-elk-wduospa Colace, this is a stool softener, twice a day. Use an also purchase nucp-igj-gkaijor MiraLax, use it multiple times a day, until you begin having multiple large volume bowel movements. In regard to your back pain, use the ketorolac as needed, take this medication with food, this is an anti-inflammatory. Use the methocarbamol as needed for further pain, this is a muscle relaxant, this medication can cause drowsiness, do not drive or operate machinery while taking this medication. Take the medrol dosepack as directed. This is another anti-inflammatory. Follow up with your PCP as needed. Prescriptions: New methocarbamol 750 mg tablet 1,500 mg PO Q8H PRN (Reason: pain, moderate) Qty: 24 0RF methylprednisolone [Medrol (Marcio)] 4 mg tablets,dose pack 4 mg PO QAM Qty: 21 0RF Rx Instructions: Take per package instructions ketorolac 10 mg tablet 10 mg PO Q6H PRN (Reason: pain) Qty: 20 0RF Rx Instructions: maximum total duration of 5 days from all oral, intranasal, or parenteral formulations. The patient had an intramuscular dose of Toradol here in the emergency room No Action multivitamin Tablet 1 tab PO DAILY Vitamin C 25 mg Tablet 25 mg PO DAILY Zepbound 12.5 mg/0.5 mL pen injector 12.5 mg subcut QWEEK Qty: 2 0RF cholecalciferol (vitamin D3) 125 mcg (5,000 unit) capsule 125 mcg PO DAILY Qty: 90 0RF vitamin A palmitate 3,000 mcg (10,000 unit) capsule 3,000 mcg PO DAILY Qty: 90 0RF tramadol 50 mg tablet 50 mg PO TID 30 Days Qty: 90 5RF cyanocobalamin (vitamin B-12) 1,000 mcg/mL solution 1,000 mcg IM QMONTH Qty: 10 3RF sumatriptan succinate 50 mg tablet 50 mg PO Q2-4H PRN (Reason: migraine headache) Qty: 7 0RF Rx Instructions: do not exceed 4 doses per 24 hrs ferrous sulfate 325 mg (65 mg iron) tablet 325 mg PO BID docusate sodium 100 mg capsule 100 mg PO Q12H cetirizine 10 mg tablet 10 mg PO QAM hydroxyzine pamoate 25 mg capsule 25 mg PO Q8H PRN (Reason: Itching) (DME) cock up splint See Rx Instructions .Route .MEDSUPPLY Qty: 2 0RF Rx Instructions: Wear on both wrists at night duloxetine 30 mg capsule,delayed release(DR/EC) 30 mg PO DAILY gabapentin 400 mg capsule 400 mg PO BID 90 Days Qty: 180 1RF cephalexin 500 mg capsule 500 mg PO Q12H Qty: 60 2RF docusate sodium [Colace] 100 mg capsule 100 mg PO DAILY Qty: 90 0RF ondansetron 4 mg tablet,disintegrating 4 mg PO Q12H Qty: 20 0RF Interventions: ED Discharge Assessment Last Done: 03/06/25 03:44 Discharge Date/Time: 03/06/25 03:44 Print Language: Singaporean
[2025-03-05 22:25] LABS: MANUAL DIFF FLAG NO
[2025-03-05 22:26] LABS: Hematocrit 31.3 % (37.0-47.0); Hemoglobin 10.8 g/dl (12.0-16.0); Imm Gran Abs Auto 0.02 X10*3/uL (0.00-0.03); Imm Gran Pct Auto 0.3 % (0.0-0.4); Lymphocytes Absolute Auto 2.1 X10*3/uL (1.2-4.9); Mean Corpuscular HGB Conc 34.5 g/dl (31.0-35.0); Mean Corpuscular Hemoglobin 30.3 pg (27.0-33.0); Mean Corpuscular Volume 87.9 fL (80.0-98.0); NRBC Abs Auto 0.000 X10*3/uL (0.0-0.012); NRBC Pct Auto 0.0 /100WBC (0.0-0.2); Platelet Count 271 X10*3/uL (160-400); Red Blood Count 3.56 X10*6/uL (4.20-5.50); White Blood Count 7.2 X10*3/uL (4.8-10.8)
[2025-03-05 22:29] LABS: Appearance Urine Cloudy; Glucose Urine UA Negative (Negative); PH 5.5 (5.0-9.0); Specific Gravity - Urine >= 1.030 (1.005-1.025); UMIC TRIGGER UACC YES
[2025-03-05 22:42] LABS: Alanine Aminotransferase 16 U/L (0-31); Albumin Level 4.4 g/dL (3.5-5.0); Alkaline Phosphatase 54 U/L (39-117); Anion Gap 9 (12-20); Aspartate Amino Transferase 24 U/L (5-31); Blood Urea Nitrogen 22 mg/dL (9-16); Calcium 9.0 mg/dL (8.4-10.2); Carbon Dioxide 30 mmol/L (22-29); Chloride 104 mmol/L (96-108); Creatinine Clr Calc Pharmacy 85.4; Estimated Glomerular Filt Rate > 60; Lipase 60 U/L (8-78); Potassium 4.1 mmol/L (3.3-5.1); Sodium 139 mmol/L (135-145); Total Protein 7.3 g/dL (6.5-8.0)
[2025-03-05 22:45] LABS: UACC Culture Trigger YES
--- OUTSIDE RECORDS SUMMARY | 2025-03-06 02:31 | XMS_ITS | Clinical Summary ---
Author Organization [facility] Address [address] [place] [address] Care Team Providers Care Bank Sales And Service Manager Name Role Phone Unavailable Primary Care Provider [...] Description 02/27/2025 / TELEPHONE [facility] [address] [place] [phone] Reji Mann, PMHNP 01/23/2025 / TELEPHONE [facility] [address] [place] [phone] Reji Mann, PMHNP from Last 3 Months [...] Upcoming Encounters Date Type Department Care Team ([facility] st Contact Info) Description 05/15/2025 12:00 PM EST Behavioral Health Visit [facility] [address] [place] [phone] Reji Mann, PMHNP [address] [place] [address] [place] [phone] Health Maintenance Due Date Last Done Comments Anxiety Screening 1980 HPV Screening 1980 Pap + HPV 1980 Tobacco Screening 1980 Relationship Safety Screening/Counseling 1995 Hypertension Screening (#1) 1998 Cervical Cancer Screening 2001 Pap Smear 2001 Breast Cancer Screening (Mammogram) 2020 Alcohol and Drug Screen 06/28/2024 Depression Annual Screen 06/28/2024 [id number] ( season) 2025 10/23/2021, 09/02/2020, 08/12/2020 Imm-Influenza [...] Vaginal Pap Discontinued Vulvoscopy Discontinued Insurance [facility]
--- OUTSIDE RECORDS SUMMARY | 2025-03-06 02:31 | XMS_ITS | Clinical Summary ---
Author Organization [address] [place] [address] Address [address] [place] [address] Phone Care Team Providers Care J2Ee Java Developer Name Role Phone EdmundAngelina NANCY Primary Care Provider Allergies No known active allergies Medications ascorbic [...] Morbid obesity (CMS/[facility] V24, [facility] V28) 2023 Pain in the coccyx 04/20/2024 Papular eruption 04/20/2024 Seasonal allergic rhinitis 04/20/2024 Severe recurrent major depre ssion with psychotic features ([facility] V24, [facility] V28) 04/20/2024 Encounters Date Type Department Care Team Description 01/11/2025 1:45 PM EDT Office Visit [facility] [place] [address] [phone] Kev Aponte DPM Plantar fascial fibromatosis (Primary [...] 04/11/2025 10:15 AM EDT Office Visit Orthopedic [facility] [address] [phone] Kev Aponte DPM [address] [phone] Health Maintenance Due Date Last Done Comments [...] Months Insurance MEDICAID - [place] Care Teams J2Ee Java Developer Relationship Specialty Start Date End Date Angelina Shaffer NP [address] [phone] PCP - General 03/03/24
--- OUTSIDE RECORDS SUMMARY | 2025-03-06 02:31 | XMS_ITS | Encounter Summary ---
Author Organization [employer] Address [address] [place] [address] [place], [place] [address] Care Team Providers Care Automotive Title Clerk Name Role Phone Amelie RamP Primary Care Provider [phone] Sasha Bello NP Primary Care Provider [phone] Reason for Visit * Reason Onset Date Comments Referral 12/21/2022 Encounter Details Date Type Department Care Team (Late st Contact Info) Description 12/21/2022 Telephone [facility] MEDICINE [address] [place], [place] [phone] Amelie Ram FNP [address] [place] [address] Referral Social History Tobacco Use Types Packs/Day [...] from pt requesting a referral 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 Location: [address] [place] [address] Date&Time:N/A Tool And Die Maker Apprentice:N/a Specialty:[facility] Location: [address] [place] [address] [place] [address] Date&Time: n/a Tool And Die Maker Apprentice: N/a documented in this encounter Plan of Treatment Not on file documented as of this encounter Visit Diagnoses Not on filedocumented in this encounter Additional Health Concerns Assessment Noted Time PHQ-9 Depression Total Score: 0 11/26/19 23 10:22 AM EDT documented as of this encounter Care Teams Automotive Title Clerk Relationship Specialty Start Date End Date Amelie Ram FNP [address] [place] [address] PCP - General Family Medicine 05/25/22 02/29/24 Sasha Bello NP 230 [place] [address] PCP - General Family Medicine 03/01/24 documented as of this encounter
--- OUTSIDE RECORDS SUMMARY | 2025-03-06 02:31 | XMS_ITS | Encounter Summary ---
Author Organization [employer] Address [address] [facility] [address] [place] [address] Care Team Providers Care School Psychometrist Name Role Phone Sasha Bello NP Primary Care Provider [phone] Reason for Visit * Reason Comments Med Refill Encounter Details Date Type Department Care Team ([facility] st Contact Info) Description 09/04/2024 Refill [facility] MEDICINE [address] [place] [address] Sasha Bello NP [address] [place] [address] Acute pain of right knee Social History [...] documented as of this encounter Care Teams School Psychometrist Relationship Specialty Start Date End Date Sasha Bello NP [address] [place] [address] PCP - General Family Medicine 03/01/24 documented as of this encounter
--- OUTSIDE RECORDS SUMMARY | 2025-03-06 02:31 | XMS_ITS | Encounter Summary ---
Author Organization [employer] Address [address] [place] [address] [address] [address] Care Team Providers Care Periodontal Assistant Name Role Phone Amelie RamP Primary Care Provider [phone] Sasha Bello NP Primary Care Provider [phone] Encounter Details Date Type Department Care Team (Late st Contact Info) Description 12/23/2022 Orders Only [facility] MEDICINE [address] [place], [place] [phone] Amelie Ram FNP [address] [place] [address] Encounter for annual routine gynecological examination (Primary [...] documented as of this encounter Care Teams Periodontal Assistant Relationship Specialty Start Date End Date Amelie Ram FNP [address] [place] [address] PCP - General Family Medicine 05/25/22 02/29/24 Sasha Bello NP [address] [place] [address] PCP - General Family Medicine 03/01/24 documented as of this encounter
--- OUTSIDE RECORDS SUMMARY | 2025-03-06 02:31 | XMS_ITS | Encounter Summary ---
Author Organization [employer] Address [address] [facility] [address] [place] [address] Care Team Providers Care Director Digital Advertising Name Role Phone Sasha Bello NP Primary Care Provider [phone] Encounter Details Date Type Department Care Team ([facility] st Contact Info) Description 10/31/2024 Telephone [facility] MEDICINE [address] [place], [place] [phone] Sasha Bello NP [address] [place], [place] [phone] Social History Tobacco Use Types Packs/Day Years [...] documented as of this encounter Care Teams Director Digital Advertising Relationship Specialty Start Date End Date Sasha Bello NP [address] [place] [address] PCP - General Family Medicine 03/01/24 documented as of this encounter
--- OUTSIDE RECORDS SUMMARY | 2025-03-06 02:31 | XMS_ITS | Encounter Summary ---
Author Organization [employer] Address [address] [facility] [address] [place] [address] Care Team Providers Care Accounting Tutor Name Role Phone Sasha Bello NP Primary Care Provider [phone] Encounter Details Date Type Department Care Team ([facility] st Contact Info) Description 11/02/2024 Orders Only [facility] MEDICINE [address] [place], [place] [phone] Sasha Bello NP [address] [place], [place] [phone] Obesity (BMI 30.0-34.9) Social History Tobacco Use [...] documented as of this encounter Care Teams Accounting Tutor Relationship Specialty Start Date End Date Sasha Bello NP [address] [place] [address] PCP - General Family Medicine 03/01/24 documented as of this encounter
--- OUTSIDE RECORDS SUMMARY | 2025-03-06 02:31 | XMS_ITS | Encounter Summary ---
Author Organization [employer] Address [address] [facility] [address] [place] [address] Care Team Providers Care Box Lining Machine Operator Name Role Phone Amelie RamP Primary Care Provider [phone] Sasha Bello NP Primary Care Provider [phone] Reason for Visit * Reason Onset Date Comments 09/0909/10/2023 Encounter Details Date Type Department Care Team ([facility] st Contact Info) Description 09/10/2023 Telephone [facility] MEDICINE [address] [place], [place] [phone] Amelie Ram FNP [address] [place], [place] [phone] 09/09 Social History Tobacco Use Types Packs/Day [...] documented as of this encounter Care Teams Box Lining Machine Operator Relationship Specialty Start Date End Date Amelie Ram FNP [address] [place] [address] PCP - General Family Medicine 05/25/22 02/29/24 Sasha Bello NP [address] [place] [address] PCP - General Family Medicine 03/01/24 documented as of this encounter
--- OUTSIDE RECORDS SUMMARY | 2025-03-06 02:31 | XMS_ITS | Encounter Summary ---
Author Organization [employer] Address [address] [place] [address] [address] [place] [address] Care Team Providers Care Ticket Chopper Assembler Name Role Phone Amelie Ram Primary Care Provider [phone] Sasha Bello NP Primary Care Provider [phone] Reason for Referral * Imaging (Routine) - Closed Specialty Diagnoses / Procedures Referred By Contac t Referred To Contact Radiology Diagnoses Breast cancer screening by mammogram Procedures BI Mammogram Screening Bilateral Amelie Ram FNP [address] [place] [address] Phone: tel: fax: [address] Phone: tel: fax: Referral ID Status Reason Start Date Expiration Date Visits Re quested Visits Authorized [id number] Closed 01/06/2023 01/06/2024 1 1 Encounter Details Date Type Department Care Team (Late st Contact Info) Description 01/06/2023 Orders Only [facility] [address] [place] [address] Amelie Ram FNP [address] [place] [address] Breast cancer screening by mammogram (Primary Dx) [...] documented as of this encounter Care Teams Ticket Chopper Assembler Relationship Specialty Start Date End Date Amelie Ram FNP [address] [place] [address] PCP - General Family Medicine 05/25/22 02/29/24 Sasha Bello NP [address] [place] [address] PCP - General Family Medicine 03/01/24 documented as of this encounter
--- OUTSIDE RECORDS SUMMARY | 2025-03-06 02:31 | XMS_ITS | Encounter Summary ---
Author Organization [employer] Address [address] [facility] [address] [place] [address] Care Team Providers Care Social Service Worker Name Role Phone Amelie Ram [employer] Primary Care Provider [phone] Sasha Bello NP Primary Care Provider [phone] Reason for Visit * Reason Onset Date Comments triage 08/18/2022 Encounter Details Date Type Department Care Team (Late st Contact Info) Description 08/18/[address] [facility] [address] [place] [address] Amelie Ram FNP [address] [place] [address] triage Social History Tobacco Use Types Packs/Day [...] accepted this outcome Please contact pt at [phone] [place] Speaker documented in this encounter Plan of Treatment Not on file documented as of this encounter Visit Diagnoses Not on filedocumented in this encounter Care Teams Social Service Worker Relationship Specialty Start Date End Date Amelie Ram FNP [address] [place] [address] PCP - General Family Medicine 05/25/22 02/29/24 Sasha Bello NP [address] [place] [address] PCP - General Family Medicine 03/01/24 documented as of this encounter
--- OUTSIDE RECORDS SUMMARY | 2025-03-06 02:31 | XMS_ITS | Clinical Summary ---
Author Organization [employer] Address [address] [facility] [address] [place] [address] Care Team Providers Care Server Security Administrator Name Role Phone Sasha Bello NP Primary Care Provider [phone] Allergies No known active allergies Medications * [...] recommended reduction of 20-30% of maintenance calories; jewel hole rough opener referral offered. Recommended to decrease soda and [...] Type Department Care Team Description 02/22/2025 Refill [facility] MEDICINE [address] [place] [phone] Sasha Bello NP Cervical pain (neck) 02/20/2025 Orders Only GENERIC EXTERNAL DATA DEPARTMENT Provider, Generic External Data 02/14/2025 Telephone [facility] [address] [place] [phone] Sasha Bello NP No Show 02/14/2025 Orders Only GENERIC EXTERNAL DATA DEPARTMENT Provider, Generic External Data 02/13/2025 Telephone [facility] [address] [place] [address] Briana Castro MA CHARTPREP 02/07/2025 Patient Outreach [facility] P[facility]S [address] [place] [address] Sasha Bello NP Pre-visit Planning ([facility] wass already completed) 01/25/2025 Refill [facility] MEDICINE [address] [place] [address] Amelie Ram, FLOOR INSTALLER Constipation, unspecified constipation type 01/22/2025 Refill [facility] PEDS [address] [place] [address] Sasha Bello NP Mild major depression (CMS/HCC); Anxiety 01/11/2025 Telephone [facility] MEDICINE [address] [place] [address] Sasha Bello NP Chart Prep 01/02/2025 Telephone [facility] MEDICINE [address] [place] [address] Sasha Bello NP Prior Authorization 12/24/2024 Refill [facility] MEDICINE [address] [place] [address] Sasha Bello NP Obesity (BMI 30.0-34.9) from [...] history exists Depression Screening 07/12/2025 07/12/2024, 07/12/19 SDOH Screening 08/28/2025 08/28/2024 Alcohol/Substance Use Screening 09/11/2025 09/11/2024 Tobacco Screening 11/22/2025 11/22/2024 Mammogram 03/07/2026 03/07/2024, 09/0 10/2022, 12/12/2021, Additional [...] 1:34 PM EDT 02/21/2025 8:10 AM EDT [facility] LABS - 02/22/2025 3:10 PM EDT ----- ------- Name: Oc Ramirez Age/Sex: 44/F : 1980 Unit#: [id number] Attend Dr: Harvinder Blank MD Re02/20/25 Status: [facility] Location: [facility] Disch: ----- ------- SPEC : [id number] RECD: 02/21/25 STATUS: DENISE COHEN NUM: [id number] RATNA: 02/20/[address] [facility] [address]: Harvinder Blank MD ENTERED: 02/21/25 [...] fibrous tissue, without evidence of discrete abnormality. Animal Care Attendant sections are submitted in cassettes A1 -3. (DTL) IHC S/NG Disclaimer NOTE: Unless otherwise stated, all tissue is formalin-fixed and paraffin-embedded. Some or all of the immunohistochemical tests reported herein may have been developed and their performance characteristics determined by [facility]. They have not been cleared or approved by the U.S. Food and Drug Administration (FDA). However, the FDA has determined that such clearance or approval is not necessary. This laboratory is certified under the Clinical Laboratory Improvement Amendments of 1988 (CLIA) as qualified to perform high complexity clinical laboratory testing. Copies To: Dee Garcia [address] [address] CONTINUED ON NEXT PAGE ----- ------- Name: Oc Ramirez Age/Sex: 44/F : 1980 Unit#: [id number] Attend Dr: Harvinder Blank MD Re02/20/25 Status: [facility] Location: [facility] Disch: ----- ------- SPEC : [id number] RECD: 02/21/25 STATUS: DENISE COHEN NUM: [id number] RATNA: 02/20/[address] [facility] [address]: Harvinder Blank MD ENTERED: 02/21/25 SP TYPE: Surgical OTHR DR: Dee Garcia [facility] ORDERED: Gross Micro L3 Copies To: (Continued) Harvinder Blank MD [facility] [address] [place] [phone] ----- ------- Signed (signature on file) Hans Adhikari MD 02/22/25 1510 ----- ------- END OF REPORT Generic External Data Provider LAB CYTOLOGY ORDE RABLES Final Result Performing Organization Address [facility] [[email or web address]] Co de Phone Number [facility] [address] [place] [phone] * (ABNORMAL) Vitamin D, 25-Hydroxy, Total, Immunoassay (02/14/2025 9:49 AM EDT) [facility] Vitamin D 25-OH Total 28.1(L) >30 ng/mL [facility] Comment: Health Based Reference Values*< 20 ng/mL [id number] ng/mL Insufficient> 30 ng/mL Sufficient*Elizabeth SCHNEIDER. N [...] ORDERAB LES Final Result Performing Organization Address [facility] [[email or web address]] Co de Phone Number [facility] [address] [place] [address] [phone] * TSH with Reflex to Free T4 (02/14/2025 9:49 AM EDT) Pathologist [facility] TSH reflex Free T4 1.08 0.32 - 4.0 uIU/mL [facility] 02/14/2025 9:49 AM EDT 02/14/2025 9:49 AM EDT us Generic External Data Provider LAB BLOOD ORDERAB LES Final Result [facility] [address] [place] [address] [phone] * (ABNORMAL) CBC auto differential (02/14/2025 9:49 AM EDT) [facility] White Blood Count 3.9(L) 4.8 - 10.8 X10*3/uL [facility] Red Blood Count 3.72(L) 4.20 - 5.50 X10*6/uL [facility] Hemoglobin 11.2(L) 12.0 - 16.0 g/dl [facility] Hematocrit 33.0(L) 37.0 - 47.0 % [facility] Mean Corpuscular Volume 88.7 80.0 - 98.0 fL [facility] Mean Corpuscular Hemoglobin 30.1 27.0 - 33.0 pg [facility] Mean Corpuscular HGB Conc 33.9 31.0 - 35.0 g/dl [facility] Red Cell Distribution Width 12.5 11.0 - 16.0 % [facility] Platelet Count 244 160 - 400 X10*3/uL [facility] Mean Platelet Volume 9.2(L) 9.4 - 12.3 fL [facility] Neutrophils Percent Auto 50.9 45 - 73 % [facility] Imm Gran Pct Auto 0.3 0.0 - 0.4 % [facility] Lymphocytes Percent Auto 37.7 20 - 40 % [facility] Monocytes Percent Auto 9.3 2 - 11 % [facility] Eosinophils Percent Auto 1.3 0 - 4 % [facility] Basophils Percent Auto 0.5 0 - 2 % [facility] NRBC Pct Auto 0.0 0.0 - 0.2 /100WBC [facility] Neutrophils Absolute Auto 2.0 2.0 - 8.3 x10*3/uL [facility] Imm Gran Abs Auto 0.01 0.00 - 0.03 X10*3/uL [facility] Lymphocytes Absolute Auto 1.5 1.2 - 4.9 X10*3/uL [facility] Monocytes Absolute Auto 0.4 0.1 - 1.2 X10*3/uL [facility] Eosinophils Absolute Auto 0.1 0.0 - 0.4 X10*3/uL [facility] Basophils Absolute Auto 0.0 0.0 - 0.2 X10*3/uL [facility] NRBC Abs Auto 0.000 0.0 - 0.012 X10*3/uL [facility] 02/14/2025 9:49 AM EDT 02/14/2025 9:49 AM EDT us Generic External Data Provider LAB BLOOD ORDERAB LES Final Result Performing Organization Address City/[facility] [[email or web address]] Co de Phone Number [facility] [address] [place] [address] [phone] * Iron And Total Iron Binding Capacity (02/14/2025 9:49 AM EDT) Iron 49 30 - 160 mcg/dL [facility] Total Iron Binding Capacity 278 228 - 428 mcg/dL [facility] Percent Iron Saturation 18 15 - 50 % [facility] Unsaturated Iron Binding 229 ug/dL [facility] 02/14/2025 9:49 AM EDT 02/14/2025 9:49 AM EDT us Generic External Data Provider LAB BLOOD ORDERAB LES Final Result Performing Organization Address City/State/[facility] de Phone Number [facility] [address] [place] [phone] * Insulin (02/14/2025 9:49 AM EDT) Insulin 5 2 - 29 uU/mL [facility] Comment:This test was perfor med [...] ORDERAB LES Final Result Performing Organization Address [facility] de Phone Number [facility] [address] [place] [phone] * Zinc (02/14/2025 9:49 AM EDT) Zinc 63 60 - 130 mcg/dL [facility] Comment:This test was develo ped and its analytical performancecharacteristics have been determined by [employer] [place], [place]. It hasnot been cleared or approved by the U.S. Food and DrugAdministration. This assay has been validated pursuantto the CLIA regulations and is used for clinicalpurposes.THIS TEST WAS PERFORMED AT:[employer] [place] [address]RSDGRBIJAMES STALEY MD,PHD 02/14/2025 9:49 AM EDT 02/14/2025 9:49 AM EDT us Generic External Data Provider LAB BLOOD ORDERAB LES Final Result Performing Organization Address [facility] [[email or web address]] Co de Phone Number [facility] [address] [place] [phone] * (ABNORMAL) Vitamin A (02/14/2025 9:49 AM EDT) [facility] Vitamin A (Retinol) 24(A) 38 - 98 mcg/dL [facility] Comment:Vitamin supplementat ion within 24 hours prior toblood draw may affect the accuracy of the results.This test was developed and its analytical performancecharacteristics have been determined by [employer] [place], [place]. It hasnot been cleared or approved by the U.S. Food and DrugAdministration. This assay has been validated pursuantto the CLIA regulations and is used for clinicalpurposes.THIS TEST WAS PERFORMED AT:[employer]/[facility] [place] [address]VEYOHXEJAMES STALEY MD,PHD 02/14/2025 9:49 AM EDT 02/14/2025 9:49 AM EDT Generic External Data Provider LAB BLOOD ORDERAB LES Final Result Performing Organization Address City/[facility]/ZIP Co de Phone Number [facility] [address] [place] [phone] * Partial Thromboplastin Time, Activated (APTT) (02/14/2025 9:49 AM EDT) [facility] Partial Thromboplastin Time 26.8 26.7 - 34.1 SEC [facility] 02/14/2025 9:49 AM EDT 02/14/2025 9:49 AM EDT Generic External Data Provider LAB BLOOD ORDERAB LES Final Result Performing Organization Address City/[facility]/ZIP Co de Phone Number [facility] [address] [place] [phone] * Prothrombin Time-INR (02/14/2025 9:49 AM EDT) Prothrombin Time 11.8 10.9 - 12.4 SEC [facility] INTERNATIONAL NORM RATIO 1.0 0.9 - 1.1 [facility] Comment:INTERNATIONAL NORMAL IZED RATIO (INR) [...] ORDERAB LES Final Result Performing Organization Address [facility] de Phone Number [facility] [address] [place] [phone] * C-reactive Protein (02/14/2025 9:49 AM EDT) C Reactive Protein 0.11 < or = 0.50 mg/dL [facility] 02/14/2025 9:49 AM EDT 02/14/2025 9:49 AM EDT Generic External Data Provider LAB BLOOD ORDERAB LES Final Result Performing Organization Address [facility] [[email or web address]] Co de Phone Number [facility] [address] [place] [phone] * Vitamin B1 (02/14/2025 9:49 AM EDT) Vitamin B1 8 8 - 30 nmol/L [facility] Comment:Vitamin supplementat ion within 24 hours prior toblood draw may affect the accuracy of the results.This test was developed and its analytical performancecharacteristics have been determined by [employer] [place], [place]. It hasnot been cleared or approved by the U.S. Food and DrugAdministration. This assay has been validated pursuantto the CLIA regulations and is used for clinicalpurposes.THIS TEST WAS PERFORMED AT:[employer]/[place] [id number] [place] [address]FFUYTCQJAMES STALEY MD,PHD 02/14/2025 9:49 AM EDT 02/14/2025 9:49 AM EDT Generic External Data Provider LAB BLOOD ORDERAB LES Final Result Performing Organization Address City/[facility]/ZIP Co de Phone Number [facility] [address] [place] [phone] * Hemoglobin A1c (02/14/2025 9:49 AM EDT) Hemoglobin A1c 5.1 <6.0 % [facility] Comment:Hemoglobin A1C Refer ence Range Adults: 4.8 - 6.0 % Non diabetic: < 6.0 % Goal: < 7.0 %Additional Action Suggested: > 8.0 %Note: Hemoglobin A1c results are invalid for patients with abnormal amounts of HbF. Blood transfusions may impact the HbA1c concentration in the patient sample. Estimated Average Glucose 100 mg/dL [facility] Comment:eAG = Estimated ave rage glucose which is %A1C expressed asaverage glucose, using the formula of the G4C-SnknyczHxaczzc Glucose study (ADAG), Diabetes Care, Vol.31,#8,Jan. 2007 02/14/2025 9:49 AM EDT 02/14/2025 9:49 AM EDT us Generic External Data Provider LAB BLOOD ORDERAB LES Final Result Performing Organization Address [facility]/ZIP Co de Phone Number [facility] [address] [place] [phone] * Ferritin (02/14/2025 9:49 AM EDT) Ferritin 47 10 - 250 ng/mL [facility] 02/14/2025 9:49 AM EDT 02/14/2025 9:49 AM EDT us Generic External Data Provider LAB BLOOD ORDERAB LES Final Result Performing Organization Address [facility]/ZIP Co de Phone Number [facility] [address] [place] [phone] * Vitamin B12 (02/14/2025 9:49 AM EDT) Vitamin B12 808 200 - 900 pg/mL [facility] Comment:NORMAL 200-900 PG/ML INDETERMINATE 160-199 PG/ML DEFICIENT < 160 PG/ML 02/14/2025 9:49 AM EDT 02/14/2025 9:49 AM EDT us Generic External Data Provider LAB BLOOD ORDERAB LES Final Result Performing Organization Address [facility] de Phone Number [facility] [address] [place] [phone] * (ABNORMAL) Lipid Panel, Standard (02/14/2025 9:49 AM EDT) Triglycerides 59 <150 mg/dL [facility] Comment:Desirable Triglyceri de: less than 150 mg/dLBorderline High Triglyceride 150-199 mg/dLHigh Triglyceride: 200-499 mg/dLVery High Triglyceride: greater than or equal to 5OO mg/dL Cholesterol 206(H) <200 mg/dL [facility] Comment:Desirable Cholestero l: less than 200 mg/dLBorderline High Cholesterol: 200-239 mg/dLHigh Cholesterol: greater than 239 mg/dL LDL Cholesterol Calculated 129(H) <100 mg/dL [facility] Comment:Desirable LDL: less than 100 mg/dLNear Optimal/Above Optimal LDL: 110- 129 mg/dLBorderline High LDL: 130-159 mg/dLHigh LDL: 160-189 mg/dLVery High LDL: greater than or equal to 190 mg/dL HDL Cholesterol 66 >40 mg/dL [facility] Comment:Desirable HDL: great er than 40 mg/dL Note: This HDL assay may give artificially low results in patients with liver disease. 02/14/2025 9:49 AM EDT 02/14/2025 9:49 AM EDT us Generic External Data Provider LAB BLOOD ORDERAB LES Final Result [facility] [address] [place] [phone] [phone] * Comprehensive Metabolic Panel (02/14/2025 9:49 AM EDT) Sodium 141 135 - 145 mmol/L [facility] Potassium 3.7 3.3 - 5.1 mmol/L [facility] Chloride 106 96 - 108 mmol/L [facility] Carbon Dioxide 27 22 - 29 mmol/L [facility] Anion Gap 12 12 - 20 [facility] Urea Nitrogen (BUN) 12 9 - 16 mg/dL [facility] Creatinine, Serum 0.69 0.5 - 1.4 mg/dL [facility] Creatinine Clr Calc Pharmacy 89.1 [facility] Comment:Provided height and weight: 154.94 cm,63.957 kg.eGFR (calculated from the MDRD study equation) and eCrCl(calculated from the Cockcroft-Gault equation) are based ondifferent parameters and may not yield comparable results.If eCrCl result is absurd, please check patient'sheight/weight. Estimated Glomerular Filt Rate >60 [facility] Comment:Chronic Kidney Disea se: Estimated GFR < 60 mL/min/1.87d3Gnqvdt Kidney Disease: Estimated GFR < 15 mL/min/1.73m2 Glucose 83 60 - 115 mg/dL [facility] Calcium 9.0 8.4 - 10.2 mg/dL [facility] Bilirubin, Total 0.5 0.0 - 1.0 mg/dL [facility] Aspartate Amino Transferase 24 5 - 31 U/L [facility] Alanine Aminotransferase 12 0 - 31 U/L [facility] Total Protein 7.4 6.5 - 8.0 g/dL [facility] Albumin Level 4.5 3.5 - 5.0 g/dL [facility] Alkaline Phosphatase 48 39 - 117 U/L [facility] 02/14/2025 9:49 AM EDT 02/14/2025 9:49 AM EDT us Generic External Data Provider LAB BLOOD ORDERAB LES Final Result Performing Organization Address [facility] [[email or web address]] Co de Phone Number [facility] [address] [place] [phone] * Type and screen (02/14/2025 9:44 AM EDT) Blood Type BP [facility] Antibody Screen NEGATIVE [facility] 02/14/2025 9:44 AM EDT 02/14/2025 10:36 AM EDT Narrative [facility] - 02/14/2025 11:33 AM EDT Witnessed by BEN:Call Blood Bank (ext. [phone]) to band patient on admission.Type and Screen in effect until 2300 on 03/01/2025.Spec expiration changed by LORRI on 02/14/25Reason: PAT us Generic External Data Provider LAB BLOOD BANK TE ST ORDERABLES Final Result Performing Organization Address [facility] [[email or web address]] Co de Phone Number [facility] [address] [place] [phone] * Hepatitis C Antibody with Reflex to HCV, RNA, Quantitative, Real-Time PCR (09/21/2024 12:18 PM EDT) Hepatitis C Antibody Nonreactive Nonreactive [facility] Comment:Antibodies to HCV no t detected; does not exclude early acuteHCV infection. Blood Venous blood specimen / Unknown 09/21/2024 12:18 PM EDT 09/21/2024 12:18 PM EDT us Sasha Appram WIND TURBINE ENGINEER LAB BLOOD ORDERABLES Final Resu lt Performing Organization Address [facility]/ZIP Co de Phone Number [facility] [address] [place] [phone] * HIV-1/2 Antigen and Antibodies, Fourth Generation, with Reflexes (09/21/2024 12:18 PM EDT) HIV AB/AG Nonreactive Nonreactive [facility] Comment:HIV-1 p24 Ag and/or HIV-1/HIV-2 Ab not detected.A test result that is nonreactive does not exclude thepossibility of exposure to or infection with HIV-1 and/orHIV-2. Nonreactive results in this assay for individualswith prior exposure to HIV-1 and/or HIV-2 may be due toantigen and antibody levels that are below the limit ofdetection of this assay.The SendRR HIV Ag/Ab Combo assay result andsupplemental assay results should be interpreted inconjunction with the patient's clinical presentation,history and other laboratory results. If the results areinconsistent with clinical evidence, additional testing issuggested to confirm the result. Blood Venous blood specimen / Unknown 09/21/2024 12:18 PM EDT 09/21/2024 12:18 PM EDT Sasha Bello WIND TURBINE ENGINEER LAB BLOOD ORDERABLES Final Resu lt Performing Organization Address [facility] [[email or web address]] Co de Phone Number [facility] [address] [place] [address] [phone] * BI Mammogram Screening Tomosynthesis Bilateral (03/07/2024 9:45 AM EDT) Anatomical Region Laterality Modality Breast Bilateral Mammography 03/07/2024 9:45 AM EDT Narrative 03/21/2024 9:24 AM EDT [facility] [address] [place] [address] Mammography Report Signed Patient: Oc Ramirez MR#: [id number] [birth year] : 1980 Acct:[id number] Age/Sex: 43 / F ADM Date: 03/07/24 Loc: MAMMO Attending Dr: Amelie Ram WIND TURBINE ENGINEER Ordering Physician: Amelie Ram NP Results: 1Negativ e Date of Service: 03/07/24 Follow Up: 1 Year From Orig inal Mammogram Procedure(s): MM tomosynthesis screening BI Accession Number(s): [id number] cc: Amelie Ram NP EXAMINATION: MM SCREENING [...] 03/21/24 0921 DD/ 0945 TD/TT: 03/07/24 1003 Preschool Associate Teacher: Procedure Note Donotuseinterpreter, Image - 03/21/2024 [place] [facility] [address] [place], [place] [address] Mammography Report Signed Patient: Oc RamirezMR#: [id number] [birth year] : 1980Acct:[id number] Age/Sex: 43 / FADM Date: 03/07/24 Loc: MAMMO Attending Dr: Amelie Ram NP Ordering Physician: Amelie Ram NPResults: 1Negativ e Date of Service: 03/07/24Follow Up: 1 Year From Orig ina Mammogram Procedure(s): MM tomosynthesis screening BI Accession Number(s): [id number] cc: Amelie Ram NP EXAMINATION: MM SCREENING [...] 03/21/24 0921 DD/ 0945 TD/TT: 03/07/24 1003 Preschool Associate Teacher: Amelie Ram FLOOR INSTALLER IM BI PROCEDURES Edited Result - Final * (ABNORMAL) THINPREP PAP (03/04/2021 10:51 AM EDT) Clinical Information: None given [facility] COMMENT SEE COMMENT [facility] [...] along with historic and current clinical information. Sample Tester : SEE COMMENT [facility] Comment: KN, CT(ASCP) CT screening location: [address] [address] General Categorization: EPITHELIAL CELL ABNORMALITY(A) [facility] Interpretation/R esult: Atypical Squamous Cells of Undetermined Significance (ASC-US)(A) [facility] LMP: 02/20/21 [facility] PATHOLOGIST: SEE COMMENT [facility] Comment: Thomas Atkinson M.D., Board Certified in Anatomic and Clinical Pathology (electronic signature) Consulting Pathologist [facility] [address] [place] [address] Prev. BX: NONE GIVEN [facility] N LAB SYSTEM Prev. PAP: NONE GIVEN [facility]OUND[facility] ON LAB SYSTEM SOURCE: None given [facility] Statement Of Adequacy: SEE COMMENT [facility] Comment: Satisfactory for evaluation. Endocervical/transformation zone component absent. 03/04/2021 10:5 1 AM EDT Ju [facility] LAB PATHOLOGY ORDERABLES Final Result Performing Organization Address [facility] de Phone Number [facility] [address] * HPV mRNA E6/E7 (03/04/2021 10:51 AM EDT) HPV nRNA E6/E7 Not Detected Not Detected [facility] Comment: Methodology: Drilling Contractor-Mediated Amplification This assay detects E6/E7 viral messenger RNA (mRNA) from 14 high-risk HPV types (16,18,31,33,35,39,45,51,52,56,58,59,66,68). The analytical performance characteristics of this assay have been determined by [employer]. The modifications have not been cleared or approved by the FDA. This assay has been validated pursuant to the CLIA regulations and is used for clinical purposes. For additional information, please refer to http://education.[employer].com/faq/FAB327q5 (This link if provided for information/ educational purposes only.) 03/04/2021 10:5 1 AM EDT Ju [facility] LAB BLOOD ORDERABLES Milka l Result Performing Organization Address [facility] [[email or web address]] Co de Phone Number [facility] [address] from Last 3 Months or Most Recently Relevant to Health Maintenance [place] [address] C3 Care Teams Server Security Administrator Relationship Specialty Start Date End Date Sasha Bello NP [address] [place] [phone] PCP - General Family Medicine 03/01/24
[2025-03-06 03:44] VITALS: BP 116/76; PULSE 84; RESP 18; TEMP 37.1; O2SAT 98
== END 2025-03-06 03:44 | disposition home or self-care (01) ==
PROVIDERS: Physician Assistant; Emergency Provider Emergency Medicine
DX: M54.16 Radiculopathy, lumbar region (principal); K59.00 Constipation, unspecified; R10.2 Pelvic and perineal pain; M54.50 Low back pain, unspecified; Z98.84 Bariatric surgery status; Z79.899 Other long term (current) drug therapy
CPT/HCPCS: 36415; 72100; 80053; 81001; 83690; 85025; 87086; 87088; 96372; 99284; J1885

== ENCOUNTER → 2025-03-05 21:55 | Outpatient (BNV) | payer MEDICAID, SELFPAY | PROVIDERS: Visit Provider Radiology Diagnostic Radiology | DX: M54.50 Low back pain, unspecified (principal) | CPT/HCPCS: 72100 ==

== ENCOUNTER 2025-03-07 15:14 | Outpatient (AMB) | payer MEDICAID, SELFPAY ==
[2025-03-07 15:29] VITALS: BP 122/58; PULSE 73; TEMP 36.5; O2SAT 97
--- NOTE | 2025-03-07 15:29 | A.OFFVIS_ITS ---
VS Expanded 03/07/25 15:29 BP 122/58 L Blood Pressure Location Rt brachial Blood Pressure Position Sitting Pulse 73 Pulse Source Pulse Oximeter Temp 97.7 F Temperature Source Temporal Artery Scan Pulse Oximetry 97 Oxygen Delivery Method Room Air Intake Visit Reasons: OV PO Panniculectomy 02/20/25 Allergies adhesive tape (ADHESIVE TAPE) Allergy (Intermediate, Verified 03/07/25 15:30) BURN/BLISTER Medication List - Last Reconciled 03/07/25 by YURI Garrido ascorbic acid (vitamin C) 25 mg PO DAILY cephalexin 500 mg PO Q12H cetirizine 10 mg PO QAM cholecalciferol (vitamin D3) 125 mcg PO DAILY [cock up splint Wear on both wrists at night ] cyanocobalamin (vitamin B-12) 1,000 mcg IM QMONTH docusate sodium (Colace) 100 mg PO DAILY docusate sodium 100 mg PO Q12H duloxetine 30 mg PO DAILY ferrous sulfate 325 mg PO BID gabapentin 400 mg PO BID 90 days hydroxyzine pamoate 25 mg PO Q8H PRN ketorolac 10 mg PO Q6H PRN methocarbamol 1,500 mg (2 x 750 mg) PO Q8H PRN methylprednisolone (Medrol (Marcio)) 4 mg PO QAM multivitamin 1 tab PO DAILY ondansetron 4 mg PO Q12H sumatriptan succinate 50 mg PO Q2-4H PRN tramadol 50 mg PO TID 30 days vitamin A palmitate 3,000 mcg PO DAILY Zepbound (tirzepatide (weight loss)) 12.5 mg (0.5 mL) subcut QWEEK NS HPI Comments Details: Pt is 2w s/p panniculectomy with drain placement. No fevers at home. Taking abx. Tolerating meal plan per Dr Rice, although today has a [employer] refresher in office with her. Drain output 30-40cc/day. [facility] Medical History (Updated 03/07/25 @ 00:00 by Dereck Candelario) Neck muscle spasm Bilateral shoulder pain Neck pain Lateral epicondylitis, right elbow SARS-CoV-2 positive Fibromyalgia Lumbar spondylosis Obesity (BMI 30-39.9) Intestinal malabsorption following gastrectomy Fatigue Sleep apnea GERD (gastroesophageal reflux disease) Arthritis Anemia Surgical History S/P panniculectomy History of surgery of uterus H/O tubal ligation Hx of section S/P laparoscopic sleeve gastrectomy Family History Father Respiratory arrest Sister Anemia Ovarian cancer Social History Household Members: Family Housing: House Are you a primary rn palliative care to a significant other at home: No Do you presently have visiting nurse or other home services: No 75 years or older and lives alone: No Alcohol intake: current Alcohol intake frequency: holidays/special occasions only Alcohol type: wine Patient Tobacco Use Status: Never used Tobacco e-Cigarette/Vaping Use: Never Used Gender identity: Female Female Reproductive History Menstrual Age of Menarche: 13 Physical Exam Vital Signs: Last Vital Signs Temp 97.7 F 03/07/25 15:29 Pulse 73 03/07/25 15:29 BP 122/58 L 03/07/25 15:29 Pulse Ox 97 03/07/25 15:29 Oxygen Delivery Method Room Air 03/07/25 15:29 Const General: cooperative, comfortable and no acute distress Orientation/consciousness: patient oriented x3 GI Other: panniculectomy incision c/d/i with steri strips in place, umbilicus viable, drain output SS, drain site clean Neuro General: patient oriented x3 Assessment & Plan Assessment & Plan (1) S/P panniculectomy: Code(s): Z98.890 - Other specified postprocedural states Category: Medical (2) S/P laparoscopic sleeve gastrectomy: Code(s): Z98.84 - Bariatric surgery status Category: Medical (3) Overweight: Code(s): E66.3 - Overweight Category: Medical Plan Continue high protein diet. ABX keflex 500 BID x 2 weeks, extended as needed?(at least until drain comes out plus 1 week).? Drain out after consistently 20 mL or less daily.? Abdominal binder at all times except for care x 1 month?MINIMUM. If there are concerns longer.? No driving?until drain out.? No walking outside or exercise for 6 weeks minimum. Walking in the house ok. Assistance getting up for 4 weeks minimum.?No lifting greater than?10 pounds x 2 months and no abdominal exercises x 3 months. RTC 1 week.
--- OUTSIDE RECORDS SUMMARY | 2025-03-07 18:16 | XMS_ITS | Encounter Summary ---
Author Organization [employer] Address [address] [place] [address] [address] [place] [address] Care Team Providers Care Glazing Department Supervisor Name Role Phone Amelie RamP Primary Care Provider [phone] Sasha Bello NP Primary Care Provider [phone] Encounter Details Date Type Department Care Team (Late st Contact Info) Description 12/23/2022 Orders Only [facility] MEDICINE [address], [place] [phone] Amelie Ram FNP [address] [place] [address] Encounter for annual routine gynecological examination (Primary [...] documented as of this encounter Care Teams Glazing Department Supervisor Relationship Specialty Start Date End Date Amelie Ram FNP [address] [place] [address] PCP - General Family Medicine 05/25/22 02/29/24 Sasha Bello NP [address] [place] [address] PCP - General Family Medicine 03/01/24 documented as of this encounter
--- OUTSIDE RECORDS SUMMARY | 2025-03-07 18:16 | XMS_ITS | Clinical Summary ---
Author Organization [employer] Address [address] [facility] [address] [place] [address] Care Team Providers Care Cork Insulator Helper Name Role Phone Sasha Bello NP Primary Care Provider [phone] Allergies No known active allergies Medications * [...] recommended reduction of 20-30% of maintenance calories; electrician outside referral offered. Recommended to decrease soda and [...] Type Department Care Team Description 02/22/2025 Refill [facility] [address] [place] [phone] Sasha Bello NP Cervical pain (neck) 02/20/2025 Orders Only GENERIC EXTERNAL DATA DEPARTMENT Provider, Generic External Data 02/14/2025 Telephone [facility] [address] [place] [address] Sasha Bello NP No Show 02/14/2025 Orders Only GENERIC EXTERNAL DATA DEPARTMENT Provider, Generic External Data 02/13/2025 Telephone [facility] [address] [place] [address] Briana Castro MA CHARTPREP 02/07/2025 Patient Outreach [facility] [address] [place] [address] Sasha Bello NP Pre-visit Planning ([facility] wass already completed) 01/25/2025 Refill [facility] [address] [place] [address] Amelie Ram, SPECIAL EDUCATION PARAPROFESSIONAL Constipation, unspecified constipation type 01/22/2025 Refill [facility] [address] [place] [address] Sasha Bello NP Mild major depression (CMS/HCC); Anxiety 01/11/2025 Telephone [facility] [address] [place] [address] Sasha Bello NP Chart Prep 01/02/2025 Telephone [facility] [address] [place] [address] Sasha Bello NP Prior Authorization 12/24/2024 Refill [facility] [address] [place] [address] Sasha Bello NP Obesity (BMI 30.0-34.9) from [...] 1:34 PM EDT 02/21/2025 8:10 AM EDT [facility] - 02/22/2025 3:10 PM EDT ----- ------- Name: Oc Ramirez Age/Sex: 44/F : 1980 Unit#: [id number] Attend Dr: Harvinder Blank MD Re02/20/25 Status: [facility] Location: [facility] Disch: ----- ------- SPEC : [id number] RECD: 02/21/25 STATUS: DENISE COHEN NUM: [id number] RATNA: 02/20/25 [facility] DR: Harvinder Blank MD ENTERED: 02/21/25 SP [...] fibrous tissue, without evidence of discrete abnormality. Nurse Specialist sections are submitted in cassettes A1 -3. (DTL) IHC S/NG Disclaimer NOTE: Unless otherwise stated, all tissue is formalin-fixed and paraffin-embedded. Some or all of the immunohistochemical tests reported herein may have been developed and their performance characteristics determined by [facility]. They have not been cleared or approved by the U.S. Food and Drug Administration (FDA). However, the FDA has determined that such clearance or approval is not necessary. This laboratory is certified under the Clinical Laboratory Improvement Amendments of 1988 (CLIA) as qualified to perform high complexity clinical laboratory testing. Copies To: Dee Garcia [address] [address] CONTINUED ON NEXT PAGE ----- ------- Name: Oc Ramirez Age/Sex: 44/F : 1980 Unit#: [id number] Attend Dr: Harvinder Blank MD Re02/20/25 Status: [facility] Location: [facility] Disch: ----- ------- SPEC : [id number] RECD: 02/21/25 STATUS: DENISE COHEN NUM: [id number] RATNA: 02/20/25 [facility] DR: Harvinder Blank MD ENTERED: 02/21/25 SP TYPE: Surgical OTHR DR: Dee Garcia [facility] ORDERED: Gross Micro L3 Copies To: (Continued) Harvinder Blank MD [facility] [address] [place] [phone] ----- ------- Signed (signature on file) Hans Adhikari MD 02/22/25 1510 ----- ------- END OF REPORT Generic External Data Provider LAB CYTOLOGY ORDE RABLES Final Result Performing Organization Address [facility] Co de Phone Number [facility] [address] [place] [phone] * (ABNORMAL) Vitamin D, 25-Hydroxy, Total, Immunoassay (02/14/2025 9:49 AM EDT) [facility] Vitamin D 25-OH Total 28.1(L) >30 ng/mL [facility] Comment: Health Based Reference Values*< 20 ng/mL Nfrpurrns41-77 ng/mL Insufficient> 30 ng/mL Sufficient*Elizabeth SCHNEIDER. N [...] ORDERAB LES Final Result Performing Organization Address [facility] Co de Phone Number [facility] [address] [place] [address] [phone] * TSH with Reflex to Free T4 (02/14/2025 9:49 AM EDT) Pathologist [facility] TSH reflex Free T4 1.08 0.32 - 4.0 uIU/mL [facility] 02/14/2025 9:49 AM EDT 02/14/2025 9:49 AM EDT us Generic External Data Provider LAB BLOOD ORDERAB LES Final Result [facility] [address] [place] [address] [phone] * (ABNORMAL) CBC auto differential (02/14/2025 9:49 AM EDT) [facility] White Blood Count 3.9(L) 4.8 - 10.8 X10*3/uL [facility] Red Blood Count 3.72(L) 4.20 - 5.50 X10*6/uL [facility] Hemoglobin 11.2(L) 12.0 - 16.0 g/dl [facility] Hematocrit 33.0(L) 37.0 - 47.0 % [facility] Mean Corpuscular Volume 88.7 80.0 - 98.0 fL [facility] Mean Corpuscular Hemoglobin 30.1 27.0 - 33.0 pg [facility] Mean Corpuscular HGB Conc 33.9 31.0 - 35.0 g/dl [facility] Red Cell Distribution Width 12.5 11.0 - 16.0 % [facility] Platelet Count 244 160 - 400 X10*3/uL [facility] Mean Platelet Volume 9.2(L) 9.4 - 12.3 fL [facility] Neutrophils Percent Auto 50.9 45 - 73 % [facility] Imm Gran Pct Auto 0.3 0.0 - 0.4 % [facility] Lymphocytes Percent Auto 37.7 20 - 40 % [facility] Monocytes Percent Auto 9.3 2 - 11 % [facility] Eosinophils Percent Auto 1.3 0 - 4 % [facility] Basophils Percent Auto 0.5 0 - 2 % [facility] NRBC Pct Auto 0.0 0.0 - 0.2 /100WBC [facility] Neutrophils Absolute Auto 2.0 2.0 - 8.3 x10*3/uL [facility] Imm Gran Abs Auto 0.01 0.00 - 0.03 X10*3/uL [facility] Lymphocytes Absolute Auto 1.5 1.2 - 4.9 X10*3/uL [facility] Monocytes Absolute Auto 0.4 0.1 - 1.2 X10*3/uL [facility] Eosinophils Absolute Auto 0.1 0.0 - 0.4 X10*3/uL [facility] Basophils Absolute Auto 0.0 0.0 - 0.2 X10*3/uL [facility] NRBC Abs Auto 0.000 0.0 - 0.012 X10*3/uL [facility] 02/14/2025 9:49 AM EDT 02/14/2025 9:49 AM EDT us Generic External Data Provider LAB BLOOD ORDERAB LES Final Result Performing Organization Address City/[facility] Co de Phone Number [facility] [address] [place] [address] [phone] * Iron And Total Iron Binding Capacity (02/14/2025 9:49 AM EDT) Iron 49 30 - 160 mcg/dL [facility] Total Iron Binding Capacity 278 228 - 428 mcg/dL [facility] Percent Iron Saturation 18 15 - 50 % [facility] Unsaturated Iron Binding 229 ug/dL [facility] 02/14/2025 9:49 AM EDT 02/14/2025 9:49 AM EDT us Generic External Data Provider LAB BLOOD ORDERAB LES Final Result Performing Organization Address City/State/[facility] de Phone Number [facility] [address] [place] [phone] * Insulin (02/14/2025 9:49 AM EDT) Insulin 5 2 - 29 uU/mL [facility] Comment:This test was perfor med [...] ORDERAB LES Final Result Performing Organization Address [facility] de Phone Number [facility] [address] [place] [phone] * Zinc (02/14/2025 9:49 AM EDT) Zinc 63 60 - 130 mcg/dL [facility] Comment:This test was develo ped and its analytical performancecharacteristics have been determined by [employer], [place]. It hasnot been cleared or approved by the U.S. Food and DrugAdministration. This assay has been validated pursuantto the CLIA regulations and is used for clinicalpurposes.THIS TEST WAS PERFORMED AT:[employer] [place] [id number] STALEY MD,PHD 02/14/2025 9:49 AM EDT 02/14/2025 9:49 AM EDT us Generic External Data Provider LAB BLOOD ORDERAB LES Final Result Performing Organization Address [facility] Co de Phone Number [facility] [address] [place] [phone] * (ABNORMAL) Vitamin A (02/14/2025 9:49 AM EDT) [facility] Vitamin A (Retinol) 24(A) 38 - 98 mcg/dL [facility] Comment:Vitamin supplementat ion within 24 hours prior toblood draw may affect the accuracy of the results.This test was developed and its analytical performancecharacteristics have been determined by [employer] [place]. It hasnot been cleared or approved by the U.S. Food and DrugAdministration. This assay has been validated pursuantto the CLIA regulations and is used for clinicalpurposes.THIS TEST WAS PERFORMED AT:[employer] [place] [address]UBAHNRLJAMES STALEY MD,PHD 02/14/2025 9:49 AM EDT 02/14/2025 9:49 AM EDT Generic External Data Provider LAB BLOOD ORDERAB LES Final Result Performing Organization Address City/[facility]/ZIP Co de Phone Number [facility] [address] [place] [phone] * Partial Thromboplastin Time, Activated (APTT) (02/14/2025 9:49 AM EDT) [facility] Partial Thromboplastin Time 26.8 26.7 - 34.1 SEC [facility] 02/14/2025 9:49 AM EDT 02/14/2025 9:49 AM EDT Generic External Data Provider LAB BLOOD ORDERAB LES Final Result Performing Organization Address City/[facility] [address] [facility]/ZIP Co de Phone Number [facility] [address] [place] [phone] * Prothrombin Time-INR (02/14/2025 9:49 AM EDT) Prothrombin Time 11.8 10.9 - 12.4 SEC [facility] INTERNATIONAL NORM RATIO 1.0 0.9 - 1.1 [facility] Comment:INTERNATIONAL NORMAL IZED RATIO (INR) [...] ORDERAB LES Final Result Performing Organization Address [facility] de Phone Number [facility] [address] [place] [phone] * C-reactive Protein (02/14/2025 9:49 AM EDT) C Reactive Protein 0.11 < or = 0.50 mg/dL [facility] 02/14/2025 9:49 AM EDT 02/14/2025 9:49 AM EDT Generic External Data Provider LAB BLOOD ORDERAB LES Final Result Performing Organization Address [facility] Co de Phone Number [facility] [address] [place] [phone] * Vitamin B1 (02/14/2025 9:49 AM EDT) Vitamin B1 8 8 - 30 nmol/L [facility] Comment:Vitamin supplementat ion within 24 hours prior toblood draw may affect the accuracy of the results.This test was developed and its analytical performancecharacteristics have been determined by [employer], [place]. It hasnot been cleared or approved by the U.S. Food and DrugAdministration. This assay has been validated pursuantto the CLIA regulations and is used for clinicalpurposes.THIS TEST WAS PERFORMED AT:[employer]/[place] [id number] [place] [address]QQVZUNGJAMES STALEY MD,PHD 02/14/2025 9:49 AM EDT 02/14/2025 9:49 AM EDT Generic External Data Provider LAB BLOOD ORDERAB LES Final Result Performing Organization Address City/[facility] [address] [facility]/ZIP Co de Phone Number [facility] [address] [place] [phone] * Hemoglobin A1c (02/14/2025 9:49 AM EDT) Hemoglobin A1c 5.1 <6.0 % [facility] Comment:Hemoglobin A1C Refer ence Range Adults: 4.8 - 6.0 % Non diabetic: < 6.0 % Goal: < 7.0 %Additional Action Suggested: > 8.0 %Note: Hemoglobin A1c results are invalid for patients with abnormal amounts of HbF. Blood transfusions may impact the HbA1c concentration in the patient sample. Estimated Average Glucose 100 mg/dL [facility] Comment:eAG = Estimated ave rage glucose which is %A1C expressed asaverage glucose, using the formula of the R9K-KiqkexiPnuehfx Glucose study (ADAG), Diabetes Care, Vol.31,#8,Jan. 2007 02/14/2025 9:49 AM EDT 02/14/2025 9:49 AM EDT us Generic External Data Provider LAB BLOOD ORDERAB LES Final Result Performing Organization Address [facility] [address] [facility]/ZIP Co de Phone Number [facility] [address] [place] [phone] * Ferritin (02/14/2025 9:49 AM EDT) Ferritin 47 10 - 250 ng/mL [facility] 02/14/2025 9:49 AM EDT 02/14/2025 9:49 AM EDT us Generic External Data Provider LAB BLOOD ORDERAB LES Final Result Performing Organization Address [facility] [address] [facility]/ZIP Co de Phone Number [facility] [address] [place] [phone] * Vitamin B12 (02/14/2025 9:49 AM EDT) Vitamin B12 808 200 - 900 pg/mL [facility] Comment:NORMAL 200-900 PG/ML INDETERMINATE 160-199 PG/ML DEFICIENT < 160 PG/ML 02/14/2025 9:49 AM EDT 02/14/2025 9:49 AM EDT us Generic External Data Provider LAB BLOOD ORDERAB LES Final Result Performing Organization Address [facility] de Phone Number [facility] [address] [place] [phone] * (ABNORMAL) Lipid Panel, Standard (02/14/2025 9:49 AM EDT) Triglycerides 59 <150 mg/dL [facility] Comment:Desirable Triglyceri de: less than 150 mg/dLBorderline High Triglyceride 150-199 mg/dLHigh Triglyceride: 200-499 mg/dLVery High Triglyceride: greater than or equal to 5OO mg/dL Cholesterol 206(H) <200 mg/dL [facility] Comment:Desirable Cholestero l: less than 200 mg/dLBorderline High Cholesterol: 200-239 mg/dLHigh Cholesterol: greater than 239 mg/dL LDL Cholesterol Calculated 129(H) <100 mg/dL [facility] Comment:Desirable LDL: less than 100 mg/dLNear Optimal/Above Optimal LDL: 110- 129 mg/dLBorderline High LDL: 130-159 mg/dLHigh LDL: 160-189 mg/dLVery High LDL: greater than or equal to 190 mg/dL HDL Cholesterol 66 >40 mg/dL [facility] Comment:Desirable HDL: great er than 40 mg/dL Note: This HDL assay may give artificially low results in patients with liver disease. 02/14/2025 9:49 AM EDT 02/14/2025 9:49 AM EDT us Generic External Data Provider LAB BLOOD ORDERAB LES Final Result [facility] [address] [place] [phone] [phone] * Comprehensive Metabolic Panel (02/14/2025 9:49 AM EDT) Sodium 141 135 - 145 mmol/L [facility] Potassium 3.7 3.3 - 5.1 mmol/L [facility] Chloride 106 96 - 108 mmol/L [facility] Carbon Dioxide 27 22 - 29 mmol/L [facility] Anion Gap 12 12 - 20 [facility] Urea Nitrogen (BUN) 12 9 - 16 mg/dL [facility] Creatinine, Serum 0.69 0.5 - 1.4 mg/dL [facility] Creatinine Clr Calc Pharmacy 89.1 [facility] Comment:Provided height and weight: 154.94 cm,63.957 kg.eGFR (calculated from the MDRD study equation) and eCrCl(calculated from the Cockcroft-Gault equation) are based ondifferent parameters and may not yield comparable results.If eCrCl result is absurd, please check patient'sheight/weight. Estimated Glomerular Filt Rate >60 [facility] Comment:Chronic Kidney Disea se: Estimated GFR < 60 mL/min/1.06b6Nnxlut Kidney Disease: Estimated GFR < 15 mL/min/1.73m2 Glucose 83 60 - 115 mg/dL [facility] Calcium 9.0 8.4 - 10.2 mg/dL [facility] Bilirubin, Total 0.5 0.0 - 1.0 mg/dL [facility] Aspartate Amino Transferase 24 5 - 31 U/L [facility] Alanine Aminotransferase 12 0 - 31 U/L [facility] Total Protein 7.4 6.5 - 8.0 g/dL [facility] Albumin Level 4.5 3.5 - 5.0 g/dL [facility] Alkaline Phosphatase 48 39 - 117 U/L [facility] 02/14/2025 9:49 AM EDT 02/14/2025 9:49 AM EDT us Generic External Data Provider LAB BLOOD ORDERAB LES Final Result Performing Organization Address [facility] Co de Phone Number [facility] [address] [place] [phone] * Type and screen (02/14/2025 9:44 AM EDT) Blood Type BP [facility] Antibody Screen NEGATIVE [facility] 02/14/2025 9:44 AM EDT 02/14/2025 10:36 AM EDT Narrative [facility] - 02/14/2025 11:33 AM EDT Witnessed by BEN:Call Blood Bank (ext. [phone]) to band patient on admission.Type and Screen in effect until 2300 on 03/01/2025.Spec expiration changed by LORRI on 02/14/25Reason: PAT us Generic External Data Provider LAB BLOOD BANK TE ST ORDERABLES Final Result Performing Organization Address [facility] [address] [facility] Co de Phone Number [facility] [address] [place] [phone] * Hepatitis C Antibody with Reflex to HCV, RNA, Quantitative, Real-Time PCR (09/21/2024 12:18 PM EDT) Hepatitis C Antibody Nonreactive Nonreactive [facility] Comment:Antibodies to HCV no t detected; does not exclude early acuteHCV infection. Blood Venous blood specimen / Unknown 09/21/2024 12:18 PM EDT 09/21/2024 12:18 PM EDT us Sasha Appram TOOLS AND PARTS ATTENDANT LAB BLOOD ORDERABLES Final Resu lt Performing Organization Address [facility]/ZIP Co de Phone Number [facility] [address] [place] [phone] * HIV-1/2 Antigen and Antibodies, Fourth Generation, with Reflexes (09/21/2024 12:18 PM EDT) HIV AB/AG Nonreactive Nonreactive [facility] Comment:HIV-1 p24 Ag and/or HIV-1/HIV-2 Ab not detected.A test result that is nonreactive does not exclude thepossibility of exposure to or infection with HIV-1 and/orHIV-2. Nonreactive results in this assay for individualswith prior exposure to HIV-1 and/or HIV-2 may be due toantigen and antibody levels that are below the limit ofdetection of this assay.The Therma-Wave HIV Ag/Ab Combo assay result andsupplemental assay results should be interpreted inconjunction with the patient's clinical presentation,history and other laboratory results. If the results areinconsistent with clinical evidence, additional testing issuggested to confirm the result. Blood Venous blood specimen / Unknown 09/21/2024 12:18 PM EDT 09/21/2024 12:18 PM EDT Sasha Bello TOOLS AND PARTS ATTENDANT LAB BLOOD ORDERABLES Final Resu lt Performing Organization Address [facility] Co de Phone Number [facility] [address] [place] [phone] * BI Mammogram Screening Tomosynthesis Bilateral (03/07/2024 9:45 AM EDT) Anatomical Region Laterality Modality Breast Bilateral Mammography 03/07/2024 9:45 AM EDT Narrative 03/21/2024 9:24 AM EDT [facility] [address] [place] [address] Mammography Report Signed Patient: Oc Ramirez MR#: [id number] 80 : 1980 Acct:[id number] Age/Sex: 43 / F ADM Date: 03/07/24 Loc: MAMMO Attending Dr: Amelie Ram TOOLS AND PARTS ATTENDANT Ordering Physician: Amelie Ram NP Results: 1Negativ e Date of Service: 03/07/24 Follow Up: 1 Year From Orig inal Mammogram Procedure(s): MM tomosynthesis screening BI Accession Number(s): [id number] cc: Amelie Ram NP EXAMINATION: MM SCREENING [...] 03/21/24 0921 DD/ 0945 TD/TT: 03/07/24 1003 Ocean Lifeguard Specialist: Procedure Note Donotuseinterpreter, Image - 03/21/2024 [place] [facility] [address] [place], [place] [address] Mammography Report Signed Patient: Oc RamirezMR#: [id number] 80 : 1980Acct:[id number] Age/Sex: 43 / FADM Date: 03/07/24 Loc: MAMMO Attending Dr: Amelie Ram NP Ordering Physician: Amelie Ram NPResults: 1Negativ e Date of Service: 03/07/24Follow Up: 1 Year From Orig ina Mammogram Procedure(s): MM tomosynthesis screening BI Accession Number(s): [id number] cc: Amelie Ram NP EXAMINATION: MM SCREENING [...] 03/21/24 0921 DD/ 0945 TD/TT: 03/07/24 1003 Ocean Lifeguard Specialist: Amelie Ram SPECIAL EDUCATION PARAPROFESSIONAL IM BI PROCEDURES Edited Result - Final * (ABNORMAL) THINPREP PAP (03/04/2021 10:51 AM EDT) Clinical Information: None given [facility] COMMENT SEE COMMENT [facility] [...] along with historic and current clinical information. Director Of Content Marketing : SEE COMMENT [facility] Comment: KN, CT(ASCP) CT screening location: [address] [address] General Categorization: EPITHELIAL CELL ABNORMALITY(A) [facility] Interpretation/R esult: Atypical Squamous Cells of Undetermined Significance (ASC-US)(A) [facility] LMP: 02/20/21 [facility] PATHOLOGIST: SEE COMMENT [facility] Comment: Thomas Atkinson M.D., Board Certified in Anatomic and Clinical Pathology (electronic signature) Consulting Pathologist [facility] [address] [place] [address] Prev. BX: NONE GIVEN [facility] Prev. PAP: NONE GIVEN [facility] SOURCE: None given [facility] Statement Of Adequacy: SEE COMMENT [facility] Comment: Satisfactory for evaluation. Endocervical/transformation zone component absent. 03/04/2021 10:5 1 AM EDT Ju [facility] LAB PATHOLOGY ORDERABLES Final Result Performing Organization Address [facility] de Phone Number [facility] [address] * HPV mRNA E6/E7 (03/04/2021 10:51 AM EDT) HPV nRNA E6/E7 Not Detected Not Detected [facility] Comment: Methodology: Assistant Floor Covering Printer-Mediated Amplification This assay detects E6/E7 viral messenger RNA (mRNA) from 14 high-risk HPV types (16,18,31,33,35,39,45,51,52,56,58,59,66,68). The analytical performance characteristics of this assay have been determined by [employer]. The modifications have not been cleared or approved by the FDA. This assay has been validated pursuant to the CLIA regulations and is used for clinical purposes. For additional information, please refer to http://education.[employer].com/faq/NVD112n8 (This link if provided for information/ educational purposes only.) 03/04/2021 10:5 1 AM EDT Ju [facility] LAB BLOOD ORDERABLES Milka l Result Performing Organization Address [facility] Co de Phone Number [facility] [address] from Last 3 Months or Most Recently Relevant to Health Maintenance [place] [place] [address] C3 Care Teams Cork Insulator Helper Relationship Specialty Start Date End Date Sasha Bello NP [address] [place] [address] PCP - General Family Medicine 03/01/24
--- OUTSIDE RECORDS SUMMARY | 2025-03-07 18:16 | XMS_ITS | Encounter Summary ---
Author Organization [employer] Address [address] [place] [address] 7 [place] [address] Care Team Providers Care Tax Form Preparer Name Role Phone Amelie RamP Primary Care Provider [phone] Sasha Bello NP Primary Care Provider [phone] Reason for Visit * Reason Onset Date Comments Referral 12/21/2022 Encounter Details Date Type Department Care Team (Late st Contact Info) Description 12/21/2022 Telephone [facility] MEDICINE [address] [place], [place] [phone] Amelie Ram FNP [address] [place] [address] Referral Social History Tobacco Use Types Packs/Day [...] from pt requesting a referral Specialty: Community Energy And Sustainability Manager Location: [address] [place] [address] Date&Time:N/A Dynamometer Tester Engine:N/a Specialty:[facility] Location: [address] [place] [address] [place] [address] Date&Time: n/a Dynamometer Tester Engine: N/a documented in this encounter Plan of Treatment Not on file documented as of this encounter Visit Diagnoses Not on filedocumented in this encounter Additional Health Concerns Assessment Noted Time PHQ-9 Depression Total Score: 0 11/26/19 23 10:22 AM EDT documented as of this encounter Care Teams Tax Form Preparer Relationship Specialty Start Date End Date Amelie Ram FNP [address] [place] [address] PCP - General Family Medicine 05/25/22 02/29/24 Sasha Bello NP 230 [place] [address] PCP - General Family Medicine 03/01/24 documented as of this encounter
--- OUTSIDE RECORDS SUMMARY | 2025-03-07 18:16 | XMS_ITS | Clinical Summary ---
Author Organization [address] [place] [address] Address [address] [place] [address] Phone Care Team Providers Care Hair Stylist Name Role Phone EdmundAngelina NANCY Primary Care Provider [phone] Allergies No known active allergies Medications ascorbic [...] disc herniation with radiculopathy 2023 Morbid obesity (CMS/[facility] V24, [facility] V28) 2023 Pain in the coccyx 04/20/2024 Papular eruption 04/20/2024 Seasonal allergic rhinitis 04/20/2024 Severe recurrent major depre ssion with psychotic features ([facility] V24, [facility] V28) 04/20/2024 Encounters Date Type Department Care Team Description 01/11/2025 1:45 PM EDT Office Visit [facility] [place] [address] [phone] Kev Aponte DPM Plantar fascial fibromatosis (Primary [...] 04/11/2025 10:15 AM EDT Office Visit Orthopedic [facility] [address] [phone] Kev Aponte DPM [address] [phone] Health Maintenance Due Date Last Done Comments [...] Months Insurance MEDICAID - [place] Care Teams Hair Stylist Relationship Specialty Start Date End Date Angelina Shaffer NP [address] [phone] PCP - General 03/03/24
--- OUTSIDE RECORDS SUMMARY | 2025-03-07 18:16 | XMS_ITS | Encounter Summary ---
Author Organization [employer] Address [address] [place] [address] [address] [place] [address] Care Team Providers Care Curtain Cutter Hand Name Role Phone Amelie Ram Primary Care Provider [phone] Sasha Bello NP Primary Care Provider [phone] Reason for Referral * Imaging (Routine) - Closed Specialty Diagnoses / Procedures Referred By Contac t Referred To Contact Radiology Diagnoses Breast cancer screening by mammogram Procedures BI Mammogram Screening Bilateral Amelie Ram FNP 230 [place] [address] Phone: tel: fax: [address] Phone: tel: fax: Referral ID Status Reason Start Date Expiration Date Visits Re quested Visits Authorized [id number] Closed 01/06/2023 01/06/2024 1 1 Encounter Details Date Type Department Care Team (Late st Contact Info) Description 01/06/[address] [facility] MEDICINE [address] [place] [address] Amelie Ram FNP [address] [place] [address] Breast cancer screening by mammogram (Primary Dx) [...] documented as of this encounter Care Teams Curtain Cutter Hand Relationship Specialty Start Date End Date Amelie Ram FNP [address] [place] [address] PCP - General Family Medicine 05/25/22 02/29/24 Sasha Bello NP [address] [place] [address] PCP - General Family Medicine 03/01/24 documented as of this encounter
--- OUTSIDE RECORDS SUMMARY | 2025-03-07 18:16 | XMS_ITS | Encounter Summary ---
Author Organization [employer] Address [address] [facility] [address] [place] [address] Care Team Providers Care Facilities Administrator Name Role Phone Sasha Bello NP Primary Care Provider [phone] Reason for Visit * Reason Comments Med Refill Encounter Details Date Type Department Care Team ([facility] st Contact Info) Description 09/04/2024 Refill [facility] MEDICINE 230 [place] [address] Sasha Bello NP 230 [place] [address] Acute pain of right knee Social History [...] documented as of this encounter Care Teams Facilities Administrator Relationship Specialty Start Date End Date Sasha Bello NP [address] [place] [address] PCP - General Family Medicine 03/01/24 documented as of this encounter
--- OUTSIDE RECORDS SUMMARY | 2025-03-07 18:16 | XMS_ITS | Encounter Summary ---
Author Organization [employer] Address [address] [facility] 7 [place] [address] Care Team Providers Care Side Seam Machine Operator Name Role Phone Amelie Ram SPINDLE CARVER Primary Care Provider [phone] Sasha Bello NP Primary Care Provider [phone] Reason for Visit * Reason Onset Date Comments triage 08/18/2022 Encounter Details Date Type Department Care Team (Late st Contact Info) Description 08/18/2022 Telephone [facility] MEDICINE [address] [place] [address] Amelie Ram FNP [address] [place] [address] triage Social History Tobacco Use Types Packs/Day [...] accepted this outcome Please contact pt at [phone] Polish Speaker documented in this encounter Plan of Treatment Not on file documented as of this encounter Visit Diagnoses Not on filedocumented in this encounter Care Teams Side Seam Machine Operator Relationship Specialty Start Date End Date Amelie Ram FNP [address] [place] [address] PCP - General Family Medicine 05/25/22 02/29/24 Sasha Bello NP 230 [place] [address] PCP - General Family Medicine 03/01/24 documented as of this encounter
--- OUTSIDE RECORDS SUMMARY | 2025-03-07 18:16 | XMS_ITS | Encounter Summary ---
Author Organization [employer] Address 75 [facility] [address] [place] [address] Care Team Providers Care Hay Buckler Name Role Phone Sasha Bello NP Primary Care Provider [phone] Encounter Details Date Type Department Care Team ([facility] st Contact Info) Description 10/31/2024 Telephone [facility] MEDICINE [address] [place], [place] [phone] Sasha Bello NP [address] [place], [place] [phone] Social History Tobacco Use Types Packs/Day Years [...] documented as of this encounter Care Teams Hay Buckler Relationship Specialty Start Date End Date Sasha Bello NP [address] [place] [address] PCP - General Family Medicine 03/01/24 documented as of this encounter
--- OUTSIDE RECORDS SUMMARY | 2025-03-07 18:16 | XMS_ITS | Encounter Summary ---
Author Organization [employer] Address [address] [facility] 7t [place] [address] Care Team Providers Care Station Master Name Role Phone Sasha Bello NP Primary Care Provider [phone] Encounter Details Date Type Department Care Team (Late st Contact Info) Description 11/02/2024 Orders Only [facility] MEDICINE [address] [place], [place] [phone] Sasha Bello NP 230 [place], [place] [phone] Obesity (BMI 30.0-34.9) Social History Tobacco Use [...] documented as of this encounter Care Teams Station Master Relationship Specialty Start Date End Date Sasha Bello NP [address] [place] [address] PCP - General Family Medicine 03/01/24 documented as of this encounter
--- OUTSIDE RECORDS SUMMARY | 2025-03-07 18:16 | XMS_ITS | Clinical Summary ---
Author Organization [facility] Address [address] [place] [address] Care Team Providers Care Honey Producer Name Role Phone Unavailable Primary Care Provider [...] Description 02/27/2025 / TELEPHONE [facility] [address] [place] [phone] Reji Mann, PMHNP 01/23/2025 / TELEPHONE [facility] [address] [place] [phone] Reji Mann, PMHNP from Last 3 Months [...] Upcoming Encounters Date Type Department Care Team ([facility] st Contact Info) Description 05/15/2025 12:00 PM EST Behavioral Health Visit [facility] [address] [place] [phone] Reji Mann, PMHNP [address] [place] [address] [place] [phone] Health Maintenance Due Date Last Done Comments Anxiety Screening 1980 HPV Screening 1980 Pap + HPV 1980 Tobacco Screening 1980 Relationship Safety Screening/Counseling 1995 Hypertension Screening (#1) 1998 Cervical Cancer Screening 2001 Pap Smear 2001 Breast Cancer Screening (Mammogram) 2020 Alcohol and Drug Screen 06/28/2024 Depression Annual Screen 06/28/2024 [id number] ( season) 2025 10/23/2021, 09/02/2020, 08/12/2020 Imm-Influenza [...] Discontinued Vaginal Pap Discontinued Vulvoscopy Discontinued Insurance [facility]
--- OUTSIDE RECORDS SUMMARY | 2025-03-07 18:16 | XMS_ITS | Encounter Summary ---
Author Organization [employer] Address [address] [facility] 7 [place] [address] Care Team Providers Care Primary Counselor Name Role Phone Amelie RamP Primary Care Provider [phone] Sasha Bello NP Primary Care Provider [phone] Reason for Visit * Reason Onset Date Comments 09/0909/10/2023 Encounter Details Date Type Department Care Team ([facility] st Contact Info) Description 09/10/2023 Telephone [facility] MEDICINE [address] [place], [place] [phone] Amelie Ram FNP [address] [place], [place] [phone] 09/09 Social History Tobacco Use Types Packs/Day [...] documented as of this encounter Care Teams Primary Counselor Relationship Specialty Start Date End Date Amelie Ram FNP [address] [place] [address] PCP - General Family Medicine 05/25/22 02/29/24 Sasha Bello NP [address] [place] [address] PCP - General Family Medicine 03/01/24 documented as of this encounter
== END 2025-03-07 15:54 | disposition home or self-care (01) ==
LOC: HO.HBS 15:15
PROVIDERS: PCP Nurse Practitioner; Visit Provider Physician Assistant Surgical
DX: E66.3 Overweight (principal); Z68.26 Body mass index [BMI] 26.0-26.9, adult; Z98.890 Other specified postprocedural states; Z98.84 Bariatric surgery status
CPT/HCPCS: 99024

== ENCOUNTER → 2025-03-07 15:14 | Outpatient (BNVA) | payer MEDICAID, SELFPAY | PROVIDERS: PCP Nurse Practitioner; Visit Provider Physician Assistant Surgical | DX: Z48.817 Encounter for surgical aftercare following surgery on the skin and subcutaneous tissue (principal); E66.3 Overweight; Z98.84 Bariatric surgery status; Z79.2 Long term (current) use of antibiotics | CPT/HCPCS: 99212 ==

== ENCOUNTER 2025-03-13 09:04 | Outpatient (REF) | payer MEDICAID, SELFPAY ==
--- NOTE | ~2025-03-13 | MM_ITS ---
EXAMINATION: MM SCREENING DIGITAL BREAST TOMOSYNTHESIS, BILATERAL CLINICAL INFORMATION: Screening. Asymptomatic. COMPARISON: Comparison made to multiple prior, most recent March 07, 2024, and most remote June 06, 2020. TECHNIQUE: Digital breast tomosynthesis is performed in mediolateral oblique and craniocaudal views along with computer-aided detection (CAD). Synthesized 2D images are generated from the tomosynthesis. FINDINGS: BREAST COMPOSITION: There are scattered areas of fibroglandular density (ACR BI-RADS breast composition Category b). BILATERAL BREASTS: No significant masses, suspicious calcifications or other abnormalities are seen in either breast. MM/MM tomosynthesis screening BI IMPRESSION: BILATERAL BREASTS: Negative, no mammographic evidence of malignancy. Normal interval follow-up is recommended in 12 months. ASSESSMENT: BI-RADS 1 - Negative RECOMMENDATION: Routine annual mammography screening. FOLLOW-UP: 1 year F/U This examination should not preclude the clinical evaluation of a suspicious palpable abnormality. This patient's information was entered into a reminder system with a target due date for their next mammogram. Electronically signed by: Yoav Gonzalez MD 03/13/2025 07:34 PM EDT
--- OUTSIDE RECORDS SUMMARY | 2025-03-13 11:22 | XMS_ITS | Encounter Summary ---
Author Organization [employer] Address [address] [facility] [address] [place] [address] Care Team Providers Care Triage Register Nurse Name Role Phone Sasha Bello NP Primary Care Provider [phone] Reason for Visit * Reason Comments Med Refill Encounter Details Date Type Department Care Team ([facility] st Contact Info) Description 09/04/2024 Refill [facility] MEDICINE [address] [place] [address] Sasha Bello NP [address] [place] [address] Acute pain of right knee Social History [...] documented as of this encounter Care Teams Triage Register Nurse Relationship Specialty Start Date End Date Sasha Bello NP [address] [place] [address] PCP - General Family Medicine 03/01/24 documented as of this encounter
--- OUTSIDE RECORDS SUMMARY | 2025-03-13 11:22 | XMS_ITS | Encounter Summary ---
Author Organization [employer] Address [address] [place] [address] 7 [place] [address] Care Team Providers Care Fabric Cutter Name Role Phone Amelie Ram Primary Care Provider [phone] Sasha Bello NP Primary Care Provider [phone] Reason for Referral * Imaging (Routine) - Closed Specialty Diagnoses / Procedures Referred By Contac t Referred To Contact Radiology Diagnoses Breast cancer screening by mammogram Procedures BI Mammogram Screening Bilateral Amelie Ram FNP [address] [place] [address] Phone: tel: fax: [address] Phone: tel: fax: Referral ID Status Reason Start Date Expiration Date Visits Re quested Visits Authorized [id number] Closed 01/06/2023 01/06/2024 1 1 Encounter Details Date Type Department Care Team (Late st Contact Info) Description 01/06/2023 Orders Only [facility] MEDICINE [address] [place] [address] Amelie Ram FNP [address] [place] [address] Breast cancer screening by mammogram (Primary Dx) [...] documented as of this encounter Care Teams Fabric Cutter Relationship Specialty Start Date End Date Amelie Ram FNP [address] [place] [address] PCP - General Family Medicine 05/25/22 02/29/24 Sasha Bello NP 230 [place] [address] PCP - General Family Medicine 03/01/24 documented as of this encounter
--- OUTSIDE RECORDS SUMMARY | 2025-03-13 11:22 | XMS_ITS | Encounter Summary ---
Author Organization [employer] Address [address] [place] [address] 7 [place] [address] Care Team Providers Care Torts Law Professor Name Role Phone Amelie Ram CONSERVATION TECHNICIAN Primary Care Provider [phone] Sasha Bello NP Primary Care Provider [phone] Reason for Visit * Reason Onset Date Comments triage 08/18/2022 Encounter Details Date Type Department Care Team (Late st Contact Info) Description 08/18/2022 Telephone [facility] MEDICINE [address] [place] [address] Amelie Ram FNP 230 [place] [address] triage Social History Tobacco Use Types Packs/Day [...] accepted this outcome Please contact pt at [phone] Persian Speaker documented in this encounter Plan of Treatment Not on file documented as of this encounter Visit Diagnoses Not on filedocumented in this encounter Care Teams Torts Law Professor Relationship Specialty Start Date End Date Amelie Ram FNP 230 [place] [address] PCP - General Family Medicine 05/25/22 02/29/24 Sasha Bello NP 230 [place] [address] PCP - General Family Medicine 03/01/24 documented as of this encounter
--- OUTSIDE RECORDS SUMMARY | 2025-03-13 11:22 | XMS_ITS | Clinical Summary ---
Author Organization [employer] Address [address] [facility] [address] [address] [place] [address] Care Team Providers Care Track Rider Name Role Phone Sasha Bello NP Primary Care Provider [phone] Allergies No known active allergies Medications [...] recommended reduction of 20-30% of maintenance calories; seismic survey assistant referral offered. Recommended to decrease soda and [...] Type Department Care Team Description 02/22/2025 Refill [facility] [address] [place] [phone] Sasha Bello NP Cervical pain (neck) 02/20/2025 Orders Only GENERIC EXTERNAL DATA DEPARTMENT Provider, Generic External Data 02/14/2025 Telephone [facility] [address] [place] [address] Sasha Bello NP No Show 02/14/2025 Orders Only GENERIC EXTERNAL DATA DEPARTMENT Provider, Generic External Data 02/13/2025 Telephone [facility] [address] [place] [address] Briana Castro MA CHARTPREP 02/07/2025 Patient Outreach [facility] [address] [place] [address] Sasha Bello NP Pre-visit Planning ([facility] wass already completed) 01/25/2025 Refill [facility] [address] [place] [address] Amelie Ram, FLOOR LAYER Constipation, unspecified constipation type 01/22/2025 Refill [facility] [address] [place] [address] Sasha Bello NP Mild major depression (CMS/HCC); Anxiety 01/11/2025 Telephone [facility] [address] [place] [address] Sasha Bello NP Chart Prep 01/02/2025 Telephone [facility] [address] [place] [address] Sasha Bello NP Prior Authorization 12/24/2024 Refill [facility] [address] [place] [address] Sasha Bello NP Obesity (BMI 30.0-34.9) from [...] 1:34 PM EDT 02/21/2025 8:10 AM EDT [facility]S - 02/22/2025 3:10 PM EDT ----- ------- Name: Oc Ramirez Age/Sex: 44/F : 1980 Unit#: [id number] Attend Dr: Harvinder Blank MD Re02/20/25 Status: [facility] Location: [facility] Disch: ----- ------- SPEC : [id number] RECD: 02/21/25 STATUS: DENISE COHEN NUM: [id number] RATNA: 02/20/25 [facility] DR: Harvinder Blank MD ENTERED: 02/21/25 SP [...] fibrous tissue, without evidence of discrete abnormality. Field Agronomist sections are submitted in cassettes A1 -3. (DTL) IHC S/NG Disclaimer NOTE: Unless otherwise stated, all tissue is formalin-fixed and paraffin-embedded. Some or all of the immunohistochemical tests reported herein may have been developed and their performance characteristics determined by [facility]. They have not been cleared or approved by the U.S. Food and Drug Administration (FDA). However, the FDA has determined that such clearance or approval is not necessary. This laboratory is certified under the Clinical Laboratory Improvement Amendments of 1988 (CLIA) as qualified to perform high complexity clinical laboratory testing. Copies To: Dee Garcia [address] [address] CONTINUED ON NEXT PAGE ----- ------- Name: Oc Ramirez Age/Sex: 44/F : 1980 Unit#: [id number] Attend Dr: Harvinder Blank MD Re02/20/25 Status: [facility] Location: [facility] Disch: ----- ------- SPEC : [id number] RECD: 02/21/25 STATUS: DENISE COHEN NUM: [id number] RATNA: 02/20/25 [facility] DR: Harvinder Blank MD ENTERED: 02/21/25 SP TYPE: Surgical OTHR DR: Dee Garcia [facility] ORDERED: Gross Micro L3 Copies To: (Continued) Harvinder Blank MD [facility] [address] [place] [phone] ----- ------- Signed (signature on file) Hans Adhikari MD 02/22/25 1510 ----- ------- END OF REPORT Generic External Data Provider LAB CYTOLOGY ORDE RABLES Final Result Performing Organization Address [facility] Co de Phone Number [facility] [address] [place] [phone] * (ABNORMAL) Vitamin D, 25-Hydroxy, Total, Immunoassay (02/14/2025 9:49 AM EDT) [facility] Vitamin D 25-OH Total 28.1(L) >30 ng/mL [facility] Comment: Health Based Reference Values*< 20 ng/mL Gjqxeaduw31-37 ng/mL Insufficient> 30 ng/mL Sufficient*Elizabeth SCHNEIDER. N [...] ORDERAB LES Final Result Performing Organization Address [facility] Co de Phone Number [facility] [address] [place] [address] [phone] * TSH with Reflex to Free T4 (02/14/2025 9:49 AM EDT) Pathologist [facility] TSH reflex Free T4 1.08 0.32 - 4.0 uIU/mL [facility] 02/14/2025 9:49 AM EDT 02/14/2025 9:49 AM EDT us Generic External Data Provider LAB BLOOD ORDERAB LES Final Result [facility] [address] [place] [address] [phone] * (ABNORMAL) CBC auto differential (02/14/2025 9:49 AM EDT) [facility] White Blood Count 3.9(L) 4.8 - 10.8 X10*3/uL [facility] Red Blood Count 3.72(L) 4.20 - 5.50 X10*6/uL [facility] Hemoglobin 11.2(L) 12.0 - 16.0 g/dl [facility] Hematocrit 33.0(L) 37.0 - 47.0 % [facility] Mean Corpuscular Volume 88.7 80.0 - 98.0 fL [facility] Mean Corpuscular Hemoglobin 30.1 27.0 - 33.0 pg [facility] Mean Corpuscular HGB Conc 33.9 31.0 - 35.0 g/dl [facility] Red Cell Distribution Width 12.5 11.0 - 16.0 % [facility] Platelet Count 244 160 - 400 X10*3/uL [facility] Mean Platelet Volume 9.2(L) 9.4 - 12.3 fL [facility] Neutrophils Percent Auto 50.9 45 - 73 % [facility] Imm Gran Pct Auto 0.3 0.0 - 0.4 % [facility] Lymphocytes Percent Auto 37.7 20 - 40 % [facility] Monocytes Percent Auto 9.3 2 - 11 % [facility] Eosinophils Percent Auto 1.3 0 - 4 % [facility] Basophils Percent Auto 0.5 0 - 2 % [facility] NRBC Pct Auto 0.0 0.0 - 0.2 /100WBC [facility] Neutrophils Absolute Auto 2.0 2.0 - 8.3 x10*3/uL [facility] Imm Gran Abs Auto 0.01 0.00 - 0.03 X10*3/uL [facility] Lymphocytes Absolute Auto 1.5 1.2 - 4.9 X10*3/uL [facility] Monocytes Absolute Auto 0.4 0.1 - 1.2 X10*3/uL [facility] Eosinophils Absolute Auto 0.1 0.0 - 0.4 X10*3/uL [facility] Basophils Absolute Auto 0.0 0.0 - 0.2 X10*3/uL [facility] NRBC Abs Auto 0.000 0.0 - 0.012 X10*3/uL [facility] 02/14/2025 9:49 AM EDT 02/14/2025 9:49 AM EDT us Generic External Data Provider LAB BLOOD ORDERAB LES Final Result Performing Organization Address City/[facility] Co de Phone Number [facility] [address] [place] [address] [phone] * Iron And Total Iron Binding Capacity (02/14/2025 9:49 AM EDT) Iron 49 30 - 160 mcg/dL [facility] Total Iron Binding Capacity 278 228 - 428 mcg/dL [facility] Percent Iron Saturation 18 15 - 50 % [facility] Unsaturated Iron Binding 229 ug/dL [facility] 02/14/2025 9:49 AM EDT 02/14/2025 9:49 AM EDT us Generic External Data Provider LAB BLOOD ORDERAB LES Final Result Performing Organization Address City/State/[facility] de Phone Number [facility] [address] [place] [phone] * Insulin (02/14/2025 9:49 AM EDT) Insulin 5 2 - 29 uU/mL [facility] Comment:This test was perfor med using [...] ORDERAB LES Final Result Performing Organization Address [facility] de Phone Number [facility] [address] [place] [phone] * Zinc (02/14/2025 9:49 AM EDT) Zinc 63 60 - 130 mcg/dL [facility] Comment:This test was develo ped and its analytical performancecharacteristics have been determined by [employer] [place], [place]. It hasnot been cleared or approved by the U.S. Food and DrugAdministration. This assay has been validated pursuantto the CLIA regulations and is used for clinicalpurposes.THIS TEST WAS PERFORMED AT:[id number] [place] [id number] STALEY MD,PHD 02/14/2025 9:49 AM EDT 02/14/2025 9:49 AM EDT us Generic External Data Provider LAB BLOOD ORDERAB LES Final Result Performing Organization Address [facility] Co de Phone Number [facility] [address] [place] [phone] * (ABNORMAL) Vitamin A (02/14/2025 9:49 AM EDT) [facility] Vitamin A (Retinol) 24(A) 38 - 98 mcg/dL [facility] Comment:Vitamin supplementat ion within 24 hours prior toblood draw may affect the accuracy of the results.This test was developed and its analytical performancecharacteristics have been determined by [employer] [place], [place]. It hasnot been cleared or approved by the U.S. Food and DrugAdministration. This assay has been validated pursuantto the CLIA regulations and is used for clinicalpurposes.THIS TEST WAS PERFORMED AT:[id number] [place] [id number] STALEY MD,PHD 02/14/2025 9:49 AM EDT 02/14/2025 9:49 AM EDT Generic External Data Provider LAB BLOOD ORDERAB LES Final Result Performing Organization Address City/[facility]/ZIP Co de Phone Number [facility] [address] [place] [phone] * Partial Thromboplastin Time, Activated (APTT) (02/14/2025 9:49 AM EDT) [facility] Partial Thromboplastin Time 26.8 26.7 - 34.1 SEC [facility] 02/14/2025 9:49 AM EDT 02/14/2025 9:49 AM EDT Generic External Data Provider LAB BLOOD ORDERAB LES Final Result Performing Organization Address City/[facility]/ZIP Co de Phone Number [facility] [address] [place] [phone] * Prothrombin Time-INR (02/14/2025 9:49 AM EDT) Prothrombin Time 11.8 10.9 - 12.4 SEC [facility] INTERNATIONAL NORM RATIO 1.0 0.9 - 1.1 [facility] Comment:INTERNATIONAL NORMAL IZED RATIO (INR) REFERENCE [...] ORDERAB LES Final Result Performing Organization Address [facility] de Phone Number [facility] [address] [place] [phone] * C-reactive Protein (02/14/2025 9:49 AM EDT) C Reactive Protein 0.11 < or = 0.50 mg/dL [facility] 02/14/2025 9:49 AM EDT 02/14/2025 9:49 AM EDT Generic External Data Provider LAB BLOOD ORDERAB LES Final Result Performing Organization Address [facility] Co de Phone Number [facility] [address] [place] [phone] * Vitamin B1 (02/14/2025 9:49 AM EDT) Vitamin B1 8 8 - 30 nmol/L [facility] Comment:Vitamin supplementat ion within 24 hours prior toblood draw may affect the accuracy of the results.This test was developed and its analytical performancecharacteristics have been determined by [employer] [place], [place]. It hasnot been cleared or approved by the U.S. Food and DrugAdministration. This assay has been validated pursuantto the CLIA regulations and is used for clinicalpurposes.THIS TEST WAS PERFORMED AT:[id number] [place] [address]ZCLWZOVJAMES STALEY MD,PHD 02/14/2025 9:49 AM EDT 02/14/2025 9:49 AM EDT Generic External Data Provider LAB BLOOD ORDERAB LES Final Result Performing Organization Address City/[facility]/ZIP Co de Phone Number [facility] [address] [place] [phone] * Hemoglobin A1c (02/14/2025 9:49 AM EDT) Hemoglobin A1c 5.1 <6.0 % [facility] Comment:Hemoglobin A1C Refer ence Range Adults: 4.8 - 6.0 % Non diabetic: < 6.0 % Goal: < 7.0 %Additional Action Suggested: > 8.0 %Note: Hemoglobin A1c results are invalid for patients with abnormal amounts of HbF. Blood transfusions may impact the HbA1c concentration in the patient sample. Estimated Average Glucose 100 mg/dL [facility] Comment:eAG = Estimated ave rage glucose which is %A1C expressed asaverage glucose, using the formula of the O4Z-PgtvqprKjadjip Glucose study (ADAG), Diabetes Care, Vol.31,#8,Jan. 2007 02/14/2025 9:49 AM EDT 02/14/2025 9:49 AM EDT us Generic External Data Provider LAB BLOOD ORDERAB LES Final Result Performing Organization Address [facility]/ZIP Co de Phone Number [facility] [address] [place] [phone] * Ferritin (02/14/2025 9:49 AM EDT) Ferritin 47 10 - 250 ng/mL [facility] 02/14/2025 9:49 AM EDT 02/14/2025 9:49 AM EDT us Generic External Data Provider LAB BLOOD ORDERAB LES Final Result Performing Organization Address [facility]/ZIP Co de Phone Number [facility] [address] [place] [phone] * Vitamin B12 (02/14/2025 9:49 AM EDT) Vitamin B12 808 200 - 900 pg/mL [facility] Comment:NORMAL 200-900 PG/ML INDETERMINATE 160-199 PG/ML DEFICIENT < 160 PG/ML 02/14/2025 9:49 AM EDT 02/14/2025 9:49 AM EDT us Generic External Data Provider LAB BLOOD ORDERAB LES Final Result Performing Organization Address [facility] de Phone Number [facility] [address] [place] [phone] * (ABNORMAL) Lipid Panel, Standard (02/14/2025 9:49 AM EDT) Triglycerides 59 <150 mg/dL [facility] Comment:Desirable Triglyceri de: less than 150 mg/dLBorderline High Triglyceride 150-199 mg/dLHigh Triglyceride: 200-499 mg/dLVery High Triglyceride: greater than or equal to 5OO mg/dL Cholesterol 206(H) <200 mg/dL [facility] Comment:Desirable Cholestero l: less than 200 mg/dLBorderline High Cholesterol: 200-239 mg/dLHigh Cholesterol: greater than 239 mg/dL LDL Cholesterol Calculated 129(H) <100 mg/dL [facility] Comment:Desirable LDL: less than 100 mg/dLNear Optimal/Above Optimal LDL: 110- 129 mg/dLBorderline High LDL: 130-159 mg/dLHigh LDL: 160-189 mg/dLVery High LDL: greater than or equal to 190 mg/dL HDL Cholesterol 66 >40 mg/dL [facility] Comment:Desirable HDL: great er than 40 mg/dL Note: This HDL assay may give artificially low results in patients with liver disease. 02/14/2025 9:49 AM EDT 02/14/2025 9:49 AM EDT us Generic External Data Provider LAB BLOOD ORDERAB LES Final Result [facility] [address] [place] [phone] [phone] * Comprehensive Metabolic Panel (02/14/2025 9:49 AM EDT) Sodium 141 135 - 145 mmol/L [facility] Potassium 3.7 3.3 - 5.1 mmol/L [facility] Chloride 106 96 - 108 mmol/L [facility] Carbon Dioxide 27 22 - 29 mmol/L [facility] Anion Gap 12 12 - 20 [facility] Urea Nitrogen (BUN) 12 9 - 16 mg/dL [facility] Creatinine, Serum 0.69 0.5 - 1.4 mg/dL [facility] Creatinine Clr Calc Pharmacy 89.1 [facility] Comment:Provided height and weight: 154.94 cm,63.957 kg.eGFR (calculated from the MDRD study equation) and eCrCl(calculated from the Cockcroft-Gault equation) are based ondifferent parameters and may not yield comparable results.If eCrCl result is absurd, please check patient'sheight/weight. Estimated Glomerular Filt Rate >60 [facility] Comment:Chronic Kidney Disea se: Estimated GFR < 60 mL/min/1.51d6Qcjsbi Kidney Disease: Estimated GFR < 15 mL/min/1.73m2 Glucose 83 60 - 115 mg/dL [facility] Calcium 9.0 8.4 - 10.2 mg/dL [facility] Bilirubin, Total 0.5 0.0 - 1.0 mg/dL [facility] Aspartate Amino Transferase 24 5 - 31 U/L [facility] Alanine Aminotransferase 12 0 - 31 U/L [facility] Total Protein 7.4 6.5 - 8.0 g/dL [facility] Albumin Level 4.5 3.5 - 5.0 g/dL [facility] Alkaline Phosphatase 48 39 - 117 U/L [facility] 02/14/2025 9:49 AM EDT 02/14/2025 9:49 AM EDT us Generic External Data Provider LAB BLOOD ORDERAB LES Final Result Performing Organization Address [facility] Co de Phone Number [facility] [address] [place] [phone] * Type and screen (02/14/2025 9:44 AM EDT) Blood Type BP [facility] Antibody Screen NEGATIVE [facility] 02/14/2025 9:44 AM EDT 02/14/2025 10:36 AM EDT Narrative [facility] - 02/14/2025 11:33 AM EDT Witnessed by BEN:Call Blood Bank (ext. [phone]) to band patient on admission.Type and Screen in effect until 2300 on 03/01/2025.Spec expiration changed by LORRI on 02/14/25Reason: PAT us Generic External Data Provider LAB BLOOD BANK TE ST ORDERABLES Final Result Performing Organization Address [facility] Co de Phone Number [facility] [address] [place] [phone] * Hepatitis C Antibody with Reflex to HCV, RNA, Quantitative, Real-Time PCR (09/21/2024 12:18 PM EDT) Hepatitis C Antibody Nonreactive Nonreactive [facility] Comment:Antibodies to HCV no t detected; does not exclude early acuteHCV infection. Blood Venous blood specimen / Unknown 09/21/2024 12:18 PM EDT 09/21/2024 12:18 PM EDT us Sasha Appram POCKET BUILDER LAB BLOOD ORDERABLES Final Resu lt Performing Organization Address [facility]/ZIP Co de Phone Number [facility] [address] [place] [phone] [phone] * HIV-1/2 Antigen and Antibodies, Fourth Generation, with Reflexes (09/21/2024 12:18 PM EDT) HIV AB/AG Nonreactive Nonreactive [facility] Comment:HIV-1 p24 Ag and/or HIV-1/HIV-2 Ab not detected.A test result that is nonreactive does not exclude thepossibility of exposure to or infection with HIV-1 and/orHIV-2. Nonreactive results in this assay for individualswith prior exposure to HIV-1 and/or HIV-2 may be due toantigen and antibody levels that are below the limit ofdetection of this assay.The [employer] HIV Ag/Ab Combo assay result andsupplemental assay results should be interpreted inconjunction with the patient's clinical presentation,history and other laboratory results. If the results areinconsistent with clinical evidence, additional testing issuggested to confirm the result. Blood Venous blood specimen / Unknown 09/21/2024 12:18 PM EDT 09/21/2024 12:18 PM EDT Sasha Bello POCKET BUILDER LAB BLOOD ORDERABLES Final Resu lt Performing Organization Address [facility] Co de Phone Number [facility] [address] [place] [phone] * BI Mammogram Screening Tomosynthesis Bilateral (03/07/2024 9:45 AM EDT) Anatomical Region Laterality Modality Breast Bilateral Mammography 03/07/2024 9:45 AM EDT Narrative 03/21/2024 9:24 AM EDT [facility] [address] [place] [address] Mammography Report Signed Patient: Oc Ramirez MR#: [id number] [birth year] : 1980 Acct:[id number] Age/Sex: 43 / F ADM Date: 03/07/24 Loc: MAMMO Attending Dr: Amelie Ram POCKET BUILDER Ordering Physician: Amelie Ram NP Results: 1Negativ e Date of Service: 03/07/24 Follow Up: 1 Year From Orig inal Mammogram Procedure(s): MM tomosynthesis screening BI Accession Number(s): [id number] cc: Amelie Ram NP EXAMINATION: MM SCREENING [...] 03/21/24 0921 DD/ 0945 TD/TT: 03/07/24 1003 Cardroom Hand: Procedure Note Donotuseinterpreter, Image - 03/21/2024 [place] [facility] [address] [place], [place] [address] Mammography Report Signed Patient: Oc RamirezMR#: [id number] [birth year] : 1980Acct:[id number] Age/Sex: 43 / FADM Date: 03/07/24 Loc: MAMMO Attending Dr: Amelie Ram NP Ordering Physician: Amelie Ram NPResults: 1Negativ e Date of Service: 03/07/24Follow Up: 1 Year From Orig ina Mammogram Procedure(s): MM tomosynthesis screening BI Accession Number(s): [id number] cc: Amelie Ram NP EXAMINATION: MM SCREENING [...] 03/21/24 0921 DD/ 0945 TD/TT: 03/07/24 1003 Cardroom Hand: Amelie Ram FLOOR LAYER IM BI PROCEDURES Edited Result - Final * (ABNORMAL) THINPREP PAP (03/04/2021 10:51 AM EDT) Clinical Information: None given [facility] COMMENT SEE COMMENT [facility] [...] along with historic and current clinical information. Space Engineer : SEE COMMENT [facility] Comment: KN, CT(ASCP) CT screening location: [address] [address] General Categorization: EPITHELIAL CELL ABNORMALITY(A) [facility] Interpretation/R esult: Atypical Squamous Cells of Undetermined Significance (ASC-US)(A) [facility] LMP: 02/20/21 [facility] PATHOLOGIST: SEE COMMENT [facility] Comment: Thomas Atkinson M.D., Board Certified in Anatomic and Clinical Pathology (electronic signature) Consulting Pathologist [facility] [address] [place] [address] Prev. BX: NONE GIVEN [facility] Prev. PAP: NONE GIVEN [facility] SOURCE: None given [facility] Statement Of Adequacy: SEE COMMENT [facility] Comment: Satisfactory for evaluation. Endocervical/transformation zone component absent. 03/04/2021 10:5 1 AM EDT [facility] PATHOLOGY ORDERABLES Final Result Performing Organization Address [facility] de Phone Number [facility] [address] * HPV mRNA E6/E7 (03/04/2021 10:51 AM EDT) HPV nRNA E6/E7 Not Detected Not Detected [facility] Comment: Methodology: Paper Cone Machine Tender-Mediated Amplification This assay detects E6/E7 viral messenger RNA (mRNA) from 14 high-risk HPV types (16,18,31,33,35,39,45,51,52,56,58,59,66,68). The analytical performance characteristics of this assay have been determined by [employer]. The modifications have not been cleared or approved by the FDA. This assay has been validated pursuant to the CLIA regulations and is used for clinical purposes. For additional information, please refer to http://education.vidIQ.com/faq/DQJ454w9 (This link if provided for information/ educational purposes only.) 03/04/2021 10:5 1 AM EDT [facility] LAB BLOOD ORDERABLES Milka l Result Performing Organization Address [facility] Co de Phone Number [facility] [address] from Last 3 Months or Most Recently Relevant to Health Maintenance [place] [address] C3 Care Teams Track Rider Relationship Specialty Start Date End Date Sasha Bello NP [address] [place] [phone] PCP - General Family Medicine 03/01/24
--- OUTSIDE RECORDS SUMMARY | 2025-03-13 11:22 | XMS_ITS | Encounter Summary ---
Author Organization [employer] Address [address] [place] [address] 7[address] [place] [address] Care Team Providers Care Log Brander Name Role Phone Amelie RamP Primary Care Provider [phone] Sasha Bello NP Primary Care Provider [phone] Encounter Details Date Type Department Care Team (Late st Contact Info) Description 12/23/2022 Orders Only [facility] MEDICINE [address] [place], [place] [phone] Amelie Ram FNP [address] [place] [address] Encounter for annual routine gynecological examination (Primary [...] documented as of this encounter Care Teams Log Brander Relationship Specialty Start Date End Date Amelie Ram FNP [address] [place] [address] PCP - General Family Medicine 05/25/22 02/29/24 Sasha Bello NP 230 [place] [address] PCP - General Family Medicine 03/01/24 documented as of this encounter
--- OUTSIDE RECORDS SUMMARY | 2025-03-13 11:22 | XMS_ITS | Encounter Summary ---
Author Organization [employer] Address 75 [facility] 7 [place] [address] Care Team Providers Care Document Manager Name Role Phone Amelie aRmP Primary Care Provider [phone] Sasha Bello NP Primary Care Provider [phone] Reason for Visit * Reason Onset Date Comments 09/0909/10/2023 Encounter Details Date Type Department Care Team ([facility] st Contact Info) Description 09/10/2023 Telephone [facility] MEDICINE 230 [place], [place] [phone] Amelie Ram FNP [address] [place], [place] [phone] 09/09 Social History Tobacco Use Types Packs/Day [...] documented as of this encounter Care Teams Document Manager Relationship Specialty Start Date End Date Amelie Ram FNP 230 [place] [address] PCP - General Family Medicine 05/25/22 02/29/24 Sasha Bello NP 230 [place] [address] PCP - General Family Medicine 03/01/24 documented as of this encounter
--- OUTSIDE RECORDS SUMMARY | 2025-03-13 11:22 | XMS_ITS | Clinical Summary ---
Author Organization [facility] Address [address] [place] [address] Care Team Providers Care Ribbon Tier Name Role Phone Unavailable Primary Care Provider [...] Description 02/27/2025 / TELE[facility]ONE [facility] [address] [place] [phone] Reji Mann, PMHNP 01/23/2025 / TELEPHONE [facility] [address] [place] [phone] Reji Mann, PMHNP from Last 3 Months [...] Upcoming Encounters Date Type Department Care Team ([facility] st Contact Info) Description 05/15/2025 12:00 PM EST Behavioral Health Visit [facility] [address] [place] [phone] Reji Mann, PMHNP [address] [place] [address] [place] [phone] Health Maintenance Due Date Last Done Comments Anxiety Screening 1980 HPV Screening 1980 Pap + HPV 1980 Tobacco Screening 1980 Relationship Safety Screening/Counseling 1995 Hypertension Screening (#1) 1998 Cervical Cancer Screening 2001 Pap Smear 2001 Imm-HPV (1 - 3-dose SCDM series) 2007 Breast Cancer Screening (Mammogram) 2020 Alcohol and Drug Screen 06/28/2024 Depression Annual Screen 06/28/2024 [id number] ( season) 2025 10/23/2021, 09/02/2020, 08/12/2020 Imm-Influenza [...] Discontinued Vaginal Pap Discontinued Vulvoscopy Discontinued Insurance [facility]
--- OUTSIDE RECORDS SUMMARY | 2025-03-13 11:22 | XMS_ITS | Encounter Summary ---
Author Organization [employer] Address 75 [facility] 7t [place] [address] Care Team Providers Care Chief Concierge Name Role Phone Sasha Bello NP Primary Care Provider [phone] Encounter Details Date Type Department Care Team ([facility] st Contact Info) Description 11/02/2024 Orders Only [facility] MEDICINE 230 [place], [place] [phone] Sasha Bello NP 230 [place], [place] [phone] Obesity (BMI 30.0-34.9) Social History Tobacco Use [...] documented as of this encounter Care Teams Chief Concierge Relationship Specialty Start Date End Date Sasha Bello NP [address] [place] [address] PCP - General Family Medicine 03/01/24 documented as of this encounter
--- OUTSIDE RECORDS SUMMARY | 2025-03-13 11:22 | XMS_ITS | Encounter Summary ---
Author Organization [employer] Address 75 [facility] 7t [place] [address] Care Team Providers Care Warehouse Associate Name Role Phone Sasha Bello NP Primary Care Provider [phone] Encounter Details Date Type Department Care Team ([facility] st Contact Info) Description 10/31/2024 Telephone [facility] MEDICINE 230 [place], [place] [phone] Sasha Bello NP 230 [place], [place] [phone] Social History Tobacco Use Types Packs/Day Years [...] documented as of this encounter Care Teams Warehouse Associate Relationship Specialty Start Date End Date Sasha Bello NP 230 [place] [address] PCP - General Family Medicine 03/01/24 documented as of this encounter
--- OUTSIDE RECORDS SUMMARY | 2025-03-13 11:22 | XMS_ITS | Clinical Summary ---
Author Organization [address] [place] [address] Address [address] [place] [address] Phone Care Team Providers Care Billet Header Name Role Phone EdmundAngelina NANCY Primary Care [...] 30 tablet 1 5 03/12/20 25 Active Problems Problem Noted Date Diagnosed Date Bilateral foot pain 04/20/2024 Gastritis 04/20/2024 Iron deficiency anemia 04/20/2024 Lumbar disc herniation with radiculopathy 2023 Morbid obesity ([facility] V24, [facility] V28) 2023 Pain in the coccyx 04/20/2024 Papular eruption 04/20/2024 Seasonal allergic rhinitis 04/20/2024 Severe recurrent major depre ssion with psychotic features ([facility] V24, [facility] V28) 04/20/2024 Encounters Date Type Department Care Team Description 01/11/2025 1:45 PM EDT Office Visit [facility] [place] [address] [phone] Kev Aponte DPM Plantar fascial fibromatosis (Primary [...] 04/11/2025 10:15 AM EDT Office Visit [facility]opedic [facility] [address] [phone] Kev Aponte DPM [address] [phone] Health Maintenance Due Date Last Done Comments [...] Months Insurance MEDICAID - [place] Care Teams Billet Header Relationship Specialty Start Date End Date Angelina Shaffer NP [address] [place] [phone] PCP - General 03/03/24
--- OUTSIDE RECORDS SUMMARY | 2025-03-13 11:22 | XMS_ITS | Encounter Summary ---
Author Organization [employer] Address [address] [place] [address] [place] [address] Care Team Providers Care Facsimile Operator Name Role Phone Amelie RamP Primary Care Provider [phone] Sasha Bello NP Primary Care Provider [phone] Reason for Visit * Reason Onset Date Comments Referral 12/21/2022 Encounter Details Date Type Department Care Team (Late st Contact Info) Description 12/21/2022 Telephone [facility] MEDICINE 230 [place], [place] [phone] Amelie Ram FNP [address] [place] [address] Referral Social History Tobacco Use Types Packs/Day [...] from pt requesting a referral Specialty: Community Broomcorn Grader Location: [address] [place] [address] Date&Time:N/A Facility Manager:N/a Specialty:[facility] Location: [address] [place] [address] [place] [address] Date&Time: n/a Facility Manager: N/a documented in this encounter Plan of Treatment Not on file documented as of this encounter Visit Diagnoses Not on filedocumented in this encounter Additional Health Concerns Assessment Noted Time PHQ-9 Depression Total Score: 0 11/26/19 23 10:22 AM EDT documented as of this encounter Care Teams Facsimile Operator Relationship Specialty Start Date End Date Amelie Ram FNP 230 [place] [address] PCP - General Family Medicine 05/25/22 02/29/24 Sasha Bello NP [address] [place] [address] PCP - General Family Medicine 03/01/24 documented as of this encounter
== END 2025-03-13 09:05 | disposition home or self-care (01) ==
LOC: HO.MAMMO 09:04
PROVIDERS: PCP Nurse Practitioner Family; Visit Provider Psychiatry & Neurology Neurology with Special Qualifications in Child Neurology
DX: Z12.31 Encounter for screening mammogram for malignant neoplasm of breast (principal)
CPT/HCPCS: 77063; 77067

== ENCOUNTER → 2025-03-13 09:30 | Outpatient (BNV) | payer MEDICAID, SELFPAY | PROVIDERS: PCP Nurse Practitioner Family; Visit Provider Radiology Body Imaging | DX: Z12.31 Encounter for screening mammogram for malignant neoplasm of breast (principal) | CPT/HCPCS: 77063; 77067 ==

== ENCOUNTER 2025-03-14 15:55 | Outpatient (AMB) | payer MEDICAID, SELFPAY ==
[2025-03-14 16:10] VITALS: BP 112/56; PULSE 78; TEMP 36.5; O2SAT 97
--- NOTE | 2025-03-14 16:10 | MHC.OFFVISWM ---
VS Expanded 03/14/25 16:10 BP 112/56 L Blood Pressure Location Rt brachial Blood Pressure Position Sitting Pulse 78 Pulse Source Pulse Oximeter Temp 97.7 F Temperature Source Temporal Artery Scan Pulse Oximetry 97 Oxygen Delivery Method Room Air Intake Visit Reasons: OV PO Panniculectomy 02/20/25 Allergies adhesive tape (ADHESIVE TAPE) Allergy (Intermediate, Verified 03/14/25 16:12) BURN/BLISTER Medication List - Last Reconciled 03/14/25 by YURI Garrido ascorbic acid (vitamin C) 25 mg PO DAILY cephalexin 500 mg PO Q12H cetirizine 10 mg PO QAM cholecalciferol (vitamin D3) 125 mcg PO DAILY [cock up splint Wear on both wrists at night ] cyanocobalamin (vitamin B-12) 1,000 mcg IM QMONTH docusate sodium (Colace) 100 mg PO DAILY docusate sodium 100 mg PO Q12H duloxetine 30 mg PO DAILY ferrous sulfate 325 mg PO BID gabapentin 400 mg PO BID 90 days hydroxyzine pamoate 25 mg PO Q8H PRN ketorolac 10 mg PO Q6H PRN methocarbamol 1,500 mg (2 x 750 mg) PO Q8H PRN methylprednisolone (Medrol (Marcio)) 4 mg PO QAM multivitamin 1 tab PO DAILY ondansetron 4 mg PO Q12H sumatriptan succinate 50 mg PO Q2-4H PRN tramadol 50 mg PO TID 30 days vitamin A palmitate 3,000 mcg PO DAILY Zepbound (tirzepatide (weight loss)) 12.5 mg (0.5 mL) subcut QWEEK NS HPI Comments Details: Pt is 3w s/p panniculectomy with drain placement. No fevers at home. Taking abx. Tolerating meal plan per Dr Cruz Drain output 20-30cc/day. [facility] Medical History (Updated 03/07/25 @ 00:00 by Dereck Candelario) Neck muscle spasm Bilateral shoulder pain Neck pain Lateral epicondylitis, right elbow SARS-CoV-2 positive Fibromyalgia Lumbar spondylosis Obesity (BMI 30-39.9) Intestinal malabsorption following gastrectomy Fatigue Sleep apnea GERD (gastroesophageal reflux disease) Arthritis Anemia Surgical History S/P panniculectomy History of surgery of uterus H/O tubal ligation Hx of section S/P laparoscopic sleeve gastrectomy Family History Father Respiratory arrest Sister Anemia Ovarian cancer Social History Household Members: Family Housing: House Are you a primary care services manager to a significant other at home: No Do you presently have visiting nurse or other home services: No 75 years or older and lives alone: No Alcohol intake: current Alcohol intake frequency: holidays/special occasions only Alcohol type: wine Patient Tobacco Use Status: Never used Tobacco e-Cigarette/Vaping Use: Never Used Gender identity: Female Female Reproductive History Menstrual Age of Menarche: 13 Physical Exam Vital Signs: Last Vital Signs Temp 97.7 F 03/14/25 16:10 Pulse 78 03/14/25 16:10 BP 112/56 L 03/14/25 16:10 Pulse Ox 97 03/14/25 16:10 Oxygen Delivery Method Room Air 03/14/25 16:10 Const General: cooperative, comfortable and no acute distress Orientation/consciousness: patient oriented x3 GI Other: soft, nontender, nondistended, incision and umbilicus appear to be healing well, drain output SS Neuro General: patient oriented x3 Assessment & Plan Assessment & Plan (1) S/P panniculectomy: Code(s): Z98.890 - Other specified postprocedural states Category: Medical (2) Overweight: Code(s): E66.3 - Overweight Category: Medical (3) S/P laparoscopic sleeve gastrectomy: Code(s): Z98.84 - Bariatric surgery status Category: Medical Plan Continue high protein diet. ABX keflex 500 BID x 2 weeks, extended as needed?(at least until drain comes out plus 1 week).? Drain out after consistently 20 mL or less daily.? Abdominal binder at all times except for care x 1 month?MINIMUM. If there are concerns longer.? No driving?until drain out.? No walking outside or exercise for 6 weeks minimum. Walking in the house ok. Assistance getting up for 4 weeks minimum.?No lifting greater than?10 pounds and no abdominal exercises x 3 months. RTC 1 week.
--- OUTSIDE RECORDS SUMMARY | 2025-03-14 19:10 | XMS_ITS | Clinical Summary ---
Author Organization [facility] Address [address] [place] [address] Care Team Providers Care Landscape Architect Name Role Phone Unavailable Primary Care Provider [...] Description 02/27/2025 / TE[facility]PHONE [facility] [address] [place] [phone] Reji Mann, PMHNP 01/23/2025 / TELEPHONE [facility] [address] [place] [phone] Reji Mann, PMHNP from Last 3 Months [...] Upcoming Encounters Date Type Department Care Team ([facility] st Contact Info) Description 05/15/2025 12:00 PM EST Behavioral Health Visit [facility] [address] [place] [phone] Reji Mann, PMHNP [address] [place] [address] [place] [phone] Health Maintenance Due Date Last Done Comments Anxiety Screening 1980 HPV Screening 1980 Pap + HPV 1980 Tobacco Screening 1980 Relationship Safety Screening/Counseling 1995 Hypertension Screening (#1) 1998 Cervical Cancer Screening 2001 Pap Smear 2001 Imm-HPV (1 - 3-dose SCDM series) 2007 Breast Cancer Screening (Mammogram) 2020 Alcohol and Drug Screen 06/28/2024 Depression Annual Screen 06/28/2024 [id number] ( season) 2025 10/23/2021, 09/02/2020, 08/12/2020 Imm-Influenza [...] Discontinued Vaginal Pap Discontinued Vulvoscopy Discontinued Insurance [facility]
--- OUTSIDE RECORDS SUMMARY | 2025-03-14 19:10 | XMS_ITS | Clinical Summary ---
Author Organization [address] [place] [address] Address 175 [place] [address] Phone Care Team Providers Care Pad Extraction Tender Name Role Phone EdmundAngelina NANCY Primary Care Provider [phone] Allergies No known active allergies Medications ascorbic [...] disc herniation with radiculopathy 2023 Morbid obesity ([facility] V24, [facility] V28) 2023 Pain in the coccyx 04/20/2024 Papular eruption 04/20/2024 Seasonal allergic rhinitis 04/20/2024 Severe recurrent major depre ssion with psychotic features ([facility] V24, [facility] V28) 04/20/2024 Encounters Date Type Department Care Team Description 01/11/2025 1:45 PM EDT Office Visit [facility] [place] [address] [phone] Kev Aponte DPM Plantar fascial fibromatosis (Primary [...] 04/11/2025 10:15 AM EDT Office Visit [facility] [address] [phone] Kev Aponte DPM [address] [phone] Health Maintenance Due Date Last Done Comments [...] Months Insurance MEDICAID - [place] Care Teams Pad Extraction Tender Relationship Specialty Start Date End Date Angelina Shaffer NP [address] [place] [phone] PCP - General 03/03/24
--- OUTSIDE RECORDS SUMMARY | 2025-03-14 19:10 | XMS_ITS | Encounter Summary ---
Author Organization [employer] Address 75 [facility] 7 [place] [address] Care Team Providers Care Inventory Specialist Manager Name Role Phone Amelie RamP Primary Care Provider [phone] Sasha Bello NP Primary Care Provider [phone] Reason for Visit * Reason Onset Date Comments 09/0909/10/2023 Encounter Details Date Type Department Care Team ([facility] st Contact Info) Description 09/10/2023 Telephone [facility] MEDICINE 230 [place], [place] [phone] Amelie Ram FNP 230 [place], [place] [phone] 09/09 Social History Tobacco Use Types Packs/Day [...] documented as of this encounter Care Teams Inventory Specialist Manager Relationship Specialty Start Date End Date Amelie Ram FNP 230 [place] [address] PCP - General Family Medicine 05/25/22 02/29/24 Sasha Bello NP 230 [place] [address] PCP - General Family Medicine 03/01/24 documented as of this encounter
--- OUTSIDE RECORDS SUMMARY | 2025-03-14 19:10 | XMS_ITS | Encounter Summary ---
Author Organization [employer] Address 75 [facility] 7t [place] [address] Care Team Providers Care Ell Tutor Name Role Phone Sasha Bello NP Primary Care Provider [phone] Encounter Details Date Type Department Care Team ([facility] st Contact Info) Description 11/02/2024 Orders Only [facility] MEDICINE 230 [place], [place] [phone] Sasha Bello NP 230 [place], [place] [phone] Obesity (BMI 30.0-34.9) Social History Tobacco Use [...] documented as of this encounter Care Teams Ell Tutor Relationship Specialty Start Date End Date Sasha Bello NP [address] [place] [address] PCP - General Family Medicine 03/01/24 documented as of this encounter
--- OUTSIDE RECORDS SUMMARY | 2025-03-14 19:10 | XMS_ITS | Encounter Summary ---
Author Organization [employer] Address 75 [facility] 7t [place] [address] Care Team Providers Care Character Impersonator Name Role Phone Sasha Bello NP Primary Care Provider [phone] Encounter Details Date Type Department Care Team ([facility] st Contact Info) Description 10/31/2024 Telephone [facility] MEDICINE 230 [place], [place] [phone] Sasha Bello NP 230 [place], [place] [phone] Social History Tobacco Use Types Packs/Day Years [...] documented as of this encounter Care Teams Character Impersonator Relationship Specialty Start Date End Date Sasha Bello NP 230 [place] [address] PCP - General Family Medicine 03/01/24 documented as of this encounter
--- OUTSIDE RECORDS SUMMARY | 2025-03-14 19:10 | XMS_ITS | Encounter Summary ---
Author Organization [employer] Address 75 [facility] [address] [place] [address] Care Team Providers Care Weighmaster Lead Name Role Phone Sasha Bello NP Primary Care Provider [phone] Reason for Visit * Reason Comments Med Refill Encounter Details Date Type Department Care Team ([facility] st Contact Info) Description 09/04/2024 Refill [facility] MEDICINE 230 [place] [address] Sasha Bello NP 230 [place] [address] Acute pain of right knee Social History [...] documented as of this encounter Care Teams Weighmaster Lead Relationship Specialty Start Date End Date Sasha Bello NP [address] [place] [address] PCP - General Family Medicine 03/01/24 documented as of this encounter
--- OUTSIDE RECORDS SUMMARY | 2025-03-14 19:10 | XMS_ITS | Encounter Summary ---
Author Organization [employer] Address [address] [place] [address] [place] [address] Care Team Providers Care Automobile Leasing Supervisor Name Role Phone Amelie RamP Primary Care Provider [phone] Sasha Bello NP Primary Care Provider [phone] Reason for Visit * Reason Onset Date Comments Referral 12/21/2022 Encounter Details Date Type Department Care Team (Late st Contact Info) Description 12/21/2022 Telephone [facility] MEDICINE 230 [place], [place] [phone] Amelie Ram FNP 230 [place] [address] Referral Social History Tobacco Use Types Packs/Day [...] from pt requesting a referral Specialty: Community Geomatics Professor Location: [address] [place] [address] Date&Time:N/A Trim Carpenter:N/a Specialty:[facility] Location: [address] [place] [address] [place] [address] Date&Time: n/a Trim Carpenter: N/a documented in this encounter Plan of Treatment Not on file documented as of this encounter Visit Diagnoses Not on filedocumented in this encounter Additional Health Concerns Assessment Noted Time PHQ-9 Depression Total Score: 0 11/26/19 23 10:22 AM EDT documented as of this encounter Care Teams Automobile Leasing Supervisor Relationship Specialty Start Date End Date Amelie Ram FNP 230 [place] [address] PCP - General Family Medicine 05/25/22 02/29/24 Sasha Bello NP 230 [place] [address] PCP - General Family Medicine 03/01/24 documented as of this encounter
--- OUTSIDE RECORDS SUMMARY | 2025-03-14 19:10 | XMS_ITS | Encounter Summary ---
Author Organization [employer] Address [address] [place] [address] 7 [place] [address] Care Team Providers Care Bread Jockey Name Role Phone Amelie Ram Primary Care Provider [phone] Sasha Bello NP Primary Care Provider [phone] Reason for Referral * Imaging (Routine) - Closed Specialty Diagnoses / Procedures Referred By Contac t Referred To Contact Radiology Diagnoses Breast cancer screening by mammogram Procedures BI Mammogram Screening Bilateral Amelie Ram FNP 230 [place] [address] Phone: tel: fax: [address] Phone: tel: fax: Referral ID Status Reason Start Date Expiration Date Visits Re quested Visits Authorized [id number] Closed 01/06/2023 01/06/2024 1 1 Encounter Details Date Type Department Care Team (Late st Contact Info) Description 01/06/2023 Orders Only [facility] MEDICINE 230 [place] [address] Amelie Ram FNP 230 [place] [address] Breast cancer screening by mammogram (Primary Dx) [...] documented as of this encounter Care Teams Bread Jockey Relationship Specialty Start Date End Date Amelie Ram FNP 230 [place] [address] PCP - General Family Medicine 05/25/22 02/29/24 Sasha Bello NP 230 [place] [address] PCP - General Family Medicine 03/01/24 documented as of this encounter
--- OUTSIDE RECORDS SUMMARY | 2025-03-14 19:10 | XMS_ITS | Encounter Summary ---
Author Organization [employer] Address [address] [place] [address] 7 [place] [address] Care Team Providers Care Metal Burrer Name Role Phone Amelie Ram STATE GAME PROTECTOR Primary Care Provider [phone] Sasha Bello NP Primary Care Provider [phone] Reason for Visit * Reason Onset Date Comments triage 08/18/2022 Encounter Details Date Type Department Care Team (Late st Contact Info) Description 08/18/2022 Telephone [facility] MEDICINE 230 [place] [address] Amelie Ram FNP 230 [place] [address] triage Social History Tobacco Use Types Packs/Day [...] accepted this outcome Please contact pt at [phone] Indonesian Speaker documented in this encounter Plan of Treatment Not on file documented as of this encounter Visit Diagnoses Not on filedocumented in this encounter Care Teams Metal Burrer Relationship Specialty Start Date End Date Amelie Ram FNP 230 [place] [address] PCP - General Family Medicine 05/25/22 02/29/24 Sasha Bello NP 230 [place] [address] PCP - General Family Medicine 03/01/24 documented as of this encounter
--- OUTSIDE RECORDS SUMMARY | 2025-03-14 19:10 | XMS_ITS | Encounter Summary ---
Author Organization [employer] Address [address] [place] [address] [address] [address] Care Team Providers Care Ged Tutor Name Role Phone Amelie RamP Primary Care Provider [phone] Sasha Bello NP Primary Care Provider [phone] Encounter Details Date Type Department Care Team (Late st Contact Info) Description 12/23/2022 Orders Only [facility] MEDICINE [address], [place] [id number] Amelie Ram FNP [address] [place] [address] Encounter for annual routine gynecological examination (Primary [...] documented as of this encounter Care Teams Ged Tutor Relationship Specialty Start Date End Date Amelie Ram FNP [address] [place] [address] PCP - General Family Medicine 05/25/22 02/29/24 Sasha Bello NP [address] [place] [address] PCP - General Family Medicine 03/01/24 documented as of this encounter
--- OUTSIDE RECORDS SUMMARY | 2025-03-14 19:11 | XMS_ITS | Clinical Summary ---
Author Organization [employer] Address [address] [facility] [address] [place] [address] Care Team Providers Care Bread Wrapper Name Role Phone Sasha Bello NP Primary Care Provider [phone] Allergies No known active allergies Medications * [...] recommended reduction of 20-30% of maintenance calories; pony ride operator referral offered. Recommended to decrease soda and [...] organization. Date Type Department Care Team Description 03/13/2025 Orders Only [facility] External Provider, [facility] 02/22/[address] [address] Sasha Bello NP Cervical pain (neck) 02/20/2025 Orders Only GENERIC EXTERNAL DATA DEPARTMENT Provider, Generic External Data 02/14/[address] [address] Sasha Bello NP No Show 02/14/2025 Orders Only GENERIC EXTERNAL DATA DEPARTMENT Provider, Generic External Data 02/13/[address] [address] Briana Castro [place] CHARTPREP 02/07/2025 Patient Outreach [facility] [address] [place] [address] Sasha Bello NP Pre-visit Planning ([facility] wass already completed) 01/25/2025 Refill [facility] [address] [place] [address] Amelie Ram FNP Constipation, unspecified constipation type 01/22/2025 Refill [facility] [address] [place] [address] Sasha Bello NP Mild major depression (CMS/HCC); Anxiety 01/11/2025 Telephone [facility] [address] [place] [address] Sasha Bello NP Chart Prep 01/02/2025 Telephone [facility] [address] [place] [address] Sasha Bello NP Prior Authorization 12/24/2024 Refill [facility] [address] [place] [address] Sasha Bello NP Obesity (BMI 30.0-34.9) from [...] 09/11/2025 09/11/2024 Tobacco Screening 11/22/2025 11/22/2024 Mammogram 03/13/2027 03/13/2025, 02/26, 03/02/2023, Additional history exists DTaP/Tdap/Td Vaccines (3 - [...] Procedure Name Priority Date/Time Associated Diagnosis Comments BI MAMMOGRAM SCREENING TOMOSYNTHESIS BILATERAL Routine 03/13/2025 9:10 AM EDT GROSS AND MICROSCOPIC LEVEL 3 Routine 02/20/2025 [...] 12:18 PM EDT Encounter for health-related screening HPV MRNA E6/E7 Routine 03/04/2021 10:51 AM EDT THINPREP PAP Routine 03/04/2021 10:51 AM EDT from Last 3 Months or Most Recently Relevant to Health Maintenance Results * BI Mammogram Screening Tomosynthesis Bilateral (03/13/2025 9:10 AM EDT) Anatomical Region Laterality Modality Breast Bilateral Mammography 03/13/2025 9:10 AM EDT Narrative 03/13/2025 7:36 PM EDT [facility] [address] [place] [address] Mammography Report Signed Patient: Oc Ramirez MR#: [id number] 80 : 1980 Acct:[id number] Age/Sex: 44 / F ADM Date: 03/13/25 Loc: PEGGY Attending Dr: Michael Mahmood MD Ordering Physician: Michael Mahmood MD Results: 1Negat bandar Date of Service: 03/13/25 Follow Up: 1 Year From Orig ina Mammogram Procedure(s): MM tomosynthesis screening BI Accession Number(s): [id number] cc: Michael Mahmood MD; Okhipo,Dee FIRE SUPERVISOR Reason For Exam: SCREENING EXAMINATION: MM SCREENING DIGITAL BREAST TOMOSYNTHESIS, BILATERAL CLINICAL INFORMATION: Screening. Asymptomatic. COMPARISON: Comparison made to multiple prior, most recent March 07, 2024, and most remote June 06, 2020. TECHNIQUE: Digital breast tomosynthesis is performed in mediolateral oblique and craniocaudal views along with computer-aided detection (CAD). Synthesized 2D images are generated from the tomosynthesis. FINDINGS: BREAST COMPOSITION: There are scattered areas of fibroglandular density (ACR BI-RADS breast composition Category b). BILATERAL BREASTS: No significant masses, suspicious calcifications or other abnormalities are seen in either breast. MM/MM tomosynthesis screening BI IMPRESSION: BILATERAL BREASTS: Negative, no mammographic evidence of malignancy. Normal interval follow-up is recommended in 12 months. ASSESSMENT: BI-RADS 1 - Negative RECOMMENDATION: Routine annual mammography screening. FOLLOW-UP: 1 year F/U This examination should not preclude the clinical evaluation of a suspicious palpable abnormality. This patient's information was entered into a reminder system with a target due date for their next mammogram. Electronically signed by: Yoav Gonzalez MD 03/13/2025 07:34 PM EDT Dictated By: Yoav Gonzalez MD Signed By: <Electronically signed by Yoav Gonzalez MD in OV> 03/13/251933 DD/ 9 TD/TT: 03/13/2534 Mathematics Improvement Teacher: Procedure Note Donotuseinterpreter, Image - 03/13/2025 [facility] [address] [place], [place] [address] Mammography Report Signed Patient: Eugenia Ramirez#: [id number] 80 : 1980Acct:[id number] Age/Sex: 44 / FADM Date: 03/13/25 Loc: HO.MAMMO Attending Dr: Michael Mahmood MD Ordering Physician: Michael Mahmood MDResults: 1Negat bandar Date of Service: 03/13/25Follow Up: 1 Year From Orig inal Mammogram Procedure(s): MM tomosynthesis screening BI Accession Number(s): [id number] cc: Michael Mahmood MD; Dee Garcia Reason For Exam: SCREENING EXAMINATION: MM SCREENING DIGITAL BREAST TOMOSYNTHESIS, BILATERAL CLINICAL INFORMATION: Screening. Asymptomatic. COMPARISON: Comparison made to multiple prior, most recent March 07, 2024, and most remote June 06, 2020. TECHNIQUE: Digital breast tomosynthesis is performed in mediolateral oblique and craniocaudal views along with computer-aided detection (CAD). Synthesized 2D images are generated from the tomosynthesis. FINDINGS: BREAST COMPOSITION: There are scattered areas of fibroglandular density (ACR BI-RADS breast composition Category b). BILATERAL BREASTS: No significant masses, suspicious calcifications or other abnormalities are seen in either breast. MM/MM tomosynthesis screening BI IMPRESSION: BILATERAL BREASTS: Negative, no mammographic evidence of malignancy. Normal interval follow-up is recommended in 12 months. ASSESSMENT: BI-RADS 1 - Negative RECOMMENDATION: Routine annual mammography screening. FOLLOW-UP: 1 year F/U This examination should not preclude the clinical evaluation of a suspicious palpable abnormality. This patient's information was entered into a reminder system with a target due date for their next mammogram. Electronically signed by: Yoav Gonzalez MD 03/13/2025 07:34 PM EDT Dictated By: Yoav Gonzalez MD Signed By: <Electronically signed by Yoav Gonzalez MD in OV> 03/13/25 193 DD/ 9 TD/TT: 03/13/25933 Mathematics Improvement Teacher: [facility] External Provider IMG BI PROCEDURES Edited Result - Final * Gross and Microscopic Level 3 (02/20/2025 1:34 PM EDT) 02/20/2025 1:34 PM EDT 02/21/2025 8:10 AM EDT [facility] - 02/22/2025 3:10 PM EDT ----- ------- Name: Oc Ramirez Age/Sex: 44/F : 1980 [id number] [id number] Attend Dr: Harvinder Blank MD Re02/20/25 Status: [facility] Location: [facility] Disch: ----- ------- SPEC : [id number] RECD: 02/21/25 STATUS: DENISE COHEN NUM: [id number] RATNA: 02/20/25-13[address] [facility] DR: Harvinder Blank MD ENTERED: 02/21/25 SP TYPE: Surgical OTHR DR: Dee Garcia [facility] ORDERED: Gross Micro L3 Diagnosis Skin and [...] fibrous tissue, without evidence of discrete abnormality. Software Quality Manager sections are submitted in cassettes A1 -3. (DTL) IHC S/NG Disclaimer NOTE: Unless otherwise stated, all tissue is formalin-fixed and paraffin-embedded. Some or all of the immunohistochemical tests reported herein may have been developed and their performance characteristics determined by [facility]. They have not been cleared or approved by the U.S. Food and Drug Administration (FDA). However, the FDA has determined that such clearance or approval is not necessary. This laboratory is certified under the Clinical Laboratory Improvement Amendments of 1988 (CLIA) as qualified to perform high complexity clinical laboratory testing. Copies To: Dee Garcia [address] [id number] CONTINUED ON NEXT PAGE ----- ------- Name: Oc Ramirez Age/Sex: 44/F : 1980 Unit#: [id number] Attend Dr: Harvinder Blank MD Re02/20/25 Status: [facility] Location: [facility] Disch: ----- ------- SPEC : [id number] RECD: 02/21/25 STATUS: DENISE COHEN NUM: [id number] RATNA: 02/20/25-[address]: Harvinder Blank MD ENTERED: 02/21/25 SP TYPE: Surgical OTHR DR: Dee Garcia ORDERED: Gross Micro L3 Copies To: (Continued) Harvinder Blank MD [facility] [address] [place] [phone] ----- ------- Signed (signature on file) Hans Adhikari MD 02/22/25 1510 ----- ------- END OF REPORT us Generic External Data Provider LAB CYTOLOGY DEEPIKAKajal BARBA Final Result [facility] [address] [place] [address] [phone] * (ABNORMAL) Vitamin D, 25-Hydroxy, Total, Immunoassay (02/14/2025 9:49 AM EDT) [facility] Vitamin D 25-OH Total 28.1(L) >30 ng/mL [facility] Comment: Health Based Reference Values*< 20 ng/mL Eoqeardak73-53 ng/mL Insufficient> 30 ng/mL Sufficient*Elizabeth SCHNEIDER. N [...] ORDERAB LES Final Result Performing Organization Address [facility] Co de Phone Number [facility] [address] [place] [phone] * TSH with Reflex to Free T4 (02/14/2025 9:49 AM EDT) Pathologist [facility] TSH reflex Free T4 1.08 0.32 - 4.0 uIU/mL [facility] 02/14/2025 9:49 AM EDT 02/14/2025 9:49 AM EDT Generic External Data Provider LAB BLOOD ORDERAB LES Final Result Performing Organization Address [facility] de Phone Number [facility] [address] [place] [phone] * (ABNORMAL) CBC auto differential (02/14/2025 9:49 AM EDT) White Blood Count 3.9(L) 4.8 - 10.8 X10*3/uL [facility] Red Blood Count 3.72(L) 4.20 - 5.50 X10*6/uL [facility] Hemoglobin 11.2(L) 12.0 - 16.0 g/dl [facility] Hematocrit 33.0(L) 37.0 - 47.0 % [facility] Mean Corpuscular Volume 88.7 80.0 - 98.0 fL [facility] Mean Corpuscular Hemoglobin 30.1 27.0 - 33.0 pg [facility] Mean Corpuscular HGB Conc 33.9 31.0 - 35.0 g/dl [facility] Red Cell Distribution Width 12.5 11.0 - 16.0 % [facility] Platelet Count 244 160 - 400 X10*3/uL [facility] Mean Platelet Volume 9.2(L) 9.4 - 12.3 fL [facility] Neutrophils Percent Auto 50.9 45 - 73 % [facility] Imm Gran Pct Auto 0.3 0.0 - 0.4 % [facility] Lymphocytes Percent Auto 37.7 20 - 40 % [facility] Monocytes Percent Auto 9.3 2 - 11 % [facility] Eosinophils Percent Auto 1.3 0 - 4 % [facility] Basophils Percent Auto 0.5 0 - 2 % [facility] NRBC Pct Auto 0.0 0.0 - 0.2 /100WBC [facility] Neutrophils Absolute Auto 2.0 2.0 - 8.3 x10*3/uL [facility] Imm Gran Abs Auto 0.01 0.00 - 0.03 X10*3/uL [facility] Lymphocytes Absolute Auto 1.5 1.2 - 4.9 X10*3/uL [facility] Monocytes Absolute Auto 0.4 0.1 - 1.2 X10*3/uL [facility] Eosinophils Absolute Auto 0.1 0.0 - 0.4 X10*3/uL [facility] Basophils Absolute Auto 0.0 0.0 - 0.2 X10*3/uL [facility] NRBC Abs Auto 0.000 0.0 - 0.012 X10*3/uL [facility] 02/14/2025 9:49 AM EDT 02/14/2025 9:49 AM EDT us Generic External Data Provider LAB BLOOD ORDERAB LES Final Result [facility] [address] [place] [phone] * Iron And Total Iron Binding Capacity (02/14/2025 9:49 AM EDT) Iron 49 30 - 160 mcg/dL [facility] Total Iron Binding Capacity 278 228 - 428 mcg/dL [facility] Percent Iron Saturation 18 15 - 50 % [facility] Unsaturated Iron Binding 229 ug/dL [facility] 02/14/2025 9:49 AM EDT 02/14/2025 9:49 AM EDT Generic External Data Provider LAB BLOOD ORDERAB LES Final Result Performing Organization Address [facility] Co de Phone Number [facility] [address] [place] [phone] * Insulin (02/14/2025 9:49 AM EDT) [facility] Insulin 5 2 - 29 uU/mL [facility] Comment:This test was perfor med using the Anagear chemiluminescentmethod. Values obtained from different assay methods [...] ORDERAB LES Final Result Performing Organization Address [facility]/ZIP Co de Phone Number [facility] [address] [place] [phone] * Zinc (02/14/2025 9:49 AM EDT) Pathologist [facility] Zinc 63 60 - 130 mcg/dL [facility] Comment:This test was develo ped and its analytical performancecharacteristics have been determined by [employer] [place], [place]. It hasnot been cleared or approved by the U.S. Food and DrugAdministration. This assay has been validated pursuantto the CLIA regulations and is used for clinicalpurposes.THIS TEST WAS PERFORMED AT:[id number] [place] [address]NPCBJCKJAMES STALEY MD,PHD 02/14/2025 9:49 AM EDT 02/14/2025 9:49 AM EDT Generic External Data Provider LAB BLOOD ORDERAB LES Final Result Performing Organization Address [facility] de Phone Number [facility] [address] [place] [phone] * (ABNORMAL) Vitamin A (02/14/2025 9:49 AM EDT) [facility] Vitamin A (Retinol) 24(A) 38 - 98 mcg/dL [facility] Comment:Vitamin supplementat ion within 24 hours prior toblood draw may affect the accuracy of the results.This test was developed and its analytical performancecharacteristics have been determined by [employer] [place], [place]. It hasnot been cleared or approved by the U.S. Food and DrugAdministration. This assay has been validated pursuantto the CLIA regulations and is used for clinicalpurposes.THIS TEST WAS PERFORMED AT:[employer] [place] [address]XWHGGFIJAMES STALEY MD,PHD 02/14/2025 9:49 AM EDT 02/14/2025 9:49 AM EDT Generic External Data Provider LAB BLOOD ORDERAB LES Final Result Performing Organization Address [facility] Co de Phone Number [facility] [address] [place] [phone] * Partial Thromboplastin Time, Activated (APTT) (02/14/2025 9:49 AM EDT) Partial Thromboplastin Time 26.8 26.7 - 34.1 SEC [facility] 02/14/2025 9:49 AM EDT 02/14/2025 9:49 AM EDT us Generic External Data Provider LAB BLOOD ORDERAB LES Final Result Performing Organization Address [facility] Co de Phone Number [facility] [address] [place] [phone] * Prothrombin Time-INR (02/14/2025 9:49 AM EDT) Prothrombin Time 11.8 10.9 - 12.4 SEC [facility] INTERNATIONAL NORM RATIO 1.0 0.9 - 1.1 [facility] Comment:INTERNATIONAL NORMAL IZED RATIO (INR) [...] ORDERAB LES Final Result Performing Organization Address [facility] Co de Phone Number [facility] [address] [place] [phone] * C-reactive Protein (02/14/2025 9:49 AM EDT) C Reactive Protein 0.11 < or = 0.50 mg/dL [facility] 02/14/2025 9:49 AM EDT 02/14/2025 9:49 AM EDT Generic External Data Provider LAB BLOOD ORDERAB LES Final Result Performing Organization Address [facility] Co de Phone Number [facility] [address] [place] [phone] * Vitamin B1 (02/14/2025 9:49 AM EDT) Vitamin B1 8 8 - 30 nmol/L [facility] Comment:Vitamin supplementat ion within 24 hours prior toblood draw may affect the accuracy of the results.This test was developed and its analytical performancecharacteristics have been determined by [employer] [place], [place]. It hasnot been cleared or approved by the U.S. Food and DrugAdministration. This assay has been validated pursuantto the CLIA regulations and is used for clinicalpurposes.THIS TEST WAS PERFORMED AT:[employer]/[facility] [place] [address]ACPOIPOJAMES STALEY MD,PHD 02/14/2025 9:49 AM EDT 02/14/2025 9:49 AM EDT us Generic External Data Provider LAB BLOOD ORDERAB LES Final Result Performing Organization Address [facility] de Phone Number [facility] [address] [place] [phone] * Hemoglobin A1c (02/14/2025 9:49 AM EDT) Hemoglobin A1c 5.1 <6.0 % [facility] Comment:Hemoglobin A1C Refer ence Range Adults: 4.8 - 6.0 % Non diabetic: < 6.0 % Goal: < 7.0 %Additional Action Suggested: > 8.0 %Note: Hemoglobin A1c results are invalid for patients with abnormal amounts of HbF. Blood transfusions may impact the HbA1c concentration in the patient sample. Estimated Average Glucose 100 mg/dL [facility] Comment:eAG = Estimated ave rage glucose which is %A1C expressed asaverage glucose, using the formula of the N7N-DkxhojtRrnwnte Glucose study (ADAG), Diabetes Care, Vol.31,#8,2007 02/14/2025 9:49 AM EDT 02/14/2025 9:49 AM EDT Generic External Data Provider LAB BLOOD ORDERAB LES Final Result Performing Organization Address [facility] Co de Phone Number [facility] [address] [place] [phone] * Ferritin (02/14/2025 9:49 AM EDT) Ferritin 47 10 - 250 ng/mL [facility] 02/14/2025 9:49 AM EDT 02/14/2025 9:49 AM EDT Generic External Data Provider LAB BLOOD ORDERAB LES Final Result Performing Organization Address [facility] Phone Number [facility] [address] [place] [phone] * Vitamin B12 (02/14/2025 9:49 AM EDT) Vitamin B12 808 200 - 900 pg/mL [facility] Comment:NORMAL 200-900 PG/ML INDETERMINATE 160-199 PG/ML DEFICIENT < 160 PG/ML 02/14/2025 9:49 AM EDT 02/14/2025 9:49 AM EDT Generic External Data Provider LAB BLOOD ORDERAB LES Final Result Performing Organization Address [facility] Co de Phone Number [facility] [address] [place] [phone] * (ABNORMAL) Lipid Panel, Standard (02/14/2025 9:49 AM EDT) Triglycerides 59 <150 mg/dL [facility] Comment:Desirable Triglyceri de: less than 150 mg/dLBorderline High Triglyceride 150-199 mg/dLHigh Triglyceride: 200-499 mg/dLVery High Triglyceride: greater than or equal to 5OO mg/dL Cholesterol 206(H) <200 mg/dL [facility] Comment:Desirable Cholestero l: less than 200 mg/dLBorderline High Cholesterol: 200-239 mg/dLHigh Cholesterol: greater than 239 mg/dL LDL Cholesterol Calculated 129(H) <100 mg/dL [facility] Comment:Desirable LDL: less than 100 mg/dLNear Optimal/Above Optimal LDL: 110- 129 mg/dLBorderline High LDL: 130-159 mg/dLHigh LDL: 160-189 mg/dLVery High LDL: greater than or equal to 190 mg/dL HDL Cholesterol 66 >40 mg/dL [facility] Comment:Desirable HDL: great er than 40 mg/dL Note: This HDL assay may give artificially low results in patients with liver disease. 02/14/2025 9:49 AM EDT 02/14/2025 9:49 AM EDT us Generic External Data Provider LAB BLOOD ORDERAB LES Final Result [facility] [address] [place] [phone] * Comprehensive Metabolic Panel (02/14/2025 9:49 AM EDT) Sodium 141 135 - 145 mmol/L [facility] Potassium 3.7 3.3 - 5.1 mmol/L [facility] Chloride 106 96 - 108 mmol/L [facility] Carbon Dioxide 27 22 - 29 mmol/L [facility] Anion Gap 12 12 - 20 [facility] Urea Nitrogen (BUN) 12 9 - 16 mg/dL [facility] Creatinine, Serum 0.69 0.5 - 1.4 mg/dL [facility] Creatinine Clr Calc Pharmacy 89.1 [facility] Comment:Provided height and weight: 154.94 cm,63.957 kg.eGFR (calculated from the MDRD study equation) and eCrCl(calculated from the Cockcroft-Gault equation) are based ondifferent parameters and may not yield comparable results.If eCrCl result is absurd, please check patient'sheight/weight. Estimated Glomerular Filt Rate >60 [facility] Comment:Chronic Kidney Disea se: Estimated GFR < 60 mL/min/1.08q1Uonqyb Kidney Disease: Estimated GFR < 15 mL/min/1.73m2 Glucose 83 60 - 115 mg/dL [facility] Calcium 9.0 8.4 - 10.2 mg/dL [facility] Bilirubin, Total 0.5 0.0 - 1.0 mg/dL [facility] Aspartate Amino Transferase 24 5 - 31 U/L [facility] Alanine Aminotransferase 12 0 - 31 U/L [facility] Total Protein 7.4 6.5 - 8.0 g/dL [facility] Albumin Level 4.5 3.5 - 5.0 g/dL [facility] Alkaline Phosphatase 48 39 - 117 U/L [facility] 02/14/2025 9:49 AM EDT 02/14/2025 9:49 AM EDT us Generic External Data Provider LAB BLOOD ORDERAB LES Final Result Performing Organization Address [facility] Co de Phone Number [facility] [address] [place] [phone] * Type and screen (02/14/2025 9:44 AM EDT) Blood Type BP [facility] Antibody Screen NEGATIVE [facility] 02/14/2025 9:44 AM EDT 02/14/2025 10:36 AM EDT Narrative [facility] - 02/14/2025 11:33 AM EDT Witnessed by BEN:Call Blood Bank (ext. [phone]) to band patient on admission.Type and Screen in effect until 2300 on 03/01/2025.Spec expiration changed by LORRI on 02/14/25Reason: PAT us Generic External Data Provider LAB BLOOD BANK TE ST ORDERABLES Final Result Performing Organization Address [facility]/ZIP Co de Phone Number [facility] [address] [place] [phone] * Hepatitis C Antibody with Reflex to HCV, RNA, Quantitative, Real-Time PCR (09/21/2024 12:18 PM EDT) Pathologist [facility] Hepatitis C Antibody Nonreactive Nonreactive [facility] Comment:Antibodies to HCV no t detected; does not exclude early acuteHCV infection. Blood Venous blood specimen / Unknown 09/21/2024 12:18 PM EDT 09/21/2024 12:18 PM EDT Sasha Radha INSURANCE SALES MANAGER LAB BLOOD ORDERABLES Final Resu lt [facility] [address] [place] [phone] * HIV-1/2 Antigen and Antibodies, Fourth Generation, with Reflexes (09/21/2024 12:18 PM EDT) Pathologist [facility] HIV AB/AG Nonreactive Nonreactive [facility] Comment:HIV-1 p24 Ag and/or HIV-1/HIV-2 Ab not detected.A test result that is nonreactive does not exclude thepossibility of exposure to or infection with HIV-1 and/orHIV-2. Nonreactive results in this assay for individualswith prior exposure to HIV-1 and/or HIV-2 may be due toantigen and antibody levels that are below the limit ofdetection of this assay.The [email or web address] HIV Ag/Ab Combo assay result andsupplemental assay results should be interpreted inconjunction with the patient's clinical presentation,history and other laboratory results. If the results areinconsistent with clinical evidence, additional testing issuggested to confirm the result. Blood Venous blood specimen / Unknown 09/21/2024 12:18 PM EDT 09/21/2024 12:18 PM EDT Sasha Radha INSURANCE SALES MANAGER LAB BLOOD ORDERABLES Final Resu lt [facility] [address] [place] [phone] * (ABNORMAL) THINPREP PAP (03/04/2021 10:51 AM EDT) Clinical Information: None given [facility] COMMENT SEE COMMENT [facility] [...] along with historic and current clinical information. Radiology Special Procedure Tech : SEE COMMENT [facility] Comment: KN, CT(ASCP) CT screening location: [place] [address] General Categorization: EPITHELIAL CELL ABNORMALITY(A) [facility] Interpretation/R esult: Atypical Squamous Cells of Undetermined Significance (ASC-US)(A) [facility] LMP: 02/20/21 [facility] PATHOLOGIST: SEE COMMENT FOUND ATION LAB SYSTEM Comment: Thomas Atkinson M.D., Board Certified in Anatomic and Clinical Pathology (electronic signature) Consulting Pathologist [facility] Pathology [address] [place] [address] Prev. BX: NONE GIVEN [facility] N LAB SYSTEM Prev. PAP: NONE GIVEN [facility] ON LAB SYSTEM SOURCE: None given [facility] LAB SYSTEM Statement Of Adequacy: SEE COMMENT [facility] Comment: Satisfactory for evaluation. Endocervical/transformation zone component absent. 03/04/2021 10:5 1 AM EDT [facility] PATHOLOGY ORDERABLES Final Result [facility] [address] [place] [address], * HPV mRNA E6/E7 (03/04/2021 10:51 AM EDT) HPV nRNA E6/E7 Not Detected Not Detected [facility] Comment: Methodology: Grinder Operator Automatic-Mediated Amplification This assay detects E6/E7 viral messenger RNA (mRNA) from 14 high-risk HPV types (16,18,31,33,35,39,45,51,52,56,58,59,66,68). The analytical performance characteristics of this assay have been determined by [employer]. The modifications have not been cleared or approved by the FDA. This assay has been validated pursuant to the CLIA regulations and is used for clinical purposes. For additional information, please refer to http://education.[employer]/faq/SGD684k1 (This link if provided for information/ educational purposes only.) 03/04/2021 10:5 1 AM EDT us Ju Rice [facility] LAB BLOOD ORDERABLES Milka banks Result [facility] [address] from Last 3 Months or Most Recently Relevant to Health Maintenance Insurance C3 Care Teams Bread Wrapper Relationship Specialty Start Date End Date Sasha Bello NP [address] [place] [address] PCP - General Family Medicine 03/01/24
--- OUTSIDE RECORDS SUMMARY | 2025-03-14 19:11 | XMS_ITS | Encounter Summary ---
Author Organization [employer] Address [address] [facility] 7t [place] [address] Care Team Providers Care Microsoft Dynamics Manager Architect Name Role Phone Sasha Bello NP Primary Care Provider [phone] Encounter Details Date Type Department Care Team (Late st Contact Info) Description 03/13/2025 Orders Only [facility] External Provider, [facility] Social History Tobacco Use Types Packs/Day Years [...] TOMOSYNTHESIS BILATERAL Routine 03/13/2025 9:10 AM EDT documented in this encounter Results * BI Mammogram Screening Tomosynthesis Bilateral (03/13/2025 9:10 AM EDT) Anatomical Region Laterality Modality Breast Bilateral Mammography 03/13/2025 9:10 AM EDT Narrative 03/13/2025 7:36 PM EDT [address] [place] [address] Mammography Report Signed Patient: Oc Ramirez MR#: [id number] 80 : 1980 Acct:[id number] Age/Sex: 44 / F ADM Date: 03/13/25 Loc: HO.MAMMO Attending Dr: Michael Mahmood MD Ordering Physician: Michael Mahmood MD Results: 1Negat bandar Date of Service: 03/13/25 Follow Up: 1 Year From Orig inal Mammogram Procedure(s): MM tomosynthesis screening BI Accession Number(s): [id number] cc: Michael Mahmood MD; Dee Garcia Reason [...] Yoav Gonzalez MD 03/13/2025 07:34 PM EDT RP Workstation: PadProof Dictated By: Yoav Gonzalez MD Signed By: <Electronically signed by Yoav Gonzalez MD in OV> 03/13/251933 DD/ 9 TD/TT: 03/13/25 0934 Paper Grader: Procedure Note Donotuseinterpreter, Image - 03/13/2025 [facility] [address] [place], [place] [address] Mammography Report Signed Patient: Oc RamirezMR#: [id number] [birth year] : 1980Acct:[id number] Age/Sex: 44 / FADM Date: 03/13/25 Loc: PEGGY Attending Dr: Michael Mahmood MD Ordering Physician: Michael Mahmood MDResults: 1Negat bandar Date of Service: 03/13/25Follow Up: 1 Year From Orig inal Mammogram Procedure(s): MM tomosynthesis screening BI Accession Number(s): [id number] cc: Michael Mahmood MD; Dee Garcia Reason [...] in OV> 03/13/25 193 DD/ 9 TD/TT: 03/13/25 0934 Paper Grader: [facility] External Provider IMG BI PROCEDURES Edited Result - Final documented in this encounter Visit Diagnoses Not on filedocumented in this encounter Additional Health Concerns Assessment Noted Time PHQ-9 Depression Total Score: 8 07/12/19 25 11:42 AM EST documented as of this encounter Care Teams Microsoft Dynamics Manager Architect Relationship Specialty Start Date End Date Sasha Bello NP [address] [place] [address] PCP - General Family Medicine 03/01/24 documented as of this encounter
== END 2025-03-14 16:27 | disposition home or self-care (01) ==
LOC: HO.HBS 15:56
PROVIDERS: PCP Nurse Practitioner; Visit Provider Physician Assistant Surgical
DX: E66.3 Overweight (principal); Z98.84 Bariatric surgery status; Z98.890 Other specified postprocedural states
CPT/HCPCS: 99024

== ENCOUNTER → 2025-03-14 15:55 | Outpatient (BNVA) | payer MEDICAID, SELFPAY | PROVIDERS: PCP Nurse Practitioner; Visit Provider Physician Assistant Surgical | DX: E66.3 Overweight (principal); Z98.84 Bariatric surgery status; Z98.890 Other specified postprocedural states | CPT/HCPCS: 99212 ==

== ENCOUNTER 2025-03-21 15:42 | Outpatient (AMB) | payer MEDICAID, SELFPAY ==
--- NOTE | 2025-03-21 15:48 | MHC.OFFVISWM ---
VS Expanded 03/21/25 16:18 BP 125/65 Blood Pressure Location Rt brachial Blood Pressure Position Sitting Pulse 81 Pulse Source Pulse Oximeter Temp 96.7 F L Temperature Source Temporal Artery Scan Pulse Oximetry 98 Oxygen Delivery Method Room Air Height 5 ft 1 in Weight 138 lb 9.6 oz BMI 26.2 Body Fat % 26.9 Body Fat Mass 37.2 Fat Free Mass 101.2 Visceral Fat Rating 5.0 Body Water % 52.1 Body Water Mass 72.0 Muscle Mass/Score 96.2 Basal Metabolic Rate/Score 1,358 Intake Visit Reasons: OV PO Panniculectomy 02/20/25 Allergies adhesive tape (ADHESIVE TAPE) Allergy (Intermediate, Verified 03/14/25 16:12) BURN/BLISTER Medication List - Last Reconciled 03/21/25 by YURI Garrido ascorbic acid (vitamin C) 25 mg PO DAILY cephalexin 500 mg PO Q12H cetirizine 10 mg PO QAM cholecalciferol (vitamin D3) 125 mcg PO DAILY [cock up splint Wear on both wrists at night ] cyanocobalamin (vitamin B-12) 1,000 mcg IM QMONTH docusate sodium (Colace) 100 mg PO DAILY docusate sodium 100 mg PO Q12H duloxetine 30 mg PO DAILY ferrous sulfate 325 mg PO BID gabapentin 400 mg PO BID 90 days hydroxyzine pamoate 25 mg PO Q8H PRN ketorolac 10 mg PO Q6H PRN methocarbamol 1,500 mg (2 x 750 mg) PO Q8H PRN methylprednisolone (Medrol (Marcio)) 4 mg PO QAM multivitamin 1 tab PO DAILY ondansetron 4 mg PO Q12H sumatriptan succinate 50 mg PO Q2-4H PRN tramadol 50 mg PO TID 30 days vitamin A palmitate 3,000 mcg PO DAILY Zepbound (tirzepatide (weight loss)) 12.5 mg (0.5 mL) subcut QWEEK NS HPI Comments Details: Pt is 4w s/p panniculectomy with drain placement. No fevers at home. Taking abx. Tolerating meal plan per Dr Cruz Drain output 10-20cc/day for the last week. [facility] Medical History (Updated 03/07/25 @ 00:00 by Dereck Candelario) Neck muscle spasm Bilateral shoulder pain Neck pain Lateral epicondylitis, right elbow SARS-CoV-2 positive Fibromyalgia Lumbar spondylosis Obesity (BMI 30-39.9) Intestinal malabsorption following gastrectomy Fatigue Sleep apnea GERD (gastroesophageal reflux disease) Arthritis Anemia Surgical History S/P panniculectomy History of surgery of uterus H/O tubal ligation Hx of section S/P laparoscopic sleeve gastrectomy Family History Father Respiratory arrest Sister Anemia Ovarian cancer Social History Household Members: Family Housing: House Are you a primary personal care home administrator to a significant other at home: No Do you presently have visiting nurse or other home services: No 75 years or older and lives alone: No Alcohol intake: current Alcohol intake frequency: holidays/special occasions only Alcohol type: wine Patient Tobacco Use Status: Never used Tobacco e-Cigarette/Vaping Use: Never Used Gender identity: Female Female Reproductive History Menstrual Age of Menarche: 13 Physical Exam Const General: cooperative, comfortable and no acute distress Orientation/consciousness: patient oriented x3 GI Other: soft, nontender, nondistended, incision c/d/i, drain output SS Neuro General: patient oriented x3 Assessment & Plan Assessment & Plan (1) S/P panniculectomy: Code(s): Z98.890 - Other specified postprocedural states Category: Surgical Plan Continue high protein diet. ABX keflex 500 BID x 1 more week.? Drain out today. Abdominal binder at all times except for care x 1 month?MINIMUM. If there are concerns longer.? No driving?until drain out.? No walking outside or exercise for 6 weeks minimum. Walking in the house ok. Assistance getting up for 4 weeks minimum.?No lifting greater than?10 pounds and no abdominal exercises x 3 months. RTC 1 week.
[2025-03-21 16:18] VITALS: BP 125/65; PULSE 81; TEMP 35.9; O2SAT 98; BMI 26.2
--- OUTSIDE RECORDS SUMMARY | 2025-03-21 17:57 | XMS_ITS | Clinical Summary ---
Author Organization [address] [place] [address] Address [address] [place] [address] Phone Care Team Providers Care Continuous Mining Machine Company Miner Name Role Phone EdmundAngelina NANCY Primary Care Provider [phone] Allergies No known active allergies Medications ascorbic [...] disc herniation with radiculopathy 2023 Morbid obesity ([facility] V24, [facility] V28) 2023 Pain in the coccyx 04/20/2024 Papular eruption 04/20/2024 Seasonal allergic rhinitis 04/20/2024 Severe recurrent major depre ssion with psychotic features ([facility] V24, [facility] V28) 04/20/2024 Encounters Date Type Department Care Team Description 01/11/2025 1:45 PM EDT Office Visit Orthopedic [place] [address] [phone] Kev Aponte DPM Plantar fascial fibromatosis (Primary [...] AM EDT Office Visit Orthopedic [facility] [address] [phone] Kev Aponte DPM [address] [phone] Health Maintenance Due Date Last Done Comments [...] Months Insurance MEDICAID - [place] Care Teams Continuous Mining Machine Company Miner Relationship Specialty Start Date End Date Angelina Shaffer NP [address] [place] [phone] PCP - General 03/03/24
--- OUTSIDE RECORDS SUMMARY | 2025-03-21 17:57 | XMS_ITS | Encounter Summary ---
Author Organization [employer] Address [address] [facility] 7 [place] [address] Care Team Providers Care Music Copyist Name Role Phone Amelie Ram POWDER CUTTING OPERATOR Primary Care Provider [phone] Sasha Bello NP Primary Care Provider [phone] Reason for Visit * Reason Onset Date Comments triage 08/18/2022 Encounter Details Date Type Department Care Team (Late st Contact Info) Description 08/18/2022 Telephone [facility] MEDICINE [address] [place] [address] Amelie Ram FNP [address] [place] [address] triage Social History Tobacco Use Types Packs/Day [...] accepted this outcome Please contact pt at [phone] Croatian Speaker documented in this encounter Plan of Treatment Not on file documented as of this encounter Visit Diagnoses Not on filedocumented in this encounter Care Teams Music Copyist Relationship Specialty Start Date End Date Amelie Ram FNP [address] [place] [address] PCP - General Family Medicine 05/25/22 02/29/24 Sasha Bello NP [address] [place] [address] PCP - General Family Medicine 03/01/24 documented as of this encounter
--- OUTSIDE RECORDS SUMMARY | 2025-03-21 17:57 | XMS_ITS | Encounter Summary ---
Author Organization [employer] Address [address] [facility] 7t [place] [address] Care Team Providers Care Economics Department Chair Name Role Phone Sasha Bello NP Primary Care Provider [phone] Encounter Details Date Type Department Care Team ([facility] st Contact Info) Description 11/02/2024 Orders Only [facility] MEDICINE [address] [place], [place] [phone] Sasha Bello NP [address] [place], [place] [phone] Obesity (BMI 30.0-34.9) Social History Tobacco Use [...] documented as of this encounter Care Teams Economics Department Chair Relationship Specialty Start Date End Date Sasha Bello NP [address] [place] [address] PCP - General Family Medicine 03/01/24 documented as of this encounter
--- OUTSIDE RECORDS SUMMARY | 2025-03-21 17:57 | XMS_ITS | Encounter Summary ---
Author Organization [employer] Address [address] [place] [address] 7 [place] [address] Care Team Providers Care Home Weatherizing Worker Name Role Phone Amelie RamP Primary Care Provider [phone] Sasha Bello NP Primary Care Provider [phone] Reason for Visit * Reason Onset Date Comments Referral 12/21/2022 Encounter Details Date Type Department Care Team (Late st Contact Info) Description 12/21/2022 Telephone [facility] MEDICINE [address] [place], [place] [phone] Amelie Ram FNP [address] [place] [address] Referral Social History Tobacco Use Types Packs/Day [...] from pt requesting a referral Specialty: Community Crew Leader/Control Room Operator Location: [address] [place] [address] Date&Time:N/A Liquor Store Manager:N/a Specialty:[facility] Location: [address] [place] [address] [place] [address] Date&Time: n/a Liquor Store Manager: N/a documented in this encounter Plan of Treatment Not on file documented as of this encounter Visit Diagnoses Not on filedocumented in this encounter Additional Health Concerns Assessment Noted Time PHQ-9 Depression Total Score: 0 11/26/19 23 10:22 AM EDT documented as of this encounter Care Teams Home Weatherizing Worker Relationship Specialty Start Date End Date Amelie Ram FNP [address] [place] [address] PCP - General Family Medicine 05/25/22 02/29/24 Sasha Bello NP [address] [place] [address] PCP - General Family Medicine 03/01/24 documented as of this encounter
--- OUTSIDE RECORDS SUMMARY | 2025-03-21 17:57 | XMS_ITS | Encounter Summary ---
Author Organization [employer] Address [address] [facility] [address] [place] [address] Care Team Providers Care Machine Farmworker Name Role Phone Sasha Bello NP Primary Care Provider [phone] Encounter Details Date Type Department Care Team ([facility] st Contact Info) Description 10/31/2024 Telephone [facility] [address] [place], [place] [phone] Sasha Bello NP [address] [place], [place] [phone] Social History Tobacco Use Types Packs/Day Years [...] documented as of this encounter Care Teams Machine Farmworker Relationship Specialty Start Date End Date Sasha Bello NP [address] [place] [address] PCP - General Family Medicine 03/01/24 documented as of this encounter
--- OUTSIDE RECORDS SUMMARY | 2025-03-21 17:57 | XMS_ITS | Encounter Summary ---
Author Organization [employer] Address [address] [facility] 7[address] [place] [address] Care Team Providers Care Director Of Market Research Name Role Phone Sasha Bello NP Primary Care Provider [phone] Reason for Visit * Reason Comments Med Refill Encounter Details Date Type Department Care Team ([facility] st Contact Info) Description 09/04/2024 Refill [facility] MEDICINE [address] [place] [address] Sasha Bello NP [address] [place] [address] Acute pain of right knee Social History [...] as of this encounter Care Teams Director Of Market Research Relationship Specialty Start Date End Date Sasha Bello NP [address] [place] [address] PCP - General Family Medicine 03/01/24 documented as of this encounter
--- OUTSIDE RECORDS SUMMARY | 2025-03-21 17:57 | XMS_ITS | Encounter Summary ---
Author Organization [employer] Address [address] [place] [address] 7 [place] [address] Care Team Providers Care Tool Design Draftsperson Name Role Phone Amelie Ram Primary Care Provider [phone] Sasha Bello NP Primary Care Provider [phone] Reason for Referral * Imaging (Routine) - Closed Specialty Diagnoses / Procedures Referred By Contac t Referred To Contact Radiology Diagnoses Breast cancer screening by mammogram Procedures BI Mammogram Screening Bilateral Amelie Ram FNP [address] [place] [address] Phone: tel: fax: [address] Phone: tel: fax: Referral ID Status Reason Start Date Expiration Date Visits Re quested Visits Authorized [id number] Closed 01/06/2023 01/06/2024 1 1 Encounter Details Date Type Department Care Team (Late st Contact Info) Description 01/06/2023 Orders Only [facility] MEDICINE [address] [place] [address] Amelie Ram FNP [address] [place] [address] Breast cancer screening by mammogram (Primary Dx) [...] documented as of this encounter Care Teams Tool Design Draftsperson Relationship Specialty Start Date End Date Amelie Ram FNP [address] [place] [address] PCP - General Family Medicine 05/25/22 02/29/24 Sasha Bello NP [address] [place] [address] PCP - General Family Medicine 03/01/24 documented as of this encounter
--- OUTSIDE RECORDS SUMMARY | 2025-03-21 17:57 | XMS_ITS | Encounter Summary ---
Author Organization [employer] Address [address] [facility] 7 [place] [address] Care Team Providers Care Buyer Name Role Phone Amelie RamP Primary Care Provider [phone] Sasha Bello NP Primary Care Provider [phone] Reason for Visit * Reason Onset Date Comments 09/0909/10/2023 Encounter Details Date Type Department Care Team ([facility] st Contact Info) Description 09/10/2023 Telephone [facility] MEDICINE [address] [place], [place] [phone] Amelie Ram FNP [address] [place], [place] [phone] 09/09 Social History Tobacco Use Types Packs/Day [...] documented as of this encounter Care Teams Buyer Relationship Specialty Start Date End Date Amelie Ram FNP [address] [place] [address] PCP - General Family Medicine 05/25/22 02/29/24 Sasha Bello NP [address] [place] [address] PCP - General Family Medicine 03/01/24 documented as of this encounter
--- OUTSIDE RECORDS SUMMARY | 2025-03-21 17:57 | XMS_ITS | Encounter Summary ---
Author Organization [employer] Address [address] [place] [address] [address] [place] [address] Care Team Providers Care In Store Marketing Associate Name Role Phone Amelie RamP Primary Care Provider [phone] Sasha Bello NP Primary Care Provider [phone] Encounter Details Date Type Department Care Team (Late st Contact Info) Description 12/23/2022 Orders Only [facility] MEDICINE [address] [place], [place] [phone] Amelie Ram FNP [address] [place] [address] Encounter for annual routine gynecological examination (Primary [...] documented as of this encounter Care Teams In Store Marketing Associate Relationship Specialty Start Date End Date Amelie Ram FNP [address] [place] [address] PCP - General Family Medicine 05/25/22 02/29/24 Sasha Bello NP [address] [place] [address] PCP - General Family Medicine 03/01/24 documented as of this encounter
--- OUTSIDE RECORDS SUMMARY | 2025-03-21 17:57 | XMS_ITS | Clinical Summary ---
Author Organization [facility] Address [address] [place] [address] Care Team Providers Care Crop Farm Helper Name Role Phone Unavailable Primary Care Provider [...] Description 02/27/2025 / TELEPHONE [facility] [address] [place] [phone] Reji Mann, PMHNP 01/23/2025 / TELEPHONE [facility] [address] [place] [phone] Reji Mann, PMHNP from Last 3 Months [...] Upcoming Encounters Date Type Department Care Team ([facility] st Contact Info) Description 05/15/2025 12:00 PM EST Behavioral Health Visit [facility] [address] [place] [phone] Reji Mann, PMHNP [address] [place] [address] [place] [phone] Health Maintenance Due Date Last Done Comments Anxiety Screening 1980 HPV Screening 1980 Pap + HPV 1980 Tobacco Screening 1980 Relationship Safety Screening/Counseling 1995 Hypertension Screening (#1) 1998 Cervical Cancer Screening 2001 Pap Smear 2001 Imm-HPV (1 - 3-dose SCDM series) 2007 Breast Cancer Screening (Mammogram) 2020 Alcohol and Drug Screen 06/28/2024 Depression Annual Screen 06/28/2024 [id number] ( season) 2025 10/23/2021, 09/02/2020, 08/12/2020 Imm-Influenza [...] Discontinued Vaginal Pap Discontinued Vulvoscopy Discontinued Insurance [facility]
--- OUTSIDE RECORDS SUMMARY | 2025-03-21 17:57 | XMS_ITS | Clinical Summary ---
Author Organization [employer] Address [address] [place] [address] Care Team Providers Care Construction Lineman Name Role Phone Sasha Bello NP Primary Care Provider [phone] Allergies No known active allergies Medications [...] recommended reduction of 20-30% of maintenance calories; transitional care manager referral offered. Recommended to decrease soda and [...] ssion with psychotic features 09/15/2013 07/12/2024 Encounters Date Type Department Care Team Description 03/13/2025 Orders Only [facility] External Provider, [facility] 02/22/2025 Refill [facility] MEDICINE [address] [place] [phone] Sasha Bello NP Cervical pain (neck) 02/20/2025 Orders Only GENERIC EXTERNAL DATA DEPARTMENT Provider, Generic External Data 02/14/2025 Telephone [facility] [address] [place] [address] Sasha Bello NP No Show 02/14/2025 Orders Only GENERIC EXTERNAL DATA DEPARTMENT Provider, Generic External Data 02/13/[address] [address] Briana Castro [place] CHARTPREP 02/07/2025 Patient Outreach [facility] MED & PEDS [address] [place] [address] Sasha Bello NP Pre-visit Planning ([facility] wass already completed) 01/25/2025 Refill [facility] MEDICINE [address] [place] [address] Amelie Ram, OLIVE PACKER Constipation, unspecified constipation type 01/22/2025 Refill [facility] PEDS [address] [place] [address] Sasha Bello NP Mild major depression (CMS/HCC); Anxiety 01/11/2025 Telephone [facility] MEDICINE [address] [place] [address] Sasha Bello NP Chart Prep 01/02/2025 Telephone [facility] MEDICINE [address] [place] [address] Sasha Bello NP Prior Authorization 12/24/2024 Refill [facility] MEDICINE [address] [place] [address] Sasha Bello NP Obesity (BMI 30.0-34.9) from [...] AM EDT Narrative 03/13/2025 7:36 PM EDT [facility] [address] [place] [address] Mammography Report Signed Patient: Oc Ramirez MR#: [id number] [birth year] : 1980 Acct:[id number] Age/Sex: 44 / F ADM Date: 03/13/25 Loc: HO.MAMMO Attending Dr: Michael Mahmood MD Ordering Physician: Michael Mahmood MD Results: 1Negat bandar Date of Service: 03/13/25 Follow Up: 1 Year From Orig inal Mammogram Procedure(s): MM tomosynthesis screening BI Accession Number(s): [id number] cc: Michael Mahmood MD; Dee Garcia Reason [...] MD in OV> 03/13/251933 DD/ 9 TD/TT: 03/13/25933 Cena: Procedure Note Donotuseinterpreter, Image - 03/13/[facility] [address] [place] [address] Mammography Report Signed Patient: Eugenia Ramirez#: [id number] [birth year] : 1980Acct:[id number] Age/Sex: 44 / FADM Date: 03/13/25 Loc: HO.MAMMO Attending Dr: Michael Mahmood MD Ordering Physician: Michael Mahmood MDResults: 1Negat bandar Date of Service: 03/13/25Follow Up: 1 Year From Orig inal Mammogram Procedure(s): MM tomosynthesis screening BI Accession Number(s): [id number] cc: Michael Mahmood MD; Dee Garcia Reason [...] 03/13/25 193 DD/ 9 TD/TT: 03/13/25 0934 Cena: [facility] External Provider IMG BI PROCEDURES Edited Result - Final * Gross and Microscopic Level 3 (02/20/2025 1:34 PM EDT) 02/20/2025 1:34 PM EDT 02/21/2025 8:10 AM EDT [facility] - 02/22/2025 3:10 PM EDT ----- ------- Name: Oc Ramirez Age/Sex: 44/F : 1980 [facility]#: [id number] Unit#: [id number] Attend Dr: Harvinder Blank MD Re02/20/25 Status: [facility] Location: [facility] Disch: ----- ------- SPEC : [id number] RECD: 02/21/25 STATUS: DENISE COHEN NUM: [id number] RATNA: 02/20/25-[address] [facility] [address]: Harvinder Blank MD ENTERED: 02/21/25 SP TYPE: Surgical OTHR DR: Dee Garcia [facility] ORDERED: Gross Micro L3 Diagnosis Skin [...] fibrous tissue, without evidence of discrete abnormality. Production Operations Inspector sections are submitted in cassettes A1 -3. (DTL) IHC S/NG Disclaimer NOTE: Unless otherwise stated, all tissue is formalin-fixed and paraffin-embedded. Some or all of the immunohistochemical tests reported herein may have been developed and their performance characteristics determined by [facility]. They have not been cleared or approved by the U.S. Food and Drug Administration (FDA). However, the FDA has determined that such clearance or approval is not necessary. This laboratory is certified under the Clinical Laboratory Improvement Amendments of 1988 (CLIA) as qualified to perform high complexity clinical laboratory testing. Copies To: Dee Garcia [address] [address] CONTINUED ON NEXT PAGE ----- ------- Name: Oc Ramirez Age/Sex: 44/F : 1980 Unit#: [id number] Attend Dr: Harvinder Blank MD Re02/20/25 Status: [facility] Location: [facility] Disch: ----- ------- SPEC : [id number] RECD: 02/21/25 STATUS: DENISE COHEN NUM: [id number] RATNA: 02/20/25-[address] [facility] [address]: Harvinder Blank MD ENTERED: 02/21/25 SP TYPE: Surgical OTHR DR: Dee Garcia ORDERED: Gross Micro L3 Copies To: (Continued) Harvinder Blank MD [facility] Weight Management Program [address] [place] [phone] ----- ------- Signed (signature on file) Hans Adhikari MD 02/22/25 1510 ----- ------- END OF REPORT us Generic External Data Provider LAB CYTOLOGY HERMILA BARBA Final Result [facility] [address] [place] [phone] * (ABNORMAL) Vitamin D, 25-Hydroxy, Total, Immunoassay (02/14/2025 9:49 AM EDT) [facility] Vitamin D 25-OH Total 28.1(L) >30 ng/mL [facility] Comment: Health Based Reference Values*< 20 ng/mL Brgxcnnpu46-17 ng/mL Insufficient> 30 ng/mL Sufficient*Elizabeth SCHNEIDER. N [...] Final Result Performing Organization Address [facility] Co de Phone Number [facility] [address] [place] [phone] * TSH with Reflex to Free T4 (02/14/2025 9:49 AM EDT) Pathologist [facility] TSH reflex Free T4 1.08 0.32 - 4.0 uIU/mL [facility] 02/14/2025 9:49 AM EDT 02/14/2025 9:49 AM EDT Generic External Data Provider LAB BLOOD ORDERAB LES Final Result Performing Organization Address [facility] de Phone Number [facility] [address] [place] [phone] * (ABNORMAL) CBC auto differential (02/14/2025 9:49 AM EDT) White Blood Count 3.9(L) 4.8 - 10.8 X10*3/uL [facility] Red Blood Count 3.72(L) 4.20 - 5.50 X10*6/uL [facility] Hemoglobin 11.2(L) 12.0 - 16.0 g/dl [facility] Hematocrit 33.0(L) 37.0 - 47.0 % [facility] Mean Corpuscular Volume 88.7 80.0 - 98.0 fL [facility] Mean Corpuscular Hemoglobin 30.1 27.0 - 33.0 pg [facility] Mean Corpuscular HGB Conc 33.9 31.0 - 35.0 g/dl [facility] Red Cell Distribution Width 12.5 11.0 - 16.0 % [facility] Platelet Count 244 160 - 400 X10*3/uL [facility] Mean Platelet Volume 9.2(L) 9.4 - 12.3 fL [facility] Neutrophils Percent Auto 50.9 45 - 73 % [facility] Imm Gran Pct Auto 0.3 0.0 - 0.4 % [facility] Lymphocytes Percent Auto 37.7 20 - 40 % [facility] Monocytes Percent Auto 9.3 2 - 11 % [facility] Eosinophils Percent Auto 1.3 0 - 4 % [facility] Basophils Percent Auto 0.5 0 - 2 % [facility] NRBC Pct Auto 0.0 0.0 - 0.2 /100WBC [facility] Neutrophils Absolute Auto 2.0 2.0 - 8.3 x10*3/uL [facility] Imm Gran Abs Auto 0.01 0.00 - 0.03 X10*3/uL [facility] Lymphocytes Absolute Auto 1.5 1.2 - 4.9 X10*3/uL [facility] Monocytes Absolute Auto 0.4 0.1 - 1.2 X10*3/uL [facility] Eosinophils Absolute Auto 0.1 0.0 - 0.4 X10*3/uL [facility] Basophils Absolute Auto 0.0 0.0 - 0.2 X10*3/uL [facility] NRBC Abs Auto 0.000 0.0 - 0.012 X10*3/uL [facility] 02/14/2025 9:49 AM EDT 02/14/2025 9:49 AM EDT us Generic External Data Provider LAB BLOOD ORDERAB LES Final Result [facility] [address] [place] [phone] * Iron And Total Iron Binding Capacity (02/14/2025 9:49 AM EDT) Iron 49 30 - 160 mcg/dL [facility] Total Iron Binding Capacity 278 228 - 428 mcg/dL [facility] Percent Iron Saturation 18 15 - 50 % [facility] Unsaturated Iron Binding 229 ug/dL [facility] 02/14/2025 9:49 AM EDT 02/14/2025 9:49 AM EDT Generic External Data Provider LAB BLOOD ORDERAB LES Final Result Performing Organization Address [facility] de Phone Number [facility] [address] [place] [phone] * Insulin (02/14/2025 9:49 AM EDT) Insulin 5 2 - 29 uU/mL [facility] Comment:This test was perfor med [...] Final Result Performing Organization Address [facility] Co de Phone Number [facility] [address] [place] [phone] * Zinc (02/14/2025 9:49 AM EDT) Zinc 63 60 - 130 mcg/dL [facility] Comment:This test was develo ped and its analytical performancecharacteristics have been determined by [employer] [place]. It hasnot been cleared or approved by the U.S. Food and DrugAdministration. This assay has been validated pursuantto the CLIA regulations and is used for clinicalpurposes.THIS TEST WAS PERFORMED AT:[facility] [id number] [place] [address]OHOFZIPJAMES STALEY MD,PHD 02/14/2025 9:49 AM EDT 02/14/2025 9:49 AM EDT Generic External Data Provider LAB BLOOD ORDERAB LES Final Result Performing Organization Address City/[facility]/ZIP Co de Phone Number [facility] [address] [place] [phone] * (ABNORMAL) Vitamin A (02/14/2025 9:49 AM EDT) Pathologist [facility] Vitamin A (Retinol) 24(A) 38 - 98 mcg/dL [facility] Comment:Vitamin supplementat ion within 24 hours prior toblood draw may affect the accuracy of the results.This test was developed and its analytical performancecharacteristics have been determined by [employer], [place]. It hasnot been cleared or approved by the U.S. Food and DrugAdministration. This assay has been validated pursuantto the CLIA regulations and is used for clinicalpurposes.THIS TEST WAS PERFORMED AT:[facility] [id number] [place] [address]KYQLZLDJAMES STALEY MD,PHD 02/14/2025 9:49 AM EDT 02/14/2025 9:49 AM EDT us Generic External Data Provider LAB BLOOD ORDERAB LES Final Result Performing Organization Address [facility]/ZIP Co de Phone Number [facility] [address] [place] [phone] * Partial Thromboplastin Time, Activated (APTT) (02/14/2025 9:49 AM EDT) Partial Thromboplastin Time 26.8 26.7 - 34.1 SEC [facility] 02/14/2025 9:49 AM EDT 02/14/2025 9:49 AM EDT us Generic External Data Provider LAB BLOOD ORDERAB LES Final Result Performing Organization Address [facility] Co de Phone Number [facility] [address] [place] [phone] * Prothrombin Time-INR (02/14/2025 9:49 AM EDT) Prothrombin Time 11.8 10.9 - 12.4 SEC [facility] INTERNATIONAL NORM RATIO 1.0 0.9 - 1.1 [facility] Comment:INTERNATIONAL NORMAL IZED RATIO (INR) [...] Final Result Performing Organization Address [facility] Co de Phone Number [facility] [address] [place] [phone] * C-reactive Protein (02/14/2025 9:49 AM EDT) C Reactive Protein 0.11 < or = 0.50 mg/dL [facility] 02/14/2025 9:49 AM EDT 02/14/2025 9:49 AM EDT us Generic External Data Provider LAB BLOOD ORDERAB LES Final Result Performing Organization Address [facility] Co de Phone Number [facility] [address] [place] [phone] * Vitamin B1 (02/14/2025 9:49 AM EDT) Vitamin B1 8 8 - 30 nmol/L [facility] Comment:Vitamin supplementat ion within 24 hours prior toblood draw may affect the accuracy of the results.This test was developed and its analytical performancecharacteristics have been determined by [employer], [place]. It hasnot been cleared or approved by the U.S. Food and DrugAdministration. This assay has been validated pursuantto the CLIA regulations and is used for clinicalpurposes.THIS TEST WAS PERFORMED AT:[id number] [place] [address]LRQMIRWJAMES STALEY MD,PHD 02/14/2025 9:49 AM EDT 02/14/2025 9:49 AM EDT us Generic External Data Provider LAB BLOOD ORDERAB LES Final Result [facility] [address] [place] [phone] [phone] * Hemoglobin A1c (02/14/2025 9:49 AM EDT) Hemoglobin A1c 5.1 <6.0 % [facility] Comment:Hemoglobin A1C Refer ence Range Adults: 4.8 - 6.0 % Non diabetic: < 6.0 % Goal: < 7.0 %Additional Action Suggested: > 8.0 %Note: Hemoglobin A1c results are invalid for patients with abnormal amounts of HbF. Blood transfusions may impact the HbA1c concentration in the patient sample. Estimated Average Glucose 100 mg/dL [facility] Comment:eAG = Estimated ave rage glucose which is %A1C expressed asaverage glucose, using the formula of the U4E-XeaibclAslptpt Glucose study (ADAG), Diabetes Care, Vol.31,#8,2007 02/14/2025 9:49 AM EDT 02/14/2025 9:49 AM EDT us Generic External Data Provider LAB BLOOD ORDERAB LES Final Result Performing Organization Address [facility] Co de Phone Number [facility] [address] [place] [phone] * Ferritin (02/14/2025 9:49 AM EDT) Ferritin 47 10 - 250 ng/mL [facility] 02/14/2025 9:49 AM EDT 02/14/2025 9:49 AM EDT Generic External Data Provider LAB BLOOD ORDERAB LES Final Result Performing Organization Address [facility] de Phone Number [facility] [address] [place] [phone] * Vitamin B12 (02/14/2025 9:49 AM EDT) Pathologist [facility] Vitamin B12 808 200 - 900 pg/mL [facility] Comment:NORMAL 200-900 PG/M L INDETERMINATE 160-199 PG/ML DEFICIENT < 160 PG/ML 02/14/2025 9:49 AM EDT 02/14/2025 9:49 AM EDT Generic External Data Provider LAB BLOOD ORDERAB LES Final Result Performing Organization Address [facility] Co de Phone Number [facility] [address] [place] [phone] * (ABNORMAL) Lipid Panel, Standard (02/14/2025 9:49 AM EDT) Triglycerides 59 <150 mg/dL [facility] Comment:Desirable Triglyceri de: less than 150 mg/dLBorderline High Triglyceride 150-199 mg/dLHigh Triglyceride: 200-499 mg/dLVery High Triglyceride: greater than or equal to 5OO mg/dL Cholesterol 206(H) <200 mg/dL [facility] Comment:Desirable Cholestero l: less than 200 mg/dLBorderline High Cholesterol: 200-239 mg/dLHigh Cholesterol: greater than 239 mg/dL LDL Cholesterol Calculated 129(H) <100 mg/dL [facility] Comment:Desirable LDL: less than 100 mg/dLNear Optimal/Above Optimal LDL: 110- 129 mg/dLBorderline High LDL: 130-159 mg/dLHigh LDL: 160-189 mg/dLVery High LDL: greater than or equal to 190 mg/dL HDL Cholesterol 66 >40 mg/dL [facility] Comment:Desirable HDL: great er than 40 mg/dL Note: This HDL assay may give artificially low results in patients with liver disease. 02/14/2025 9:49 AM EDT 02/14/2025 9:49 AM EDT us Generic External Data Provider LAB BLOOD ORDERAB LES Final Result [facility] [address] [place] [phone] * Comprehensive Metabolic Panel (02/14/2025 9:49 AM EDT) Sodium 141 135 - 145 mmol/L [facility] Potassium 3.7 3.3 - 5.1 mmol/L [facility] Chloride 106 96 - 108 mmol/L [facility] Carbon Dioxide 27 22 - 29 mmol/L [facility] Anion Gap 12 12 - 20 [facility] Urea Nitrogen (BUN) 12 9 - 16 mg/dL [facility] Creatinine, Serum 0.69 0.5 - 1.4 mg/dL [facility] Creatinine Clr Calc Pharmacy 89.1 [facility] Comment:Provided height and weight: 154.94 cm,63.957 kg.eGFR (calculated from the MDRD study equation) and eCrCl(calculated from the Cockcroft-Gault equation) are based ondifferent parameters and may not yield comparable results.If eCrCl result is absurd, please check patient'sheight/weight. Estimated Glomerular Filt Rate >60 [facility] Comment:Chronic Kidney Disea se: Estimated GFR < 60 mL/min/1.16b8Uyjamb Kidney Disease: Estimated GFR < 15 mL/min/1.73m2 Glucose 83 60 - 115 mg/dL [facility] Calcium 9.0 8.4 - 10.2 mg/dL [facility] Bilirubin, Total 0.5 0.0 - 1.0 mg/dL [facility] Aspartate Amino Transferase 24 5 - 31 U/L [facility] Alanine Aminotransferase 12 0 - 31 U/L [facility] Total Protein 7.4 6.5 - 8.0 g/dL [facility] Albumin Level 4.5 3.5 - 5.0 g/dL [facility] Alkaline Phosphatase 48 39 - 117 U/L [facility] 02/14/2025 9:49 AM EDT 02/14/2025 9:49 AM EDT us Generic External Data Provider LAB BLOOD ORDERAB LES Final Result Performing Organization Address [facility]/ZIP Co de Phone Number [facility] [address] [place] [phone] * Type and screen (02/14/2025 9:44 AM EDT) Blood Type BP [facility] Antibody Screen NEGATIVE [facility] 02/14/2025 9:44 AM EDT 02/14/2025 10:36 AM EDT Narrative [facility] - 02/14/2025 11:33 AM EDT Witnessed by BEN:Call Blood Bank (ext. [phone]) to band patient on admission.Type and Screen in effect until 2300 on 03/01/2025.Spec expiration changed by LORRI on 02/14/25Reason: PAT us Generic External Data Provider LAB BLOOD BANK TE ST ORDERABLES Final Result Performing Organization Address [facility]/ZIP Co de Phone Number [facility] [address] [place] [phone] * Hepatitis C Antibody with Reflex to HCV, RNA, Quantitative, Real-Time PCR (09/21/2024 12:18 PM EDT) Hepatitis C Antibody Nonreactive Nonreactive [facility] Comment:Antibodies to HCV no t detected; does not exclude early acuteHCV infection. Blood Venous blood specimen / Unknown 09/21/2024 12:18 PM EDT 09/21/2024 12:18 PM EDT [facility] LAB BLOOD ORDERABLES Final Resu lt Performing Organization Address [facility]/State/ZIP Co de Phone Number [facility] [address] [place] [phone] * HIV-1/2 Antigen and Antibodies, Fourth Generation, with Reflexes (09/21/2024 12:18 PM EDT) HIV AB/AG Nonreactive Nonreactive [facility] Comment:HIV-1 p24 Ag and/or HIV-1/HIV-2 Ab not detected.A test result that is nonreactive does not exclude thepossibility of exposure to or infection with HIV-1 and/orHIV-2. Nonreactive results in this assay for individualswith prior exposure to HIV-1 and/or HIV-2 may be due toantigen and antibody levels that are below the limit ofdetection of this assay.The [employer] HIV Ag/Ab Combo assay result andsupplemental assay results should be interpreted inconjunction with the patient's clinical presentation,history and other laboratory results. If the results areinconsistent with clinical evidence, additional testing issuggested to confirm the result. Blood Venous blood specimen / Unknown 09/21/2024 12:18 PM EDT 09/21/2024 12:18 PM EDT [facility] LAB BLOOD ORDERABLES Final Resu lt Performing Organization Address [facility]/State/ZIP Co de Phone Number [facility] [address] [place] [phone] * (ABNORMAL) THINPREP PAP (03/04/2021 10:51 [...] along with historic and current clinical information. Outpatient Coder : SEE COMMENT [facility] Comment: KN, CT(ASCP) CT screening location: [place] [address] General Categorization: EPITHELIAL CELL ABNORMALITY(A) [facility] Interpretation/R esult: Atypical Squamous Cells of Undetermined Significance (ASC-US)(A) [facility] LMP: 02/20/21 [facility] PATHOLOGIST: SEE COMMENT [facility] Comment: Thomas Atkinson M.D., Board Certified in Anatomic and Clinical Pathology (electronic signature) Consulting Pathologist [facility] [address] [place] [phone] Prev. BX: NONE [facility] Prev. PAP: NONE [facility]IV[facility] SOURCE: None given [facility] Statement Of Adequacy: SEE COMMENT [facility] Comment: Satisfactory for evaluation. Endocervical/transformation zone component absent. 03/04/2021 10:5 1 AM EDT Ju Rice CNM LAB PATHOLOGY ORDERABLES Final Result [facility] [address] * HPV mRNA E6/E7 (03/04/2021 10:51 AM EDT) HPV nRNA E6/E7 Not Detected Not Detected [facility] Comment: Methodology: Hot Cell Technician-Mediated Amplification This assay detects E6/E7 viral messenger RNA (mRNA) from 14 high-risk HPV types (16,18,31,33,35,39,45,51,52,56,58,59,66,68). The analytical performance characteristics of this assay have been determined by [employer]. The modifications have not been cleared or approved by the FDA. This assay has been validated pursuant to the CLIA regulations and is used for clinical purposes. For additional information, please refer to http://education.[employer]/faq/TUW576s1 (This link if provided for information/ educational purposes only.) 03/04/2021 10:5 1 AM EDT us Ju Rice [facility] LAB BLOOD ORDERABLES Milka banks Result [facility] [address] from Last 3 Months or Most Recently Relevant to Health Maintenance Insurance C3 Care Teams Construction Lineman Relationship Specialty Start Date End Date Sasha Bello NP [address] [place] [phone] PCP - General Family Medicine 03/01/24
== END 2025-03-21 16:22 | disposition home or self-care (01) ==
LOC: HO.HBS 15:43
PROVIDERS: PCP Nurse Practitioner; Visit Provider Physician Assistant Surgical
DX: Z71.3 Dietary counseling and surveillance (principal); Z98.890 Other specified postprocedural states
CPT/HCPCS: 99024

== ENCOUNTER → 2025-03-21 15:42 | Outpatient (BNVA) | payer MEDICAID, SELFPAY | PROVIDERS: PCP Nurse Practitioner; Visit Provider Physician Assistant Surgical | DX: Z71.2 Person consulting for explanation of examination or test findings (principal); E66.9 Obesity, unspecified; K90.49 Malabsorption due to intolerance, not elsewhere classified; Z68.26 Body mass index [BMI] 26.0-26.9, adult; Z90.3 Acquired absence of stomach [part of]; Z98.890 Other specified postprocedural states | CPT/HCPCS: 99212 ==

== ENCOUNTER 2025-03-28 15:51 | Outpatient (AMB) | payer MEDICAID, SELFPAY ==
--- NOTE | 2025-03-28 15:57 | A.OFFVIS_ITS ---
VS Expanded 03/28/25 16:03 BP 123/59 L Blood Pressure Location Rt brachial Blood Pressure Position Sitting Pulse 78 Pulse Source Pulse Oximeter Temp 97.2 F Temperature Source Temporal Artery Scan Pulse Oximetry 98 Oxygen Delivery Method Room Air Intake Visit Reasons: OV PO Panniculectomy 02/20/25 Allergies adhesive tape (ADHESIVE TAPE) Allergy (Intermediate, Verified 03/14/25 16:12) BURN/BLISTER Medication List - Last Reconciled 03/28/25 by YURI Garrido ascorbic acid (vitamin C) 25 mg PO DAILY cephalexin 500 mg PO Q12H cetirizine 10 mg PO QAM cholecalciferol (vitamin D3) 125 mcg PO DAILY [cock up splint Wear on both wrists at night ] cyanocobalamin (vitamin B-12) 1,000 mcg IM QMONTH docusate sodium (Colace) 100 mg PO DAILY docusate sodium 100 mg PO Q12H duloxetine 30 mg PO DAILY ferrous sulfate 325 mg PO BID gabapentin 400 mg PO BID 90 days hydroxyzine pamoate 25 mg PO Q8H PRN ketorolac 10 mg PO Q6H PRN methocarbamol 1,500 mg (2 x 750 mg) PO Q8H PRN multivitamin 1 tab PO DAILY ondansetron 4 mg PO Q12H sumatriptan succinate 50 mg PO Q2-4H PRN tramadol 50 mg PO TID 30 days vitamin A palmitate 3,000 mcg PO DAILY Zepbound (tirzepatide (weight loss)) 12.5 mg (0.5 mL) subcut QWEEK NS HPI Comments Details: Pt is 5w s/p panniculectomy with drain placement. No fevers at home. Taking abx. Tolerating meal plan per Dr Cruz Drain was removed last week. [facility] Medical History (Updated 03/07/25 @ 00:00 by Dereck Candelario) Neck muscle spasm Bilateral shoulder pain Neck pain Lateral epicondylitis, right elbow SARS-CoV-2 positive Fibromyalgia Lumbar spondylosis Obesity (BMI 30-39.9) Intestinal malabsorption following gastrectomy Fatigue Sleep apnea GERD (gastroesophageal reflux disease) Arthritis Anemia Surgical History S/P panniculectomy History of surgery of uterus H/O tubal ligation Hx of section S/P laparoscopic sleeve gastrectomy Family History Father Respiratory arrest Sister Anemia Ovarian cancer Social History Household Members: Family Housing: House Are you a primary healthcare advisory services manager to a significant other at home: No Do you presently have visiting nurse or other home services: No 75 years or older and lives alone: No Alcohol intake: current Alcohol intake frequency: holidays/special occasions only Alcohol type: wine Patient Tobacco Use Status: Never used Tobacco e-Cigarette/Vaping Use: Never Used Gender identity: Female Female Reproductive History Menstrual Age of Menarche: 13 Assessment & Plan Assessment & Plan (1) S/P panniculectomy: Code(s): Z98.890 - Other specified postprocedural states Category: Medical Plan Pt may complete abx today. May resume exercise at 8w postop. Continue abdominal binder until 3mo postop. No lifting greater than 10 pounds and no abdominal exercises x 3 months. Can restart Zepbound. RTC in October for annual; pt knows to call office for any questions or concerns or if she requires a sooner appt. Medications: Refilled Zepbound (tirzepatide (weight loss)) 12.5 mg (0.5 mL) subcut QWEEK 2 mL 0RF NS
[2025-03-28 16:03] VITALS: BP 123/59; PULSE 78; TEMP 36.2; O2SAT 98
--- OUTSIDE RECORDS SUMMARY | 2025-03-28 16:30 | XMS_ITS | Encounter Summary ---
Author Organization [employer] Address [address] [facility] [address] [place] [address] Care Team Providers Care Home Visitor Home Base Head Start Name Role Phone Sasha Bello NP Primary Care Provider [phone] Encounter Details Date Type Department Care Team ([facility] st Contact Info) Description 10/31/2024 Telephone [facility] MEDICINE [address] [place], [place] [phone] Sasha Bello NP [address] [place], [place] [phone] Social History Tobacco Use Types Packs/Day Years [...] as of this encounter Care Teams Home Visitor Home Base Head Start Relationship Specialty Start Date End Date Sasha Bello NP [address] [place] [address] PCP - General Family Medicine 03/01/24 documented as of this encounter
--- OUTSIDE RECORDS SUMMARY | 2025-03-28 16:30 | XMS_ITS | Encounter Summary ---
Author Organization [employer] Address [address] [place] [address] [address] [address] Care Team Providers Care Warehouse Delivery Manager Name Role Phone Amelie RamP Primary Care Provider [phone] Sasha Bello NP Primary Care Provider [phone] Reason for Visit * Reason Onset Date Comments Referral 12/21/2022 Encounter Details Date Type Department Care Team (Late st Contact Info) Description 12/21/2022 Telephone [facility] MEDICINE [address] [place], [place] [phone] Amelie Ram FNP [address] [place] [address] Referral Social History Tobacco Use Types Packs/Day [...] from pt requesting a referral Specialty: Community Viticulturist Location: [address] [place] [address] Date&Time:N/A Office Bookkeeper:N/a Specialty:[facility] Location: [address] [place] [address] [place] [address] Date&Time: n/a Office Bookkeeper: N/a documented in this encounter Plan of Treatment Not on file documented as of this encounter Visit Diagnoses Not on filedocumented in this encounter Additional Health Concerns Assessment Noted Time PHQ-9 Depression Total Score: 0 11/26/19 23 10:22 AM EDT documented as of this encounter Care Teams Warehouse Delivery Manager Relationship Specialty Start Date End Date Amelie Ram FNP [address] [place] [address] PCP - General Family Medicine 05/25/22 02/29/24 Sasha Bello NP [address] [place] [address] PCP - General Family Medicine 03/01/24 documented as of this encounter
--- OUTSIDE RECORDS SUMMARY | 2025-03-28 16:30 | XMS_ITS | Clinical Summary ---
Author Organization [address] [place] [address] Address [address] [place] [address] Phone Care Team Providers Care Coremaker Machine Name Role Phone EdmundAngelina NANCY Primary Care Provider [phone] Allergies No known active allergies Medications ascorbic [...] disc herniation with radiculopathy 2023 Morbid obesity ([facility] V24, [facility] V28) 2023 Pain in the coccyx 04/20/2024 Papular eruption 04/20/2024 Seasonal allergic rhinitis 04/20/2024 Severe recurrent major depre ssion with psychotic features ([facility] V24, [facility] V28) 04/20/2024 Encounters Date Type Department Care Team Description 01/11/2025 1:45 PM EDT Office Visit [facility] [place] [id number] [phone] Kev Aponte DPM Plantar fascial fibromatosis (Primary [...] 10:15 AM EDT Office Visit [facility] [address] [phone] Kev Aponte DPM [address] [phone] Health Maintenance Due Date Last Done Comments Breast Cancer Screening 1980 Cervical Cancer Screening: Pap Smear 2001 HPV Vaccines (1 - 3-dose SCDM series) 2007 Social Influencers of Health Screening 04/09/2024 Depression Screening 06/28/2024 COVID-19 Vaccine ( season) 2025 10/23/2021, 09/02/2020, 08/12/2020 Influenza Vaccine (#1) 2025 , 04/25/2019, 03/16/2018, Additional history exists DTaP,Tdap,and Td Vaccines (3 - Td or Tdap) 09/30/2028 09/30/2018, 05/13/2010 Cholesterol Screening (Lipid Panel) 05/05/2029 05/05/2024 RSV Immunization Adult Patients (1 - 1-dose 75+ series) 2055 Hepatitis [...] Months Insurance MEDICAID - [place] Care Teams Coremaker Machine Relationship Specialty Start Date End Date Angelina Shaffer NP [address] [phone] PCP - General 03/03/24
--- OUTSIDE RECORDS SUMMARY | 2025-03-28 16:30 | XMS_ITS | Encounter Summary ---
Author Organization [employer] Address [address] [facility] [address] [place] [address] Care Team Providers Care Sheet Metal Layout Worker Name Role Phone Sasha Bello NP Primary Care Provider [phone] Reason for Visit * Reason Comments Med Refill Encounter Details Date Type Department Care Team ([facility] st Contact Info) Description 09/04/2024 Refill [facility] MEDICINE [address] [place] [address] Sasha Bello NP [address] [place] [address] Acute pain of right knee Social History [...] documented as of this encounter Care Teams Sheet Metal Layout Worker Relationship Specialty Start Date End Date Sasha Bello NP [address] [place] [address] PCP - General Family Medicine 03/01/24 documented as of this encounter
--- OUTSIDE RECORDS SUMMARY | 2025-03-28 16:30 | XMS_ITS | Encounter Summary ---
Author Organization [employer] Address [address] [place] [address] [address] [place] [address] Care Team Providers Care School Commissioner Name Role Phone Amelie RamP Primary Care Provider [phone] Sasha Bello NP Primary Care Provider [phone] Encounter Details Date Type Department Care Team (Late st Contact Info) Description 12/23/2022 Orders Only [facility] MEDICINE [address] [place], [place] [phone] Amelie Ram FNP [address] [place] [address] Encounter for annual routine gynecological examination (Primary [...] as of this encounter Care Teams School Commissioner Relationship Specialty Start Date End Date Amelie Ram FNP [address] [place] [address] PCP - General Family Medicine 05/25/22 02/29/24 Sasha Bello NP [address] [place] [address] PCP - General Family Medicine 03/01/24 documented as of this encounter
--- OUTSIDE RECORDS SUMMARY | 2025-03-28 16:30 | XMS_ITS | Encounter Summary ---
Author Organization [employer] Address [address] [facility] [address] [place] [address] Care Team Providers Care Pinion And Wheel Truer Name Role Phone Sasha Bello NP Primary Care Provider [phone] Encounter Details Date Type Department Care Team (Late st Contact Info) Description 11/02/2024 Orders Only [facility] MEDICINE [address] [place], [place] [phone] Sasha Bello NP [address] [place], [place] [phone] Obesity (BMI 30.0-34.9) Social History Tobacco Use [...] documented as of this encounter Care Teams Pinion And Wheel Truer Relationship Specialty Start Date End Date Sasha Bello NP [address] [place] [address] PCP - General Family Medicine 03/01/24 documented as of this encounter
--- OUTSIDE RECORDS SUMMARY | 2025-03-28 16:30 | XMS_ITS | Clinical Summary ---
Author Organization [employer] Address [address] [facility] [address] [place] [address] Care Team Providers Care Advertising Account Representative Name Role Phone Sasha Bello NP Primary Care Provider [phone] Allergies No known active allergies Medications * This document contains information received from the source organization and may not represent a complete record from that organization. ascorbic acid (Vitamin C) 500 MG tablet Take by mouth. Activ e cyanocobalamin (Vitamin B-12) 1000 MCG/ML injection INJECT 0.1ML (100 MCG) INTRAMUSCULARLY ONCE MONTHLY 10/08/19 23 Active traMADol (Ultram) 50 MG tablet TOME LAKIA SUEA JERRY VECES AL D A 11/09/19 23 Active baclofen (Lioresal) 10 MG tablet Take 1 tablet (10 mg) by mouth 3 times daily. 90 tablet 2 11/26/19 23 Active cetirizine (ZyrTEC) 10 MG tablet Take 1 tablet (10 mg) by mouth in the morning. 90 tablet 2 11/26/19 23 Active gabapentin (Neurontin) 100 MG capsule Take 400 mg by mouth at bedtime. 08/06/19 25 Active Multiple Vitamin (multivitamin) tablet Take 1 tablet by mouth Once per day. OTC Active Ferrous Sulfate (iron) 325 (65 Fe) MG tablet TAKE 1 TABLET BY MOUTH EVERY DAY WITH BREAKFAST 90 tablet 2 11/05/19 25 Active Zepbound 12.5 MG/0.5ML solution auto-injectorInd ications:Obesity (BMI 30.0-34.9) INJECT 0.5 ML (12.5 MG) UNDER THE SKIN EVERY 7 (SEVEN) DAYS. 2 mL 12/26/19 25 Active DULoxetine (Cymbalta) 30 MG capsuleIndicatinoemi ns:Mild major depression (CMS/HCC),Anxiet y Take 1 capsule (30 mg) by mouth in the morning. Do not crush or chew. 30 capsule 1 01/23/20 25 Active docusate sodium (Colace) 100 MG capsuleIndicatio ns:Constipation, unspecified constipation type TAKE 1 CAPSULE (100 MG) BY MOUTH EVERY 12 (TWELVE) HOURS. 180 capsule 2 01/27/20 25 Active lidocaine (Lidoderm) 5 % patchIndications :Cervical pain (neck) APPLY 1 PATCH TOPICALLY ONCE PER DAY. 30 patch 1 02/23/20 25 Active Active Problems Problem Noted Date [...] PM EDT): -receiving B12 injections with Dr. 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 Patent has lost 11 pounds since medication initiated. [...] recommended reduction of 20-30% of maintenance calories; mold checker referral offered. 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 ([facility]/HCC) 09/15/2013 07/12/2024 Encounters Date Type Department Care Team Description 03/13/2025 Orders Only [facility] External Provider, [facility] 02/22/2025 Refill [facility] [address] [place] [address] Sasha Bello NP Cervical pain (neck) 02/20/2025 Orders Only GENERIC EXTERNAL DATA DEPARTMENT Provider, Generic External Data 02/14/2025 Telephone [facility] [address] [place] [address] Sasha Bello NP No Show 02/14/2025 Orders Only GENERIC EXTERNAL DATA DEPARTMENT Provider, Generic External Data 02/13/2025 Telephone [facility] [address] [place] [address] Briana Castro MA CHARTPREP 02/07/2025 Patient Outreach [facility] [address] [place] [address] Sasha Bello NP Pre-visit Planning ([facility] wass already completed) 01/25/2025 Refill [facility] [address] [place] [address] Amelie Ram, [employer]OCK[employer] REPAIRER Constipation, unspecified constipation type 01/22/2025 Refill [facility] [address] [place] [address] Sasha Bello NP Mild major depression (CMS/HCC); Anxiety 01/11/2025 Telephone [facility] [address] [place] [address] Sasha Bello NP Chart Prep 01/02/2025 Telephone [facility] [address], [place] [phone] Sasha Bello NP Prior Authorization from Last 3 Months Immunizations Immunization Administration [...] AM EDT Narrative 03/13/2025 7:36 PM EDT [facility] [address] [place] [address] Mammography Report Signed Patient: Oc Ramirez MR#: [id number] 80 : 1980 Acct:[id number] Age/Sex: 44 / F ADM Date: 03/13/25 Loc: HO.MAMMO Attending Dr: Michael Mahmood MD Ordering Physician: Michael Mahmood MD Results: 1Negat bandar Date of Service: 03/13/25 Follow Up: 1 Year From Orig inal Mammogram Procedure(s): MM tomosynthesis screening BI Accession Number(s): [id number] cc: Michael Mahmood MD; Dee Garcia Reason [...] Gonzalez MD 03/13/2025 07:34 PM EDT RP Dictated By: Yoav Gonzalez MD Signed By: <Electronically signed by Yoav Gonzalez MD in OV> 03/13/251933 DD/ 9 TD/TT: 03/13/25933 Racetrack Steward: Procedure Note Donotuseinterpreter, Image - 03/13/2025 [facility] [address] [place] [address] Mammography Report Signed Patient: Oc RamirezMR#: [id number] 80 : 1980Acct:[id number] Age/Sex: 44 / FADM Date: 03/13/25 Loc: HOTrentMAMMO Attending Dr: Michael Mahmood MD Ordering Physician: Michael Mahmood MDResults: 1Negat bandar Date of Service: 03/13/25Follow Up: 1 Year From Orig ina Mammogram Procedure(s): MM tomosynthesis screening BI Accession Number(s): [id number] cc: Michael Mahmood MD; Dee Garcia Reason [...] in OV> 03/13/25 193 DD/ 9 TD/TT: 03/13/2534 Racetrack Steward: [facility] External Provider IMG BI PROCEDURES Edited Result - Final * Gross and Microscopic Level 3 (02/20/2025 1:34 PM EDT) 02/20/2025 1:34 PM EDT 02/21/2025 8:10 AM EDT [facility] - 02/22/2025 3:10 PM EDT ----- ------- Name: Oc Ramirez Age/Sex: 44/F : 1980 Unit#: [id number] Attend Dr: Harvinder Blank MD Re02/20/25 Status: [facility] Location: [place] Disch: ----- ------- SPEC : [id number] RECD: 02/21/25 STATUS: DENISE COHEN NUM: [id number] RATNA: 02/20/[address]: Harvinder Blank MD [...] fibrous tissue, without evidence of discrete abnormality. [employer] sections are submitted in cassettes A1 -3. (DTL) IHC S/NG Disclaimer NOTE: Unless otherwise stated, all tissue is formalin-fixed and paraffin-embedded. Some or all of the immunohistochemical tests reported herein may have been developed and their performance characteristics determined by [facility]. They have not been cleared or approved by the U.S. Food and Drug Administration (FDA). However, the FDA has determined that such clearance or approval is not necessary. This laboratory is certified under the Clinical Laboratory Improvement Amendments of 1988 (CLIA) as qualified to perform high complexity clinical laboratory testing. Copies To: Dee Garcia [address] [address] CONTINUED ON NEXT PAGE ----- ------- Name: Oc Ramirez Age/Sex: 44/F : 1980 Unit#: [id number] Attend Dr: Harvinder Blank MD Re02/20/25 Status: [facility] Location: [facility] Disch: ----- ------- SPEC : [id number] RECD: 02/21/25 STATUS: DENISE VICKI NUM: [id number] RATNA: 02/20/25-[address]: Harvinder Blank MD ENTERED: 02/21/25 SP TYPE: Surgical OTHR DR: Dee Garcia [facility] ORDERED: Gross Micro L3 Copies To: (Continued) Harvinder Blank MD [facility] [address] [place] [id number] ----- ------- Signed (signature on file) Hans Adhikari MD 02/22/25 1510 ----- ------- END OF REPORT us Generic External Data Provider LAB CYTOLOGY DEEPIKAKajal BARBA Final Result [facility] [address] [place] [phone] [phone] * (ABNORMAL) Vitamin D, 25-Hydroxy, Total, Immunoassay (02/14/2025 9:49 AM EDT) [facility] Vitamin D 25-OH Total 28.1(L) >30 ng/mL [facility] Comment: Health Based Reference Values*< 20 ng/mL [id number] ng/mL Insufficient> 30 ng/mL Sufficient*Elizabeth SCHNEIDER. N [...] ORDERAB LES Final Result Performing Organization Address City/[facility]/ZIP Co de Phone Number [facility] [address] [place] [phone] [phone] * TSH with Reflex to Free T4 (02/14/2025 9:49 AM EDT) Pathologist [facility] TSH reflex Free T4 1.08 0.32 - 4.0 uIU/mL [facility] 02/14/2025 9:49 AM EDT 02/14/2025 9:49 AM EDT Generic External Data Provider LAB BLOOD ORDERAB LES Final Result Performing Organization Address [facility] Co de Phone Number [facility] [address] [place] [address] [phone] * (ABNORMAL) CBC auto differential (02/14/2025 9:49 AM EDT) [facility] White Blood Count 3.9(L) 4.8 - 10.8 X10*3/uL [facility] Red Blood Count 3.72(L) 4.20 - 5.50 X10*6/uL [facility] Hemoglobin 11.2(L) 12.0 - 16.0 g/dl [facility] Hematocrit 33.0(L) 37.0 - 47.0 % [facility] Mean Corpuscular Volume 88.7 80.0 - 98.0 [facility] Mean Corpuscular Hemoglobin 30.1 27.0 - 33.0 pg [facility] Mean Corpuscular HGB Conc 33.9 31.0 - 35.0 g/dl [facility] Red Cell Distribution Width 12.5 11.0 - 16.0 % [facility] Platelet Count 244 160 - 400 X10*3/uL [facility] Mean Platelet Volume 9.2(L) 9.4 - 12.3 fL [facility] Neutrophils Percent Auto 50.9 45 - 73 % [facility] Imm Gran Pct Auto 0.3 0.0 - 0.4 % [facility] Lymphocytes Percent Auto 37.7 20 - 40 % [facility] Monocytes Percent Auto 9.3 2 - 11 % [facility] Eosinophils Percent Auto 1.3 0 - 4 % [facility] Basophils Percent Auto 0.5 0 - 2 % [facility] NRBC Pct Auto 0.0 0.0 - 0.2 /100WBC [facility] Neutrophils Absolute Auto 2.0 2.0 - 8.3 x10*3/uL [facility] Imm Gran Abs Auto 0.01 0.00 - 0.03 X10*3/uL [facility] Lymphocytes Absolute Auto 1.5 1.2 - 4.9 X10*3/uL [facility] Monocytes Absolute Auto 0.4 0.1 - 1.2 X10*3/uL [facility] Eosinophils Absolute Auto 0.1 0.0 - 0.4 X10*3/uL [facility] Basophils Absolute Auto 0.0 0.0 - 0.2 X10*3/uL [facility] NRBC Abs Auto 0.000 0.0 - 0.012 X10*3/uL [facility] 02/14/2025 9:49 AM EDT 02/14/2025 9:49 AM EDT us Generic External Data Provider LAB BLOOD ORDERAB LES Final Result [facility] [address] [place] [phone] * Iron And Total Iron Binding Capacity (02/14/2025 9:49 AM EDT) Iron 49 30 - 160 mcg/dL [facility] Total Iron Binding Capacity 278 228 - 428 mcg/dL [facility] Percent Iron Saturation 18 15 - 50 % [facility] Unsaturated Iron Binding 229 ug/dL [facility] 02/14/2025 9:49 AM EDT 02/14/2025 9:49 AM EDT Generic External Data Provider LAB BLOOD ORDERAB LES Final Result Performing Organization Address [facility] de Phone Number [facility] [address] [place] [phone] * Insulin (02/14/2025 9:49 AM EDT) Insulin 5 2 - 29 uU/mL [facility] Comment:This test was perfor med [...] ORDERAB LES Final Result Performing Organization Address [facility] de Phone Number [facility] [address] [place] [phone] * Zinc (02/14/2025 9:49 AM EDT) Zinc 63 60 - 130 mcg/dL [facility] Comment:This test was develo ped and its analytical performancecharacteristics have been determined by [facility] [place], [place]. It hasnot been cleared or approved by the U.S. Food and DrugAdministration. This assay has been validated pursuantto the CLIA regulations and is used for clinicalpurposes.THIS TEST WAS PERFORMED AT:[facility] [place] [address]CIUAZLUJAMES STALEY MD,PHD 02/14/2025 9:49 AM EDT 02/14/2025 9:49 AM EDT us Generic External Data Provider LAB BLOOD ORDERAB LES Final Result Performing Organization Address [facility]/ZIP Co de Phone Number [facility] [address] [place] [phone] * (ABNORMAL) Vitamin A (02/14/2025 9:49 AM EDT) Vitamin A (Retinol) 24(A) 38 - 98 mcg/dL [facility] Comment:Vitamin supplementat ion within 24 hours prior toblood draw may affect the accuracy of the results.This test was developed and its analytical performancecharacteristics have been determined by [facility] [place], [place]. It hasnot been cleared or approved by the U.S. Food and DrugAdministration. This assay has been validated pursuantto the CLIA regulations and is used for clinicalpurposes.THIS TEST WAS PERFORMED AT:[facility] [place] [address]SWVDPTHJAMES STALEY MD,PHD 02/14/2025 9:49 AM EDT 02/14/2025 9:49 AM EDT us Generic External Data Provider LAB BLOOD ORDERAB LES Final Result Performing Organization Address [facility] Co de Phone Number [facility] [address] [place] [phone] * Partial Thromboplastin Time, Activated (APTT) (02/14/2025 9:49 AM EDT) Partial Thromboplastin Time 26.8 26.7 - 34.1 SEC [facility] 02/14/2025 9:49 AM EDT 02/14/2025 9:49 AM EDT us Generic External Data Provider LAB BLOOD ORDERAB LES Final Result Performing Organization Address City/[facility]/ZIP Co de Phone Number [facility] [address] [place] [phone] * Prothrombin Time-INR (02/14/2025 9:49 AM EDT) [facility] Prothrombin Time 11.8 10.9 - 12.4 SEC [facility] INTERNATIONAL NORM RATIO 1.0 0.9 - 1.1 [facility] Comment:INTERNATIONAL NORMAL IZED RATIO (INR) [...] ORDERAB LES Final Result Performing Organization Address City/[facility]/ZIP Co de Phone Number [facility] [address] [place] [phone] * C-reactive Protein (02/14/2025 9:49 AM EDT) [facility] C Reactive Protein 0.11 < or = 0.50 mg/dL [facility] 02/14/2025 9:49 AM EDT 02/14/2025 9:49 AM EDT Generic External Data Provider LAB BLOOD ORDERAB LES Final Result Performing Organization Address [facility] Co de Phone Number [facility] [address] [place] [phone] * Vitamin B1 (02/14/2025 9:49 AM EDT) [facility] Vitamin B1 8 8 - 30 nmol/L [facility] Comment:Vitamin supplementat ion within 24 hours prior toblood draw may affect the accuracy of the results.This test was developed and its analytical performancecharacteristics have been determined by [facility] [place], [place]. It hasnot been cleared or approved by the U.S. Food and DrugAdministration. This assay has been validated pursuantto the CLIA regulations and is used for clinicalpurposes.THIS TEST WAS PERFORMED AT:[facility] [place] [address]WYLYANOJAMES STALEY MD,PHD 02/14/2025 9:49 AM EDT 02/14/2025 9:49 AM EDT us Generic External Data Provider LAB BLOOD ORDERAB LES Final Result Performing Organization Address [facility] Co de Phone Number [facility] [address] [place] [phone] * Hemoglobin A1c (02/14/2025 9:49 AM EDT) Hemoglobin A1c 5.1 <6.0 % [facility] Comment:Hemoglobin A1C Refer ence Range Adults: 4.8 - 6.0 % Non diabetic: < 6.0 % Goal: < 7.0 %Additional Action Suggested: > 8.0 %Note: Hemoglobin A1c results are invalid for patients with abnormal amounts of HbF. Blood transfusions may impact the HbA1c concentration in the patient sample. Estimated Average Glucose 100 mg/dL [facility] Comment:eAG = Estimated ave rage glucose which is %A1C expressed asaverage glucose, using the formula of the G4M-NviqabrTstdhgy Glucose study (ADAG), Diabetes Care, Vol.31,#8,Jan. 2007 02/14/2025 9:49 AM EDT 02/14/2025 9:49 AM EDT us Generic External Data Provider LAB BLOOD ORDERAB LES Final Result Performing Organization Address [facility] Co de Phone Number [facility] [address] [place] [phone] * Ferritin (02/14/2025 9:49 AM EDT) Pathologist [facility] Ferritin 47 10 - 250 ng/mL [facility] 02/14/2025 9:49 AM EDT 02/14/2025 9:49 AM EDT Generic External Data Provider LAB BLOOD ORDERAB LES Final Result Performing Organization Address [facility]/ZIP Co de Phone Number [facility] [address] [place] [phone] * Vitamin B12 (02/14/2025 9:49 AM EDT) Pathologist [facility] Vitamin B12 808 200 - 900 pg/mL [facility] Comment:NORMAL 200-900 PG/ML INDETERMINATE 160-199 PG/ML DEFICIENT < 160 PG/ML 02/14/2025 9:49 AM EDT 02/14/2025 9:49 AM EDT Generic External Data Provider LAB BLOOD ORDERAB LES Final Result Performing Organization Address City/[facility]/ZIP Co de Phone Number [facility] [address] [place] [phone] * (ABNORMAL) Lipid Panel, Standard (02/14/2025 9:49 AM EDT) Pathologist [facility] Triglycerides 59 <150 mg/dL [facility] Comment:Desirable Triglyceri de: less than 150 mg/dLBorderline High Triglyceride 150-199 mg/dLHigh Triglyceride: 200-499 mg/dLVery High Triglyceride: greater than or equal to 5OO mg/dL Cholesterol 206(H) <200 mg/dL [facility] Comment:Desirable Cholestero l: less than 200 mg/dLBorderline High Cholesterol: 200-239 mg/dLHigh Cholesterol: greater than 239 mg/dL LDL Cholesterol Calculated 129(H) <100 mg/dL [facility] Comment:Desirable LDL: less than 100 mg/dLNear Optimal/Above Optimal LDL: 110- 129 mg/dLBorderline High LDL: 130-159 mg/dLHigh LDL: 160-189 mg/dLVery High LDL: greater than or equal to 190 mg/dL HDL Cholesterol 66 >40 mg/dL [facility] Comment:Desirable HDL: great er than 40 mg/dL Note: This HDL assay may give artificially low results in patients with liver disease. 02/14/2025 9:49 AM EDT 02/14/2025 9:49 AM EDT us Generic External Data Provider LAB BLOOD ORDERAB LES Final Result [facility] [address] [place] [phone] * Comprehensive Metabolic Panel (02/14/2025 9:49 AM EDT) Sodium 141 135 - 145 mmol/L [facility] Potassium 3.7 3.3 - 5.1 mmol/L [facility] Chloride 106 96 - 108 mmol/L [facility] Carbon Dioxide 27 22 - 29 mmol/L [facility] Anion Gap 12 12 - 20 [facility] Urea Nitrogen (BUN) 12 9 - 16 mg/dL [facility] Creatinine, Serum 0.69 0.5 - 1.4 mg/dL [facility] Creatinine Clr Calc Pharmacy 89.1 [facility] Comment:Provided height and weight: 154.94 cm,63.957 kg.eGFR (calculated from the MDRD study equation) and eCrCl(calculated from the Cockcroft-Gault equation) are based ondifferent parameters and may not yield comparable results.If eCrCl result is absurd, please check patient'sheight/weight. Estimated Glomerular Filt Rate >60 [facility] Comment:Chronic Kidney Disea se: Estimated GFR < 60 mL/min/1.16n7Fwmwkp Kidney Disease: Estimated GFR < 15 mL/min/1.73m2 Glucose 83 60 - 115 mg/dL [facility] Calcium 9.0 8.4 - 10.2 mg/dL [facility] Bilirubin, Total 0.5 0.0 - 1.0 mg/dL [facility] Aspartate Amino Transferase 24 5 - 31 U/L [facility] Alanine Aminotransferase 12 0 - 31 U/L [facility] Total Protein 7.4 6.5 - 8.0 g/dL [facility] Albumin Level 4.5 3.5 - 5.0 g/dL [facility] Alkaline Phosphatase 48 39 - 117 U/L [facility] 02/14/2025 9:49 AM EDT 02/14/2025 9:49 AM EDT Generic External Data Provider LAB BLOOD ORDERAB LES Final Result Performing Organization Address [facility] Co de Phone Number [facility] [address] [place] [phone] * Type and screen (02/14/2025 9:44 AM EDT) Blood Type BP [facility] Antibody Screen NEGATIVE [facility] 02/14/2025 9:44 AM EDT 02/14/2025 10:36 AM EDT Narrative [facility] - 02/14/2025 11:33 AM EDT Witnessed by BEN:Call Blood Bank (ext. [phone]) to band patient on admission.Type and Screen in effect until 2300 on 03/01/2025.Spec expiration changed by LORRI on 02/14/25Reason: PAT Generic External Data Provider LAB BLOOD BANK TE ST ORDERABLES Final Result Performing Organization Address City/[facility]/ZIP Co de Phone Number [facility] [address] [place] [phone] * Hepatitis C Antibody with Reflex to HCV, RNA, Quantitative, Real-Time PCR (09/21/2024 12:18 PM EDT) Hepatitis C Antibody Nonreactive Nonreactive [facility] Comment:Antibodies to HCV no t detected; does not exclude early acuteHCV infection. Blood Venous blood specimen / Unknown 09/21/2024 12:18 PM EDT 09/21/2024 12:18 PM EDT [facility] ORDERABLES Final Resu lt Performing Organization Address [facility] Co de Phone Number [facility] [address] [place] [phone] * HIV-1/2 Antigen and Antibodies, Fourth Generation, with Reflexes (09/21/2024 12:18 PM EDT) HIV AB/AG Nonreactive Nonreactive [facility] Comment:HIV-1 p24 Ag and/or HIV-1/HIV-2 Ab not detected.A test result that is nonreactive does not exclude thepossibility of exposure to or infection with HIV-1 and/orHIV-2. Nonreactive results in this assay for individualswith prior exposure to HIV-1 and/or HIV-2 may be due toantigen and antibody levels that are below the limit ofdetection of this assay.The [employer] HIV Ag/Ab Combo assay result andsupplemental assay results should be interpreted inconjunction with the patient's clinical presentation,history and other laboratory results. If the results areinconsistent with clinical evidence, additional testing issuggested to confirm the result. Blood Venous blood specimen / Unknown 09/21/2024 12:18 PM EDT 09/21/2024 12:18 PM EDT [facility] ORDERABLES Final Resu lt Performing Organization Address [facility] Co de Phone Number [facility] [address] [place] [phone] * (ABNORMAL) THINPREP PAP (03/04/2021 10:51 [...] along with historic and current clinical information. Biblical Studies Professor : SEE COMMENT [facility] Comment: KN, CT(ASCP) CT screening location: [address] [address] General Categorization: EPITHELIAL CELL ABNORMALITY(A) [facility] Interpretation/R esult: Atypical Squamous Cells of Undetermined Significance (ASC-US)(A) [facility] LMP: 02/20/21 [facility] PATHOLOGIST: SEE COMMENT [facility] Comment: Thomas Atkinson M.D., Board Certified in Anatomic and Clinical Pathology (electronic signature) Consulting Pathologist [facility] [address] [place] [address] Prev. BX: NONE [facility]IV[facility] Prev. PAP: NONE [facility]IV[facility] SOURCE: None given [facility] Statement Of Adequacy: SEE COMMENT [facility] Comment: Satisfactory for evaluation. Endocervical/transformation zone component absent. 03/04/2021 10:5 1 AM EDT us Ju [facility] PATHOLOGY ORDERABLES Final Result [facility] [address] * HPV mRNA E6/E7 (03/04/2021 10:51 AM EDT) HPV nRNA E6/E7 Not Detected Not Detected [facility] Comment: Methodology: Audio Visual Equipment Rental Clerk-Mediated Amplification This assay detects E6/E7 viral messenger RNA (mRNA) from 14 high-risk HPV types (16,18,31,33,35,39,45,51,52,56,58,59,66,68). The analytical performance characteristics of this assay have been determined by [employer]. The modifications have not been cleared or approved by the FDA. This assay has been validated pursuant to the CLIA regulations and is used for clinical purposes. For additional information, please refer to http://education.Biletu.TyraTech/faq/IBR856p7 (This link if provided for information/ educational purposes only.) 03/04/2021 10:5 1 AM EDT us Ju [facility] BLOOD ORDERABLES Milka darren Result [facility] [address] from Last 3 Months or Most Recently Relevant to Health Maintenance Insurance [employer] C3 Care Teams Advertising Account Representative Relationship Specialty Start Date End Date Sasha Bello NP [address] [place] [address] PCP - General Family Medicine 03/01/24
--- OUTSIDE RECORDS SUMMARY | 2025-03-28 16:30 | XMS_ITS | Clinical Summary ---
Author Organization [facility] Address [address] [place] [address] Care Team Providers Care Coin Machine Mechanic Name Role Phone Unavailable Primary Care Provider [...] Description 02/27/2025 / TELEPHONE [facility] [address] [place] [phone] Reji Mann, PMHNP 01/23/2025 / TELEPHONE [facility] [address] [place] [phone] Reji Mann, PMHNP from Last 3 Months [...] Upcoming Encounters Date Type Department Care Team ([facility] st Contact Info) Description 05/15/2025 12:00 PM EST Behavioral Health Visit [facility] [address] [place] [phone] Reji Mann, PMHNP [address] [place] [address] [place] [phone] Health Maintenance Due Date Last Done Comments Anxiety Screening 1980 HPV Screening 1980 Pap + HPV 1980 Tobacco Screening 1980 Relationship Safety Screening/Counseling 1995 Hypertension Screening (#1) 1998 Cervical Cancer Screening 2001 Pap Smear 2001 Imm-HPV (1 - 3-dose SCDM series) 2007 Breast Cancer Screening (Mammogram) 2020 Alcohol and Drug Screen 06/28/2024 Depression Annual Screen 06/28/2024 Nud-[id number] ( season) 2025 10/23/2021, 09/02/2020, 08/12/2020 Imm-Influenza [...] Vaginal Pap Discontinued Vulvoscopy Discontinued Insurance [facility]
--- OUTSIDE RECORDS SUMMARY | 2025-03-28 16:30 | XMS_ITS | Encounter Summary ---
Author Organization [employer] Address [address] [place] [address] 7 [place] [address] Care Team Providers Care Inspector Rubber Stamp Die Name Role Phone Amelie Ram STAFF HOME THERAPY RN Primary Care Provider [phone] Sasha Bello NP Primary Care Provider [phone] Reason for Visit * Reason Onset Date Comments triage 08/18/2022 Encounter Details Date Type Department Care Team (Late st Contact Info) Description 08/18/2022 Telephone [facility] [address] [place] [address] Amelie Ram FNP [address] [place] [address] triage Social History Tobacco Use Types Packs/Day [...] accepted this outcome Please contact pt at [phone] Lao Speaker documented in this encounter Plan of Treatment Not on file documented as of this encounter Visit Diagnoses Not on filedocumented in this encounter Care Teams Inspector Rubber Stamp Die Relationship Specialty Start Date End Date Amelie Ram FNP [address] [place] [address] PCP - General Family Medicine 05/25/22 02/29/24 Sasha Bello NP 230 [place] [address] PCP - General Family Medicine 03/01/24 documented as of this encounter
--- OUTSIDE RECORDS SUMMARY | 2025-03-28 16:30 | XMS_ITS | Encounter Summary ---
Author Organization [employer] Address [address] [facility] 7 [place] [address] Care Team Providers Care Ethylene Plant Operator Name Role Phone Amelie RamP Primary Care Provider [phone] Sasha Bello NP Primary Care Provider [phone] Reason for Visit * Reason Onset Date Comments 09/0909/10/2023 Encounter Details Date Type Department Care Team ([facility] st Contact Info) Description 09/10/2023 Telephone [facility] [address] [place], [place] [phone] Amelie Ram FNP [address] [place], [place] [phone] 09/09 Social History Tobacco Use Types Packs/Day [...] documented as of this encounter Care Teams Ethylene Plant Operator Relationship Specialty Start Date End Date Amelie Ram FNP 230 [place] [address] PCP - General Family Medicine 05/25/22 02/29/24 Sasha Bello NP [address] [place] [address] PCP - General Family Medicine 03/01/24 documented as of this encounter
--- OUTSIDE RECORDS SUMMARY | 2025-03-28 16:30 | XMS_ITS | Encounter Summary ---
Author Organization [employer] Address [address] [place] [address] 7 [place] [address] Care Team Providers Care Project Scheduler Name Role Phone Amelie Ram Primary Care Provider [phone] Sasha Bello NP Primary Care Provider [phone] Reason for Referral * Imaging (Routine) - Closed Specialty Diagnoses / Procedures Referred By Contac t Referred To Contact Radiology Diagnoses Breast cancer screening by mammogram Procedures BI Mammogram Screening Bilateral Amelie Ram FNP [address] [place] [address] Phone: tel: fax: [address] Phone: tel: fax: Referral ID Status Reason Start Date Expiration Date Visits Re quested Visits Authorized [id number] Closed 01/06/2023 01/06/2024 1 1 Encounter Details Date Type Department Care Team (Late st Contact Info) Description 01/06/2023 Orders Only [facility] [address] [place] [address] Amelie Ram FNP [address] [place] [address] Breast cancer screening by mammogram (Primary Dx) [...] documented as of this encounter Care Teams Project Scheduler Relationship Specialty Start Date End Date Amelie Ram FNP [address] [place] [address] PCP - General Family Medicine 05/25/22 02/29/24 Sasha Bello NP 230 [place] [address] PCP - General Family Medicine 03/01/24 documented as of this encounter
== END 2025-03-28 16:21 | disposition home or self-care (01) ==
LOC: HO.HBS 15:52
PROVIDERS: PCP Nurse Practitioner; Visit Provider Physician Assistant Surgical
DX: Z71.3 Dietary counseling and surveillance (principal); Z98.890 Other specified postprocedural states
CPT/HCPCS: 99024

== ENCOUNTER → 2025-03-28 15:51 | Outpatient (BNVA) | payer MEDICAID, SELFPAY | PROVIDERS: PCP Nurse Practitioner; Visit Provider Physician Assistant Surgical | DX: Z48.817 Encounter for surgical aftercare following surgery on the skin and subcutaneous tissue (principal); Z98.890 Other specified postprocedural states; Z79.2 Long term (current) use of antibiotics | CPT/HCPCS: 99212 ==

== ENCOUNTER 2025-05-10 12:08 | Outpatient (AMB) | payer MEDICAID, SELFPAY ==
--- NOTE | 2025-05-10 12:26 | A.OFFVIS_ITS ---
Vital Signs 05/10/25 12:40 Height 5 ft 1 in Weight 138 lb 3.677 oz BMI 26.1 BP 100/70 Blood Pressure Location Lt brachial Position Sitting Pulse 68 Pulse Source Pulse Oximeter Pulse Oximetry (%) 100 Oxygen Delivery Method Room Air Intake Visit Reasons: follow up Intake Note: Patient presents for Fibromyalgia follow up. 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 - On tramadol 50mg tid prn and baclofen 10mg tid prn - She increased the gabapentin up to 400mg at night with some improvement - Does not feel that the baclofen is helping - Tramadol helps - Baclofen changed to Tizanidine Today - On gabapentin 400mg bid, tramadol 50mg tid - Tizanidine was not helpful - Was started on methocarbamol by another provider but she does not recall if she took it - no change in her sx - No new concerns at this time Rheumatologic History: Fibromyalgia Osteoarthritis Current Rheumatology Medication(s): Tramadol 50 mg t.i.d. p.r.n. Gabapentin 400mg nightly [facility] Medical History (Updated 03/07/25 @ 00:00 by Dereck Candelario) Neck muscle spasm Bilateral shoulder pain Neck pain Lateral epicondylitis, right elbow SARS-CoV-2 positive Fibromyalgia Lumbar spondylosis Obesity (BMI 30-39.9) Intestinal malabsorption following gastrectomy Fatigue Sleep apnea GERD (gastroesophageal reflux disease) Arthritis Anemia Surgical History S/P panniculectomy History of surgery of uterus H/O tubal ligation Hx of section S/P laparoscopic sleeve gastrectomy Family History Father Respiratory arrest Sister Anemia Ovarian cancer Social History Household Members: Family Housing: House Are you a primary manager primary care to a significant other at home: No Do you presently have visiting nurse or other home services: No 75 years or older and lives alone: No Alcohol intake: current Alcohol intake frequency: holidays/special occasions only Alcohol type: wine Patient Tobacco Use Status: Never used Tobacco e-Cigarette/Vaping Use: Never Used Gender identity: Female Female Reproductive History Menstrual Age of Menarche: 13 Review of Systems Narrative Review of Systems Constitutional: Denies fever, chills, weight loss ENT: Denies vision changes, eye pain or eye redness, dental caries, dry mouth GI: Denies nausea, vomiting, diarrhea, abdominal pain, change in BM Pulm: Denies SOB, WINSTON, hemoptysis, wheezing Cards: Denies chest pain, palpitations Skin: Denies Raynaud's, rash, nail changes, photosensitivity, RN INFORMATICS: Denies headaches, weakness, paresthesias, recurrent falls MSK: as per HPI All other systems reviewed and are unremarkable except noted above Physical Exam Exam Exam: Vital signs reviewed Physical Examination CONSTITUITIONAL Patient alert and cooperative. Well appearing and in no apparent painful distress MSK Hands * Right Hand: Able to make a fist. No swelling or tenderness to palpation of the MCPs, PIPs or DIPs. * Left Hand: Able to make a fist. No swelling or tenderness to palpation of the MCPs, PIPs or DIPs. Wrists * Right Wrist: Full ROM to flexion and extension. No swelling or TTP * Left Wrist: Full ROM to flexion and extension. No swelling or TTP Elbows * Right Elbow: Full ROM. No swelling or TTP. No TTP of the medial epicondyle. No TTP of the lateral epicondyle * Left Elbow: Full ROM. No swelling or TTP. No TTP of the medial epicondyle. No TTP of the lateral epicondyle Shoulders * Right shoulder: No swelling noted. No TTP of the AC joint. No TTP of the subacromial bursa. No TTP of the posterior shoulder * Left shoulder: No swelling noted. No TTP of the AC joint. No TTP of the subacromial bursa. No TTP of the posterior shoulder Knees * Right knee: Full ROM. No swelling noted. No TTP of the knee joint line. No TTP of pes anserine bursa * Left knee: Full ROM. No swelling noted. No TTP of the knee joint line. No TTP of pes anserine bursa. Ankles * Right ankle: Good ankle dorsiflexion and plantar flexion. No swelling. No TTP of the ankle joint * Left ankle: Good ankle dorsiflexion and plantar flexion. No swelling. No TTP of the ankle joint Feet * Right foot: Negative squeeze test * Left foot: Negative squeeze test Tender points? * Tenderness to palpation of the bilateral trapezius, supraspinatus, anterior costochondral junctions, bilateral suboccipital muscle insertions SKIN No rashes Results Reviewed Results Reviewed: Laboratory Tests 10/22/23 02/14/25 03/05/25 09:59 09:49 22:21 WBC 7.2 RBC 3.56 L Hgb 10.8 L Hct 31.3 L Plt Count 271 ESR 16 Sodium 139 Potassium 4.1 Chloride 104 Carbon Dioxide 30 H BUN 22 H Creatinine 0.71 AST 24 ALT 16 C-Reactive Protein 0.11 25-OH Vitamin D Total 28.1 L Assessment & Plan Assessment & Plan (1) Fibromyalgia: Code(s): M79.7 - Fibromyalgia Category: Medical Plan: #Fibromyalgia Patient is a 45-year-old female with fibromyalgia. Overall stable Will try adding back methocarbamol Plan - Gabapentin 400mg bid - Methocarbamol 750mg (1-2 tablets at night) - Tramadol 50mg tid prn - RTC 6 months Plan I spent 25 minutes reviewing the record and labs, seeing the patient, discussing the treatment plan and documenting in the medical record ? Medications: Changed From methocarbamol 1,500 mg (2 x 750 mg) PO Q8H PRN 24 tabs 0RF pain, moderate M79.7 - Fibromyalgia To methocarbamol 1,500 mg (2 x 750 mg) PO .nightly 90 tabs 0RF pain, moderate M79.7 - Fibromyalgia Refilled tramadol 50 mg PO TID 90 tabs 5RF 30 days M47.816 - Spondylosis without myelopathy or radiculopathy, lumbar region gabapentin 400 mg PO BID 180 caps 1RF 90 days M79.7 - Fibromyalgia Coding Level of Care Code Est Pt Level 3 (06643) Complex EM visit Add On G2211 Diagnoses Fibromyalgia M79.7
[2025-05-10 12:40] VITALS: BP 100/70; PULSE 68; O2SAT 100; BMI 26.1
--- OUTSIDE RECORDS SUMMARY | 2025-05-10 15:22 | XMS_ITS | Encounter Summary ---
Author Organization [employer] Address [address] [place] [address] [address] [place] [address] Care Team Providers Care Rn Urology Name Role Phone Amelie RamP Primary Care Provider [phone] Sasha Bello NP Primary Care Provider [phone] Encounter Details Date Type Department Care Team (Late st Contact Info) Description 12/23/2022 Orders Only [facility] MED[facility]INE [address] [place], [place] [phone] Amelie Ram FNP [address] [place] [address] Encounter for annual routine gynecological examination (Primary [...] documented as of this encounter Care Teams Rn Urology Relationship Specialty Start Date End Date Amelie Ram FNP [address] [place] [address] PCP - General Family Medicine 05/25/22 02/29/24 Sasha Bello NP [address] [place] [address] PCP - General Family Medicine 03/01/24 documented as of this encounter
--- OUTSIDE RECORDS SUMMARY | 2025-05-10 15:22 | XMS_ITS | Encounter Summary ---
Author Organization [employer] Address [address] [place] [address] 7 [place] [address] Care Team Providers Care Writer Editor Name Role Phone Amelie Ram Primary Care Provider [phone] Sasha Bello NP Primary Care Provider [phone] Reason for Referral * Imaging (Routine) - Closed Specialty Diagnoses / Procedures Referred By Contac t Referred To Contact Radiology Diagnoses Breast cancer screening by mammogram Procedures BI Mammogram Screening Bilateral Amelie Ram FNP [address] [place] [address] Phone: tel: fax: [address] Phone: tel: fax: Referral ID Status Reason Start Date Expiration Date Visits Re quested Visits Authorized [id number] Closed 01/06/2023 01/06/2024 1 1 Encounter Details Date Type Department Care Team (Late st Contact Info) Description 01/06/2023 Orders Only [facility] MEDICINE [address] [place] [address] Amelie Ram FNP [address] [place] [address] Breast cancer screening by mammogram (Primary Dx) [...] documented as of this encounter Care Teams Writer Editor Relationship Specialty Start Date End Date Amelie Ram FNP [address] [place] [address] PCP - General Family Medicine 05/25/22 02/29/24 Sasha Bello NP [address] [place] [address] PCP - General Family Medicine 03/01/24 documented as of this encounter
--- OUTSIDE RECORDS SUMMARY | 2025-05-10 15:22 | XMS_ITS | Clinical Summary ---
Author Organization [address] [place] [address] Address [address] [place] [address] Phone Care Team Providers Care Oceanographic Meteorologist Name Role Phone ShafferAngelina NANCY Primary Care Provider [phone] Allergies No known active allergies Medications ascorbic [...] disc herniation with radiculopathy 2023 Morbid obesity ([facility]24, [facility] V28) 2023 Pain in the coccyx 04/20/2024 Papular eruption 04/20/2024 Seasonal allergic rhinitis 04/20/2024 Severe recurrent major depre ssion with psychotic features ([facility] V24, [facility] V28) 04/20/2024 Social History Tobacco Use Types [...] 10/04/2024 10:31 AM EDT Plan of Treatment Health Maintenance Due Date Last Done Comments Breast Cancer Screening 1980 Colorectal Cancer Screening: Colonoscopy 1980 Cervical Cancer Screening: Pap Smear 2001 [...] topic Insurance MEDICAID - [place] Care Teams Oceanographic Meteorologist Relationship Specialty Start Date End Date Angelina Shaffer NP [address] [place] [phone] PCP - General 03/03/24
--- OUTSIDE RECORDS SUMMARY | 2025-05-10 15:22 | XMS_ITS | Encounter Summary ---
Author Organization [employer] Address [address] [facility] [address] [place] [address] Care Team Providers Care Import/Export Freight Forwarder Name Role Phone Sasha Bello NP Primary Care Provider [phone] Reason for Visit * Reason Comments Med Refill Encounter Details Date Type Department Care Team ([facility] st Contact Info) Description 09/04/2024 Refill [facility]INE [address] [place] [address] Sasha Bello NP 230 [place] [address] Acute pain of right knee Social History [...] documented as of this encounter Care Teams Import/Export Freight Forwarder Relationship Specialty Start Date End Date Sasha Bello NP [address] [place] [address] PCP - General Family Medicine 03/01/24 documented as of this encounter
--- OUTSIDE RECORDS SUMMARY | 2025-05-10 15:22 | XMS_ITS | Encounter Summary ---
Author Organization [employer] Address 75 [facility] 7t [place] [address] Care Team Providers Care Professional Poker Player Name Role Phone Sasha Bello NP Primary Care Provider [phone] Encounter Details Date Type Department Care Team ([facility] st Contact Info) Description 11/02/2024 Orders Only [facility] MEDICINE [address] [place], [place] [phone] Sasha Bello NP [address] [place], [place] [phone] Obesity (BMI 30.0-34.9) Social History Tobacco Use [...] documented as of this encounter Care Teams Professional Poker Player Relationship Specialty Start Date End Date Sasha Bello NP [address] [place] [address] PCP - General Family Medicine 03/01/24 documented as of this encounter
--- OUTSIDE RECORDS SUMMARY | 2025-05-10 15:22 | XMS_ITS | Encounter Summary ---
Author Organization [employer] Address 75 [facility] 7 [place] [address] Care Team Providers Care Associate Professor Of Geography Name Role Phone Amelie RamP Primary Care Provider [phone] Sasha Bello NP Primary Care Provider [phone] Reason for Visit * Reason Onset Date Comments 09/0909/10/2023 Encounter Details Date Type Department Care Team ([facility] st Contact Info) Description 09/10/2023 Telephone [facility] MED[facility]INE [address] [place], [place] [phone] Amelie Ram FNP [address] [place], [place] [phone] 09/09 Social History Tobacco Use Types Packs/Day [...] documented as of this encounter Care Teams Associate Professor Of Geography Relationship Specialty Start Date End Date Amelie Ram FNP [address] [place] [address] PCP - General Family Medicine 05/25/22 02/29/24 Sasha Bello NP [address] [place] [address] PCP - General Family Medicine 03/01/24 documented as of this encounter
--- OUTSIDE RECORDS SUMMARY | 2025-05-10 15:22 | XMS_ITS | Encounter Summary ---
Author Organization [employer] Address [address] [place] [address] 7 [place] [address] Care Team Providers Care Machine Cloth Trimmer Name Role Phone Amelie RamP Primary Care Provider [phone] Sasha Bello NP Primary Care Provider [phone] Reason for Visit * Reason Onset Date Comments Referral 12/21/2022 Encounter Details Date Type Department Care Team (Late st Contact Info) Description 12/21/2022 Telephone [facility] MEDICINE [address] [place], [place] [phone] Amelie Ram FNP [address] [place] [address] Referral Social History Tobacco Use Types Packs/Day [...] from pt requesting a referral Specialty: Community Telephone Order Clerk Location: [address] [place] [address] Date&Time:N/A Milking Worker:N/a Specialty:[facility] Location: [address] [place] [address] [place] [address] Date&Time: n/a Milking Worker: N/a documented in this encounter Plan of Treatment Not on file documented as of this encounter Visit Diagnoses Not on filedocumented in this encounter Additional Health Concerns Assessment Noted Time PHQ-9 Depression Total Score: 0 11/26/19 23 10:22 AM EDT documented as of this encounter Care Teams Machine Cloth Trimmer Relationship Specialty Start Date End Date Amelie Ram FNP [address] [place] [address] PCP - General Family Medicine 05/25/22 02/29/24 Sasha Bello NP [address] [place] [address] PCP - General Family Medicine 03/01/24 documented as of this encounter
--- OUTSIDE RECORDS SUMMARY | 2025-05-10 15:22 | XMS_ITS | Encounter Summary ---
Author Organization [employer] Address 75 [facility] [address] [place] [address] Care Team Providers Care Bioassayist Name Role Phone Sasha Bello NP Primary Care Provider [phone] Encounter Details Date Type Department Care Team ([facility] st Contact Info) Description 10/31/2024 Telephone [facility] MEDICINE [address] [place], [place] [phone] Sasha Bello NP [address] [place], [place] [phone] Social History Tobacco Use Types Packs/Day Years [...] documented as of this encounter Care Teams Bioassayist Relationship Specialty Start Date End Date Sasha Bello NP [address] [place] [address] PCP - General Family Medicine 03/01/24 documented as of this encounter
--- OUTSIDE RECORDS SUMMARY | 2025-05-10 15:23 | XMS_ITS | Encounter Summary ---
Author Organization [employer] Address [address] [place] [address] 7 [place] [address] Care Team Providers Care Frog Farmer Name Role Phone Amelie Ram QUALITY CONTROL CHECKER Primary Care Provider [phone] Sasha Bello NP Primary Care Provider [phone] Reason for Visit * Reason Onset Date Comments triage 08/18/2022 Encounter Details Date Type Department Care Team (Late st Contact Info) Description 08/18/2022 Telephone [facility] MEDICINE [address] [place] [address] Amelie Ram FNP [address] [place] [address] triage Social History Tobacco Use Types Packs/Day [...] accepted this outcome Please contact pt at [phone] Nicaraguan Speaker documented in this encounter Plan of Treatment Not on file documented as of this encounter Visit Diagnoses Not on filedocumented in this encounter Care Teams Frog Farmer Relationship Specialty Start Date End Date Amelie Ram FNP [address] [place] [address] PCP - General Family Medicine 05/25/22 02/29/24 Sasha Bello NP [address] [place] [address] PCP - General Family Medicine 03/01/24 documented as of this encounter
--- OUTSIDE RECORDS SUMMARY | 2025-05-10 15:23 | XMS_ITS | Clinical Summary ---
Author Organization [employer] Address [address] [facility] [address] [place] [address] Care Team Providers Care Classics Teacher Name Role Phone Sasha Bello NP Primary Care Provider [phone] Allergies No known active allergies Medications [...] SKIN EVERY 7 (SEVEN) DAYS. 2 mL 06/30/2 025 Active docusate sodium (Colace) 100 MG capsuleIndicati ons:Constipatio n, unspecified constipation type TAKE 1 CAPSULE (100 MG) BY MOUTH EVERY 12 (TWELVE) HOURS. 180 capsule 2 Active lidocaine (Lidoderm) 5 % patchIndication s:Cervical pain (neck) APPLY 1 PATCH TOPICALLY ONCE PER DAY. 30 patch 1 Active DULoxetine (Cymbalta) [address] capsuleIndicati ons:Mild major depression (CMS/HCC),Anxie ty TAKE 1 CAPSULE (30 MG) BY MOUTH IN THE MORNING. DO NOT CRUSH OR CHEW. 30 capsule 1 025 2024 Active DULoxetine (Cymbalta) [address] capsuleIndicati ons:Mild major depression (CMS/HCC),Anxie ty Take 1 capsule (30 mg) by mouth in the morning. Do not crush or chew. 30 capsule 1 025 2024 Discontinued Active Problems Problem [...] recommended reduction of 20-30% of maintenance calories; admissions manager rn referral offered. 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) 09/15/2013 07/12/2024 Encounters Date Type Department Care Team Description 05/01/2025 Telephone [facility] [address] [place] [address] Sasha Bello NP Referral 2025 Refill [facility] [address] [place] [address] Sasha Bello NP Mild major depression (CMS/HCC); Anxiety 03/13/2025 Orders Only [facility] External Provider, [facility] 02/22/2025 Refill [facility] [address] [place] [address] Sasha Bello NP Cervical pain (neck) 02/20/2025 Orders Only GENERIC EXTERNAL DATA DEPARTMENT Provider, Generic External Data 02/14/2025 Telephone [facility] [address] [place] [address] Sasha Bello NP No Show 02/14/2025 Orders Only GENERIC EXTERNAL DATA DEPARTMENT Provider, Generic External Data 02/13/2025 Telephone [facility] [address] [place] [address] Briana Castro MA CHARTPREP 02/07/2025 Patient Outreach [facility] [address] [place] [address] Sasha Bello NP Pre-visit Planning ([facility] wass already completed) from Last 3 Months Immunizations Immunization Administration [...] your housing situation today? I have joanna sing 01/19/[address] you li [...] Health Maintenance Due Date Last Done Comments CT Colonography 1980 Colonoscopy 1980 Colorectal Cancer Screening 1980 FIT DNA/Cologuard 1980 FIT 1980 FOBT 1980 Sigmoidoscopy 1980 Disability Screening 1980 Family Planning (PISQ) 1995 [...] AM EDT Narrative 03/13/2025 7:36 PM EDT [address] [place] [address] Mammography Report Signed Patient: Oc Ramirez MR#: [id number] [birth year] : 1980 Acct:[id number] Age/Sex: 44 / F ADM Date: 03/13/25 Loc: .MAMMO Attending Dr: Michael Mahmood MD Ordering Physician: Michael Mahmood MD Results: 1Negat bandar Date of Service: 03/13/25 Follow Up: 1 Year From [facility] Mammogram Procedure(s): MM tomosynthesis screening BI Accession Number(s): [id number] cc: Michael Mahmood MD; Dee Garcia Reason [...] MD 03/13/2025 07:34 PM EDT RP Workstation: Omise Dictated By: Yoav Gonzalez MD Signed By: <Electronically signed by Yoav Gonzalez MD in OV> 03/13/251933 DD/ 9 TD/TT: 03/13/25 0934 Whiskey Filterer: Procedure Note Donotuseinterpreter, Image - [facility]/13/[facility] [address] [place] [address] Mammography Report Signed Patient: Oc RamirezMR#: [id number] [birth year] : 1980Acct:[id number] Age/Sex: 44 / FADM Date: 03/13/25 Loc: HO.MAMMO Attending Dr: Michael Mahmood MD Ordering Physician: Michael Mahmood MDResults: 1Negat bandar Date of Service: 03/13/25Follow Up: 1 Year From Orig inal Mammogram Procedure(s): MM tomosynthesis screening BI Accession Number(s): [id number] cc: Michael Mahmood MD; Dee Garcia Reason [...] in OV> 03/13/251933 DD/ 9 TD/TT: 03/13/25933 Whiskey Filterer: [facility] External Provider IMG BI PROCEDURES Edited Result - Final * Gross and Microscopic Level 3 (02/20/2025 1:34 PM EDT) 02/20/2025 1:34 PM EDT 02/21/2025 8:10 AM EDT [facility] - 02/22/2025 3:10 PM EDT ----- ------- Name: Oc Ramirez Age/Sex: 44/F : 1980 [id number] Unit#: [id number] Attend Dr: Harvinder Blank MD Re02/20/25 [address]: [facility] Location: [facility] Disch: ----- ------- SPEC : [id number] RECD: 02/21/25 STATUS: MARIELRachel COHEN NUM: [id number] RATNA: 02/20/25-[address]: Harvinder Blank MD ENTERED: 02/21/25 SP TYPE: Surgical OTHR DR: Dee Garcia CATALOGING ASSISTANT ORDERED: Gross Micro L3 Diagnosis Skin and [...] fibrous tissue, without evidence of discrete abnormality. Hospice Volunteer Coordinator sections are submitted in cassettes A1 -3. (DTL) IHC S/NG Disclaimer NOTE: Unless otherwise stated, all tissue is formalin-fixed and paraffin-embedded. Some or all of the immunohistochemical tests reported herein may have been developed and their performance characteristics determined by [facility]. They have not been cleared or approved by the U.S. Food and Drug Administration (FDA). However, the FDA has determined that such clearance or approval is not necessary. This laboratory is certified under the Clinical Laboratory Improvement Amendments of 1988 (CLIA) as qualified to perform high complexity clinical laboratory testing. Copies To: Dee Garcia [address] [address] CONTINUED ON NEXT PAGE ----- ------- Name: Oc Ramirez Age/Sex: 44/F : 1980 Unit#: [id number] Attend Dr: Harvinder Blank MD Re02/20/25 Status: [facility] Location: [facility] Disch: ----- ------- SPEC : [id number] RECD: 02/21/25 STATUS: DENISE COHEN NUM: [id number] RATNA: 02/20/25-1333 [facility] DR: Harvinder Blank MD ENTERED: 02/21/25 SP TYPE: Surgical OTHR DR: Dee Garcia ORDERED: Gross Micro L3 Copies To: (Continued) Harvinder Blank MD [facility] [address] [place] [address] [phone] ----- ------- Signed (signature on file) Hans Adhikari MD 02/22/25 1510 ----- ------- END OF REPORT us Generic External Data Provider LAB CYTOLOGY HERMILA BARBA Final Result [facility] [address] [place] [phone] * (ABNORMAL) Vitamin D, 25-Hydroxy, Total, Immunoassay (02/14/2025 9:49 AM EDT) [facility] Vitamin D 25-OH Total 28.1(L) >30 ng/mL [facility] Comment: Health Based Reference Values*< 20 ng/mL Qevarbcrs95-93 ng/mL Insufficient> 30 ng/mL Sufficient*Elizabeth SCHNEIDER. N [...] ORDERAB LES Final Result Performing Organization Address [facility]/ZIP Co de Phone Number [facility] [address] [place] [phone] * TSH with Reflex to Free T4 (02/14/2025 9:49 AM EDT) Pathologist [facility] TSH reflex Free T4 1.08 0.32 - 4.0 uIU/mL [facility] 02/14/2025 9:49 AM EDT 02/14/2025 9:49 AM EDT us Generic External Data Provider LAB BLOOD ORDERAB LES Final Result Performing Organization Address [facility] de Phone Number [facility] [address] [place] [phone] * (ABNORMAL) CBC auto differential (02/14/2025 9:49 AM EDT) Pathologist [facility] White Blood Count 3.9(L) 4.8 - 10.8 X10*3/uL [facility] Red Blood Count 3.72(L) 4.20 - 5.50 X10*6/uL [facility] Hemoglobin 11.2(L) 12.0 - 16.0 g/dl [facility] Hematocrit 33.0(L) 37.0 - 47.0 % [facility] Mean Corpuscular Volume 88.7 80.0 - 98.0 fL [facility] Mean Corpuscular Hemoglobin 30.1 27.0 - 33.0 pg [facility] Mean Corpuscular HGB Conc 33.9 31.0 - 35.0 g/dl [facility] Red Cell Distribution Width 12.5 11.0 - 16.0 % [facility] Platelet Count 244 160 - 400 X10*3/uL [facility] Mean Platelet Volume 9.2(L) 9.4 - 12.3 fL [facility] Neutrophils Percent Auto 50.9 45 - 73 % [facility] Imm Gran Pct Auto 0.3 0.0 - 0.4 % [facility] Lymphocytes Percent Auto 37.7 20 - 40 % [facility] Monocytes Percent Auto 9.3 2 - 11 % [facility] Eosinophils Percent Auto 1.3 0 - 4 % [facility] Basophils Percent Auto 0.5 0 - 2 % [facility] NRBC Pct Auto 0.0 0.0 - 0.2 /100WBC [facility] Neutrophils Absolute Auto 2.0 2.0 - 8.3 x10*3/uL [facility] Imm Gran Abs Auto 0.01 0.00 - 0.03 X10*3/uL [facility] Lymphocytes Absolute Auto 1.5 1.2 - 4.9 X10*3/uL [facility] Monocytes Absolute Auto 0.4 0.1 - 1.2 X10*3/uL [facility] Eosinophils Absolute Auto 0.1 0.0 - 0.4 X10*3/uL [facility] Basophils Absolute Auto 0.0 0.0 - 0.2 X10*3/uL [facility] NRBC Abs Auto 0.000 0.0 - 0.012 X10*3/uL [facility] 02/14/2025 9:49 AM EDT 02/14/2025 9:49 AM EDT us Generic External Data Provider LAB BLOOD ORDERAB LES Final Result [facility] [address], [place] [phone] * Iron And Total Iron Binding Capacity (02/14/2025 9:49 AM EDT) Iron 49 30 - 160 mcg/dL [facility] Total Iron Binding Capacity 278 228 - 428 mcg/dL [facility] Percent Iron Saturation 18 15 - 50 % [facility] Unsaturated Iron Binding 229 ug/dL [facility] 02/14/2025 9:49 AM EDT 02/14/2025 9:49 AM EDT Generic External Data Provider LAB BLOOD ORDERAB LES Final Result Performing Organization Address [facility] de Phone Number [facility] [address] [place] [phone] * Insulin (02/14/2025 9:49 AM EDT) Insulin 5 2 - 29 uU/mL [facility] Comment:This test was perfor med [...] ORDERAB LES Final Result Performing Organization Address [facility] de Phone Number [facility] [address] [place] [phone] * Zinc (02/14/2025 9:49 AM EDT) Zinc 63 60 - 130 mcg/dL [facility] Comment:This test was develo ped and its analytical performancecharacteristics have been determined by [employer] [place], [place]. It hasnot been cleared or approved by the U.S. Food and DrugAdministration. This assay has been validated pursuantto the CLIA regulations and is used for clinicalpurposes.THIS TEST WAS PERFORMED AT:[employer]/[facility] [place] [id number] STALEY MD,PHD 02/14/2025 9:49 AM EDT 02/14/2025 9:49 AM EDT us Generic External Data Provider LAB BLOOD ORDERAB LES Final Result Performing Organization Address [facility]/ZIP Co de Phone Number [facility] [address] [place] [phone] * (ABNORMAL) Vitamin A (02/14/2025 9:49 AM EDT) Vitamin A (Retinol) 24(A) 38 - 98 mcg/dL [facility] Comment:Vitamin supplementat ion within 24 hours prior toblood draw may affect the accuracy of the results.This test was developed and its analytical performancecharacteristics have been determined by [employer] [place], [place]. It hasnot been cleared or approved by the U.S. Food and DrugAdministration. This assay has been validated pursuantto the CLIA regulations and is used for clinicalpurposes.THIS TEST WAS PERFORMED AT:[id number] [place] [address]PNJYSGQJAMES STALEY MD,PHD 02/14/2025 9:49 AM EDT 02/14/2025 9:49 AM EDT Generic External Data Provider LAB BLOOD ORDERAB LES Final Result Performing Organization Address City/[facility]/ZIP Co de Phone Number [facility] [address] [place] [phone] * Partial Thromboplastin Time, Activated (APTT) (02/14/2025 9:49 AM EDT) Partial Thromboplastin Time 26.8 26.7 - 34.1 SEC [facility] 02/14/2025 9:49 AM EDT 02/14/2025 9:49 AM EDT Generic External Data Provider LAB BLOOD ORDERAB LES Final Result Performing Organization Address [facility] Co de Phone Number [facility] [address] [place] [phone] * Prothrombin Time-INR (02/14/2025 9:49 AM EDT) [facility] Prothrombin Time 11.8 10.9 - 12.4 SEC [facility] INTERNATIONAL NORM RATIO 1.0 0.9 - 1.1 [facility] Comment:INTERNATIONAL NORMAL IZED RATIO (INR) [...] Organization Address [facility] de Phone Number [facility] [address] [place] [phone] * C-reactive Protein (02/14/2025 9:49 AM EDT) [facility] C Reactive Protein 0.11 < or = 0.50 mg/dL [facility] 02/14/2025 9:49 AM EDT 02/14/2025 9:49 AM EDT Generic External Data Provider LAB BLOOD ORDERAB LES Final Result Performing Organization Address [facility] Co de Phone Number [facility] [address] [place] [phone] * Vitamin B1 (02/14/2025 9:49 AM EDT) [facility] Vitamin B1 8 8 - 30 nmol/L [facility] Comment:Vitamin supplementat ion within 24 hours prior toblood draw may affect the accuracy of the results.This test was developed and its analytical performancecharacteristics have been determined by [employer] [facility] [place], [place]. It hasnot been cleared or approved by the U.S. Food and DrugAdministration. This assay has been validated pursuantto the CLIA regulations and is used for clinicalpurposes.THIS TEST WAS PERFORMED AT:[employer]/[facility] [place] [address]XRKKOJUJAMES STALEY MD,PHD 02/14/2025 9:49 AM EDT 02/14/2025 9:49 AM EDT us Generic External Data Provider LAB BLOOD ORDERAB LES Final Result Performing Organization Address [facility] Co de Phone Number [facility] [address] [place] [phone] * Hemoglobin A1c (02/14/2025 9:49 AM EDT) Pathologist [facility] Hemoglobin A1c 5.1 <6.0 % [facility] Comment:Hemoglobin A1C Refer ence Range Adults: 4.8 - 6.0 % Non diabetic: < 6.0 % Goal: < 7.0 %Additional Action Suggested: > 8.0 %Note: Hemoglobin A1c results are invalid for patients with abnormal amounts of HbF. Blood transfusions may impact the HbA1c concentration in the patient sample. Estimated Average Glucose 100 mg/dL [facility] Comment:eAG = Estimated ave rage glucose which is %A1C expressed asaverage glucose, using the formula of the A4T-ChkdmmxTzrlsth Glucose study (ADAG), Diabetes Care, Vol.31,#8,Jan. 2007 02/14/2025 9:49 AM EDT 02/14/2025 9:49 AM EDT us Generic External Data Provider LAB BLOOD ORDERAB LES Final Result Performing Organization Address [facility]/ZIP Co de Phone Number [facility] [address] [place] [phone] * Ferritin (02/14/2025 9:49 AM EDT) Pathologist [facility] Ferritin 47 10 - 250 ng/mL [facility] 02/14/2025 9:49 AM EDT 02/14/2025 9:49 AM EDT Generic External Data Provider LAB BLOOD ORDERAB LES Final Result Performing Organization Address [facility]/ZIP Co de Phone Number [facility] [address] [place] [phone] * Vitamin B12 (02/14/2025 9:49 AM EDT) Pathologist [facility] Vitamin B12 808 200 - 900 pg/mL [facility] Comment:NORMAL 200-900 PG/ML INDETERMINATE 160-199 PG/ML DEFICIENT < 160 PG/ML 02/14/2025 9:49 AM EDT 02/14/2025 9:49 AM EDT Generic External Data Provider LAB BLOOD ORDERAB LES Final Result Performing Organization Address [facility] de Phone Number [facility] [address] [place] [phone] * (ABNORMAL) Lipid Panel, Standard (02/14/2025 9:49 AM EDT) Pathologist [facility] Triglycerides 59 <150 mg/dL [facility] Comment:Desirable Triglyceri de: less than 150 mg/dLBorderline High Triglyceride 150-199 mg/dLHigh Triglyceride: 200-499 mg/dLVery High Triglyceride: greater than or equal to 5OO mg/dL Cholesterol 206(H) <200 mg/dL [facility] Comment:Desirable Cholestero l: less than 200 mg/dLBorderline High Cholesterol: 200-239 mg/dLHigh Cholesterol: greater than 239 mg/dL LDL Cholesterol Calculated 129(H) <100 mg/dL [facility] Comment:Desirable LDL: less than 100 mg/dLNear Optimal/Above Optimal LDL: 110- 129 mg/dLBorderline High LDL: 130-159 mg/dLHigh LDL: 160-189 mg/dLVery High LDL: greater than or equal to 190 mg/dL HDL Cholesterol 66 >40 mg/dL [facility] Comment:Desirable HDL: great er than 40 mg/dL Note: This HDL assay may give artificially low results in patients with liver disease. 02/14/2025 9:49 AM EDT 02/14/2025 9:49 AM EDT us Generic External Data Provider LAB BLOOD ORDERAB LES Final Result [facility] [address] [place] [phone] * Comprehensive Metabolic Panel (02/14/2025 9:49 AM EDT) Sodium 141 135 - 145 mmol/L [facility] Potassium 3.7 3.3 - 5.1 mmol/L [facility] Chloride 106 96 - 108 mmol/L [facility] Carbon Dioxide 27 22 - 29 mmol/L [facility] Anion Gap 12 12 - 20 [facility] Urea Nitrogen (BUN) 12 9 - 16 mg/dL [facility] Creatinine, Serum 0.69 0.5 - 1.4 mg/dL [facility] Creatinine Clr Calc Pharmacy 89.1 [facility] Comment:Provided height and weight: 154.94 cm,63.957 kg.eGFR (calculated from the MDRD study equation) and eCrCl(calculated from the Cockcroft-Gault equation) are based ondifferent parameters and may not yield comparable results.If eCrCl result is absurd, please check patient'sheight/weight. Estimated Glomerular Filt Rate >60 [facility] Comment:Chronic Kidney Disea se: Estimated GFR < 60 mL/min/1.70x2Riuvxs Kidney Disease: Estimated GFR < 15 mL/min/1.73m2 Glucose 83 60 - 115 mg/dL [facility] Calcium 9.0 8.4 - 10.2 mg/dL [facility] Bilirubin, Total 0.5 0.0 - 1.0 mg/dL [facility] Aspartate Amino Transferase 24 5 - 31 U/L [facility] Alanine Aminotransferase 12 0 - 31 U/L [facility] Total Protein 7.4 6.5 - 8.0 g/dL [facility] Albumin Level 4.5 3.5 - 5.0 g/dL [facility] Alkaline Phosphatase 48 39 - 117 U/L [facility] 02/14/2025 9:49 AM EDT 02/14/2025 9:49 AM EDT Generic External Data Provider LAB BLOOD ORDERAB LES Final Result Performing Organization Address [facility] Co de Phone Number [facility] [address] [place] [phone] * Type and screen (02/14/2025 9:44 AM EDT) Blood Type BP [facility] Antibody Screen NEGATIVE [facility] 02/14/2025 9:44 AM EDT 02/14/2025 10:36 AM EDT Narrative [facility] - 02/14/2025 11:33 AM EDT Witnessed by BEN:Call Blood Bank (ext. [phone]) to band patient on admission.Type and Screen in effect until 2300 on 03/01/2025.Spec expiration changed by LORRI on 02/14/25Reason: PAT us Generic External Data Provider LAB BLOOD BANK TE ST ORDERABLES Final Result Performing Organization Address [facility]/ZIP Co de Phone Number [facility] [address] [place] [address] [phone] * Hepatitis C Antibody with Reflex to HCV, RNA, Quantitative, Real-Time PCR (09/21/2024 12:18 PM EDT) Hepatitis C Antibody Nonreactive Nonreactive [facility] Comment:Antibodies to HCV no t detected; does not exclude early acuteHCV infection. Blood Venous blood specimen / Unknown 09/21/2024 12:18 PM EDT 09/21/2024 12:18 PM EDT [facility] LAB BLOOD ORDERABLES Final Resu lt Performing Organization Address City/[facility]/ZIP Co de Phone Number [facility] [address] [place] [phone] * HIV-1/2 Antigen and Antibodies, Fourth Generation, with Reflexes (09/21/2024 12:18 PM EDT) Pathologist [facility] HIV AB/AG Nonreactive Nonreactive [facility] Comment:HIV-1 p24 Ag and/or HIV-1/HIV-2 Ab not detected.A test result that is nonreactive does not exclude thepossibility of exposure to or infection with HIV-1 and/orHIV-2. Nonreactive results in this assay for individualswith prior exposure to HIV-1 and/or HIV-2 may be due toantigen and antibody levels that are below the limit ofdetection of this assay.The [employer] HIV Ag/Ab Combo assay result andsupplemental assay results should be interpreted inconjunction with the patient's clinical presentation,history and other laboratory results. If the results areinconsistent with clinical evidence, additional testing issuggested to confirm the result. Blood Venous blood specimen / Unknown 09/21/2024 12:18 PM EDT 09/21/2024 12:18 PM EDT [facility] LAB BLOOD ORDERABLES Final Resu lt Performing Organization Address [facility]/ZIP Co de Phone Number [facility] [address] [place] [phone] * (ABNORMAL) THINPREP PAP (03/04/2021 10:51 [...] along with historic and current clinical information. Aviation Ordnance Officer : SEE COMMENT [facility] Comment: KN, CT(ASCP) CT screening location: [place] [address] General Categorization: EPITHELIAL CELL ABNORMALITY(A) [facility] Interpretation/R esult: Atypical Squamous Cells of Undetermined Significance (ASC-US)(A) [facility] LMP: 02/20/21 [facility] PATHOLOGIST: SEE COMMENT [facility] Comment: Thomas Atkinson M.D., Board Certified in Anatomic and Clinical Pathology (electronic signature) Consulting Pathologist [facility] [address] [place] [address] Prev. BX: NONE [facility]IVEN [facility] Prev. PAP: NONE [facility]IVEN [facility] SOURCE: None given [facility] Statement Of Adequacy: SEE COMMENT [facility] Comment: Satisfactory for evaluation. Endocervical/transformation zone component absent. 03/04/2021 10:5 1 AM EDT Ju Rice [facility] PATH[facility] ORDERABLES Final Result [facility] [address] * HPV mRNA E6/E7 (03/04/2021 10:51 AM EDT) HPV nRNA E6/E7 Not Detected Not Detected [facility] Comment: Methodology: Community Service Manager-Mediated Amplification This assay detects E6/E7 viral messenger RNA (mRNA) from 14 high-risk HPV types (16,18,31,33,35,39,45,51,52,56,58,59,66,68). The analytical performance characteristics of this assay have been determined by [employer]. The modifications have not been cleared or approved by the FDA. This assay has been validated pursuant to the CLIA regulations and is used for clinical purposes. For additional information, please refer to http://education.[employer].GENWI/faq/OOD357p2 (This link if provided for information/ educational purposes only.) 03/04/2021 10:5 1 AM EDT us Ju Dwayne CNM LAB BLOOD ORDERABLES Milka banks Result [facility] [address] from Last 3 Months or Most Recently Relevant to Health Maintenance Insurance C3 Care Teams Classics Teacher Relationship Specialty Start Date End Date Sasha Bello NP [address] [place] [id number] PCP - General Family Medicine 03/01/24
--- OUTSIDE RECORDS SUMMARY | 2025-05-10 15:23 | XMS_ITS | Clinical Summary ---
Author Organization [facility] Address [address] [place] [address] Care Team Providers Care Reed Maker Name Role Phone Unavailable Primary Care Provider [...] Description 02/27/2025 / TELEPHONE [facility] [address] [place] [phone] Reji Mann PMHNP from Last 3 Months [...] Upcoming Encounters Date Type Department Care Team ([facility] st Contact Info) Description 05/15/2025 12:00 PM EST Behavioral Health Visit [facility] [address] [place] [phone] Reji Mann PMHNP [address] [place] [address] [place] [phone] Health Maintenance Due Date Last Done Comments Anxiety Screening 1980 HPV Screening (self-collect) 1980 HPV Screening 1980 Pap + HPV 1980 Tobacco Screening 1980 Relationship Safety Screening/Counseling 1995 Hypertension Screening (#1) 1998 Cervical Cancer Screening 2001 Pap Smear 2001 Imm-HPV (1 - 3-dose SCDM series) 2007 Breast Cancer Screening (Mammogram) 2020 Alcohol and Drug Screen 06/28/2024 Depression Annual Screen 06/28/2024 [id number]-[id number]-15 ( season) 2025 10/23/2021, 09/02/2020, 08/12/2020 Imm-Influenza (#1) 2025 07/12/2024, 1 , 03/16/2018, Additional history exists CT Colonography 2025 Colonoscopy 2025 Colorectal Cancer Screening 2025 FIT/gFOBT 2025 Fecal DNA 2025 Flexible Sigmoidoscopy 2025 Diabetes Screening 02/15/2028 02/14/2025, 0 02/14/2025, 02/14/2025, Additional history exists Imm-DTaP/Tdap/Td (3 - Td or Tdap) 09/30/2028 019, 05/13/2010 Lipid Screening 02/14/2030 02/14/2025, 05/05/2024 Imm-Hepatitis B Completed 11/12/2010, 04/28, 03/19/2010 HIV Screening Completed 09/21/2024, 09/21/2024 Hepatitis C Screening Completed 09/21/2024 Cervical Ablation/Cold-Knife Conization Discontinued Cervical Cryotherapy Discontinued Colposcopy Discontinued Excision/Leep Discontinued HPV Genotyping Discontinued Vaginal Pap Discontinued Vulvoscopy Discontinued Insurance [facility]
== END 2025-05-10 13:02 | disposition home or self-care (01) ==
LOC: HO.RHES 12:08
PROVIDERS: PCP Nurse Practitioner; Visit Provider Student in an Organized Health Care Education/Training Program
DX: M79.7 Fibromyalgia (principal)
CPT/HCPCS: 99213

== ENCOUNTER → 2025-05-10 12:08 | Outpatient (BNVA) | payer MEDICAID, SELFPAY | PROVIDERS: PCP Nurse Practitioner; Visit Provider Student in an Organized Health Care Education/Training Program | DX: M79.7 Fibromyalgia (principal) | CPT/HCPCS: 99212 ==